=== PATIENT | female | born 1990 | race Caucasian/White ===

== ENCOUNTER 2023-06-30 10:50 | Day surgery (SDC) | payer OTHER, SELFPAY ==
[2023-06-30] VITALS (11 sets, daily range): BP systolic 104–136; BP diastolic 58–87; PULSE 59–80; RESP 14–16; TEMP 36.2–36.6; O2SAT 84–98; BMI 39.3
[2023-06-30] MEDS: LACTATED RINGERS 1000 ML 1,000 ML 100 ML IV (11:24)
--- NOTE | 2023-06-30 11:35 | W.PM.H&PU ---
History & Physical Update History & Physical Update H&P Reviewed and patient assessed: No changes noted
--- NOTE | 2023-06-30 11:39 | P.GSOP_ITS ---
Operative Note Date of procedure: 06/30/23 Pre-op diagnosis: 1. Changing left facial skin lesion. Post-op diagnosis: Same Type of Procedure: 1. Excision of left facial skin lesion. Indications: 33-year-old female was seen in clinic for evaluation of a left facial skin nevus that was present for several years. However most recently the nevus started to change in shape and color. Patient was concerned that this was becoming cancers, and presented to clinic for evaluation and treatment. On clinical exam and the left face adjacent to the left nasal labial fold there was a flesh- colored pedunculated skin lesion with a few dark brown spots. The lesion was slightly irregular medially and was measuring approximately 1 x 0.8 cm. Given the changing nature of this facial lesion and the location of the face, excision in the operating room was recommended. The procedure was discussed in detail. The risks associated procedure including infection, bleeding, and the need for additional procedures were all discussed with the patient, and she agreed to proceed. Procedure Description: After discussing the risks and benefits of the procedure, the patient signed informed consent.? The operative site was marked and the patient was brought to the operating room and placed on the operating table in supine position.? Care was taken to pad the patient's pressure points.?? The patient was then intubated by anesthesia.?? The operative site was then prepped and draped in the usual sterile fashion.? A time-out was then performed. A crescent shaped surgical incision was made with a scalpel around the left facial skin lesion adjacent to the nasolabial fold. The ellipse of skin containing the changing skin lesion was excised with a scalpel. It was marked with a single stitch superior and double lateral and sent to pathology. The ellipse of skin containing the skin lesion was measuring 2.5 x 1 cm. The changing skin lesion itself was measuring 1.4 x 1 cm and had a 1 mm in diameter adjacent daughter lesion inferior laterally. Both lesions were removed. Hemostasis achieved with cautery. Local anesthetic was injected at the surgical site. The dermis was then reapproximated with interrupted 3-0 Vicryl sutures. The skin was closed with a running 4-0 Monocryl stitch. Steri-Strips were applied over the incision. Pressure was held for hemostasis. All counts were correct at the end of the case. ? The patient was then woken and transported to the recovery area in stable condition. ? Findings: Semi pedunculated left facial skin lesion was excised. Anesthesia: GETA Surgeon: Kenn Montoya MD Estimated blood loss (mL): 2 Additional Specimen Information: 1. Left facial lesion. Condition: stable Disposition: PACU
[2023-06-30] MEDS: CLINDAMYCIN 900 MG/50 ML-D5W 900 MG/50 ML PIGGYBACK 100 MG IVPB (11:57)
[2023-06-30] MEDS: BUPIVACAINE 0.25% 30 ML INJECTION (12:10)
--- NOTE | 2023-06-30 12:11 | W.ANESCHARGE ---
Anesthesia Charges Start Date/Time Anesthesia Start Date: 06/30/23 Anesthesia Start Time: 11:38 Stop Date/Time Anesthesia Stop Date: 06/30/23 Anesthesia Stop Time: 12:44
--- NOTE | 2023-06-30 12:17 | SUR.OPER ---
PATIENT QUESTIONS ANSWERED SATISFACTORILY PREOPERATIVELY. PATIENT BROUGHT TO OR #2 PER CART. Patient positioned supine on OR #2 bed. The perioperative team supported arms bilaterally on arm boards. Final approval of positioning by surgeon.
--- NOTE | 2023-06-30 12:39 | W.ANESCHARGE ---
Anesthesia Charges Start Date/Time Anesthesia Start Date: 06/30/23 Anesthesia Start Time: 11:38 Stop Date/Time Anesthesia Stop Date: 06/30/23 Anesthesia Stop Time: 12:44
--- NOTE | 2023-06-30 13:57 | SUR.PHASEII ---
Patients oxygen level falls when sleeping. Instructed to use CPAP as soon as she gets home. She states that she understands and will use it.
--- NOTE | 2023-06-30 14:00 | SUR.PHASEII ---
I will send home a few 2x2s for dabbing a small amount of drainage as needed.
== END 2023-06-30 14:22 | disposition home or self-care (01) ==
PROVIDERS: Visit Provider Surgery
PROC: (CPT 11443; principal; 2023-06-30 12:00)
DX: D22.39 Melanocytic nevi of other parts of face (principal)
CPT/HCPCS: 11443; 12051; 00300; 88305; J0330; J0665; J0736; J1100; J2405; J2704; J3010; J7120

== ENCOUNTER 2023-08-02 13:52 | Outpatient (CLI) | payer OTHER, SELFPAY | END 2023-08-02 13:53 | disposition home or self-care (01) | LOC: NFLDREF 13:53 | PROVIDERS: Visit Provider Internal Medicine | DX: E03.9 Hypothyroidism, unspecified (principal) | CPT/HCPCS: 84443 ==

== ENCOUNTER 2023-10-12 21:27 | Inpatient (IN) | payer OTHER, SELFPAY ==
[2023-10-12 21:35] VITALS: BP 132/70; PULSE 120; RESP 18; TEMP 37.1; O2SAT 95; BMI 38.1
--- NOTE | 2023-10-12 22:32 | ED.SOB ---
HPI - SOB/Dyspnea General Time Seen by Provider: 22:32 <Angelica Mata MD - Last Filed: 10/14/23 00:51> Date Seen: 10/12/23 <Angelica Mata MD - Last Filed: 10/14/23 00:51> Chief Complaint: Shortness of Breath/Dyspnea <Angelica Mata MD - Last Filed: 10/14/23 00:51> Stated Complaint: left flank pain, fever <Angelica Mata MD - Last Filed: 10/14/23 00:51> Time Seen by Provider: 10/12/23 22:32 <Angelica Mata MD - Last Filed: 10/14/23 00:51> Source: patient, RN notes reviewed and old records reviewed <Angelica Mata MD - Last Filed: 10/14/23 00:51> Mode of arrival: ambulatory <Angelica Mata MD - Last Filed: 10/14/23 00:51> Limitations: no limitations <Angelica Mata MD - Last Filed: 10/14/23 00:51> History of Present Illness HPI Narrative: Patient is a very pleasant 33-year-old female with history of IBS intermittent diarrhea versus constipation, PE not currently on anticoagulation, asthma who comes to the emergency room for evaluation of shortness of breath as well as abdominal pain. Patient notes the onset of shortness of breath that did not get better with a rescue inhaler approximately 48 hours ago on TuesdayOctober 09. There really has been no cough or cold-like symptoms with this but patient has felt feverish although she did not take her temperature. She states that family members do have cold symptoms. However, she denies sore throat runny nose or a cough. She denies lower extremity edema. Patient also notes that she is feeling like she has some chest tightness. She states that last evening she had an episode where she suddenly felt very weak. Mona also notes the onset of left upper quadrant discomfort Tuesday evening the and Tuesday morning the . She states that she has not had a bowel movement in 4 days but this is not unusual for her. Tonight she also has discomfort in her right lower quadrant. She is passing a small amount of gas. She has tried Edis and Gatorade as well as drinking water. She and her family had gone camping yesterday morning and returned today. She felt that maybe her abdominal pain had improved somewhat. 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 <Angelica Mata MD - Last Filed: 10/14/23 00:51> Related Data Home Medications: Home Medications ?Medication ?Instructions ?Recorded ?Confirmed buspirone 10 mg tablet 10 mg PO BID 06/29/23 06/29/23 escitalopram oxalate 10 mg tablet 10 mg PO QDAY 06/29/23 10/13/23 (Lexapro) folic acid 1 mg tablet 1 mg PO QDAY 06/29/23 10/13/23 Previous Rx's ?Medication ?Instructions ?Recorded levothyroxine 175 mcg tablet 175 mcg PO QDAY #90 tabs 08/03/23 <Angelica Mata MD - Last Filed: 10/14/23 00:51> Allergies/Adverse Reactions: Allergies Allergy/AdvReac Type Severity Reaction Status Date / Time cefaclor Allergy Intermediate Hives Verified 10/13/23 01:53 menthol [From Icy Hot] Allergy Mild Rash Verified 10/13/23 01:53 methyl salicylate Allergy Mild Rash Verified 10/13/23 01:53 [From Icy Hot] <Angelica Mata MD - Last Filed: 10/14/23 00:51> Review of Systems Status of ROS: Reports: 10 or more systems reviewed and unremarkable except as noted in History and below <Angelica Mata MD - Last Filed: 10/14/23 00:51> Const: Reports: fever (Subjective) and fatigue; Denies: chills <Angelica Mata MD - Last Filed: 10/14/23 00:51> Eyes: Denies: change in vision <Angelica Mata MD - Last Filed: 10/14/23 00:51> ENMT: Denies: throat pain, neck pain, nasal discharge or nasal congestion <Angelica Mata MD - Last Filed: 10/14/23 00:51> Cardio: Reports: chest pain (Described as a central pressure) and shortness of breath with exertion; Denies: edema, swelling of feet/ankles or leg pain with exertion <Angelica Mata MD - Last Filed: 10/14/23 00:51> Resp: Reports: shortness of breath; Denies: cough, wheezing or stridor <Angelica Mata MD - Last Filed: 10/14/23 00:51> GI: Reports: abdominal pain (Left upper quadrant), nausea and constipation; Denies: vomiting or blood in stool <Angelica Mata MD - Last Filed: 10/14/23 00:51> : Denies: painful urination or urinary frequency <Angelica Mata MD - Last Filed: 10/14/23 00:51> Musculo: Denies: back pain, neck pain, extremity pain or extremity swelling <Angelica Mata MD - Last Filed: 10/14/23 00:51> Integ/Breast: Denies: rash <Angelica Mata MD - Last Filed: 10/14/23 00:51> Neuro: Denies: headache <Angelica Mata MD - Last Filed: 10/14/23 00:51> Endo: Reports: fatigue <Angelica Mata MD - Last Filed: 10/14/23 00:51> Allergy/Immuno: Denies: wheezing <Angelica Mata MD - Last Filed: 10/14/23 00:51> [facility] Medical History: Medical History Hypercoagulable state ?D68.59 - Other primary thrombophilia (ICD-10) <Angelica Mata MD - Last Filed: 10/14/23 00:51> Social History: Social History Narrative: Patient denies smoking, rarely drinks alcohol. She works as a nurse at [employer]. What is your current living situation?: I presently have a place to live Problems where you live: no known problems Problems where you live details: NA In the past 12 months, utilities in danger of being shut off: no In past 12 months, lack of transportation kept you from medical appts, meetings, work, or getting things needed for daily living: no In the past 12 mos, have been you worried that your food would run out before you had money to buy more?: never true In the past 12 mos, the food you bought just didn't last and you didn't have money to buy more?: never true Highest level of school completed/degree received: Associate degree: occupational, technical, vocational program Smoking Status: Former smoker How often do you have a drink containing alcohol: never AUDIT-C Alcohol total score: 0 Non-prescribed substance use: denies use Caffeine: Yes How often does anyone, including family, friends and others, physically hurt you: never How often does anyone, including family, friends and others, insult or talk down to you: never How often does anyone, including family, friends and others, threaten you with harm: never How often does anyone, including family, friends and others, scream or curse at you: never service: No <Angelica Mata MD - Last Filed: 10/14/23 00:51> Exam Narrative: Exam Narrative: Patient is alert and oriented. Nontoxic in appearance. EOM is full face is symmetrical. Heart with tachycardic rate but normal rhythm. Lungs are clear bilaterally but breath sounds are distant in the bases. Abdomen is obese soft with tenderness noted in the right lower quadrant. Lower extremities without edema. Calves are without discomfort and Homans sign is negative. <Angelica Mata MD - Last Filed: 10/14/23 00:51> Const: Vital Signs, click to edit/add: Vital Signs - 24 hr 10/13/23 04:15 10/13/23 04:15 Temperature 98.2 F Pulse Rate [Left P ulse Oximeter] 82 Respiratory Rate 20 20 Blood Pressure [Ri ght Arm] 112/66 Pulse Oximetry 97 97 Oxygen Delivery Me thod Nasal Cannula Nasal Cannula Oxygen Flow Rate 2 2 <Angelica Mata MD - Last Filed: 10/14/23 00:51> Vital Signs, click to edit/add: Vital Signs - 24 hr 10/13/23 04:15 10/13/23 04:15 Temperature 98.2 F Pulse Rate [Left P ulse Oximeter] 82 Respiratory Rate 20 20 Blood Pressure [Ri ght Arm] 112/66 Pulse Oximetry 97 97 Oxygen Delivery Me thod Nasal Cannula Nasal Cannula Oxygen Flow Rate 2 2 <Vivian Hair MD - Last Filed: 10/18/23 01:53> Course Course ED Course: Differential diagnosis includes but is not limited to asthma flare, pneumonia, COVID, acute coronary disease, PE, anxiety, Also includes constipation, colitis, UTI, ureteral colic. IV will be placed and will check CBC, comprehensive panel, CRP, troponin, EKG, urinalysis, chest x-ray and abdominal x-ray flat plate and upright. <Angelica Mata MD - Last Filed: 10/14/23 00:51> Reevaluation(s) Reevaluation #1: O2 sats noted to be 89% at rest. No improvement after DuoNeb. DuoNeb done after she troponin negative. However, D-dimer has come back elevated at greater than 6 and thus we will do PE study chest protocol as well as abdomen and pelvis. <Angelica Mata MD - Last Filed: 10/14/23 00:51> Reevaluation #2: CT of the chest does not show any obvious PE did does show a small left-sided pleural effusion <Angelica Mata MD - Last Filed: 10/14/23 00:51> Time of Reevaluation #3: 03:45 <Vivian Hair MD - Last Filed: 10/18/23 01:53> Reevaluation #3: Dr. Hair- preliminary ultrasound results reviewed, spleen images consistent with infarct, not hemorrhage or laceration. Lower extremities negative for DVT. Will start heparin load per hospitalist request and typical protocol for infusion. Okay to moved to medical unit per Dr. Wall's previous plan <Vivian Hair MD - Last Filed: 10/18/23 01:53> Vital Signs Vital signs: Initial Vital Signs Temperature 98.8 F 10/12/23 21:35 Temperature Source Temporal Artery Scan 10/12/23 21:35 Pulse Rate 120 H 10/12/23 21:35 Pulse Rhythm Regular 10/12/23 21:35 Respiratory Rate 18 10/12/23 21:35 Blood Pressure 132/70 10/12/23 21:35 Blood Pressure Mean 90 10/12/23 21:35 Blood Pressure Position Sitting 10/12/23 21:35 Pulse Oximetry 95 10/12/23 21:35 Oxygen Delivery Method Room Air 10/12/23 21:35 Vital Signs Temperature 98.8 F 10/12/23 21:35 Pulse Rate 120 H 10/12/23 21:35 Respiratory Rate 18 10/12/23 21:35 Blood Pressure 132/70 10/12/23 21:35 Pulse Oximetry 95 10/12/23 21:35 Oxygen Delivery Method Room Air 10/12/23 21:35 Temperature 99.8 F H 10/14/23 03:00 Pulse Rate 102 H 10/14/23 03:00 Respiratory Rate 18 10/14/23 03:00 Blood Pressure 111/59 L 10/14/23 03:00 Pulse Oximetry 97 10/14/23 03:00 Oxygen Delivery Method Nasal Cannula 10/14/23 03:00 Oxygen Flow Rate 4 10/13/23 22:40 <Angelica Mata MD - Last Filed: 10/14/23 00:51> Initial Vital Signs Temperature 98.8 F 10/12/23 21:35 Temperature Source Temporal Artery Scan 10/12/23 21:35 Pulse Rate 120 H 10/12/23 21:35 Pulse Rhythm Regular 10/12/23 21:35 Respiratory Rate 18 10/12/23 21:35 Blood Pressure 132/70 10/12/23 21:35 Blood Pressure Mean 90 10/12/23 21:35 Blood Pressure Position Sitting 10/12/23 21:35 Pulse Oximetry 95 10/12/23 21:35 Oxygen Delivery Method Room Air 10/12/23 21:35 Vital Signs Temperature 98.8 F 10/12/23 21:35 Pulse Rate 120 H 10/12/23 21:35 Respiratory Rate 18 10/12/23 21:35 Blood Pressure 132/70 10/12/23 21:35 Pulse Oximetry 95 10/12/23 21:35 Oxygen Delivery Method Room Air 10/12/23 21:35 Temperature 99.8 F H 10/14/23 03:00 Pulse Rate 102 H 10/14/23 03:00 Respiratory Rate 18 10/14/23 03:00 Blood Pressure 111/59 L 10/14/23 03:00 Pulse Oximetry 97 10/14/23 03:00 Oxygen Delivery Method Nasal Cannula 10/14/23 03:00 Oxygen Flow Rate 4 10/13/23 22:40 <Vivian Hair MD - Last Filed: 10/18/23 01:53> Medications Administered Medications: Discontinued Medications Generic Name Dose Route Start Last Admin Trade Name Freq PRN Reason Stop Dose Admin Acetaminophen 650 mg 10/13/23 05:57 10/14/23 00:19 Acetaminophen 325 Mg Tablet PO 650 mg Q6H PRN Administration Pain Albuterol/Ipratropium 1 neb 10/13/23 00:28 10/12/23 23:30 Iprat-Albut 0.5-2.5 Mg/3 Ml Neb IH 10/13/23 00:29 1 neb ONCE ONE Administration Bisacodyl 10 mg 10/13/23 12:28 10/13/23 13:01 Bisacodyl 10 Mg Supp.Rect AL 10/13/23 12:29 10 mg ONCE ONE Administration Heparin Sodium (Porcine) 4,000 unit 10/13/23 03:44 10/13/23 04:00 Heparin 5,000 Unit/0.5 Ml Inj IVP 10/13/23 03:45 4,000 unit ONCE ONE Administration Hydromorphone HCl 0.5 mg 10/13/23 02:28 10/13/23 02:45 Hydromorphone 0.5 Mg/0.5 Ml Inj IVP 10/13/23 02:29 0.5 mg ONCE ONE Administration Hydromorphone HCl 0.5 - 1 mg 10/13/23 05:57 10/13/23 14:48 Hydromorphone 0.5 Mg/0.5 Ml Inj IVP 1 mg Q1H PRN Administration Pain Sodium Chloride 500 mls @ 500 mls/hr 10/12/23 22:43 10/13/23 00:10 0.9 % Sodium Chloride 500 Ml IV 10/12/23 23:42 Infused .Q1H ONE Infusion Heparin Sodium/Dextrose 25,000 unit in 500 mls @ 0 mls/hr 10/13/23 03:44 10/13/23 11:16 Heparin IV 0 unit/hr .Q0M ANDREW 0 mls/hr Infusion Per Protocol Lactated Ringer's 500 mls @ 500 mls/hr 10/13/23 20:27 10/13/23 22:13 Lactated Ringers 500 Ml IV 10/13/23 21:26 Infused .Q1H ONE Infusion Sodium Chloride 1,000 mls @ 125 mls/hr 10/14/23 00:15 10/14/23 00:20 0.9 % Sodium Chloride 1000 Ml IV 125 mls/hr .Q8H ANDREW Administration Ketorolac Tromethamine 15 mg 10/12/23 22:43 10/12/23 23:11 Ketorolac 15 Mg/Ml Inj IVP 10/12/23 22:44 15 mg ONCE ONE Administration Lorazepam 1 mg 10/13/23 14:54 10/13/23 16:02 Lorazepam 1 Mg Tablet PO 10/13/23 14:55 Not Given ONCE ONE Ondansetron HCl 4 mg 10/13/23 02:28 10/13/23 03:01 Ondansetron 2 Mg/Ml Inj IVP 10/13/23 02:29 4 mg ONCE ONE Administration Sodium Chloride 5 ml 10/13/23 05:57 10/13/23 14:49 Sodium Chloride 0.9 % (Flush) 10 Ml Syringe IVF 5 ml .FLUSH PRN Administration Sodium Chloride 5 ml 10/13/23 09:00 10/13/23 20:54 Sodium Chloride 0.9 % (Flush) 10 Ml Syringe IVF 5 ml BID ANDREW Administration <Angelica Mata MD - Last Filed: 10/14/23 00:51> Discontinued Medications Generic Name Dose Route Start Last Admin Trade Name Freq PRN Reason Stop Dose Admin Acetaminophen 650 mg 10/13/23 05:57 10/14/23 00:19 Acetaminophen 325 Mg Tablet PO 650 mg Q6H PRN Administration Pain Albuterol/Ipratropium 1 neb 10/13/23 00:28 10/12/23 23:30 Iprat-Albut 0.5-2.5 Mg/3 Ml Neb IH 10/13/23 00:29 1 neb ONCE ONE Administration Bisacodyl 10 mg 10/13/23 12:28 10/13/23 13:01 Bisacodyl 10 Mg Supp.Rect AL 10/13/23 12:29 10 mg ONCE ONE Administration Heparin Sodium (Porcine) 4,000 unit 10/13/23 03:44 10/13/23 04:00 Heparin 5,000 Unit/0.5 Ml Inj IVP 10/13/23 03:45 4,000 unit ONCE ONE Administration Hydromorphone HCl 0.5 mg 10/13/23 02:28 10/13/23 02:45 Hydromorphone 0.5 Mg/0.5 Ml Inj IVP 10/13/23 02:29 0.5 mg ONCE ONE Administration Hydromorphone HCl 0.5 - 1 mg 10/13/23 05:57 10/13/23 14:48 Hydromorphone 0.5 Mg/0.5 Ml Inj IVP 1 mg Q1H PRN Administration Pain Sodium Chloride 500 mls @ 500 mls/hr 10/12/23 22:43 10/13/23 00:10 0.9 % Sodium Chloride 500 Ml IV 10/12/23 23:42 Infused .Q1H ONE Infusion Heparin Sodium/Dextrose 25,000 unit in 500 mls @ 0 mls/hr 10/13/23 03:44 10/13/23 11:16 Heparin IV 0 unit/hr .Q0M ANDREW 0 mls/hr Infusion Per Protocol Lactated Ringer's 500 mls @ 500 mls/hr 10/13/23 20:27 10/13/23 22:13 Lactated Ringers 500 Ml IV 10/13/23 21:26 Infused .Q1H ONE Infusion Sodium Chloride 1,000 mls @ 125 mls/hr 10/14/23 00:15 10/14/23 00:20 0.9 % Sodium Chloride 1000 Ml IV 125 mls/hr .Q8H ANDREW Administration Ketorolac Tromethamine 15 mg 10/12/23 22:43 10/12/23 23:11 Ketorolac 15 Mg/Ml Inj IVP 10/12/23 22:44 15 mg ONCE ONE Administration Lorazepam 1 mg 10/13/23 14:54 10/13/23 16:02 Lorazepam 1 Mg Tablet PO 10/13/23 14:55 Not Given ONCE ONE Ondansetron HCl 4 mg 10/13/23 02:28 10/13/23 03:01 Ondansetron 2 Mg/Ml Inj IVP 10/13/23 02:29 4 mg ONCE ONE Administration Sodium Chloride 5 ml 10/13/23 05:57 10/13/23 14:49 Sodium Chloride 0.9 % (Flush) 10 Ml Syringe IVF 5 ml .FLUSH PRN Administration Sodium Chloride 5 ml 10/13/23 09:00 10/13/23 20:54 Sodium Chloride 0.9 % (Flush) 10 Ml Syringe IVF 5 ml BID ANDREW Administration <Vivian Hair MD - Last Filed: 10/18/23 01:53> MDM - SOB/Dyspnea MDM Narrative Medical decision making narrative: 1. Suspected PE-well CT is negative patient has been tachycardic with mild hypoxia. She notes 2 previous episodes of PE 1 associated with control and 1 when she was . She has not been on blood thinners since she had been on Eliquis after her phase in 2020 after brief use for a minor surgery two months ago. She notes that during that time she had been on Lovenox while and had only missed 1 dose after she delivered. She states that she is negative for factor 5. I do ask about factor 2, protein CS abnormalities but she does not know the answer to that. I do not have that information available in her chart at this time. I have spoken with hospitalist on-call at this time and initially we spoke of using eliquis but instead will use heparin after we confirm that the splenic infarcts are indeed that and not hemorrhagic and subsequent to trauma, 2. 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 Radiologist notes possibility that this may represent splenic hemorrhage with laceration. Patient adamantly denies any trauma. States that she does have 4-year-old children that jump on her but cannot recall any injury. No evidence of ecchymosis or any trauma on abdomen. Also denies any spousal abuse. Given the fact that we will be starting a blood thinner I have spoken with ultrasound of who will be doing evaluation to ensure that indeed this is not active bleeding. If this is negative in it does appear to be infarcts will start heparin bolus and drip per hospitalist request. 3. Abdominal pain-patient also has increasing abdominal pain but no evidence of bowel ischemia on CT. Have added lactate to lab values. Patient notes that she cannot take morphine as it makes her feel feel bad. She can take Dilaudid we will give her Dilaudid 0.5 mg and Zofran 4 mg at this time. This most likely repeat represents constipation as she has not had a bowel movement 4 days. She states this is not unusual for her. She has already taken Senokot at home. Have offered her enema or glycerin suppository here but she declines at this time. 4. Disposition-admit for observation under the care of Dr. Alex Fofana hospitalist. At this time, holding on move to the floor while awaiting US. Signed pend US and subsequent disposition to my partner, Dr Hair. <Angelica Mata MD - Last Filed: 10/14/23 00:51> Medical Records Attestation: I reviewed the patient's medical records. <Angelica Mata MD - Last Filed: 10/14/23 00:51> Lab Data Attestation: I reviewed the patient's lab results. <Angelica Mata MD - Last Filed: 10/14/23 00:51> Labs: Lab Results 10/12/23 10/12/23 10/12/23 Range/Units 22:43 22:50 23:05 WBC 5.56 (4.50-11.00) K/uL RBC 4.37 (4.00-5.20) m/uL Hgb 11.6 L (12.0-16.0) gm/dL Hct 38.1 (33.0-51.0) % MCV 87 (80-100) fL MCH 27 (26-34) pg MCHC 30 L (32-36) gm/dL RDW Coeff of Gregg 17.1 H (11.5-15.5) % Plt Count 162 (140-440) K/uL Neut % (Auto) 41.8 L (42.0-72.0) % Lymph % (Auto) 47.3 H (20-44) % [place] % (Auto) 7.6 (0.0-11.0) % Eos % (Auto) 2.2 (0.0-7.0) % Baso % (Auto) 0.4 (0.0-3.0) % Neut # (Auto) 2.30 (1.7-7.0) K/uL Lymph # (Auto) 2.60 (0.90-2.90) K/uL [place] # (Auto) 0.40 (0.00-0.90) K/UL Eos # (Auto) 0.12 (0.00-0.50) K/uL Baso # (Auto) 0.02 (0.00-0.30) K/uL Abs Immat Gran (auto) 0.04 (0.00-0.30) K/uL Imm/Tot Granulo (auto) 0.7 % D-Dimer Quant (PE/DVT) 6.12 H (0.00-0.50) ug/ml Sodium 139 (135-149) mmol/L Potassium 3.4 L (3.6-5.1) mmol/L Chloride 105 (96-114) mmol/L Carbon Dioxide 27 (20-32) mmol/L Anion Gap 7 (7-15) mEq/L BUN 12 (5-24) mg/dL Creatinine 0.7 (0.5-1.5) mg/dL Estimated Creat Clear 92.79 Estimated GFR 116 ml/min Glucose 135 H (60-115) mg/dL Lactate (0.5-1.9) mmol/L Calcium 8.7 (8.4-10.6) mg/dL Total Bilirubin 0.8 (0.1-1.5) mg/dL AST 52 H (12-35) U/L ALT 50 H (4-35) U/L Alkaline Phosphatase 124 (40-150) U/L C-Reactive Protein 4.9 H (0.5-1.0) mg/dL Total Protein 6.8 (6.0-8.3) g/dL Albumin 3.6 (3.3-5.0) g/dL Urine Color Yellow (Yellow) Urine Appearance Slightly Cloudy A (Clear) Urine pH 6.0 (5.0-8.5) Ur Specific [place] 1.015 (1.000-1.030) Urine Protein Negative (Negative) Urine Glucose (UA) Negative (Negative) Urine Ketones Negative (Negative) Urine Blood Negative (Negative) Urine Nitrite Negative (Negative) Urine Bilirubin Negative (Negative) Urine Urobilinogen 2.0 A (0.2-1.0) Ur Leukocyte Esterase 1+ A (Negative) Urine RBC 0-2 (0-2) Urine WBC 2-5 (0-5) Ur Squamous Epith Cells Few (None-Few) Amorphous Sediment Few A (None) Urine Bacteria Moderate A (None) SARS-CoV-2 (PCR) Negative SARS-CoV-2 (Negative) Monoscreen Negative (Negative) Influenza Type A (PCR) Negative PCR FLU A (Negative) Influenza Type B (PCR) Negative PCR FLU B (Negative) RSV (PCR) Negative PCR RSV (Negative) Lab Acknowledgement POC Troponin I 0.00 L (0.01-0.04) ng/ml 10/13/23 10/13/23 Range/Units 02:10 02:30 WBC (4.50-11.00) K/uL RBC (4.00-5.20) m/uL Hgb (12.0-16.0) gm/dL Hct (33.0-51.0) % MCV (80-100) fL MCH (26-34) pg MCHC (32-36) gm/dL RDW Coeff of Gregg (11.5-15.5) % Plt Count (140-440) K/uL Neut % (Auto) (42.0-72.0) % Lymph % (Auto) (20-44) % [place] % (Auto) (0.0-11.0) % Eos % (Auto) (0.0-7.0) % Baso % (Auto) (0.0-3.0) % Neut # (Auto) (1.7-7.0) K/uL Lymph # (Auto) (0.90-2.90) K/uL [place] # (Auto) (0.00-0.90) K/UL Eos # (Auto) (0.00-0.50) K/uL Baso # (Auto) (0.00-0.30) K/uL Abs Immat Gran (auto) (0.00-0.30) K/uL Imm/Tot Granulo (auto) % D-Dimer Quant (PE/DVT) (0.00-0.50) ug/ml Sodium (135-149) mmol/L Potassium (3.6-5.1) mmol/L Chloride (96-114) mmol/L Carbon Dioxide (20-32) mmol/L Anion Gap (7-15) mEq/L BUN (5-24) mg/dL Creatinine (0.5-1.5) mg/dL Estimated Creat Clear Estimated GFR ml/min Glucose (60-115) mg/dL Lactate 0.4 L (0.5-1.9) mmol/L Calcium (8.4-10.6) mg/dL Total Bilirubin (0.1-1.5) mg/dL AST (12-35) U/L ALT (4-35) U/L Alkaline Phosphatase (40-150) U/L C-Reactive Protein (0.5-1.0) mg/dL Total Protein (6.0-8.3) g/dL Albumin (3.3-5.0) g/dL Urine Color (Yellow) Urine Appearance (Clear) Urine pH (5.0-8.5) Ur Specific [place] (1.000-1.030) Urine Protein (Negative) Urine Glucose (UA) (Negative) Urine Ketones (Negative) Urine Blood (Negative) Urine Nitrite (Negative) Urine Bilirubin (Negative) Urine Urobilinogen (0.2-1.0) Ur Leukocyte Esterase (Negative) Urine RBC (0-2) Urine WBC (0-5) Ur Squamous Epith Cells (None-Few) Amorphous Sediment (None) Urine Bacteria (None) SARS-CoV-2 (PCR) (Negative) Monoscreen (Negative) Influenza Type A (PCR) (Negative) Influenza Type B (PCR) (Negative) RSV (PCR) (Negative) Lab Acknowledgement New Spec Needed POC Troponin I (0.01-0.04) ng/ml <Angelica Mata MD - Last Filed: 10/14/23 00:51> Lab Results 10/12/23 10/12/23 10/12/23 Range/Units 22:43 22:50 23:05 WBC 5.56 (4.50-11.00) K/uL RBC 4.37 (4.00-5.20) m/uL Hgb 11.6 L (12.0-16.0) gm/dL Hct 38.1 (33.0-51.0) % MCV 87 (80-100) fL MCH 27 (26-34) pg MCHC 30 L (32-36) gm/dL RDW Coeff of Gregg 17.1 H (11.5-15.5) % Plt Count 162 (140-440) K/uL Neut % (Auto) 41.8 L (42.0-72.0) % Lymph % (Auto) 47.3 H (20-44) % [place] % (Auto) 7.6 (0.0-11.0) % Eos % (Auto) 2.2 (0.0-7.0) % Baso % (Auto) 0.4 (0.0-3.0) % Neut # (Auto) 2.30 (1.7-7.0) K/uL Lymph # (Auto) 2.60 (0.90-2.90) K/uL [place] # (Auto) 0.40 (0.00-0.90) K/UL Eos # (Auto) 0.12 (0.00-0.50) K/uL Baso # (Auto) 0.02 (0.00-0.30) K/uL Abs Immat Gran (auto) 0.04 (0.00-0.30) K/uL Imm/Tot Granulo (auto) 0.7 % D-Dimer Quant (PE/DVT) 6.12 H (0.00-0.50) ug/ml Sodium 139 (135-149) mmol/L Potassium 3.4 L (3.6-5.1) mmol/L Chloride 105 (96-114) mmol/L Carbon Dioxide 27 (20-32) mmol/L Anion Gap 7 (7-15) mEq/L BUN 12 (5-24) mg/dL Creatinine 0.7 (0.5-1.5) mg/dL Estimated Creat Clear 92.79 Estimated GFR 116 ml/min Glucose 135 H (60-115) mg/dL Lactate (0.5-1.9) mmol/L Calcium 8.7 (8.4-10.6) mg/dL Total Bilirubin 0.8 (0.1-1.5) mg/dL AST 52 H (12-35) U/L ALT 50 H (4-35) U/L Alkaline Phosphatase 124 (40-150) U/L C-Reactive Protein 4.9 H (0.5-1.0) mg/dL Total Protein 6.8 (6.0-8.3) g/dL Albumin 3.6 (3.3-5.0) g/dL Urine Color Yellow (Yellow) Urine Appearance Slightly Cloudy A (Clear) Urine pH 6.0 (5.0-8.5) Ur Specific [place] 1.015 (1.000-1.030) Urine Protein Negative (Negative) Urine Glucose (UA) Negative (Negative) Urine Ketones Negative (Negative) Urine Blood Negative (Negative) Urine Nitrite Negative (Negative) Urine Bilirubin Negative (Negative) Urine Urobilinogen 2.0 A (0.2-1.0) Ur Leukocyte Esterase 1+ A (Negative) Urine RBC 0-2 (0-2) Urine WBC 2-5 (0-5) Ur Squamous Epith Cells Few (None-Few) Amorphous Sediment Few A (None) Urine Bacteria Moderate A (None) SARS-CoV-2 (PCR) Negative SARS-CoV-2 (Negative) Monoscreen Negative (Negative) Influenza Type A (PCR) Negative PCR FLU A (Negative) Influenza Type B (PCR) Negative PCR FLU B (Negative) RSV (PCR) Negative PCR RSV (Negative) Lab Acknowledgement POC Troponin I 0.00 L (0.01-0.04) ng/ml 10/13/23 10/13/23 Range/Units 02:10 02:30 WBC (4.50-11.00) K/uL RBC (4.00-5.20) m/uL Hgb (12.0-16.0) gm/dL Hct (33.0-51.0) % MCV (80-100) fL MCH (26-34) pg MCHC (32-36) gm/dL RDW Coeff of Gregg (11.5-15.5) % Plt Count (140-440) K/uL Neut % (Auto) (42.0-72.0) % Lymph % (Auto) (20-44) % [place]wood % (Auto) (0.0-11.0) % Eos % (Auto) (0.0-7.0) % Baso % (Auto) (0.0-3.0) % Neut # (Auto) (1.7-7.0) K/uL Lymph # (Auto) (0.90-2.90) K/uL [place]wood # (Auto) (0.00-0.90) K/UL Eos # (Auto) (0.00-0.50) K/uL Baso # (Auto) (0.00-0.30) K/uL Abs Immat Gran (auto) (0.00-0.30) K/uL Imm/Tot Granulo (auto) % D-Dimer Quant (PE/DVT) (0.00-0.50) ug/ml Sodium (135-149) mmol/L Potassium (3.6-5.1) mmol/L Chloride (96-114) mmol/L Carbon Dioxide (20-32) mmol/L Anion Gap (7-15) mEq/L BUN (5-24) mg/dL Creatinine (0.5-1.5) mg/dL Estimated Creat Clear Estimated GFR ml/min Glucose (60-115) mg/dL Lactate 0.4 L (0.5-1.9) mmol/L Calcium (8.4-10.6) mg/dL Total Bilirubin (0.1-1.5) mg/dL AST (12-35) U/L ALT (4-35) U/L Alkaline Phosphatase (40-150) U/L C-Reactive Protein (0.5-1.0) mg/dL Total Protein (6.0-8.3) g/dL Albumin (3.3-5.0) g/dL Urine Color (Yellow) Urine Appearance (Clear) Urine pH (5.0-8.5) Ur Specific [place] (1.000-1.030) Urine Protein (Negative) Urine Glucose (UA) (Negative) Urine Ketones (Negative) Urine Blood (Negative) Urine Nitrite (Negative) Urine Bilirubin (Negative) Urine Urobilinogen (0.2-1.0) Ur Leukocyte Esterase (Negative) Urine RBC (0-2) Urine WBC (0-5) Ur Squamous Epith Cells (None-Few) Amorphous Sediment (None) Urine Bacteria (None) SARS-CoV-2 (PCR) (Negative) Monoscreen (Negative) Influenza Type A (PCR) (Negative) Influenza Type B (PCR) (Negative) RSV (PCR) (Negative) Lab Acknowledgement New Spec Needed POC Troponin I (0.01-0.04) ng/ml <Vivian Hair MD - Last Filed: 10/18/23 01:53> Imaging Data Chest x-ray: Attestation: I have reviewed the pertinent imaging results. <Angelica Mtaa MD - Last Filed: 10/14/23 00:51> Radiologist's impression: Allowing for low lung volumes, there is bibasilar atelectasis and possible mild cardiomegaly with no other acute cardiopulmonary process detected <Angelica Mata MD - Last Filed: 10/14/23 00:51> Abdominal x-ray: Attestation: I have reviewed the pertinent imaging results. <Angelica Mata MD - Last Filed: 10/14/23 00:51> Radiologist's impression: None Findings/Impression: Left basilar pulmonary atelectasis, no other acute radiographic abnormality appreciated. <Angelica Mata MD - Last Filed: 10/14/23 00:51> CT Chest/Ab/Pelvis: Attestation: I have reviewed the pertinent imaging results. <Angelica Mata MD - Last Filed: 10/14/23 00:51> Radiologist's impression: Pulmonary arteries: Respiratory motion degradation. No large central pulmonary embolism is appreciated. Lungs: Ylwy-hyipjda-rtvw-right basilar atelectasis with no organized consolidation or pneumothorax. Small left effusion. Mediastinum: No acute abnormality appreciated. Lymph nodes: No gross lymphadenopathy. Upper abdomen: Better assessed on dedicated CT of the abdomen and pelvis. Soft tissues: No acute abnormality appreciated. Bones: No acute abnormality appreciated. Impression: 1. Respiratory motion degradation. No large central pulmonary embolism is appreciated. 2. Ksna-rymdluq-oogp-right basilar atelectasis and small effusion. Lower chest: Better assessed on dedicated CT of the chest. Hepatobiliary: No significant parenchymal abnormality is appreciated. Spleen: Moderate to severe splenomegaly. There are peripheral wedge-shaped and linear hypodensities highly concerning for splenic infarct or contusion with splenic laceration. Pancreas: No acute abnormality appreciated. Adrenal glands: No acute abnormality appreciated. Kidneys: No significant parenchymal abnormality appreciated. No visualized calculi. No hydronephrosis. Bowel: No obstruction. No focal perienteric or pericolonic stranding is appreciated. The appendix is visualized and appears unremarkable. Vascular: No acute abnormality appreciated. Lymph nodes: No gross lymphadenopathy. Peritoneum: No free air. No free fluid. : No acute abnormality appreciated. IUD present. Soft tissues: No acute abnormality appreciated. Bones: No acute fracture. No lytic or blastic lesion. Impression: Moderate to severe splenomegaly with findings concerning for either splenic infarcts or splenic contusions and lacerations. Correlation for a recent history of trauma is recommended. No active extravasation, organized hematoma, or evidence of hemoperitoneum. No other acute abnormality appreciated. <Angelica Mata MD - Last Filed: 10/14/23 00:51> ECG Data Attestation: I personally reviewed and interpreted this ECG as follows: <Angelica Mata MD - Last Filed: 10/14/23 00:51> ECG interpretation date: 10/13/23 <Angelica Mata MD - Last Filed: 10/14/23 00:51> Interpretation: EKG by my read shows sinus tachycardia at a rate of 105. Occasional PAC noted. I do not note any acute ST or T-wave changes. Unfortunately no previous EKGs for comparison. <Angelica Mata MD - Last Filed: 10/14/23 00:51> Discharge Plan Discharge Condition: Guarded <Angelica Mata MD - Last Filed: 10/14/23 00:51> Oxygen: Yes <Angelica Mata MD - Last Filed: 10/14/23 00:51> Yes <Vivian Hair MD - Last Filed: 10/18/23 01:53> Oxygen Delivery Method: CPAP <Angelica Mata MD - Last Filed: 10/14/23 00:51> CPAP <Vivian Hair MD - Last Filed: 10/18/23 01:53> Oxygen Flow Rate: 5L bled in <Angelica Mata MD - Last Filed: 10/14/23 00:51> 5L bled in <Vivian Hair MD - Last Filed: 10/18/23 01:53> Urinary Catheter: No <Angelica Mata MD - Last Filed: 10/14/23 00:51> No <Vivian Hair MD - Last Filed: 10/18/23 01:53>
--- NOTE | 2023-10-12 22:43 | CRLHL7_ITS ---
For Patients: As a result of the Century Cures Act, medical imaging exams and procedure reports are released immediately into your electronic medical record. You may view this report before your referring provider. If you have questions, please contact your health care provider. Indication: Left upper quadrant pain Technique: Upright and supine views of the abdomen Comparison: None Findings/Impression: Left basilar pulmonary atelectasis, no other acute radiographic abnormality appreciated. Dictated by Dell Araujo MD @ 10/13/2023 1:02:11 AM (Electronically Signed)
--- NOTE | 2023-10-12 22:43 | CRLHL7_ITS ---
For Patients: As a result of the Cures Act, medical imaging exams and procedure reports are released immediately into your electronic medical record. You may view this report before your referring provider. If you have questions, please contact your health care provider. Indication: Shortness of breath Technique: Two views of the chest Comparison: None Findings/Impression: Allowing for low lung volumes, there is bibasilar atelectasis and possible mild cardiomegaly with no other acute cardiopulmonary process detected. Dictated by Dell Araujo MD @ 10/13/2023 1:02:40 AM (Electronically Signed)
[2023-10-12 23:06] LABS: Basophils Absolute Auto 0.02 K/uL (0.00-0.30); Basophils Percent Auto 0.4 % (0.0-3.0); Eosinophils Absolute Auto 0.12 K/uL (0.00-0.50); Eosinophils Percent Auto 2.2 % (0.0-7.0); Hematocrit 38.1 % (33.0-51.0); Hemoglobin* 11.6 gm/dL (12.0-16.0); Immature Granulocytes Abs Auto 0.04 K/uL (0.00-0.30); Immature Granulocytes Pct Auto 0.7 %; Lymphocytes Percent Auto 47.3 % (20-44); Mean Corpuscular HGB Conc 30 gm/dL (32-36); Mean Corpuscular Hemoglobin 27 pg (26-34); Mean Corpuscular Volume 87 fL (80-100); Monocytes Percent Auto 7.6 % (0.0-11.0); Neutrophils Percent Auto 41.8 % (42.0-72.0); Platelet Count* 162 K/uL (140-440); RDW Coefficient of Variation % 17.1 % (11.5-15.5); Red Blood Count 4.37 m/uL (4.00-5.20); White Blood Count* 5.56 K/uL (4.50-11.00)
[2023-10-12 23:08] LABS: Slide Review Reflex No
[2023-10-12] MEDS: 0.9 % SODIUM CHLORIDE 500 ML 500 ML IV (23:11)
[2023-10-12] MEDS: KETOROLAC 15 MG/ML inj IVP (23:11)
[2023-10-12 23:14] LABS: Appearance Urine Slightly Cloudy (Clear); Bilirubin Urine Negative (Negative); Blood Urine Negative (Negative); Color Urine Yellow (Yellow); Glucose Urine Negative (Negative); Ketones Urine Negative (Negative); Leukocyte Esterase Urine 1+ (Negative); Nitrite Urine Negative (Negative); Protein Urine Negative (Negative); Specific Gravity Urine 1.015 (1.000-1.030)
[2023-10-12 23:21] VITALS: PULSE 105; O2SAT 88
[2023-10-12 23:22] LABS: Albumin* 3.6 g/dL (3.3-5.0); Chloride* 105 mmol/L (96-114); Potassium* 3.4 mmol/L (3.6-5.1); Sodium* 139 mmol/L (135-149)
[2023-10-12 23:24] LABS: Creatinine* 0.7 mg/dL (0.5-1.5); Est. Creatinine Clearance* 92.79; Estimated Glomerular Filt Rate 116 ml/min
[2023-10-12 23:24] LABS: Amorphous Sediment Urine Few; Bacteria Urine Moderate; RBC Urine 0-2 (0-2); Squamous Epithelial Cell Urine Few (None-Few)
[2023-10-12 23:25] LABS: Alanine Aminotransferase* 50 U/L (4-35); Alkaline Phosphatase* 124 U/L (40-150); Anion Gap 7 mEq/L (7-15); Aspartate Amino Transferase* 52 U/L (12-35); Bilirubin Total* 0.8 mg/dL (0.1-1.5); Blood Urea Nitrogen* 12 mg/dL (5-24); Calcium* 8.7 mg/dL (8.4-10.6); Carbon Dioxide* 27 mmol/L (20-32); Glucose* 135 mg/dL (60-115); Total Protein* 6.8 g/dL (6.0-8.3)
[2023-10-12 23:30] VITALS: PULSE 95; O2SAT 93
[2023-10-12] MEDS: IPRAT-ALBUT 0.5-2.5 MG/3 ML NEB 1 NEB IH (23:30)
[2023-10-12 23:31] VITALS: BP 115/64; PULSE 98; O2SAT 94
[2023-10-12 23:39] LABS: D Dimer Quantitative* 6.12 ug/ml (0.00-0.50)
[2023-10-12 23:43] LABS: C Reactive Protein* 4.9 mg/dL (0.5-1.0)
[2023-10-12 23:45] VITALS: PULSE 106; O2SAT 90
--- NOTE | 2023-10-12 23:48 | CRLHL7_ITS ---
For Patients: As a result of the Century Cures Act, medical imaging exams and procedure reports are released immediately into your electronic medical record. You may view this report before your referring provider. If you have questions, please contact your health care provider. Indication: Elevated D-dimer, hypoxia, tachycardia, left-sided chest pain Technique: CTA of the chest following 99 mL Isovue 370 IV contrast. Comparison: Prior day chest radiograph Findings: Pulmonary arteries: Respiratory motion degradation. No large central pulmonary embolism is appreciated. Lungs: Djwl-ogbuyhs-imcz-right basilar atelectasis with no organized consolidation or pneumothorax. Small left effusion. Mediastinum: No acute abnormality appreciated. Lymph nodes: No gross lymphadenopathy. Upper abdomen: Better assessed on dedicated CT of the abdomen and pelvis. Soft tissues: No acute abnormality appreciated. Bones: No acute abnormality appreciated. Impression: 1. Respiratory motion degradation. No large central pulmonary embolism is appreciated. 2. Pylr-nnbzsbf-yhwz-right basilar atelectasis and small effusion. Please note that all CT scans at this facility use dose modulation, iterative reconstruction, and/or weight-based dosing when appropriate to reduce radiation dose to as low as reasonably achievable. Dictated by Dell Araujo MD @ 10/13/2023 1:34:32 AM (Electronically Signed)
--- NOTE | 2023-10-12 23:49 | CRLHL7_ITS ---
For Patients: As a result of the Century Cures Act, medical imaging exams and procedure reports are released immediately into your electronic medical record. You may view this report before your referring provider. If you have questions, please contact your health care provider. Indication: Left upper quadrant abdominal pain Technique: CT through the abdomen and pelvis following 99 mL Isovue 370 IV contrast Comparison: Prior day radiographs Findings: Lower chest: Better assessed on dedicated CT of the chest. Hepatobiliary: No significant parenchymal abnormality is appreciated. Spleen: Moderate to severe splenomegaly. There are peripheral wedge-shaped and linear hypodensities highly concerning for splenic infarct or contusion with splenic laceration. Pancreas: No acute abnormality appreciated. Adrenal glands: No acute abnormality appreciated. Kidneys: No significant parenchymal abnormality appreciated. No visualized calculi. No hydronephrosis. Bowel: No obstruction. No focal perienteric or pericolonic stranding is appreciated. The appendix is visualized and appears unremarkable. Vascular: No acute abnormality appreciated. Lymph nodes: No gross lymphadenopathy. Peritoneum: No free air. No free fluid. : No acute abnormality appreciated. IUD present. Soft tissues: No acute abnormality appreciated. Bones: No acute fracture. No lytic or blastic lesion. Impression: Moderate to severe splenomegaly with findings concerning for either splenic infarcts or splenic contusions and lacerations. Correlation for a recent history of trauma is recommended. No active extravasation, organized hematoma, or evidence of hemoperitoneum. No other acute abnormality appreciated. Please note that all CT scans at this facility use dose modulation, iterative reconstruction, and/or weight-based dosing when appropriate to reduce radiation dose to as low as reasonably achievable. Dictated by Dell Araujo MD @ 10/13/2023 1:37:13 AM (Electronically Signed)
[2023-10-13] VITALS (13 sets, daily range): BP systolic 111–121; BP diastolic 57–71; PULSE 82–135; RESP 18–24; TEMP 36.8–37.3; O2SAT 92–97; BMI 39.4
[2023-10-13 00:01] LABS: PCR FLU A Negative PCR FLU A (Negative); PCR FLU B Negative PCR FLU B (Negative); PCR RSV Negative PCR RSV (Negative); SARS PCR* Negative SARS-CoV-2 (Negative)
[2023-10-13 02:23] LABS: Lab Add On Test New Spec Needed
--- NOTE | 2023-10-13 02:25 | CRLHL7_ITS ---
For Patients: As a result of the Cures Act, medical imaging exams and procedure reports are released immediately into your electronic medical record. You may view this report before your referring provider. If you have questions, please contact your health care provider. Indication: Splenic infarct Technique: Sonographic evaluation of the spleen with color and grayscale imaging Comparison: Same day CT Findings: Splenomegaly. Multiple areas of hypoechoic parenchyma without vascularity compatible with splenic infarcts. Impression: Splenomegaly and splenic infarcts again demonstrated. Dictated by Dell Araujo MD @ 10/13/2023 3:58:57 AM (Electronically Signed)
--- NOTE | 2023-10-13 02:25 | CRLHL7_ITS ---
For Patients: As a result of the Century Cures Act, medical imaging exams and procedure reports are released immediately into your electronic medical record. You may view this report before your referring provider. If you have questions, please contact your health care provider. Indication: Elevated D-dimer, splenic infarct Technique: DVT ultrasound of the bilateral lower extremities. Grayscale and color Doppler imaging utilized. Compression and augmentation as clinically warranted. Comparison: None Findings: All vessels are grossly compressible without evidence of filling defect to suggest DVT. No superficial thrombosis appreciated. Soft tissues are unremarkable. Impression: No significant sonographic abnormality appreciated. Dictated by Dell Araujo MD @ 10/13/2023 4:00:28 AM (Electronically Signed)
[2023-10-13 02:28] LABS: Mono Screen* Negative (Negative)
[2023-10-13 02:37] LABS: Lactate* 0.4 mmol/L (0.5-1.9)
[2023-10-13] MEDS: HYDROmorphone 0.5 mg/0.5 ml inj IVP ×2 (02:45→14:48)
[2023-10-13] MEDS: ONDANSETRON 2 MG/ML inj 4 MG IVP (03:01)
[2023-10-13] MEDS: HEPARIN 5,000 UNIT/0.5 ML INJ 4000 UNIT IVP (04:00)
[2023-10-13] MEDS: HEPARIN 25,000 UNIT/500 ML BAG 20 UNIT IV (04:00)
[2023-10-13 04:18] LABS: Partial Thromboplastin Time* 34 Seconds (23-33)
--- NOTE | 2023-10-13 05:24 | W.PM.THH&P_ITS ---
Telehealth- H&P: HPI History of Present Illness Time Seen by Provider: 04:55 Date Seen: 10/13/23 Chief complaint: left flank pain, fever Narrative: Mona David is seen as an Interactive Telehealth visit. Mona Is a 33-year-old 1 para 1 female with history of prior pulmonary emboli x 2 (1 associated with and 1 associated with control pills and with negative hypercoagulable workup) not on anticoagulation, history of excessive capacity and polycystic ovarian disease, well-controlled asthma and well- controlled depression, hypothyroidism who presented to the ER last night complaining of several days of left upper quadrant pain and some shortness of breath. She was at her baseline until about 4 5 days ago when she started noticing discomfort in her left upper quadrant of her abdomen. It would come and go and vary in severity. Seem to have some positional component where certain positions it was more uncomfortable when laying on side for example. The last few days she has noticed that her little bit more short of breath as well. She had some subjective fevers. She was found in the emergency room by CAT scan to have splenomegaly with splenic infarcts. No evidence of pulmonary emboli but small amount of pleural effusions. Being admitted for further evaluation. She has no known history of heart murmur. There is no family history of hypercoagulable state. No cold symptoms. No history of arthritis. She does have some chronic ophthalmologic styes. She has had no unexplained weight loss. Appetites been good. She is amenorrheic for the last 2 years. No new rashes.Mona denies any abdominal trauma other than mild mild roughhousing with her children. Review of Systems Status of ROS: Reports: 10 or more systems reviewed and unremarkable except as noted in History and below [facility] Medical History Hypercoagulable state ?D68.59 - Other primary thrombophilia (ICD-10) Social History Narrative: Patient denies smoking, rarely drinks alcohol. She works as a nurse at [employer]. What is your current living situation?: I presently have a place to live Problems where you live: no known problems Problems where you live details: NA In the past 12 months, utilities in danger of being shut off: no In past 12 months, lack of transportation kept you from medical appts, meetings, work, or getting things needed for daily living: no In the past 12 mos, have been you worried that your food would run out before you had money to buy more?: never true In the past 12 mos, the food you bought just didn't last and you didn't have money to buy more?: never true Highest level of school completed/degree received: Associate degree: occupational, technical, vocational program Smoking Status: Former smoker How often do you have a drink containing alcohol: never AUDIT-C Alcohol total score: 0 Non-prescribed substance use: denies use Caffeine: Yes How often does anyone, including family, friends and others, physically hurt you : never How often does anyone, including family, friends and others, insult or talk down to you: never How often does anyone, including family, friends and others, threaten you with harm: never How often does anyone, including family, friends and others, scream or curse at you: never service: No Meds Home Medications and Allergies Home Medications ?Medication ?Instructions ?Recorded ?Confirmed ?Type buspirone 10 mg tablet 10 mg PO BID 06/29/23 06/29/23 History escitalopram oxalate 10 mg tablet 10 mg PO QDAY 06/29/23 06/29/23 History (Lexapro) folic acid 1 mg tablet 1 mg PO QDAY 06/29/23 06/29/23 History Allergies Allergy/AdvReac Type Severity Reaction Status Date / Time cefaclor Allergy Intermediate Hives Verified 10/13/23 01:53 menthol [From [employer]] Allergy Mild Rash Verified 10/13/23 01:53 methyl salicylate Allergy Mild Rash Verified 10/13/23 01:53 [From [employer]] Exam Narrative Exam Narrative: Physical Exam GENERAL: ?vital signs reviewed, well developed and nourished, in no distress HEENT: pupils are equal round and reactive to light, extraocular movements are grossly within normal limits and oral mucosa is moist.. She is awake alert o riented. Head is atraumatic. She has erythema of the eyelids bilaterally. Pupils are equal reactive to light. Smile symmetric. Oropharynx is moist no erythema noted NECK: Supple without lymphadenopathy or thyromegaly according to nursing staff examination observation HEART: Regular rate and rhythm without any rubs, murmurs, or gallops. LUNGS: Clear to auscultation bilaterally with good air movement throughout ABDOMEN: Observation from nurse assisted exam, abdomen appears soft, nontender, and nondistended with Positive bowel sounds noted.Abdomen is corpulent, bowel sounds normal, abdomen is soft. Positive left upper quadrant tenderness and mild tenderness in bilaterally in the suprapubic area. EXTREMITIES: Strength and sensation is observed to be grossly within normal limits in the upper and lower extremities.? No focal strength deficit is observed. SKIN:? Observed warm and dry with color normal. She has adipose prominence posteriorly in the upper thorax with some hyperpigmentation. No rashes seen good distal perfusion Const Vital Signs, click to edit/add: Vital Signs - 24 hr 10/12/23 21:35 10/12/23 23:21 10/12/23 23:30 Temperature 98.8 F Pulse Rate 105 H 95 Pulse Rate [Left Pulse Oximeter] 120 H Respiratory Rate 18 Blood Pressure Blood Pressure [Right Arm] Blood Pressure [Right Upper Arm] 132/70 Pulse Oximetry 95 88 93 Oxygen Delivery Method Room Air Room Air Nasal Cannula Oxygen Flow Rate 2 10/12/23 23:31 10/12/23 23:45 10/13/23 00:00 Temperature Pulse Rate 98 106 H 109 H Pulse Rate [Left Pulse Oximeter] Respiratory Rate Blood Pressure 115/64 Blood Pressure [Right Arm] Blood Pressure [Right Upper Arm] Pulse Oximetry 94 90 94 Oxygen Delivery Method Nasal Cannula Oxygen Flow Rate 2 10/13/23 00:02 10/13/23 00:02 10/13/23 00:02 Temperature Pulse Rate 108 H 108 H 108 H Pulse Rate [Left Pulse Oximeter] Respiratory Rate Blood Pressure 121/65 121/65 121/65 Blood Pressure [Right Arm] Blood Pressure [Right Upper Arm] Pulse Oximetry 93 93 93 Oxygen Delivery Method Oxygen Flow Rate 10/13/23 00:15 10/13/23 00:30 10/13/23 00:31 Temperature Pulse Rate 106 H 101 H 101 H Pulse Rate [Left Pulse Oximeter] Respiratory Rate Blood Pressure 117/68 Blood Pressure [Right Arm] Blood Pressure [Right Upper Arm] Pulse Oximetry 93 93 93 Oxygen Delivery Method Oxygen Flow Rate 10/13/23 04:15 Temperature 98.2 F Pulse Rate Pulse Rate [Left Pulse Oximeter] 82 Respiratory Rate 20 Blood Pressure Blood Pressure [Right Arm] 112/66 Blood Pressure [Right Upper Arm] Pulse Oximetry 97 Oxygen Delivery Method Nasal Cannula Oxygen Flow Rate 2 Hospitalist - H&P: Result Labs Labs: Short CBC 10/12/23 Range/Units 22:50 WBC 5.56 (4.50-11.00) K/uL Hgb 11.6 L (12.0-16.0) gm/dL Hct 38.1 (33.0-51.0) % Plt Count 162 (140-440) K/uL BMP Laboratory Results - last 24 hr 10/12/23 10/12/23 10/12/23 22:43 22:50 23:05 WBC 5.56 RBC 4.37 Hgb 11.6 L Hct 38.1 MCV 87 MCH 27 MCHC 30 L RDW Coeff of [place]gg 17.1 H Plt Count 162 Neut % (Auto) 41.8 L Lymph % (Auto) 47.3 H [place] % (Auto) 7.6 Eos % (Auto) 2.2 Baso % (Auto) 0.4 Neut # (Auto) 2.30 Lymph # (Auto) 2.60 [place] # (Auto) 0.40 Eos # (Auto) 0.12 Baso # (Auto) 0.02 Abs Immat Gran (auto) 0.04 Imm/Tot Granulo (auto) 0.7 APTT D-Dimer Quant (PE/DVT) 6.12 H Sodium 139 Potassium 3.4 L Chloride 105 Carbon Dioxide 27 Anion Gap 7 BUN 12 Creatinine 0.7 Estimated Creat Clear 92.79 Estimated GFR 116 Glucose 135 H Lactate Calcium 8.7 Total Bilirubin 0.8 AST 52 H ALT 50 H Alkaline Phosphatase 124 C-Reactive Protein 4.9 H Total Protein 6.8 Albumin 3.6 Urine Color Yellow Urine Appearance Slightly Cloudy A Urine pH 6.0 Ur Specific [place] 1.015 Urine Protein Negative Urine Glucose (UA) Negative Urine Ketones Negative Urine Blood Negative Urine Nitrite Negative Urine Bilirubin Negative Urine Urobilinogen 2.0 A Ur Leukocyte Esterase 1+ A Urine RBC 0-2 Urine WBC 2-5 Ur Squamous Epith Cells Few Amorphous Sediment Few A Urine Bacteria Moderate A SARS-CoV-2 (PCR) Negative SARS-CoV-2 Monoscreen Negative Influenza Type A (PCR) Negative PCR FLU A Influenza Type B (PCR) Negative PCR FLU B RSV (PCR) Negative PCR RSV Lab Acknowledgement POC Troponin I 0.00 L 10/13/23 10/13/23 10/13/23 02:10 02:30 Unknown WBC RBC Hgb Hct MCV MCH MCHC RDW Coeff of Gregg Plt Count Neut % (Auto) Lymph % (Auto) [place] % (Auto) Eos % (Auto) Baso % (Auto) Neut # (Auto) Lymph # (Auto) [place] # (Auto) Eos # (Auto) Baso # (Auto) Abs Immat Gran (auto) Imm/Tot Granulo (auto) APTT 34 H D-Dimer Quant (PE/DVT) Sodium Potassium Chloride Carbon Dioxide Anion Gap BUN Creatinine Estimated Creat Clear Estimated GFR Glucose Lactate 0.4 L Calcium Total Bilirubin AST ALT Alkaline Phosphatase C-Reactive Protein Total Protein Albumin Urine Color Urine Appearance Urine pH Ur Specific [place] Urine Protein Urine Glucose (UA) Urine Ketones Urine Blood Urine Nitrite Urine Bilirubin Urine Urobilinogen Ur Leukocyte Esterase Urine RBC Urine WBC Ur Squamous Epith Cells Amorphous Sediment Urine Bacteria SARS-CoV-2 (PCR) Monoscreen Influenza Type A (PCR) Influenza Type B (PCR) RSV (PCR) Lab Acknowledgement New Spec Needed POC Troponin I ECG Attestation: I personally reviewed and interpreted this ECG as follows: ECG interpretation date: 10/13/23 ECG interpretation time: 05:43 Interpretation: Sinus tachycardia 105 bpm, occasional PAC, no ischemic change, QT corrected 0.[address] wave flattening Imaging CT Chest/Ab/Pelvis: Attestation: I have reviewed the pertinent imaging results. Radiologist's impression: cta pe study 1. Respiratory motion degradation. No large central pulmonary embolism is appreciated. 2. Lwsb-mxqohjk-wgjd-right basilar atelectasis and small effusion. CT abd pelvis Impression: Moderate to severe splenomegaly with findings concerning for either splenic infarcts or splenic contusions and lacerations. Correlation for a recent history of trauma is recommended. No active extravasation, organized hematoma, or evidence of hemoperitoneum. No other acute abnormality appreciated. abd us Impression: Splenomegaly and splenic infarcts again demonstrated. VENOUS DUPLEX b LE negative for dvt Assessment and Plan Assessment and plan (1) Splenic infarct: Status: Acute (2) Splenomegaly: Status: Acute Plan 33-year-old with history of prior pulmonary emboli x 2, polycystic ovarian disease, depression, asthma who presents with left quadrant pain times several days and shortness of breath. Evaluation in the ER shows new diagnosis of s plenomegaly with splenic infarcts. No history of trauma. No evidence of pulmonary emboli. Differential is broad for her new diagnosis of splenomegaly. Consideration of Millicent-Hopkins virus or CMV virus could be considered. Other possibilities could be connective tissue disorders. There is no reason to suggest cirrhosis or hematologic causes at this time. Etiology of the infarct is most likely embolic given her history of prior pulmonary emboli. This would entail a right to left cardiac shunt. Plan 1. Anticoagulation with unfractionated heparin 2. Echocardiogram with buttock bubble study 3. Monospot 4. Drea and sed rate 5. Symptomatic pain control Total Time Spent Total Time Spent: 75 Telehealth: Statement Statement Telehealth Visit: Today's History and Physical is provided via interactive telehealth by Jairo Roca MD.? Patient is located at [facility].? Provider is located at [facility].? Nursing staff assisted with the patient's exam. The visit being done today meets criteria for a telehealth visit and the patient or patient?s parent/guardian is aware the visit is a telehealth visit. Camera Start Time: 04:55 Camera End Time: 05:23
--- NOTE | 2023-10-13 06:38 | PC.NURSE ---
End of shift report [id number]: Patient admitted to floor with infarcts in spleen, currently running heparin drip at 20ml/hr(1000u) per protocol. Alert and oriented x 4. Pain to left upper quadrant and bilateral lower abdomen reported at 2/10, denies need for pain medication. Denies any chest pain. SOB managed with oxygen. Lung sounds clear but diminished in left lower lobe. Abdomen tender to palpation. Denies any nausea at this time. Ambulates with SBA.
--- NOTE | 2023-10-13 08:24 | PM.IMPN1 ---
Subjective Date Seen: 10/13/23 Interval history: history of PE in the setting of oral contraceptives in 2012, resulting in treatment with warfarin for 3 months. She had been scheduled to be seen in [facility] but was unable to keep that appointment. Consequently, during her recent , she was placed on Lovenox. She delivered twins at 30 weeks on 05/05/2020. Patient was advised to continue on Lovenox after delivery but she missed couple of doses and developed chest pain and She presented to the ED on 06/05/2020 and was diagnosed acute bilateral pulmonary emboli. Patient was started on Xarelto. She was referred to the thrombophilia clinic again but she was not able to maintain her appointment. She continues to be on Xarelto with no issue. malignancy - MRCP, peripheral smear Autoimmune (SLE, RA, Sarcoid)- MARIANA, ESR pending Infectious - CRP, Procalcitonin, MRCP, viral hep panal, stool cultures Hemolytic anemia - coomb's test Heart failure - BNP Independent within her room. On a heparin drip. Uncomfortable with abdominal distension. Feels like she needs to have a BM. No fever. Good appetite. Some mild superficial bruising was noted on the abdomen, concerned by patient. 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 Alert and oriented x 4. Pain to left upper quadrant and bilateral lower abdomen reported at 2/10, denies need for pain medication. Denies any chest pain. SOB managed with oxygen. Lung sounds clear but diminished in left lower lobe. Abdomen tender to palpation. Denies any nausea at this time. Ambulates with SBA. No new labs drawn this morning. Admission labs reviewed. Notable findings: Hemoglobin of 11.6, checked again late morning of hospital day 211.4 Normal platelet, no white count Notable elevated D-dimer at admission Late morning 10/12 updated labs: Normal pH Mildly elevated pCO2 Chemistries reveal normal electrolytes, normal renal function. Her lactate is normal. There is a mild elevation in her LFTs. Inflammatory markers are pending. BNP is pending. Urine did not show signs of infection but interestingly had 2+ urobiligen. UC pending. MARIANA pending Negative mono screen Negative flu and RSV Hepatitis panel pending Negative COVID screen Admission EKG shows sinus tachycardia with occasional PACs Admission imaging all reviewed, this included chest x-ray, CTA of the chest, abdominal pelvic CT with contrast, abdominal ultrasound and venous duplex of the bilateral lower extremities. Notable findings Spleen: Moderate to severe splenomegaly. There are peripheral wedge-shaped and linear hypodensities highly concerning for splenic infarct or contusion with splenic laceration. Exam Const: Vital Signs, click to edit/add: Vital Signs - 24 hr 10/12/23 21:35 10/12/23 23:21 10/12/23 23:30 Temperature 98.8 F Pulse Rate 105 H 95 Pulse Rate [Left P ulse Oximeter] 120 H Respiratory Rate 18 Blood Pressure Blood Pressure [Ri ght Arm] Blood Pressure [Ri ght Upper Arm] 132/70 Pulse Oximetry 95 88 93 Oxygen Delivery Me thod Room Air Room Air Nasal Cannula Oxygen Flow Rate 2 10/12/23 23:31 10/12/23 23:45 10/13/23 00:00 Temperature Pulse Rate 98 106 H 109 H Pulse Rate [Left P ulse Oximeter] Respiratory Rate Blood Pressure 115/64 Blood Pressure [Ri ght Arm] Blood Pressure [Ri ght Upper Arm] Pulse Oximetry 94 90 94 Oxygen Delivery Me thod Nasal Cannula Oxygen Flow Rate 2 10/13/23 00:02 10/13/23 00:02 10/13/23 00:02 Temperature Pulse Rate 108 H 108 H 108 H Pulse Rate [Left P ulse Oximeter] Respiratory Rate Blood Pressure 121/65 121/65 121/65 Blood Pressure [Ri ght Arm] Blood Pressure [Ri ght Upper Arm] Pulse Oximetry 93 93 93 Oxygen Delivery Me thod Oxygen Flow Rate 10/13/23 00:15 10/13/23 00:30 10/13/23 00:31 Temperature Pulse Rate 106 H 101 H 101 H Pulse Rate [Left P ulse Oximeter] Respiratory Rate Blood Pressure 117/68 Blood Pressure [Ri ght Arm] Blood Pressure [Ri ght Upper Arm] Pulse Oximetry 93 93 93 Oxygen Delivery Me thod Oxygen Flow Rate 10/13/23 04:15 10/13/23 04:15 Temperature 98.2 F Pulse Rate Pulse Rate [Left P ulse Oximeter] 82 Respiratory Rate 20 20 Blood Pressure Blood Pressure [Ri ght Arm] 112/66 Blood Pressure [Ri ght Upper Arm] Pulse Oximetry 97 97 Oxygen Delivery Me thod Nasal Cannula Nasal Cannula Oxygen Flow Rate 2 2 Labs Labs: Laboratory Results - last 24 hr 10/12/23 10/12/23 10/12/23 22:43 22:50 23:05 WBC 5.56 RBC 4.37 Hgb 11.6 L Hct 38.1 MCV 87 MCH 27 MCHC 30 L RDW Coeff of Gregg 17.1 H Plt Count 162 Neut % (Auto) 41.8 L Lymph % (Auto) 47.3 H [place] % (Auto) 7.6 Eos % (Auto) 2.2 Baso % (Auto) 0.4 Neut # (Auto) 2.30 Lymph # (Auto) 2.60 [place] # (Auto) 0.40 Eos # (Auto) 0.12 Baso # (Auto) 0.02 Abs Immat Gran (auto) 0.04 Imm/Tot Granulo (auto) 0.7 APTT D-Dimer Quant (PE/DVT) 6.12 H Sodium 139 Potassium 3.4 L Chloride 105 Carbon Dioxide 27 Anion Gap 7 BUN 12 Creatinine 0.7 Estimated Creat Clear 92.79 Estimated GFR 116 Glucose 135 H Lactate Calcium 8.7 Total Bilirubin 0.8 AST 52 H ALT 50 H Alkaline Phosphatase 124 C-Reactive Protein 4.9 H Total Protein 6.8 Albumin 3.6 Urine Color Yellow Urine Appearance Slightly Cloudy A Urine pH 6.0 Ur Specific [place] 1.015 Urine Protein Negative Urine Glucose (UA) Negative Urine Ketones Negative Urine Blood Negative Urine Nitrite Negative Urine Bilirubin Negative Urine Urobilinogen 2.0 A Ur Leukocyte Esterase 1+ A Urine RBC 0-2 Urine WBC 2-5 Ur Squamous Epith Cells Few Amorphous Sediment Few A Urine Bacteria Moderate A SARS-CoV-2 (PCR) Negative SARS-CoV-2 Monoscreen Negative Influenza Type A (PCR) Negative PCR FLU A Influenza Type B (PCR) Negative PCR FLU B RSV (PCR) Negative PCR RSV Lab Acknowledgement POC Troponin I 0.00 L 10/13/23 10/13/23 10/13/23 02:10 02:30 Unknown WBC RBC Hgb Hct MCV MCH MCHC RDW Coeff of Gregg Plt Count Neut % (Auto) Lymph % (Auto) [place] % (Auto) Eos % (Auto) Baso % (Auto) Neut # (Auto) Lymph # (Auto) [place] # (Auto) Eos # (Auto) Baso # (Auto) Abs Immat Gran (auto) Imm/Tot Granulo (auto) APTT 34 H D-Dimer Quant (PE/DVT) Sodium Potassium Chloride Carbon Dioxide Anion Gap BUN Creatinine Estimated Creat Clear Estimated GFR Glucose Lactate 0.4 L Calcium Total Bilirubin AST ALT Alkaline Phosphatase C-Reactive Protein Total Protein Albumin Urine Color Urine Appearance Urine pH Ur Specific [place] Urine Protein Urine Glucose (UA) Urine Ketones Urine Blood Urine Nitrite Urine Bilirubin Urine Urobilinogen Ur Leukocyte Esterase Urine RBC Urine WBC Ur Squamous Epith Cells Amorphous Sediment Urine Bacteria SARS-CoV-2 (PCR) Monoscreen Influenza Type A (PCR) Influenza Type B (PCR) RSV (PCR) Lab Acknowledgement New Spec Needed POC Troponin I
[2023-10-13 10:53] LABS: Partial Thromboplastin Time* 55 Seconds (23-33)
[2023-10-13 11:14] LABS: HCO3 VBG 31 mmol/L (21-28); Hemoglobin* 11.4 gm/dL (12.0-16.0); Lactate* 0.8 mmol/L (0.5-1.9); PCO2 VBG 57 mmHG (40-50); PO2 VBG < 30.1 mmHG (25-47); pH VBG 7.349 (7.32-7.43)
[2023-10-13 11:50] LABS: Albumin* 3.6 g/dL (3.3-5.0); Chloride* 106 mmol/L (96-114)
[2023-10-13 11:51] LABS: Potassium* 3.8 mmol/L (3.6-5.1); Sodium* 140 mmol/L (135-149)
[2023-10-13 11:53] LABS: Alkaline Phosphatase* 125 U/L (40-150); Anion Gap 3 mEq/L (7-15); Aspartate Amino Transferase* 42 U/L (12-35); Bilirubin Total* 0.7 mg/dL (0.1-1.5); Blood Urea Nitrogen* 10 mg/dL (5-24); Carbon Dioxide* 31 mmol/L (20-32); Creatinine* 0.5 mg/dL (0.5-1.5); Est. Creatinine Clearance* 129.91; Estimated Glomerular Filt Rate 125 ml/min; Total Protein* 6.9 g/dL (6.0-8.3)
[2023-10-13 11:54] LABS: Alanine Aminotransferase* 49 U/L (4-35); Calcium* 8.5 mg/dL (8.4-10.6); Glucose* 94 mg/dL (60-115)
--- NOTE | 2023-10-13 12:04 | CRLHL7_ITS ---
For Patients: As a result of the Century Cures Act, medical imaging exams and procedure reports are released immediately into your electronic medical record. You may view this report before your referring provider. If you have questions, please contact your health care provider. Indication: Splenic infarct. Technique: Multisequence multiplanar MRI of the abdomen both with and without IV contrast (20 mL Dotarem). Comparison: CT abdomen/pelvis dated 10/13/2023. Findings: Suboptimal study secondary to respiratory motion artifact on all sequences. Liver: Diffuse hepatic steatosis. No suspicious focal hepatic lesion. Bile ducts: No intrahepatic or extrahepatic biliary duct dilation. Gallbladder: Unremarkable. Pancreas: Punctate cystic lesions at the tail of the pancreas. Spleen: Multiple wedge-shaped areas of hypoenhancement, compatible with splenic infarcts. Size and configuration have not significantly changed since earlier CT. Adrenals: Unremarkable. Kidneys: Kidneys enhance symmetrically, without hydronephrosis. Large simple appearing exophytic cyst in the lower pole of the left kidney. Retroperitoneum: No lymphadenopathy. Visualized Bowel and mesentery: Visualized bowel is nondilated. Vessels: Splenic vein appears grossly intact. Splenic artery is not well visualized. Abdominal wall: No acute abdominal wall abnormality. Bones: No suspicious/aggressive focal osseous lesion. Impression: 1. Multiple wedge-shaped areas of hypoenhancement in the spleen, compatible with splenic infarcts. Size and configuration have not significantly changed since earlier CT. 2. Diffuse hepatic steatosis. 3. Punctate cystic lesions at the tail of the pancreas. Dictated by Kelby Chen MD @ 10/13/2023 6:11:42 PM (Electronically Signed)
--- NOTE | 2023-10-13 12:43 | P.IMPN_ITS ---
<Statement entered by Suri Marcano MD - 10/14/23 10:59> I worked closely with Quiana. We saw the patient together. I have reviewed her note. I agree with everything documented. <Statement entered by Sarina Ponce - 10/13/23 14:31> Sarina HIDALGOS personally scribed for Dr. Marcano on 10/13/2023 at 1230 pm. Documented by User: Sarina Ponce 10/13/23 14:35 Progress Note: A&P Assessment and plan (1) Splenomegaly: Problem details: - [facility] consulted by phone on 10/12: given previous negative hypercoagulable workup (per report), recommended d/c of heparin gtt and workup for splenomegaly - negative monospot, normal CBC/Diff - labs currently pending: MARIANA, stool studies, hepatitis panel Status: Acute (2) Splenic infarct: Problem details: - formal radiology read of MRCP 10/12: Impression: 1. Multiple wedge-shaped areas of hypoenhancement in spleen, compatible with splenic infarcts. Size and configuration have not significantly changed since earlier CT. 2. Diffuse hepatic steatosis. 3. Punctate cystic lesions at the tail of the pancreas. Status: Acute (3) History of pulmonary embolus (PE): Problem details: - history of PE x2 (one while on OCPs, one while ); negative hy percoagulable workup at [facility] per report (I have not been able to find lab results) - Chest CTA on 10/11: No large central pulmonary embolism is appreciated. - BLE Venous Duplex: All vessels are grossly compressible without evidence of filling defect to suggest DVT. No superficial thrombosis appreciated. Status: Acute (4) Hypoxia: Problem details: - Discussed with the patient about compliance with her CPAP machine and how her hypoxia is more than likely due to her ROSEANN and her non-compliance with her CPAP machine. Status: Acute (5) Liver enzyme elevation: Problem details: - hepatitis panel pending, fatty liver disease on imaging Status: Acute Time Spent With Patient Total time spent: I spent 60 minutes with this patient. Subjective Time Seen by Provider: 12:30 Date Seen: 10/13/23 Interval history: Daily Progress Note - Hospital Medicine Day # 2 on 10/13/2023 CC: shortness of breath and abdominal pain. Patient is a 33-year-old female with a PMH of PE not currently on anticoagulation and asthma who comes to the emergency room for evaluation of shortness of breath and abdominal pain. Mona began experiencing left upper quadrant discomfort Tuesday evening the and Tuesday the . She states that she has not had a bowel movement in 4 days but this is not unusual for her. Tonight she also has discomfort in her right lower quadrant. She is passing a small amount of gas. She has tried [place] and Gatorade as well as drinking water. Additionally, the patient notes the onset of shortness of breath that did not get better with a rescue inhaler on TuesdayOctober 09. There really has been no cough or cold-like symptoms with this but patient has felt feverish although she did not take her temperature. She states that family mem bers do have cold symptoms. However, she denies sore throat runny nose or a cough. She denies lower extremity edema. Patient also notes that she is feeling like she has some chest tightness. OVERNIGHT UPDATES FROM STAFF & MED, LAB, IMAGING UPDATES: Independent within her room.? On a heparin drip.? Uncomfortable with abdominal distension.? Feels like she needs to have a BM.? No fever.? Good appetite.? Some mild superficial bruising was noted on the abdomen, concerned by patient. RN report: End of shift report [id number]: ?Patient admitted to floor with infarcts in spleen, currently running heparin drip at 20ml/hr(1000u) per protocol.? Alert and oriented x 4.? Pain to left upper quadrant and bilateral lower abdomen reported at 2/10, denies need for pain medication.? Denies any chest pain.? SOB managed with oxygen.? Lung sounds clear but diminished in left lower lobe.? Abdomen tender to palpation.? Denies any nausea at this time.? Ambulates with SBA. ? No new labs drawn this morning.? Admission labs reviewed. Notable findings: Hemoglobin of 11.6, checked again late morning of hospital day 2 11.4 Normal platelet, no white count Notable elevated D-dimer at admission Late morning 10/12 updated labs: Normal pH Mildly elevated pCO2 Chemistries reveal normal electrolytes, normal renal function.? Her lactate is normal.? There is a mild elevation in her LFTs. Inflammatory markers are pending.? BNP is pending. Urine did not show signs of infection but interestingly had 2+ urobilinogen. UC pending. MARIANA pending Negative mono screen Negative flu and RSV Hepatitis panel pending Negative COVID screen Admission EKG shows sinus tachycardia with occasional PACs Admission imaging all reviewed, this included chest x-ray, CTA of the chest, abdominal pelvic CT with contrast, abdominal ultrasound and venous duplex of the bilateral lower extremities. Notable findings Spleen: Moderate to severe splenomegaly. There are peripheral wedge-shaped and linear hypodensities highly concerning for splenic infarct or contusion with splenic laceration. Exam Const: Vital Signs, click to edit/add: Vital Signs - 24 hr 10/12/23 21:35 10/12/23 23:21 10/12/23 23:30 Temperature 98.8 F Pulse Rate 105 H 95 Pulse Rate [Left P ulse Oximeter] 120 H Respiratory Rate 18 Blood Pressure Blood Pressure [Ri ght Arm] Blood Pressure [Ri ght Upper Arm] 132/70 Pulse Oximetry 95 88 93 Oxygen Delivery Me thod Room Air Room Air Nasal Cannula Oxygen Flow Rate 2 10/12/23 23:31 10/12/23 23:45 10/13/23 00:00 Temperature Pulse Rate 98 106 H 109 H Pulse Rate [Left P ulse Oximeter] Respiratory Rate Blood Pressure 115/64 Blood Pressure [Ri ght Arm] Blood Pressure [Ri ght Upper Arm] Pulse Oximetry 94 90 94 Oxygen Delivery Me thod Nasal Cannula Oxygen Flow Rate 2 10/13/23 00:02 10/13/23 00:02 10/13/23 00:02 Temperature Pulse Rate 108 H 108 H 108 H Pulse Rate [Left P ulse Oximeter] Respiratory Rate Blood Pressure 121/65 121/65 121/65 Blood Pressure [Ri ght Arm] Blood Pressure [Ri ght Upper Arm] Pulse Oximetry 93 93 93 Oxygen Delivery Me thod Oxygen Flow Rate 10/13/23 00:15 10/13/23 00:30 10/13/23 00:31 Temperature Pulse Rate 106 H 101 H 101 H Pulse Rate [Left P ulse Oximeter] Respiratory Rate Blood Pressure 117/68 Blood Pressure [Ri ght Arm] Blood Pressure [Ri ght Upper Arm] Pulse Oximetry 93 93 93 Oxygen Delivery Me thod Oxygen Flow Rate 10/13/23 04:15 10/13/23 04:15 10/13/23 10:23 Temperature 98.2 F Pulse Rate Pulse Rate [Left P ulse Oximeter] 82 Respiratory Rate 20 20 20 Blood Pressure Blood Pressure [Ri ght Arm] 112/66 Blood Pressure [Ri ght Upper Arm] Pulse Oximetry 97 97 Oxygen Delivery Me thod Nasal Cannula Nasal Cannula Oxygen Flow Rate 2 2 10/13/23 10:24 Temperature Pulse Rate Pulse Rate [Left P ulse Oximeter] 82 Respiratory Rate 20 Blood Pressure Blood Pressure [Ri ght Arm] 113/69 Blood Pressure [Ri ght Upper Arm] Pulse Oximetry 95 Oxygen Delivery Me thod Room Air Oxygen Flow Rate Documenting provider has reviewed patient's vital signs: yes Common normals: oriented x3 and alert General appearance: cooperative; not comfortable (Uncomfortable appearing in bed. ) Nutritional appearance: obese Resp: Common normals: clear to auscultation bilaterally Auscultation: clear to auscultation bilaterally; no crackles, no rales, no rhonchi, no wheezes and lung sounds not diminished Cardio: Common normals: regular rate, regular rhythm, S1 normal heart sound, S2 normal heart sound, no gallops, no clicks, no murmurs and no rub Rate: regular rate Rhythm: regular rhythm Heart sounds: S1 normal and S2 normal GI: Inspection: abdominal distension; abnormal to inspection (Diffuse slight bruising. ) Auscultation: hypoactive bowel sounds Palpation: tender (Diffuse tenderness. ) Extremity: Common normals: no calf tenderness and no pedal edema Neuro: Common normals: oriented x3 Sensorium/orientation: alert Labs Labs: Laboratory Results - last 24 hr 10/12/23 10/12/23 10/12/23 22:43 22:50 23:05 WBC 5.56 RBC 4.37 Hgb 11.6 L Hct 38.1 MCV 87 MCH 27 MCHC 30 L RDW Coeff of Gregg 17.1 H Plt Count 162 Neut % (Auto) 41.8 L Lymph % (Auto) 47.3 H [place] % (Auto) 7.6 Eos % (Auto) 2.2 Baso % (Auto) 0.4 Neut # (Auto) 2.30 Lymph # (Auto) 2.60 [place] # (Auto) 0.40 Eos # (Auto) 0.12 Baso # (Auto) 0.02 Abs Immat Gran (auto) 0.04 Imm/Tot Granulo (auto) 0.7 APTT D-Dimer Quant (PE/DVT) 6.12 H VBG pH VBG pCO2 VBG pO2 VBG HCO3 Sodium 139 Potassium 3.4 L Chloride 105 Carbon Dioxide 27 Anion Gap 7 BUN 12 Creatinine 0.7 Estimated Creat Clear 92.79 Estimated GFR 116 Glucose 135 H Lactate Calcium 8.7 Total Bilirubin 0.8 AST 52 H ALT 50 H Alkaline Phosphatase 124 C-Reactive Protein 4.9 H Total Protein 6.8 Albumin 3.6 Urine Color Yellow Urine Appearance Slightly Cloudy A Urine pH 6.0 Ur Specific [place] 1.015 Urine Protein Negative Urine Glucose (UA) Negative Urine Ketones Negative Urine Blood Negative Urine Nitrite Negative Urine Bilirubin Negative Urine Urobilinogen 2.0 A Ur Leukocyte Esterase 1+ A Urine RBC 0-2 Urine WBC 2-5 Ur Squamous Epith Cells Few Amorphous Sediment Few A Urine Bacteria Moderate A SARS-CoV-2 (PCR) Negative SARS-CoV-2 Monoscreen Negative Influenza Type A (PCR) Negative PCR FLU A Influenza Type B (PCR) Negative PCR FLU B RSV (PCR) Negative PCR RSV Lab Acknowledgement POC Troponin I 0.00 L 10/13/23 10/13/23 10/13/23 02:10 02:30 10:24 WBC RBC Hgb Hct MCV MCH MCHC RDW Coeff of Gregg Plt Count Neut % (Auto) Lymph % (Auto) [place] % (Auto) Eos % (Auto) Baso % (Auto) Neut # (Auto) Lymph # (Auto) [place] # (Auto) Eos # (Auto) Baso # (Auto) Abs Immat Gran (auto) Imm/Tot Granulo (auto) APTT 55 H D-Dimer Quant (PE/DVT) VBG pH VBG pCO2 VBG pO2 VBG HCO3 Sodium Potassium Chloride Carbon Dioxide Anion Gap BUN Creatinine Estimated Creat Clear Estimated GFR Glucose Lactate 0.4 L Calcium Total Bilirubin AST ALT Alkaline Phosphatase C-Reactive Protein Total Protein Albumin Urine Color Urine Appearance Urine pH Ur Specific [place] Urine Protein Urine Glucose (UA) Urine Ketones Urine Blood Urine Nitrite Urine Bilirubin Urine Urobilinogen Ur Leukocyte Esterase Urine RBC Urine WBC Ur Squamous Epith Cells Amorphous Sediment Urine Bacteria SARS-CoV-2 (PCR) Monoscreen Influenza Type A (PCR) Influenza Type B (PCR) RSV (PCR) Lab Acknowledgement New Spec Needed POC Troponin I 10/13/23 10/13/23 10/13/23 10:49 11:00 12:17 WBC RBC Hgb 11.4 L Hct MCV MCH MCHC RDW Coeff of Gregg Plt Count Neut % (Auto) Lymph % (Auto) [place] % (Auto) Eos % (Auto) Baso % (Auto) Neut # (Auto) Lymph # (Auto) [place] # (Auto) Eos # (Auto) Baso # (Auto) Abs Immat Gran (auto) Imm/Tot Granulo (auto) APTT D-Dimer Quant (PE/DVT) VBG pH 7.349 VBG pCO2 57 H VBG pO2 < 30.1 VBG HCO3 31 H Sodium 140 Potassium 3.8 Chloride 106 Carbon Dioxide 31 Anion Gap 3 L BUN 10 Creatinine 0.5 Estimated Creat Clear 129.91 Estimated GFR 125 Glucose 94 Lactate 0.8 Calcium 8.5 Total Bilirubin 0.7 AST 42 H ALT 49 H Alkaline Phosphatase 125 C-Reactive Protein Total Protein 6.9 Albumin 3.6 Urine Color Urine Appearance Urine pH Ur Specific [place] Urine Protein Urine Glucose (UA) Urine Ketones Urine Blood Urine Nitrite Urine Bilirubin Urine Urobilinogen Ur Leukocyte Esterase Urine RBC Urine WBC Ur Squamous Epith Cells Amorphous Sediment Urine Bacteria SARS-CoV-2 (PCR) Monoscreen Influenza Type A (PCR) Influenza Type B (PCR) RSV (PCR) Lab Acknowledgement Test Added POC Troponin I 10/13/23 Unknown WBC RBC Hgb Hct MCV MCH MCHC RDW Coeff of Gregg Plt Count Neut % (Auto) Lymph % (Auto) [place] % (Auto) Eos % (Auto) Baso % (Auto) Neut # (Auto) Lymph # (Auto) [place] # (Auto) Eos # (Auto) Baso # (Auto) Abs Immat Gran (auto) Imm/Tot Granulo (auto) APTT 34 H D-Dimer Quant (PE/DVT) VBG pH VBG pCO2 VBG pO2 VBG HCO3 Sodium Potassium Chloride Carbon Dioxide Anion Gap BUN Creatinine Estimated Creat Clear Estimated GFR Glucose Lactate Calcium Total Bilirubin AST ALT Alkaline Phosphatase C-Reactive Protein Total Protein Albumin Urine Color Urine Appearance Urine pH Ur Specific [place] Urine Protein Urine Glucose (UA) Urine Ketones Urine Blood Urine Nitrite Urine Bilirubin Urine Urobilinogen Ur Leukocyte Esterase Urine RBC Urine WBC Ur Squamous Epith Cells Amorphous Sediment Urine Bacteria SARS-CoV-2 (PCR) Monoscreen Influenza Type A (PCR) Influenza Type B (PCR) RSV (PCR) Lab Acknowledgement POC Troponin I ECG Attestation: I personally reviewed and interpreted this ECG as follows: Interpretation: EKG shows sinus tachycardia at a rate of 105. Occasional PAC noted. I do not note any acute ST or T-wave changes. Unfortunately no previous EKGs for comparison. Documented by User: Suri Marcano MD 10/14/23 11:00 Progress Note: A&P Assessment and plan (1) Splenomegaly: Problem details: - [facility] consulted by phone on 10/12: given previous negative hypercoagulable workup (per report), recommended d/c of heparin gtt and workup for splenomegaly - negative monospot, normal CBC/Diff - labs currently pending: MARIANA, stool studies, hepatitis panel Status: Acute (2) Splenic infarct: Problem details: - formal radiology read of MRCP 10/12: Impression: 1. Multiple wedge-shaped areas of hypoenhancement in spleen, compatible with splenic infarcts. Size and configuration have not significantly changed since earlier CT. 2. Diffuse hepatic steatosis. 3. Punctate cystic lesions at the tail of the pancreas. Status: Acute (3) History of pulmonary embolus (PE): Problem details: - history of PE x2 (one while on OCPs, one while ); negative hypercoagulable workup at [facility] per report (I have not been able to find lab results) - Chest CTA on 10/11: No large central pulmonary embolism is appreciated. - BLE Venous Duplex: All vessels are grossly compressible without evidence of filling defect to suggest DVT. No superficial thrombosis appreciated. Status: Acute (4) Hypoxia: Problem details: - Discussed with the patient about compliance with her CPAP machine and how her hypoxia is more than likely due to her ROSEANN and her non-compliance with her CPAP machine. Status: Acute (5) Liver enzyme elevation: Problem details: - hepatitis panel pending, fatty liver disease on imaging Status: Acute Subjective Interval history: Daily Progress Note - Hospital Medicine Day # 2 on 10/13/2023 CC: shortness of breath and abdominal pain. Patient is a 33-year-old female with a PMH of PE not currently on anticoagulation and asthma who comes to the emergency room for evaluation of shortness of breath and abdominal pain. Mona began experiencing left upper quadrant discomfort Tuesday evening the and Tuesday the . She states that she has not had a bowel movement in 4 days but this is not unusual for her. Tonight she also has discomfort in her right lower quadrant. She is passing a small amount of gas. She has tried [place] and Gatorade as well as drinking water. Additionally, the patient notes the onset of shortness of breath that did not get better with a rescue inhaler on TuesdayOctober 09. There really has been no cough or cold-like symptoms with this but patient has felt feverish although she did not take her temperature. She states that family members do have cold symptoms. However, she denies sore throat runny nose or a cough. She denies lower extremity edema. Patient also notes that she is feeling like she has some chest tightness. OVERNIGHT UPDATES FROM STAFF & MED, LAB, IMAGING UPDATES: Independent within her room.? On a heparin drip.? Uncomfortable with abdominal distension.? Feels like she needs to have a BM.? No fever.? Good appetite.? Some mild superficial bruising was noted on the abdomen, concerned by patient. RN report: End of shift report [id number]: ?Patient admitted to floor with infarcts in spleen, currently running heparin drip at 20ml/hr(1000u) per protocol.? Alert and oriented x 4.? Pain to left upper quadrant and bilateral lower abdomen reported at 2/10, denies need for pain medication.? Denies any chest pain.? SOB managed with oxygen.? Lung sounds clear but diminished in left lower lobe.? Abdomen tender to palpation.? Denies any nausea at this time.? Ambulates with SBA. ? No new labs drawn this morning.? Admission labs reviewed. Notable findings: Hemoglobin of 11.6, checked again late morning of hospital day 2 11.4 Normal platelet, no white count Notable elevated D-dimer at admission Late morning 10/12 updated labs: Normal pH Mildly elevated pCO2 Chemistries reveal normal electrolytes, normal renal function.? Her lactate is normal.? There is a mild elevation in her LFTs. Inflammatory markers are pending.? BNP is pending. Urine did not show signs of infection but interestingly had 2+ urobilinogen. UC pending. MARIANA pending Negative mono screen Negative flu and RSV Hepatitis panel pending Negative COVID screen Admission EKG shows sinus tachycardia with occasional PACs Admission imaging all reviewed, this included chest x-ray, CTA of the chest, abdominal pelvic CT with contrast, abdominal ultrasound and venous duplex of the bilateral lower extremities. Notable findings Spleen: Moderate to severe splenomegaly. There are peripheral wedge-shaped and linear hypodensities highly concerning for splenic infarct or contusion with splenic laceration.
[2023-10-13] MEDS: bisacodyL 10 MG SUPP.RECT PR (13:01)
[2023-10-13 13:10] LABS: Gamma Glutamyl Transpeptidase* 105 U/L (8-55)
[2023-10-13 13:28] LABS: Procalcitonin* 0.22 ng/mL (<0.50)
[2023-10-13 13:39] LABS: NT Pro B Type NatriureticPept* 165 pg/mL
[2023-10-13 13:53] LABS: Erythrocyte SedimentationRate* 23 mm/hr (2-20)
[2023-10-13] MEDS: SODIUM CHLORIDE 0.9 % (FLUSH) 10 ML SYRINGE 5 ML IVF ×2 (14:49→20:54)
--- NOTE | 2023-10-13 19:37 | CRLHL7_ITS ---
For Patients: As a result of the Century Cures Act, medical imaging exams and procedure reports are released immediately into your electronic medical record. You may view this report before your referring provider. If you have questions, please contact your health care provider. INDICATION: Hypoxia TECHNIQUE: 1 view chest radiograph COMPARISON: Same day chest CT, chest radiographs 10/12/2023 FINDINGS: Prominent vascular markings throughout. Low volumes with basilar atelectasis. No pleural effusion. No pneumothorax. Heart size is similar to prior, large. IMPRESSION: Increased prominence of the pulmonary vascular markings may reflect volume overload. Persistent low volumes and basilar atelectasis. Dictated by Madeline Saravia MD @ 10/13/2023 7:54:03 PM (Electronically Signed)
--- NOTE | 2023-10-13 20:06 | PC.NURSE ---
End of shift [id number] - Pt alert, oriented, cooperative at start of shift. Up with standby assistance in room, continent of bladder. Pt up for shower independently, reported noticing bruising along her lower abdomen. RN examined, contacted MD. MD examined, no orders given. Pt reported feeling pressure in abdomen and reported difficulty having a bowel movement. Per MD order, RN provided suppository and pt was able to have a large, continent BM. Pt reported this relieved pressure feeling in abdomen. Denied pain for majority of shift, SOB, nausea, vomiting. Tolerating regular diet and fluids. Pt reported feeling a headache in the afternoon, pt given pain medication per JUN. Pt became difficult to arouse, tachycardiac, and noted to have shallow breathing. MD notified, rapid response team made ready on standby. No orders given by MD, pt able to be roused, rapid response team cancelled. Pt returned from MRI testing and appeared to more alert, able to sit up and eat dinner without assistance, and communicate with RN and family at bedside. CPAP brought from home and inspected by RT. Pt reporting wanting to sleep after dinner, pt applied CPAP mask and fell asleep. Pt again became difficult to rouse, O2 saturation reading indicated low value, RN consulted with RT and was instructed to replace O2 sensor and add oximeter warming mitt. O2 sensor able to obtain sufficient reading, notified of difficulty to rouse.
[2023-10-13 20:15] LABS: HCO3 VBG 32 mmol/L (21-28); PO2 VBG < 30.1 mmHG (25-47); pH VBG 7.324 (7.32-7.43)
[2023-10-13 20:19] LABS: PCO2 VBG 62 mmHG (40-50)
[2023-10-13 20:30] LABS: Basophils Absolute Auto 0.01 K/uL (0.00-0.30); Basophils Percent Auto 0.2 % (0.0-3.0); Eosinophils Absolute Auto 0.03 K/uL (0.00-0.50); Eosinophils Percent Auto 0.5 % (0.0-7.0); Hematocrit 40.5 % (33.0-51.0); Immature Granulocytes Abs Auto 0.03 K/uL (0.00-0.30); Immature Granulocytes Pct Auto 0.5 %; Lymphocytes Absolute Auto 1.85 K/uL (0.90-2.90); Lymphocytes Percent Auto 30.6 % (20-44); Mean Corpuscular HGB Conc 30 gm/dL (32-36); Mean Corpuscular Hemoglobin 26 pg (26-34); Mean Corpuscular Volume 89 fL (80-100); Monocytes Percent Auto 6.3 % (0.0-11.0); Neutrophils Absolute Auto 3.74 K/uL (1.7-7.0); Neutrophils Percent Auto 61.9 % (42.0-72.0); Platelet Count* 166 K/uL (140-440); RDW Coefficient of Variation % 17.4 % (11.5-15.5); Red Blood Count 4.54 m/uL (4.00-5.20); White Blood Count* 6.04 K/uL (4.50-11.00)
[2023-10-13 20:34] LABS: Slide Review Reflex No
[2023-10-13 20:47] LABS: Lab Add On Test New Spec Needed
[2023-10-13] MEDS: LACTATED RINGERS 500 ML 500 ML IV (20:54)
[2023-10-13 21:11] LABS: Anion Gap 5 mEq/L (7-15); Blood Urea Nitrogen* 11 mg/dL (5-24); Calcium* 8.6 mg/dL (8.4-10.6); Carbon Dioxide* 31 mmol/L (20-32); Chloride* 104 mmol/L (96-114); Creatinine* 0.8 mg/dL (0.5-1.5); Est. Creatinine Clearance* 81.19; Estimated Glomerular Filt Rate 98 ml/min; Glucose* 120 mg/dL (60-115); Potassium* 4.3 mmol/L (3.6-5.1); Sodium* 140 mmol/L (135-149)
[2023-10-13 21:12] LABS: Alanine Aminotransferase* 68 U/L (4-35); Albumin* 3.9 g/dL (3.3-5.0); Alkaline Phosphatase* 136 U/L (40-150); Aspartate Amino Transferase* 71 U/L (12-35); Bilirubin Total* 0.7 mg/dL (0.1-1.5); Total Protein* 7.4 g/dL (6.0-8.3)
[2023-10-13 21:35] LABS: Troponin I* 0.11 ng/mL (0.01-0.04)
--- NOTE | 2023-10-13 23:23 | P.DS_ITS ---
Transfer Discharge Sum: Prov Provider Date Seen: 10/13/23 Date of admission: 10/13/23 05:57 Primary care physician: Not a Local Provider Attending physician on discharge: Isabel Lopez Anticipated date of transfer: 10/13/23 Receiving physician/facility: [facility] DS: Diagnosis Discharge Diagnosis (1) Acute hypoxic respiratory failure: Status: Acute Problem details: - not hypoxic upon presentation to ED - known history of ROSEANN - started CPAP afternoon of 10/12 given hypoxia (saturations down to 70s%) with 5L of O2 bled in - noted to have associated confusion, CO2 >60 (2) Tachycardia: Status: Acute Problem details: - baseline HR as outpatient 60-70s - intermittently tachycardic since admission, up to 160s with movement in bed - EKG and telemetry c/w sinus tachycardia - intermittent improvement with rest and IVFs - TTE on 10/12: Final Impressions: 1. Technically limited exam. 2. Normal left ventricular size, normal wall thickness, normal global systolic function, calculated EF of 67 %. 3. Right ventricular cavity size is normal, global systolic RV function is norm al. 4. No significant valve disease detected. (3) Liver enzyme elevation: Status: Acute Problem details: - hepatitis panel pending, fatty liver disease on imaging (4) Splenomegaly: Status: Acute Problem details: - [facility] consulted by phone on 10/12: given previous negative hypercoagulable workup (per report), recommended d/c of heparin gtt and workup for splenomegaly - negative monospot, normal CBC/Diff - labs currently pending: MARIANA, stool studies, hepatitis panel (5) Splenic infarct: Status: Acute Problem details: - formal radiology read of MRCP 10/12: Impression: 1. Multiple wedge-shaped areas of hypoenhancement in spleen, compatible with splenic infarcts. Size and configuration have not significantly changed since earlier CT. 2. Diffuse hepatic steatosis. 3. Punctate cystic lesions at the tail of the pancreas. (6) History of pulmonary embolus (PE): Status: Acute Problem details: - history of PE x2 (one while on OCPs, one while ); negative hypercoagulable workup at [facility] per report (I have not been able to find lab results) - Chest CTA on 10/11: No large central pulmonary embolism is appreciated. - BLE Venous Duplex: All vessels are grossly compressible without evidence of filling defect to suggest DVT. No superficial thrombosis appreciated. (7) Hypothyroid: Status: Acute Problem details: - last TSH 1.5 in July 2023 Transfer Discharge Sum: Med Medications Active and Home Medications: Home Medications buspirone 10 mg tablet 10 mg PO BID 06/29/23 [History Confirmed 06/29/23] escitalopram oxalate 10 mg tablet (Lexapro) 10 mg PO QDAY 06/29/23 [History Confirmed 10/13/23] folic acid 1 mg tablet 1 mg PO QDAY 06/29/23 [History Confirmed 10/13/23] levothyroxine 175 mcg tablet 175 mcg PO QDAY #90 tabs 08/03/23 [Rx Confirmed 10/13/23] Active Medications Acetaminophen (Acetaminophen 325 Mg Tablet) 650 mg PO Q6H PRN PRN Reason: Pain Hydromorphone HCl (Hydromorphone 0.5 Mg/0.5 Ml Inj) 0.5 - 1 mg IVP Q1H PRN PRN Reason: Pain Last Admin: 10/13/23 14:48 Dose: 1 mg Ondansetron HCl (Ondansetron 2 Mg/Ml Inj) 4 mg IVP Q4H PRN PRN Reason: Nausea Sodium Chloride (Sodium Chloride 0.9 % (Flush) 10 Ml Syringe) 5 ml IVF .FLUSH PRN Last Admin: 10/13/23 14:49 Dose: 5 ml Sodium Chloride (Sodium Chloride 0.9 % (Flush) 10 Ml Syringe) 5 ml IVF BID ANDREW Last Admin: 10/13/23 20:54 Dose: 5 ml Transfer Discharge Sum: Hosp Hospital Course Hospital course: Mona David is a 33 year old female with a history of PE in 2012 and 2020; apparently both thought to be provoked given history of OCP use and /delivery during each of these dates. Per report, she has had a negative hypercoagulable workup at [facility]; I have not seen these results formally. She presented to the hospital on 10/11 with left-sided flank pain and dyspnea; chest CTA negative for PE but noted to have L > R atelectasis. She had no hypoxia in the emergency room. Chest abdomen and pelvis then obtained which exhibited splenomegaly concerning either for splenic infarcts or contusions/lacerations. There had been no known history of trauma. Heparin drip initiated upon admission. [facility] consulted by phone this morning, recommended stopping heparin working of splenomegaly. MRCP revealed splenic infarcts without any other abnormalities, TTE reassuring. In the early afternoon, she was noted to be more tachycardic (HR 130s) and hypoxic with oxygen saturation into the 70% range. She has a known history of mild intermittent asthma without concern for current exacerbation. She also has a history of ROSEANN, not consistently compliant with CPAP. Respiratory therapy consulted and CPAP started with oxygen bled in. She had received IV Dilaudid prior to symptoms, so initially symptoms thought to be iatrogenic; however they persisted and patient began acting more confused. Repeat labs obtained at 1999: - reassuring CBC with normal hemoglobin of 12 - Co2 62 on VBG - normal CMP, troponin mildly elevated at 0.11 - 1 view CXR without acute abnormality, persistent atelectasis Time Spent with Patient Time attestation: Total time spent providing and/or coordinating transfer services: Total time spent: Greater than 30 minutes Exam Narrative: Exam Narrative: Gen: Sitting up in bed, wearing CPAP. Sleepy, arousable, intermittently confused upon awakening CV: Sinus tachycardia, no obvious concerning murmurs R: Decreased breath sounds bilateral bases with no wheezing Ab: Soft, moderate discomfort in LUQ Ext: Warm and well perfused without edema Skin: Livedo reticularis on BLE, 3-4 second capillary refill Const: Vital Signs, click to edit/add: Vital Signs - 24 hr 10/12/23 23:30 10/12/23 23:31 10/12/23 23:45 Temperature Pulse Rate 95 98 106 H Pulse Rate [Left P ulse Oximeter] Respiratory Rate Blood Pressure 115/64 Blood Pressure [Ri ght Arm] Pulse Oximetry 93 94 90 Oxygen Delivery Me thod Nasal Cannula Nasal Cannula Oxygen Flow Rate 2 2 10/13/23 00:00 10/13/23 00:02 10/13/23 00:02 Temperature Pulse Rate 109 H 108 H 108 H Pulse Rate [Left P ulse Oximeter] Respiratory Rate Blood Pressure 121/65 121/65 Blood Pressure [Ri ght Arm] Pulse Oximetry 94 93 93 Oxygen Delivery Me thod Oxygen Flow Rate 10/13/23 00:02 10/13/23 00:15 10/13/23 00:30 Temperature Pulse Rate 108 H 106 H 101 H Pulse Rate [Left P ulse Oximeter] Respiratory Rate Blood Pressure 121/65 Blood Pressure [Ri ght Arm] Pulse Oximetry 93 93 93 Oxygen Delivery Me thod Oxygen Flow Rate 10/13/23 00:31 10/13/23 04:15 10/13/23 04:15 Temperature 98.2 F Pulse Rate 101 H Pulse Rate [Left P ulse Oximeter] 82 Respiratory Rate 20 20 Blood Pressure 117/68 Blood Pressure [Ri ght Arm] 112/66 Pulse Oximetry 93 97 97 Oxygen Delivery Me thod Nasal Cannula Nasal Cannula Oxygen Flow Rate 2 2 10/13/23 10:23 10/13/23 10:24 10/13/23 11:00 Temperature Pulse Rate Pulse Rate [Left P ulse Oximeter] 82 90 Respiratory Rate 20 20 20 Blood Pressure Blood Pressure [Ri ght Arm] 113/69 121/71 Pulse Oximetry 95 97 Oxygen Delivery Me thod Room Air Room Air Oxygen Flow Rate 10/13/23 15:00 10/13/23 19:00 10/13/23 22:25 Temperature 98.5 F Pulse Rate 106 H Pulse Rate [Left P ulse Oximeter] 130 H 135 H Respiratory Rate 24 22 Blood Pressure Blood Pressure [Ri ght Arm] 111/67 Pulse Oximetry 92 Oxygen Delivery Me thod CPAP Oxygen Flow Rate 5 10/13/23 22:40 10/13/23 22:40 Temperature 99.1 F Pulse Rate Pulse Rate [Left P ulse Oximeter] 105 H 105 H Respiratory Rate 18 18 Blood Pressure Blood Pressure [Ri ght Arm] 113/57 L Pulse Oximetry 94 Oxygen Delivery Me thod CPAP Oxygen Flow Rate 4 Discharge Plan Discharge Disposition: [facility] Date of Admission: 10/13/23 05:57 Attending Provider on Discharge: Isabel Lopez Primary Care Provider: Provider,Not a Local Condition: Guarded Discharge Orders: Transfer of Care to Other Hospital (ORDER); Ordered 10/13/23 Ordered By: Isabel Lopez Oxygen: Yes Oxygen Delivery Method: CPAP Oxygen Flow Rate: 5L bled in Urinary Catheter: No Services not available here: Pulmonology, Cardiology, Hematology, IR
[2023-10-14 00:19] VITALS: TEMP 37.9
[2023-10-14] MEDS: ACETAMINOPHEN 325 MG TABLET 650 MG PO (00:19)
[2023-10-14] MEDS: 0.9 % SODIUM CHLORIDE 1000 ml 1,000 ML 125 ML IV (00:20)
[2023-10-14 01:55] LABS: HCO3 VBG 27 mmol/L (21-28); PCO2 VBG 47 mmHG (40-50); PO2 VBG 47.9 mmHG (25-47); pH VBG 7.379 (7.32-7.43)
--- NOTE | 2023-10-14 02:13 | CRLHL7_ITS ---
For Patients: As a result of the Century Cures Act, medical imaging exams and procedure reports are released immediately into your electronic medical record. You may view this report before your referring provider. If you have questions, please contact your health care provider. Indication: New onset headache, confusion Technique: Noncontrast CT through the head with multiplanar reformats Comparison: None Findings: Mild motion degradation. Brain: No acute hemorrhage. No acute infarct. No significant mass effect or midline shift. No gross evidence of a mass lesion or cerebral edema. Ventricles: No acute abnormality appreciated. Orbits, sinuses, mastoids: No acute abnormality appreciated. Calvarium and soft tissues: No acute abnormality appreciated. Impression: Allowing for mild motion degradation, no acute abnormality is appreciated. Please note that all CT scans at this facility use dose modulation, iterative reconstruction, and/or weight-based dosing when appropriate to reduce radiation dose to as low as reasonably achievable. Dictated by Dell Araujo MD @ 10/14/2023 2:55:34 AM (Electronically Signed)
[2023-10-14 03:00] VITALS: BP 111/59; PULSE 102; RESP 18; TEMP 37.7; O2SAT 97
--- NOTE | 2023-10-14 03:00 | PC.NURSE ---
Nursing-this RN has made multiple calls to pt placement for updates on bed situation at [facility] as pt had an accepting MD earlier this shift for tx. Also Horizon MD had ordered another head CT ordered before tx after 12 MN. Pt taken to CT with O2 in place. Pt tolerated adequately. SO at BS with all cares explained. Currently in process of having EMS tx pt to [facility]-they apparently have had others calls and transfers.
--- NOTE | 2023-10-14 03:46 | PC.NURSE ---
? End of shift [id number]??? :? Patient drowsy and difficult to rouse upon start of shift.? O2 sats 68% on CPAP, patient fingers cyanotic and cool to the touch and not a good waveform noted on monitor.? Patient having difficulty opening eyes and speech mumbled and non sensical.? Vitals obtained and Dr. Lopez notified of current status.? MD and RT to patient room, O2 bled into CPAP at 5L to maintain sat?s >86%.? Pulse ox on right hand forefinger with warming mitt over and able to obtain good O2 sat reading, patient 92% on 5L per CPAP.? Patient assessed at this time and noted to have dusky, cyanotic fingers, toes, lips and nose.? new orders obtained from MD for chest x-ray and STAT labs.?? Due to LOC, patient unable to answer questions appropriately and difficult to keep awake.? Breathing shallow with accessory muscle use, lung sounds clear but diminished in bases.? Throughout this shift patient has been taking CPAP off, when removed O2 sats drop to mid to upper 60%, patient reoriented and discussed need to use CPAP at this time. Tachycardic, patient pulse running 110?s-120?s at rest and up to 160?s with movement. clamshell engineer placed, interpretation of sinus tachycardia. 500 cc LR bolus administered per MD order, pulse decreased to mid 90?s after fluid resuscitation.? called unit and update given, MD also spoke with spouse with plan on transfer.? Patient accepted to [facility] within 8 hours for bed.? At 0000 patient assisted to bathroom, noted to be warm to the touch and face flushed.? Temp 100.3, covers removed, PRN tylenol administered and ice pack applied to neck.? At 0100 patient placed call light on, Temp 101.3.? Charge nurse notified of fever and [facility] paged, ? Dr. Rae notified of new onset headache and fever, new orders for blood cultures x 2, ABG?s and STAT head CT.?Request to radiology to forward results to receiving facility. Patient more alert at this time but continues with confusion, repetitive conversation and stating the same sentences 3-4x in a row. Call received from [facility] that bed available, news writer gave hand off to Shelia LINDSEY.? EMS called with ETA of 40 minutes for transfer.? Reviewed transfer sheet and signature received from patient and reviewed personal belongings. EMS arrived at 0325, patient discharged at 0333. Stoneworking Belt Sander placed call to W nurse Shelia to update of discharge.?
--- NOTE | 2023-10-14 12:01 | PC.NURSE ---
called [facility] per our MD and spoke to the patients nurse Magdaleno and told him that the Tropin was 0.11.
[2023-10-15 12:42] LABS: Hep A Ab, IgM Negative (Negative); Hep B Core Ab, IgM Negative (Negative); Hep B Surface Antigen Negative (Negative); Hep C Ab by CIA Index <0.02 IV; Hep C Ab by CIA Interp Negative (Negative)
[2023-10-15 21:56] LABS: Anti-Nuclear Ab(ANA)IgG ELISA None Detected (None Detected)
[2023-10-15 22:27] LABS: Adenovirus PCR Not Detected; Astrovirus PCR Not Detected; Campylobacter PCR Not Detected; Cryptosporidium PCR Not Detected; Cyclospora cayetanensis PCR Not Detected; Entamoeba histolytica PCR Not Detected; Enteroaggregative E coli PCR Not Detected; Enteropathogenic E coli PCR Not Detected; Enterotoxigenic E coli PCR Not Detected; Giardia lamblia PCR Not Detected; Norovirus Gi/GII PCR Not Detected; Plesiomonas shig PCR Not Detected; Rotavirus A PCR Not Detected; Salmonella PCR Not Detected; Sapovirus PCR Not Detected; Shiga toxin E coli PCR Not Detected; Shigella/Enteroinvasive E coli Not Detected; Vibrio PCR Not Detected; Vibrio cholerae PCR Not Detected; Yersinia enterocolitica PCR Not Detected
[2023-10-18 23:22] LABS: Ova and Parasite, Fecal Negative (Negative)
== END 2023-10-14 03:35 | disposition short-term general hospital (02) | DRG 814 ==
LOC: ED 10-13 02:46 → MEDSURG 10-13 04:10
PROVIDERS: Family Medicine; Internal Medicine; Admitting Provider Internal Medicine; Emergency Provider Family Medicine; Visit Provider Internal Medicine
DX: D73.5 Infarction of spleen (principal); J96.01 Acute respiratory failure with hypoxia; R16.1 Splenomegaly, not elsewhere classified; Z86.711 Personal history of pulmonary embolism; R10.12 Left upper quadrant pain; E03.9 Hypothyroidism, unspecified; R74.8 Abnormal levels of other serum enzymes
CPT/HCPCS: 36415; 70450; 71045; 71046; 71275; 74019; 74177; 74183; 76705; 80048; 80053; 80074; 81001; 82803; 82977; 83605; 83880; 84145; 84484; 85018; 85025; 85027; 85379; 85610; 85651; 85730; 86039; 86140; 86308; 86880; 87040; 87045; 87046; 87086; 87177; 87209; 87427; 87505; 87631; 93005; 93306; 93970; 94640; 94761; 99285; A9270; A9575; J1170; J1644; J1885; J2405; J7030; J7120; Q9967

== ENCOUNTER 2023-10-14 03:20 | Outpatient (CLI) | payer OTHER, SELFPAY | END 2023-10-14 03:21 | disposition home or self-care (01) | LOC: AMB 10-16 08:28 | PROVIDERS: Visit Provider Family Medicine | DX: J96.01 Acute respiratory failure with hypoxia (principal) | CPT/HCPCS: A0425; A0434 ==

== ENCOUNTER 2023-11-13 21:10 | Emergency (ER) | payer OTHER, SELFPAY ==
[2023-11-13 21:29] VITALS: BP 125/87; PULSE 80; RESP 18; TEMP 36.5; O2SAT 96; BMI 19.5
--- NOTE | 2023-11-13 21:36 | CRLHL7_ITS ---
For Patients: As a result of the Century Cures Act, medical imaging exams and procedure reports are released immediately into your electronic medical record. You may view this report before your referring provider. If you have questions, please contact your health care provider. INDICATION: Leg pain and swelling. TECHNIQUE: Ultrasound venous duplex lower left extremity. Compression venous exam was performed using vieira-scale, color Doppler, and spectral Doppler analysis. COMPARISON: 10/13/2023. FINDINGS: Deep veins: Sonographic imaging demonstrates the left common femoral, deep femoral, superficial femoral, popliteal, posterior tibial, and the contralateral right common femoral veins to be fully compressible with normal color Doppler blood flow. Superficial veins: Greater saphenous vein is noncompressible from the mid thigh to mid calf. No popliteal cyst. IMPRESSION: 1. No sign of deep venous thrombosis in the left lower extremity. 2. Superficial thrombophlebitis of the left greater saphenous vein from the mid thigh to the mid calf. Dictated by Mich Simmons MD @ 11/14/2023 12:06:34 AM (Electronically Signed)
--- OUTSIDE RECORDS SUMMARY | 2023-11-13 22:22 | XMS_ITS | Encounter Summary ---
Author Organization [facility] Address [address] [place] [id number] Care Team Providers Care Science Job Titles Name Role Phone Albania Salcido M.D. Primary Care Provider + [phone] Encounter Details Date Type Department Care Team (Late st Contact Info) Description 10/31/2023 CPAP Download Remote Patient Monitoring [facility] [address] [place] [address] [facility], Provider Social History Tobacco Use Types Packs/Day Years Used Date Smoking Tobacco: Former Cigarettes 0.5 2 0 04/18/2006 - 04/18/2008 Smokeless Tobacco: Never Alcohol Use Standard Drinks/Week Comments Yes 1 (1 standard drink = 0.6 oz pur e alcohol) Twice monthly Humiliation, Afraid, Rape, and Kick questionnair e Answer Date Recorded Within the last year, have y ou been afraid of your partner or ex-partner? No 03/24/2022 Within the last year, have y ou been humiliated or emotionally abused in other ways by your partner or ex-partner? No Within the last year, have y ou been kicked, hit, slapped, or otherwise physically hurt by your partner or ex-partner? No 03/24/2022 Within the last year, have y ou been raped or forced to have any kind of sexual activity by your partner or ex-partner? No 03/24/2022 Social Connection and Isolat ion Panel [NHANES] Answer Date Recorded In a typical week, how many times do you talk on the phone with family, friends, or neighbors? More than three times a week 03/24/2022 How often do you get togethe r with friends or relatives? Once a week 03/24/2022 How often do you attend chur ch or baptism services? 1 to 4 times per year 03/24/2022 Do you belong to any clubs o r organizations such as jewish groups, unions, fraternal or athletic groups, or school groups? No 03/24/2022 How often do you attend meet ings of the clubs or organizations you belong to? Never 03/24/2022 Are you , , di vorced, , never , or living with a partner? 03/24/2022 AUDIT-C Answer Date Recorded Q1: How often do you have a drink containing alc ohol? Monthly or less 03/24/2022 Q2: How many drinks containi ng alcohol do you have on a typical day when you are drinking? 1 or 2 03/24/2022 Q3: How often do you have si x or more drinks on one occasion? Never 03/24/2022 Overall Financial Resource Strain (CARDIA) Answe r Date Recorded How hard is it for you to pa y for the very basics like food, housing, medical care, and heating? Not hard at all 03/24/2022 PHQ-2 Answer Date Recorded PHQ-2 Score 3 09/23/2022 [facility]ational [facility] Questionnaire Answer Date Recorded Do you feel stress - tense, restless, nervous, or anxious, or unable to sleep at night because your mind is troubled all the time - these days? Only a little 03/24/2022 Exercise Vital Sign Answer Date Recorde d On average, how many days pe r week do you engage in moderate to strenuous exercise (like a brisk walk)? 2 days 03/24/2022 On average, how many minutes do you engage in exercise at this level? 20 min 03/24/2022 Hunger Vital Sign Answer Date Recorded Within the past 12 months, y ou worried that your food would run out before you got the money to buy more. Never true 03/24/20 22 Within the past 12 months, t he food you bought just didn't last and you didn't have money to get more. Never true 03/24/2022 PRAPARE - Transportation Answer Date Re corded In the past 12 months, has l ack of transportation kept you from medical appointments or from getting medications? No 10/2021 In the past 12 months, has l ack of transportation kept you from meetings, work, or from getting things needed for daily living? No 03/24/2022 Housing Stability Vital Sign Answer Bob e Recorded In the last 12 months, was t here a time when you were not able to pay the mortgage or rent on time? No 03/24/2022 In the last 12 months, how many places have you lived? 1 03/24/2022 In the last 12 months, was t here a time when you did not have a steady place to sleep or slept in a retirement (including now)? No 03/24/2022 Depression Answer Date Recor ded PHQ-9 Total Score (max 27) 10 09/23 Nutrition Answer Date Recorded Nutrition: EVOO Fat Source No 03/24 On average, how many serving s of fruits and vegetables do you eat per day (serving size is equal to 1 cup or approximately the size of a tennis ball)? 2-3 03/24/2022 Dental Answer Date Recorded Dental: Regular Dentist Yes 03/24/20 Employment Answer Date Recorded Employment status Employed and actively working without restrictions 03/24/2022 Education Answer Date Recorded What is the highest level of school you have completed or the highest degree you have received? Associate degree: occupational, technical, or vocational program 03/24/2022 Sex and Gender Information Value Date Recorded Sex Assigned at Female 04/24/2017 7:40 PM LA[employer]ER Gender Identity Female 04/24/2017 7:40 PM LA[employer]ER Sexual Orientation Straight 04/24/2017 7: 40 PM LAST P[employer]ER documented as of this encounter Plan of Treatment Not on file documented as of this encounter Visit Diagnoses Not on filedocumented in this encounter Additional Health Concerns Assessment Noted Time PHQ-9 Depression Total Score: 10 023 3:46 PM CDT documented as of this encounter Care Teams Science Job Titles Relationship Specialty Start Date End Date Albania Salcido M.D. [address] [place] [address] [place] [address] PCP - General Family Medicine 07/07/22 documented as of this encounter
--- OUTSIDE RECORDS SUMMARY | 2023-11-13 22:22 | XMS_ITS | Clinical Summary ---
Author Organization [facility] Address [place], [place] [address] Care Team Providers Care Network Management Specialist Name Role Phone Pcp, No Primary Care Provider Unavailabl e Pcp, No Unavailable Unavailable Allergies Active Allergy Reactions Criticality Noted Date Comments Cefaclor Rash 03/22/2014 Cefaclor Hives 06/12/2018 Menthol Rash 03/22/2014 Medications Medication Sig Dispensed Refills Start Date End Date Status fexofenadine (YOLANDA) 180 mg tablet Take 180 mg by mouth once daily if needed for Allergy Symptoms. 0 03/22/2014 Active folic acid 1 mg tabletIndications:We ll woman exam Take 1 tablet by mouth once daily. 90 tablet 4 03/22/2014 Active levothyroxine (SYNTHROID) 175 mcg tablet Take 175 mcg by mouth once daily. Active escitalopram oxalate (LEXAPRO) 10 mg tablet Take 10 mg by mouth once daily. Active levonorgestrel (MIRENA) 20 mcg/24 hours (8 yrs) 52 mg intrauterine device (IUD) Inject 1 Device intrauterine one time. Active busPIRone (BUSPAR) 5 mg tablet Take 5 mg by mouth two times daily. Active albuterol HFA (PRO-AIR; VENTOLIN; PROVENTIL) 90 mcg/actuation inhalerIndications:A cute hypoxic respiratory failure (HC) Inhale 1-2 Puffs by mouth three times daily. 8.5 g 11/01/2023 Active pantoprazole (PROTONIX) 40 mg delayed-release tabletIndications:At risk for stress ulcer Take 1 Tablet (40 mg) by mouth once daily for 14 days. 14 Tablet 11/01/2023 11/15/19 24 Active furosemide (LASIX) 40 mg tabletIndications:Ed sai, unspecified type Take 1 Tablet (40 mg) by mouth once daily in the morning. 14 Tablet 11/02/2023 Active predniSONE (DELTASONE) 10 mg tabletIndications:Ac qagan tayagungin hypoxic respiratory failure (HC) Take 2 Tablets (20 mg) by mouth once daily with a meal for 4 days, THEN 1 Tablet (10 mg) once daily with a meal for 5 days, THEN 0.5 Tablets (5 mg) once daily with a meal for 3 days. 14.5 Tablet 11/02/2023 11/14/19 24 Active Blood-Glucose MeterIndications:Vu roid-induced hyperglycemia Use to test daily 1 Each 11/01/2023 Active blood-glucose meterIndications:Vu roid-induced hyperglycemia Dispense meter covered by pts insurance. 1 Each 11/01/2023 Active lancets 33 gauge miscIndications:Ster oid-induced hyperglycemia Use to test once daily 100 Each 11/01/2023 Active blood sugar diagnostic stripIndications:Vu roid-induced hyperglycemia Dispense item covered by pt ins. E11.9 NIDDM type II - Test 1 time/day 100 Each 11/01/2023 Active valGANciclovir (VALCYTE) 450 mg tabletIndications:Cy tomegalovirus infection, unspecified cytomegaloviral infection type (HC) Take 2 Tablets (900 mg) by mouth two times daily with meals for 9 days. 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 03/22/2016 Overview: Depression Major Recurrent Mild PCOS (polycystic ovarian syndrome) 03/22/2014 Hypothyroidism 03/22/2014 Encounters Date Type Department Care Team Description 10/14/2023 4:27 AM CDT - 11/01/2023 4:29 PM CDT Hospital Encounter [facility] [address] [place] [address] [facility] [place] [facility] Hospitalists Of Gilles, MD Kuldeep Montoya, MD Nany Hernandez, MD Luis Fernando Martinez, MD Yue Duvall Jae-Woo, MD Fuerstenberg, MD Vaishnavi White, Silva Mccarty MD Residents, Icu Eubanks, Marah Duncan MD Splenic infarct (Primary Dx); Acute hypoxic respiratory failure (HC); At risk for stress ulcer; Edema, unspecified type; Cytomegalovirus infection, unspecified cytomegaloviral infection type (HC); Steroid-induced hyperglycemia Discharge Disposition: Home Self Care 10/13/2023 4:00 PM CDT Ancillary Procedure [facility] [address] [place] [address] from Last 3 Months Family History Medical History Relation Name Comments Diabetes Brother 1 type 1 Other Brother 2 PVD, hx Dm type 1 Diabetes Father Premature CHD (under age 60) Father Thyroid Disease Father cancer Good Health Mother Blood Disease Other blood clots ma ternal side, unknown members Anesthesia Problem No Family History Cancer-breast No Family History Cancer-colon No Family History Relation Name Status Comments Brother 1 Brother 2 Father Mother Other Social History Tobacco Use Types Packs/Day Years Used Date Smoking Tobacco: Former Smokeless Tobacco: Never Tobacco Cessation:Counseling Given: Yes Comments:2006 Quit. Social smoker in Alcohol Use Standard Drinks/Week Comments Not Currently 0 (1 standard drink = 0.6 oz pur e alcohol) Social Connections Answer Date Recorded Frequency of Communication with Friends and Fami ly Not on file 10/14/2023 Financial Resource Strain Answer Date R ecorded Difficulty of Paying Living Expenses Not on file 04/18/2021 Difficulty of Paying Living Expenses Not on file 04/18/2021 Sex and Gender Information Value Date Recorded Sex Assigned at Not on file Gender Identity Not on file Sexual Orientation Not on file Obstetrics History Para Term AB IAB SAB Ectopic Multiple Livin g Live Births 1 1 1 0 0 0 0 0 0 0 Date Outcome GA Total Labor Labor/2nd/3rd Weight Sex Type Anes PTL Margie A1 A5 Name Clin Term Last Filed Vital Signs Vital Sign Reading Time Taken Comments Blood Pressure 107/69 11/01/2023 8:00 AM CDT Pulse 71 11/01/2023 8:00 AM CDT Temperature 36.7 ??C (98.1 ??F) 11/01/2023 8:00 AM CD T Respiratory Rate 18 11/01/2023 8:00 AM CDT Oxygen Saturation 90% 11/01/2023 8:00 AM CDT Inhaled Oxygen Concentration - - Weight 87.6 kg (193 lb 3 oz) 10/28/2023 11:00 PM CDT Height 160 cm (5' 3) 10/14/2023 7:54 AM CDT Body Mass Index 34.22 10/14/2023 7:54 AM CDT Plan of Treatment Health Maintenance Due Date Last Done Comments Tdap 1999 Depression screening for age 12+ 2000 BMI (ht and wt on same day) for age 18+ 2006 Hepatitis C screening for ag e 18-79 2006 Tetanus booster 2008 Pap test for age 21-65 03/22/2017 03/22/2014 COVID-19 vaccine series (2022- season) 2022 12/16/2020, 11/24/2020 Influenza for age 9-49 12/18/2023 HIV for age 15-65 Completed 10/20/2023 Pneumococcal series for age 6-64 Aged Out No longer eligible b ased on patient's age to complete this topic Procedures Procedure Name Priority Date/Time Associated Diagnosis Comments GLUCOSE METER Timed 11/01/2023 1:55 PM CDT GLUCOSE METER Timed 11/01/2023 11:50 AM CDT GLUCOSE METER Timed 11/01/2023 7:46 AM CDT GLUCOSE METER Timed 11/01/2023 1:59 AM CDT GLUCOSE METER Timed 10/31/2023 9:55 PM CDT GLUCOSE METER Timed 10/31/2023 5:24 PM CDT GLUCOSE METER Timed 10/31/2023 12:04 PM CDT GLUCOSE METER Timed 10/31/2023 8:14 AM CDT HEMATOCRIT Early AM 10/31/2023 6:12 AM CDT HEMOGLOBIN Early AM 10/31/2023 6:12 AM CDT PLATELET COUNT Early AM 10/31/2023 6:12 AM CDT GLUCOSE METER Timed 10/31/2023 2:17 AM CDT GLUCOSE METER Timed 10/30/2023 10:06 PM CDT GLUCOSE METER Timed 10/30/2023 5:09 PM CDT GLUCOSE METER Timed 10/30/2023 1:41 PM CDT GLUCOSE METER Timed 10/30/2023 11:52 AM CDT GLUCOSE METER Timed 10/30/2023 8:05 AM CDT HEMATOCRIT Early AM 10/30/2023 7:09 AM CDT HEMOGLOBIN Early AM 10/30/2023 7:09 AM CDT PLATELET COUNT Early AM 10/30/2023 7:09 AM CDT GLUCOSE METER Timed 10/30/2023 3:02 AM CDT GLUCOSE METER Timed 10/29/2023 9:24 PM CDT GLUCOSE METER Timed 10/29/2023 5:22 PM CDT GLUCOSE METER Timed 10/29/2023 12:38 PM CDT GLUCOSE METER Timed 10/29/2023 7:54 AM CDT MAGNESIUM Early AM 10/29/2023 4:39 AM CDT BASIC METABOLIC PANEL Early AM 10/29/2023 4:39 AM CDT HEMATOCRIT Early AM 10/29/2023 4:39 AM CDT HEMOGLOBIN Early AM 10/29/2023 4:39 AM CDT PLATELET COUNT Early AM 10/29/2023 4:39 AM CDT GLUCOSE METER Timed 10/29/2023 2:32 AM CDT GLUCOSE METER Timed 10/28/2023 10:35 PM CDT GLUCOSE METER Timed 10/28/2023 6:43 PM CDT GLUCOSE METER Timed 10/28/2023 12:03 PM CDT GLUCOSE METER Timed 10/28/2023 10:09 AM CDT SCAN-CARDIAC STRIP 10/28/2023 7: 00 AM CDT HEMATOCRIT Early AM 10/28/2023 5:40 AM CDT HEMOGLOBIN Early AM 10/28/2023 5:40 AM CDT PLATELET COUNT Early AM 10/28/2023 5:40 AM CDT GLUCOSE METER Timed 10/28/2023 2:19 AM CDT GLUCOSE METER Timed 10/27/2023 10:06 PM CDT SCAN-CARDIAC STRIP 10/27/2023 8: 03 PM CDT GLUCOSE METER Timed 10/27/2023 6:11 PM CDT CMV QUANT DNA PCR (BLOOD) STAT 10/27/2023 3:24 PM CDT GLUCOSE METER Timed 10/27/2023 11:43 AM CDT C-REACTIVE PROTEIN [place] 10/27/2023 6: 01 AM CDT BLOOD GAS,VENOUS Early AM 10/27/2023 6:01 AM CDT CMV QUANT DNA PCR (BLOOD) Early AM 10/27/2023 6:01 AM CDT CBC W PLT NO DIFF Early AM 10/27/2023 6:0 1 AM CDT BASIC METABOLIC PANEL Early AM 10/27/2023 6:01 AM CDT SCAN-CARDIAC STRIP 10/26/2023 8: 09 PM CDT COVID-19 MOLECULAR Today 10/26/2023 8: 07 PM CDT RESPIRATORY PANEL MULTIPLEX PCR STAT 10/26/2023 8:07 PM CDT GLUCOSE METER Timed 10/26/2023 7:57 PM CDT BLOOD GAS,VENOUS Today 10/26/2023 5:48 PM CDT ARTERIAL BLOOD GAS STAT 10/26/2023 12 :[address] CHEST PE STUDY Routine 10/26/2023 11: 38 AM CDT BLOOD GAS,VENOUS STAT 10/26/2023 9:36 AM CDT COMP METABOLIC PANEL STAT 10/26/2023 9:36 AM CDT LACTATE VENOUS STAT 10/26/2023 9:36 AM CDT RED CELL MORPHOLOGY D[facility]ON 10/26/2023 5 :18 AM CDT PLATELET ESTIMATE DILLON 10/26/2023 5:1 8 AM CDT MANUAL DIFFERENTIAL D[place]ON 10/26/2023 5 :18 AM CDT CBC WITH AUTO DIFFERENTIAL DILLON 10/26/2023 5:18 AM CDT CBC WITH AUTO DIFFERENTIAL DILLON 10/26/2023 5:18 AM CDT HEMATOCRIT Early AM 10/26/2023 5:18 AM CDT HEMOGLOBIN Early AM 10/26/2023 5:18 AM CDT PLATELET COUNT Early AM 10/26/2023 5:18 AM CDT CLOSTRIDIOIDES DIFFICILE TOXIN PCR Today 10/25/2023 5:35 PM CDT GLUCOSE METER Timed 10/25/2023 7:55 AM CDT APTT Early AM 10/25/2023 4:37 AM CDT HEMATOCRIT Early AM 10/25/2023 4:37 AM CDT HEMOGLOBIN Early AM 10/25/2023 4:37 AM CDT PLATELET COUNT Early AM 10/25/2023 4:37 AM CDT GLUCOSE METER Timed 10/25/2023 2:03 AM CDT GLUCOSE METER Timed 10/24/2023 10:21 PM CDT GLUCOSE METER Timed 10/24/2023 5:31 PM CDT BLOOD CULTURE Today 10/24/2023 1:03 PM CDT BLOOD CULTURE Today 10/24/2023 12:58 PM CDT GLUCOSE METER Timed 10/24/2023 12:36 PM CDT GLUCOSE METER Timed 10/24/2023 8:20 AM CDT APTT Timed 10/24/2023 7:06 AM CDT HETEROPHILE Early AM 10/24/2023 7:06 AM CDT CMV IGM ANTIBODY Early AM 10/24/2023 7:06 AM CDT CREATININE Early AM 10/24/2023 7:06 AM CDT POTASSIUM Early AM 10/24/2023 7:06 AM CDT SODIUM Early AM 10/24/2023 7:06 AM CDT CBC W PLT NO DIFF Early AM 10/24/2023 7:0 6 AM CDT GLUCOSE METER Timed 10/24/2023 2:23 AM CDT GLUCOSE METER Timed 10/23/2023 9:40 PM CDT APTT Today 10/23/2023 9:18 PM CDT GLUCOSE METER Timed 10/23/2023 4:52 PM CDT APTT Today 10/23/2023 12:59 PM CDT GLUCOSE METER Timed 10/23/2023 11:[address] CHEST ABDOMEN PELVIS W Routine 10/23/2023 10:23 AM CDT SCAN-CARDIAC STRIP 10/23/2023 7: 01 AM CDT APTT Early AM 10/23/2023 5:58 AM CDT HEMATOCRIT Early AM 10/23/2023 5:58 AM CDT HEMOGLOBIN Early AM 10/23/2023 5:58 AM CDT PLATELET COUNT Early AM 10/23/2023 5:58 AM CDT GLUCOSE METER Timed 10/23/2023 1:51 AM CDT GLUCOSE METER Timed 10/22/2023 10:16 PM CDT GLUCOSE METER Timed 10/22/2023 5:31 PM CDT GLUCOSE METER Timed 10/22/2023 12:46 PM CDT GLUCOSE METER Timed 10/22/2023 8:09 AM CDT SCAN-CARDIAC STRIP 10/22/2023 7: 40 AM CDT US ABDOMEN LIMITED RUQ WITH DUPLEX PORTABLE Routine 10/22/2023 7:05 AM CDT CWS PATH REVIEW HEMATOLOGY Timed 10/22/2023 5:02 AM CDT RED CELL MORPHOLOGY Timed 10/22/2023 5 :02 AM CDT PLATELET ESTIMATE Timed 10/22/2023 5:0 2 AM CDT MANUAL DIFFERENTIAL Timed 10/22/2023 5 :02 AM CDT CBC WITH AUTO DIFFERENTIAL Early AM 10/22/2023 5:02 AM CDT APTT Early AM 10/22/2023 5:02 AM CDT CBC WITH AUTO DIFFERENTIAL Early AM 10/22/2023 5:02 AM CDT HEPATIC FUNCTION PANEL Early AM 5:02 AM CDT PHOSPHORUS Early AM 10/22/2023 5:02 AM CDT MAGNESIUM Early AM 10/22/2023 5:02 AM CDT BASIC METABOLIC PANEL Early AM 10/22/2023 5:02 AM CDT GLUCOSE METER Timed 10/22/2023 3:10 AM CDT SCAN-CARDIAC STRIP 10/21/2023 11 :01 PM CDT APTT Today 10/21/2023 10:58 PM CDT GLUCOSE METER Timed 10/21/2023 10:37 PM CDT GLUCOSE METER Timed 10/21/2023 5:49 PM CDT APTT Today 10/21/2023 1:50 PM CDT GLUCOSE METER Timed 10/21/2023 12:21 PM CDT LC HCV QN INTERP [id number] Timed 10/21/19 24 10:13 AM CDT LC HBSAG CONF [id number] Timed 10/21/2023 10:13 AM CDT LC ACUTE HEPATITIS Today 10/21/2023 10 :13 AM CDT GLUCOSE METER Timed 10/21/2023 9:26 AM CDT XR CHEST 1 VIEW PORTABLE Routine 10/21/2023 8:30 AM CDT HEPATIC FUNCTION PANEL DILLON 4:26 AM CDT HEMOGLOBIN A1C DILLON 10/21/2023 4:26 AM CDT BASIC METABOLIC PANEL Early AM 10/21/2023 4:26 AM CDT APTT Early AM 10/21/2023 4:26 AM CDT HEMATOCRIT Early AM 10/21/2023 4:26 AM CDT HEMOGLOBIN Early AM 10/21/2023 4:26 AM CDT PLATELET COUNT Early AM 10/21/2023 4:26 AM CDT SCAN-CARDIAC STRIP 10/21/2023 12 :00 AM CDT EKG 12 LEAD STAT 10/20/2023 10:30 AM CDT BLOOD GAS,VENOUS D[facility]ON 10/20/2023 9:40 AM CDT APTT STAT 10/20/2023 7:09 AM CDT ANTI HIV 1/2 DILLON 10/20/2023 4:49 AM CDT PHOSPHORUS Early AM 10/20/2023 4:49 AM CDT MAGNESIUM Early AM 10/20/2023 4:49 AM CDT BASIC METABOLIC PANEL Early AM 10/20/2023 4:49 AM CDT CBC W PLT NO DIFF Early AM 10/20/2023 4:4 9 AM CDT SCAN-CARDIAC STRIP 10/19/2023 8: 09 PM CDT MRSA/SA PCR Today 10/19/2023 1:58 PM CDT LEGIONELLA AND PNEUMOCOCCAL URINE ANTIGEN STAT 10/19/2023 1:50 PM CDT POTASSIUM STAT 10/19/2023 12:18 PM CDT TROPONIN T (HS) ONE TIME Today 10/19/2023 12:18 PM CDT SCAN-CARDIAC STRIP 10/19/2023 10 :50 AM CDT ARTERIAL BLOOD GAS STAT 10/19/2023 10 :50 AM CDT PROCALCITONIN D[place]ON 10/19/2023 10:38 AM CDT MAGNESIUM STAT 10/19/2023 10:38 AM CDT BASIC METABOLIC PANEL STAT 10/19/2023 10:38 AM CDT SCAN-CARDIAC STRIP 10/19/2023 9: 30 AM CDT PNH PANEL Today 10/19/2023 8:56 AM CDT SCAN-CARDIAC STRIP 10/19/2023 8: 51 AM CDT RED CELL MORPHOLOGY Timed 10/19/2023 8 :45 AM CDT LACTATE VENOUS STAT 10/19/2023 8:45 AM CDT BLOOD GAS,VENOUS STAT 10/19/2023 8:45 AM CDT CREATININE Early AM 10/19/2023 8:45 AM CDT POTASSIUM Early AM 10/19/2023 8:45 AM CDT SODIUM Early AM 10/19/2023 8:45 AM CDT CBC W PLT NO DIFF Early AM 10/19/2023 8:4 5 AM CDT APTT Early AM 10/19/2023 8:45 AM CDT SCAN-CARDIAC STRIP 10/19/2023 1: 42 AM CDT RED CELL MORPHOLOGY STAT 10/18/2023 1 0:38 PM CDT PLATELET ESTIMATE STAT 10/18/2023 10: 38 PM CDT MANUAL DIFFERENTIAL STAT 10/18/2023 1 0:38 PM CDT CBC WITH AUTO DIFFERENTIAL STAT 10/18/2023 10:38 PM CDT LACTATE VENOUS STAT 10/18/2023 10:38 PM CDT COMP METABOLIC PANEL STAT 10/18/2023 10:38 PM CDT PROTIME-INR STAT 10/18/2023 10:38 PM CDT CBC WITH AUTO DIFFERENTIAL STAT 10/18/2023 10:38 PM CDT BLOOD CULTURE Today 10/18/2023 1:47 PM CDT BLOOD CULTURE Today 10/18/2023 1:[address] CHEST PE STUDY STAT 10/18/2023 10: 06 AM CDT BLOOD GAS,VENOUS STAT 10/18/2023 9:45 AM CDT WHITE BLOOD COUNT D[facility] 10/18/2023 6:4 5 AM CDT APTT Timed 10/18/2023 6:45 AM CDT HEMATOCRIT Early AM 10/18/2023 6:45 AM CDT HEMOGLOBIN Early AM 10/18/2023 6:45 AM CDT PLATELET COUNT Early AM 10/18/2023 6:45 AM CDT SCAN-CARDIAC STRIP 10/18/2023 1: 06 AM CDT APTT Timed 10/17/2023 11:28 PM CDT APTT Timed 10/17/2023 3:46 PM CDT RED CELL MORPHOLOGY Timed 10/17/2023 8 :10 AM CDT APTT Early AM 10/17/2023 8:10 AM CDT CREATININE Early AM 10/17/2023 8:10 AM CDT POTASSIUM Early AM 10/17/2023 8:10 AM CDT SODIUM Early AM 10/17/2023 8:10 AM CDT CBC W PLT NO DIFF Early AM 10/17/2023 8:1 0 AM CDT SCAN-CARDIAC STRIP 10/17/2023 1: 09 AM CDT PLATELET ESTIMATE Timed 10/16/2023 9:3 3 AM CDT APTT Timed 10/16/2023 9:33 AM CDT WHITE BLOOD COUNT Early AM 10/16/2023 9:3 3 AM CDT CREATININE Early AM 10/16/2023 9:33 AM CDT POTASSIUM Early AM 10/16/2023 9:33 AM CDT SODIUM Early AM 10/16/2023 9:33 AM CDT CO2,TOTAL Early AM 10/16/2023 9:33 AM CDT HEMATOCRIT Early AM 10/16/2023 9:33 AM CDT HEMOGLOBIN Early AM 10/16/2023 9:33 AM CDT PLATELET COUNT Early AM 10/16/2023 9:33 AM CDT APTT Timed 10/16/2023 3:21 AM CDT SCAN-CARDIAC STRIP 10/16/2023 1: 45 AM CDT APTT Timed 10/15/2023 7:48 PM CDT EKG 12 LEAD Routine 10/15/2023 3:55 PM CDT SCAN-CARDIAC STRIP 10/15/2023 2: 16 PM CDT FACTOR 10 CHROMOGENIC Today 10/15/2023 12:07 PM CDT PROCALCITONIN Today 10/15/2023 12:07 PM CDT LACTATE VENOUS Today 10/15/2023 12:07 PM CDT APTT Timed 10/15/2023 12:07 PM CDT HAPTOGLOBIN D[place] 10/15/2023 6:39 AM CDT BILIRUBIN,TOTAL/DIRECT [place] 6:39 AM CDT PLATELET ESTIMATE Timed 10/15/2023 6:3 9 AM CDT APTT Timed 10/15/2023 6:39 AM CDT BLOOD GAS,VENOUS Early AM 10/15/2023 6:39 AM CDT CO2,TOTAL Early AM 10/15/2023 6:39 AM CDT CREATININE Early AM 10/15/2023 6:39 AM CDT SODIUM Early AM 10/15/2023 6:39 AM CDT WHITE BLOOD COUNT Early AM 10/15/2023 6:3 9 AM CDT HEMATOCRIT Early AM 10/15/2023 6:39 AM CDT HEMOGLOBIN Early AM 10/15/2023 6:39 AM CDT PLATELET COUNT Early AM 10/15/2023 6:39 AM CDT POTASSIUM Early AM 10/15/2023 6:39 AM CDT SCAN-CARDIAC STRIP 10/15/2023 2: 17 AM CDT APTT Timed 10/15/2023 1:16 AM CDT CALRETICULIN EXON 9 ASSAY Timed 10/14/2023 5:37 PM CDT STACLOT LA Timed 10/14/2023 5:37 PM CDT JAK2 [id number] MUTATION DETECTION Today 10/14/2023 5:37 PM CDT CARDIOLIPIN ANTIBODY Timed 10/14/2023 5:37 PM CDT BETA 2 GLYCOPROTEIN I PREET Today 10/14/2023 5:37 PM CDT LUPUS ANTICOAGULANT Today 10/14/2023 5 :37 PM CDT ANTITHROMBIN III ACTIVITY Timed 10/14/2023 5:37 PM CDT PROTEIN S FREE AG Timed 10/14/2023 5:3 7 PM CDT PROTEIN C Today 10/14/2023 5:37 PM CDT APTT Timed 10/14/2023 5:37 PM CDT URINE Today 10/14/2023 5:05 PM CDT SCAN CORRESP-EKG RESULTS 10/14/2023 2:35 PM CDT SCAN CORRESP-EKG RESULTS 10/14/2023 2:35 PM CDT SCAN CORRESP-LABORATORY RESULTS 10/14/2023 2:35 PM CDT SCAN CORRESP-IMAGING 10/14/2023 2:27 PM CDT XR CHEST 2 VIEWS PA AND LATERAL Routine 10/14/2023 2:08 PM CDT RESPIRATORY PANEL MULTIPLEX PCR Today 10/14/2023 1:52 PM CDT EXTRA TUBE MICRO Today 10/14/2023 1:19 PM CDT TROPONIN T (HS) ONE TIME Today 10/14/2023 1:19 PM CDT TROPONIN T (HS) ONE TIME [facility] 10/14/2023 11:18 AM CDT CREATININE D[place] 10/14/2023 11:18 AM CDT BUN [place] 10/14/2023 11:18 AM CDT HEMATOCRIT [place] 10/14/2023 11:18 AM CDT HEMOGLOBIN [place] 10/14/2023 11:18 AM CDT PLATELET COUNT [place] 10/14/2023 11:18 AM CDT APTT [place] 10/14/2023 11:18 AM CDT PROTIME-INR [place] 10/14/2023 11:18 AM CDT BLOOD CULTURE STAT 10/14/2023 11:18 AM CDT C-REACTIVE PROTEIN Today 10/14/2023 11 :18 AM CDT EXTRA TUBE GOLD/SST Today 10/14/2023 1 1:09 AM CDT EXTRA TUBE PLUNKETT Today 10/14/2023 11:09 AM CDT BLOOD CULTURE STAT 10/14/2023 7:23 AM CDT SCAN-CARDIAC STRIP 10/14/2023 6: 51 AM CDT ECHO TTE COMPLETE WO CONTRAST Routine 10/13/2023 2:07 PM CDT Splenic infarct KITCHEN LEAD THIN PREP PAP SCREEN IMAGED Routine 03/22/2014 10:15 AM REPAIR OPERATOR Well woman exam from Last 3 Months or Most Recently Relevant to Health Maintenance Results * (ABNORMAL) GLUCOSE METER (11/01/2023 1:55 PM CDT) Only the most recent of49 resultswithin the time period is included. GLUCOSE METER 183(H) 65 - 100 mg/dL 11/01/2023 1:57 PM CDT [facility] Blood BLOOD SPECIMEN / Unknown 11/01/2023 1:55 PM CDT 11/01/2023 1:57 PM CDT Huseyin Turner MD CHEMISTRY Performing Organization Address [facility] Co de Phone Number [facility] [address] [place] [address], * PLATELET COUNT (10/31/2023 6:12 AM CDT) Only the most recent of12 resultswithin the time period is included. PLATELET COUNT 382 140 - 440 thou/cu mm 10/31/2023 7:20 AM CDT [facility] MPV 9.7 6.5 - 11.0 fL 10/31/2023 7:20 AM CDT [facility] Blood BLOOD SPECIMEN / Unknown Venipuncture / Unknown 10/31/2023 6:12 AM CDT 10/31/2023 7:10 AM CDT Narrative [facility] - 10/31/2023 7:20 AM CDT Every morning while on IV heparin. Every morning while on IV heparin. Necessary every morning while on IV heparin. Faisal Light MD HEMATOLOGY Performing Organization Address [facility] Co de Phone Number [facility] [address] [place] [address], * (ABNORMAL) HEMOGLOBIN (10/31/2023 6:12 AM CDT) Only the most recent of12 resultswithin the time period is included. HEMOGLOBIN 10.7(L) 12.0 - 16.0 g/dL 10/31/2023 7:20 AM CDT [facility] MCV 89 80 - 100 fL 10/31/2023 7:20 AM CDT [facility] Blood BLOOD SPECIMEN / Unknown Venipuncture / Unknown 10/31/2023 6:12 AM CDT 10/31/2023 7:10 AM CDT [facility] - 10/31/2023 7:20 AM CDT Every morning while on IV heparin. Every morning while on IV heparin. Necessary every morning while on IV heparin. Faisal Light MD HEMATOLOGY Performing Organization Address City/[facility]/ZIP Co de Phone Number [facility] [address] [place] [address], [place] * HEMATOCRIT (10/31/2023 6:12 AM CDT) Only the most recent of12 resultswithin the time period is included. HEMATOCRIT 35.7 33.0 - 51.0 % 10/31/2023 7:20 AM CDT [facility] Blood BLOOD SPECIMEN / Unknown Venipuncture / Unknown 10/31/2023 6:12 AM CDT 10/31/2023 7:10 AM CDT [facility] - 10/31/2023 7:20 AM CDT Every morning while on IV heparin. Every morning while on IV heparin. Necessary every morning while on IV heparin. Faisal Light MD HEMATOLOGY [facility] [address] [place] [id number], [place] * (ABNORMAL) MAGNESIUM (10/29/2023 4:39 AM CDT) Only the most recent of4 resultswithin the time period is included. MAGNESIUM 2.7(H) 1.6 - 2.6 mg/dL 10/29/2023 6:46 AM CDT [facility] Blood BLOOD SPECIMEN / Unknown Butterfly / Unknown 10/29/2023 4:39 AM CDT 10/29/2023 5:43 AM CDT Marah Eubanks MD CHEMISTRY [facility] [address] [place] [address], * (ABNORMAL) BASIC METABOLIC PANEL (10/29/2023 4:39 AM CDT) Only the most recent of6 resultswithin the time period is included. SODIUM 138 136 - 145 mmol/L 10/29/2023 6:10 AM CDT [facility] POTASSIUM 4.4 3.5 - 5.1 mmol/L 10/29/2023 6:10 AM CDT [facility] CHLORIDE 103 98 - 107 mmol/L 10/29/2023 6:10 AM T [facility] CO2,TOTAL 28 22 - 29 mmol/L 10/29/2023 6:10 AM CDT [facility] ANION GAP 7 5 - 18 10/29/2023 6:10 AM CDT [facility] GLUCOSE 269(H) 70 - 99 mg/dL 10/29/2023 6:10 AM T [facility] CALCIUM 8.7 8.6 - 10.0 mg/dL 10/29/2023 6:10 AM T [facility] BUN 24(H) 6 - 20 mg/dL 10/29/2023 6:10 AM T [facility] CREATININE 0.74 0.50 - 0.90 mg/dL 10/29/2023 6:10 AM T [facility] BUN/CREAT RATIO 32(H) 10 - 20 6:10 AM T [facility] eGFR >90 >90 mL/min/1.7 3m2 10/29/2023 6:10 AM T [facility] Comment:As of 2021, eG FR is calculated by the CKD-EPI creatinine equation without race adjustment. ??eGFR can be influenced by muscle mass, exercise, and diet. ??The reported eGFR is an estimation only and is only applicable if the renal function is stable. Blood BLOOD SPECIMEN / Unknown Butterfly / Unknown 10/29/2023 4:39 AM CDT 10/29/2023 5:43 AM CDT Marah Eubanks MD CHEMISTRY [facility] [address] [place] [address], * SCAN-CARDIAC STRIP (10/28/2023 7:00 AM CDT) Scanner OTHER * SCAN-CARDIAC STRIP (10/27/2023 8:03 PM CDT) Scanner OTHER * CMV QUANT DNA PCR (BLOOD) (10/27/2023 3:24 PM CDT) Only the most recent of2 resultswithin the time period is included. CMV Qn DNA PCR [id number] Negative IU/mL 10/28/2023 11:07 PM CDT [facility] Comment:The quantitative ran ge of this assay is 200 to 1 million IU/mL. log10 CMV Qn DNA 4.158 log10 IU/mL 024 11:07 PM CDT [facility] Blood BLOOD SPECIMEN / Unknown Butterfly / Unknown 10/27/2023 3:24 PM CDT 10/27/2023 3:28 PM CDT Narrative [facility] ([facility]) - 10/28/2023 11:07 PM CDT Performed at: ??01 - [employer] [address] [place] [address] ??[phone] Head Field Hockey Coach: Abdiaziz Escobar MD, Phone: ??[phone] Marah Eubanks MD SEND OUTS [facility] ([facility]) [address] [place] [address], * (ABNORMAL) CBC no diff AM (10/27/2023 6:01 AM CDT) Only the most recent of5 resultswithin the time period is included. WHITE BLOOD COUNT 7.5 4.5 - 11.0 thou/cu mm 10/27/2023 6:41 AM CDT [facility] RED BLOOD COUNT 3.79(L) 4.00 - 5.20 mil/cu mm 10/27/2023 6:41 AM CDT [facility] HEMOGLOBIN 9.9(L) 12.0 - 16.0 g/dL 10/27/2023 6:41 AM CDT [facility] HEMATOCRIT 33.1 33.0 - 51.0 % 10/27/2023 6:41 AM CDT [facility] MCV 87 80 - 100 fL 10/27/2023 6:41 AM CDT [facility] MCH 26.1 26.0 - 34.0 pg 10/27/2023 6:41 AM CDT [facility] MCHC 29.9(L) 32.0 - 36.0 g/dL 10/27/2023 6:41 AM CDT [facility] RDW 19.1(H) 11.5 - 15.5 % 10/27/2023 6:41 AM CDT [facility] PLATELET COUNT 298 140 - 440 thou/cu mm 10/27/2023 6:41 AM CDT [facility] MPV 10.0 6.5 - 11.0 fL 10/27/2023 6:41 AM CDT [facility] NRBC 0.0 % 10/27/2023 6:41 AM CDT [facility] ABS NRBC 0.0 thou /cu mm 10/27/2023 6:41 AM CDT [facility] Blood BLOOD SPECIMEN / Unknown Butterfly / Unknown 10/27/2023 6:01 AM CDT 10/27/2023 6:28 AM CDT Sebastián Campoverde MD HEMATOLOGY Performing Organization Address [facility]/ZIP Co de Phone Number [facility] [address] [place] [phone], [place] * (ABNORMAL) BLOOD GAS,VENOUS (10/27/2023 6:01 AM CDT) Only the most recent of7 resultswithin the time period is included. PH, VENOUS 7.34 7.32 - 7.43 10/27/2023 6:24 AM CDT [facility] PCO2, VENOUS 46 41 - 51 mmHg 10/27/2023 6:24 AM CDT [facility] PO2, VENOUS 71(H) 35 - 40 mmHg 10/27/2023 6:24 AM CDT [facility] HCO3,VENOUS 25 22 - 29 mmol/L 10/27/2023 6:24 AM CDT [facility] BASE EXCESS, VENOUS, POCT -1.3 -2.0 - 3.0 10/27/2023 6:24 AM CDT [facility] O2 SATURATION, VENOUS 94(H) 70 - 75 % 10/27/2023 6:24 AM CDT [facility] PATIENT TEMPERATURE 37.0 Degrees C 10/27/2023 6:24 AM CDT [facility] Blood VENOUS BLOOD SPECIMEN / Unknown Butterfly / Unknown 10/27/2023 6:01 AM CDT 10/27/2023 6:20 AM CDT Sreekanth Rousseau MD CHEMISTRY Performing Organization Address City/[facility]/ZIP Co de Phone Number [facility] [address] [place] [phone], [place] * (ABNORMAL) C-REACTIVE PROTEIN (10/27/2023 6:01 AM CDT) Only the most recent of2 resultswithin the time period is included. [facility] C-REACTIVE PROTEIN 4.5(H) <0.5 mg/dL 10/27/2023 3:55 PM CDT [facility] Blood BLOOD SPECIMEN / Unknown Butterfly / Unknown 10/27/2023 6:01 AM CDT 10/27/2023 6:25 AM CDT Marah Eubanks MD CHEMISTRY [facility] [address] [place] [address], * SCAN-CARDIAC STRIP (10/26/2023 8:09 PM CDT) Scanner OTHER * COVID-19 MOLECULAR (10/26/2023 8:07 PM CDT) [facility] COVID 19 [facility] MOLECULAR Negative Negative 10/26/2023 10:21 PM CDT [facility] Comment:All PCR tests are chen bject to false negative result due to variability in viral load and collection technique. A negative result does not rule out a SARS-CoV-2 infection. Clinical correlation required. TESTING LABORATORY [facility] 10/26/2023 10:21 PM CDT [facility] Comment:Specimen submitted t o [facility] for testing. Other SPECIMEN FROM NASOPHARYNGEAL STRUCTURE / Unknown Non-Blood / Unknown 10/26/2023 8:07 PM CDT 10/26/2023 8:20 PM CDT Octaviano Masterson MD MICROBIOLOGY Performing Organization Address City/[facility]/ZIP Co de Phone Number [facility] [address] [place] [address], * RESPIRATORY PANEL MULTIPLEX PCR (10/26/2023 8:07 PM CDT) Only the most recent of2 resultswithin the time period is included. [facility] Adenovirus NOT Detected 10/26/2023 10:17 PM CDT [facility] Coronavirus 229E NOT Detected 10/26/2023 10:17 PM CDT [facility] Coronavirus HKU1 NOT Detected 10/26/2023 10:17 PM CDT [facility] Coronavirus NL63 NOT Detected 10/26/2023 10:17 PM CDT [facility] Coronavirus OC43 NOT Detected 10/26/2023 10:17 PM CDT [facility] Human Metapneumovirus NOT Detected 10/26/2023 10:17 PM CDT [facility] Human Rhinovirus/Enterovi jigar NOT Detected 10/26/2023 10:17 PM CDT [facility] Influenza A NOT Detected 10/26/2023 10:17 PM CDT [facility] Influenza B NOT Detected 10/26/2023 10:17 PM CDT [facility] Parainfluenza Virus 1 NOT Detected 10/26/2023 10:17 PM CDT [facility] Parainfluenza Virus 2 NOT Detected 10/26/2023 10:17 PM CDT [facility] Parainfluenza Virus 3 NOT Detected 10/26/2023 10:17 PM CDT [facility] Parainfluenza Virus 4 NOT Detected 10/26/2023 10:17 PM CDT [facility] Respiratory Syncytial Virus NOT Detected 10/26/2023 10:17 PM CDT [facility] SARS-Cov-2 NOT Detected 10/26/2023 10:17 PM CDT [facility] Bordetella pertussis NOT Detected 10/26/2023 10:17 PM CDT [facility] Bordetella Parapertussis NOT Detected 10/26/2023 10:17 PM CDT [facility] Chlamydophila pneumoniae NOT Detected 10/26/2023 10:17 PM CDT [facility] Mycoplasma pneumoniae NOT Detected 10/26/2023 10:17 PM CDT [facility] Nasopharyngeal NASOPHARYNGEAL SWAB / Unknown Non-Blood / Unknown 10/26/2023 8:07 PM CDT 10/26/2023 8:20 PM CDT Narrative [facility] - 10/26/2023 10:17 PM CDT All PCR tests are subject to false negative results due to variability in viral/bacterial load and collection technique. ??This test does NOT detect MERS ( Respiratory Syndrome) or SARS-1 (Severe Acute Respiratory Syndrome). Octaviano Masterson MD MICROBIOLOGY [facility] [address] [place] [address], * (ABNORMAL) ARTERIAL BLOOD GAS (10/26/2023 12:25 PM CDT) Only the most recent of2 resultswithin the time period is included. PH, ARTERIAL 7.38 7.35 - 7.45 10/26/2023 1:05 PM T [facility] PCO2, ARTERIAL 46(H) 32 - 45 mmHg 10/26/19 24 1:05 PM [facility] PO2, ARTERIAL 80(L) 83 - 108 mmHg 10/26/2023 1:05 PM T [facility] HCO3, ARTERIAL 27 21 - 28 mmol/L 10/26/2023 1:05 PM [facility] BASE EXCESS, ARTERIAL 1.5 -2.0 - 3.0 10/26/2023 1:05 PM T [facility] O2 SATURATION, ARTERIAL 97 94 - 98 % 10/26/2023 1:05 PM T [facility] INSPIRED O2 80 10/26/2023 1:05 PM T [facility] Comment:Unit of Measure: Lit ers (L) if <=20; Percent (%) if >20 PATIENT TEMPERATURE 37.0 Degrees C 10/26/2023 1:05 PM [facility] Blood ARTERIAL BLOOD SPECIMEN / Unknown Non-Lab Venipuncture / Unknown 10/26/2023 12:25 PM CDT 10/26/2023 12:57 PM CDT Judy Griffin CHEMISTRY [facility] [address] [place] [address], [place] * CT Chest PE study TODAY (10/26/2023 11:38 AM CDT) Only the most recent of2 resultswithin the time period is included. Anatomical Region Laterality Modality CHEST, THORAX, HEART Computed To mography 10/26/2023 2:43 PM CDT Narrative 10/26/2023 2:43 PM CDT For Patients: ??As a result of the Cures Act, medical imaging exams and procedure reports are released immediately into your electronic medical record. ??You may view this report before your referring provider. ??If you have questions, please contact your health care provider. Indication: hypoxia, hx of clot Pulmonary embolism (PE) suspected, unknown D-dimer Technique: CTA chest, pulmonary embolism protocol, utilizing 100 mL Omnipaque 350 Comparison: CTA chest on October 18, 2023 Findings: Examination is limited secondary to motion artifact. Pulmonary Arterial Vasculature: There is no appreciable central pulmonary embolism. Evaluation of the segmental pulmonary arteries limited secondary to motion artifact. There is no appreciable segmental pulmonary embolism. Regions of some decreased attenuation in the distal segmental and subsegmental pulmonary arteries are favored to represent contrast mixing artifact. Visualized Lower Neck: No lower cervical adenopathy. Mediastinum: Thoracic aorta and pulmonary trunk are normal in caliber. Heart and pericardium are without significant findings. No CT evidence of right heart strain. Trachea and esophagus are normal in appearance. There is no mediastinal lymphadenopathy. Lungs/Pleura: No change in very small left and trace right pleural effusions. There is a trace amount of right pleural fluid which is unchanged. Similar-appearing persistent areas of dense atelectasis or infiltrate are present within the lower lobes, right middle lobe and lingula. There is no pneumothorax. Skeleton: No significant osseous findings. Thoracic soft tissues: Unremarkable. No axillary adenopathy. Visualized Upper Abdomen: Suspected cholelithiasis. Similar-appearing splenic infarct. Impression: 1. Limited examination secondary to motion artifact. No appreciable pulmonary embolism. 2. Similar-appearing small left and trace right pleural effusions. 3. Persistent areas of dense atelectasis versus infiltrate within the lung bases. Please note that all CT scans at this facility use dose modulation, iterative reconstruction, and/or weight-based dosing when appropriate to reduce radiation dose to as low as reasonably achievable. Dictated by Royal Paris MD @ 10/26/2023 2:43:20 PM (Electronically Signed) Procedure Note Royal Paris MD - 10/26/2023 For Patients: As a result of the Cures Act, medical imagingexams and procedure reports are released immediately into your electronicmedical record. You may view this report before your referring provider.If you have questions, please contact your health care provider. Indication: hypoxia, hx of clot Pulmonary embolism (PE) suspected, unknown D-dimer Technique: CTA chest, pulmonary embolism protocol, utilizing 100 mL Omnipaque 350 Comparison: CTA chest on October 18, 2023 Findings: Examination is limited secondary to motion artifact. Pulmonary Arterial Vasculature: There is no appreciable central pulmonaryembolism. Evaluation of the segmental pulmonary arteries limited secondaryto motion artifact. There is no appreciable segmental pulmonary embolism.Regions of some decreased attenuation in the distal segmental andsubsegmental pulmonary arteries are favored to represent contrast mixingartifact. Visualized Lower Neck: No lower cervical adenopathy. Mediastinum: Thoracic aorta and pulmonary trunk are normal in caliber.Heart and pericardium are without significant findings. No CT evidence ofright heart strain. Trachea and esophagus are normal in appearance. Thereis no mediastinal lymphadenopathy. Lungs/Pleura: No change in very small left and trace right pleuraleffusions. There is a trace amount of right pleural fluid which isunchanged. Similar-appearing persistent areas of dense atelectasis orinfiltrate are present within the lower lobes, right middle lobe andlingula. There is no pneumothorax. Skeleton: No significant osseous findings. Thoracic soft tissues: Unremarkable. No axillary adenopathy. Visualized Upper Abdomen: Suspected cholelithiasis. Similar-appearingsplenic infarct. Impression: 1. Limited examination secondary to motion artifact. No appreciablepulmonary embolism. 2. Similar-appearing small left and trace right pleural effusions. 3. Persistent areas of dense atelectasis versus infiltrate within the lungbases. Please note that all CT scans at this facility use dose modulation,iterative reconstruction, and/or weight-based dosing when appropriate toreduce radiation dose to as low as reasonably achievable. Dictated by Royal Paris MD @ 10/26/2023 2:43:20 PM (Electronically Signed) Sebastián Campoverde MD CT * Lactate, Venous - WAISTLINE JOINER LOCKSTITCH (10/26/2023 9:36 AM CDT) Only the most recent of4 resultswithin the time period is included. Pathologist [facility] LACTATE,VENOUS 0.7 0.5 - 2.0 mmol/L 10/26/2023 10:11 AM CDT [facility] Blood BLOOD SPECIMEN / Unknown Butterfly / Unknown 10/26/2023 9:36 AM CDT 10/26/2023 9:42 AM CDT Sebastián Campoverde MD [facility] [address] [place] [address], * (ABNORMAL) Comprehensive Metabolic Panel - WAISTLINE JOINER LOCKSTITCH (10/26/2023 9:36 AM CDT) Only the most recent of2 resultswithin the time period is included. Pathologist [facility] SODIUM 138 136 - 145 mmol/L 10/26/2023 10:11 AM CDT [facility] [employer] [facility] POTASSIUM 4.4 3.5 - 5.1 mmol/L 10/26/2023 10:11 AM CDT [facility] CHLORIDE 104 98 - 107 mmol/L 10/26/2023 10:11 AM CDT [facility] CO2,TOTAL 26 22 - 29 mmol/L 10/26/2023 10:11 AM CDT [facility] ANION GAP 8 5 - 18 10/26/2023 10:11 AM CDT [facility] GLUCOSE 88 70 - 99 mg/dL 10/26/2023 10:11 AM CDT [facility] CALCIUM 8.7 8.6 - 10.0 mg/dL 10/26/2023 10:11 AM CDT [facility] BUN 10 6 - 20 mg/dL 10/26/2023 10:11 AM T [facility] CREATININE 0.87 0.50 - 0.90 mg/dL 10/26/2023 10:11 AM T [facility] BUN/CREAT RATIO 11 10 - 20 10:11 AM T [facility] eGFR 89(L) >90 mL/min/1.7 3m2 10/26/2023 10:11 AM T [facility] Comment:As of 2021, eG FR is calculated by the CKD-EPI creatinine equation without race adjustment. ??eGFR can be influenced by muscle mass, exercise, and diet. ??The reported eGFR is an estimation only and is only applicable if the renal function is stable. ALBUMIN 3.0(L) 4.0 - 4.9 g/dL 10/26/2023 10:11 AM T [facility] PROTEIN,TOTAL 6.9 6.0 - 8.0 g/dL 10/26/2023 10:11 AM T [facility] BILIRUBIN,TOTAL 0.5 0.0 - 1.2 mg/dL 10/26/2023 10:11 AM T [facility] ALK PHOSPHATASE 141(H) 35 - 104 IU/L 10/26/2023 10:11 AM T [facility] ALT (SGPT) 27 10 - 35 IU/L 10/26/2023 10:11 AM T [facility] AST (SGOT) 42(H) 10 - 35 IU/L 10/26/2023 10:11 AM T [facility] Blood BLOOD SPECIMEN / Unknown Butterfly / Unknown 10/26/2023 9:36 AM CDT 10/26/2023 9:42 AM CDT Sebastián Campoverde MD CHEMISTRY [facility] [address] [place] [address], [place] * (ABNORMAL) CBC WITH AUTO DIFFERENTIAL (10/26/2023 5:18 AM CDT) Only the most recent of3 resultswithin the time period is included. WHITE BLOOD COUNT 12.0(H) 4.5 - 11.0 thou/cu mm 10/26/2023 10:11 AM CDT [facility] RED BLOOD COUNT 3.62(L) 4.00 - 5.20 mil/cu mm 10/26/2023 10:11 AM CDT [facility] HEMOGLOBIN 9.4(L) 12.0 - 16.0 g/dL 10/26/2023 10:11 AM CDT [facility] HEMATOCRIT 31.8(L) 33.0 - 51.0 % 10/26/2023 10:11 AM CDT [facility] MCV 90 80 - 100 fL 10/26/2023 10:11 AM CDT [facility] MCH 26.5 26.0 - 34.0 pg 10/26/2023 10:11 AM CDT [facility] MCHC 29.7(L) 32.0 - 36.0 g/dL 10/26/2023 10:11 AM CDT [facility] RDW 19.9(H) 11.5 - 15.5 % 10/26/2023 10:11 AM CDT [facility] PLATELET COUNT 305 140 - 440 thou/cu mm 10/26/2023 10:11 AM CDT [facility] MPV 9.7 6.5 - 11.0 fL 10/26/2023 10:11 AM CDT [facility] NRBC 0.2 % 10/26/2023 10:11 AM CDT [facility] ABS NRBC 0.0 thou /cu mm 10/26/2023 10:11 AM T [facility] Blood BLOOD SPECIMEN / Unknown Butterfly / Unknown 10/26/2023 5:18 AM CDT 10/26/2023 5:29 AM CDT Narrative [facility] - 10/26/2023 10:11 AM CDT RN to order if patient presents with two or more positive sepsis screening criteria plus new or worsening signs or symptoms of suspected infection. Sebastián Campoverde MD HEMATOLOGY Performing Organization Address City/[facility] Co de Phone Number [facility] [address] [place] [address], [place] * (ABNORMAL) RED CELL MORPHOLOGY (10/26/2023 5:18 AM CDT) Only the most recent of5 resultswithin the time period is included. Pathologist [facility] POLYCHROMASIA Slight 10/26/2023 10:11 AM CDT [facility] RBC COMMENT Present(A) RBC morphology appears normal, RBC morphology within normal limits for newborns. 10/26/2023 10:11 AM CDT [facility] Blood BLOOD SPECIMEN / Unknown Butterfly / Unknown 10/26/2023 5:18 AM CDT 10/26/2023 5:29 AM CDT Narrative [facility] - 10/26/2023 10:11 AM CDT RN to order if patient presents with two or more positive sepsis screening criteria plus new or worsening signs or symptoms of suspected infection. Sebastián Campoverde MD HEMATOLOGY Performing Organization Address City/[facility] Co de Phone Number [facility] [address] [place] [id number], [place] * PLATELET ESTIMATE (10/26/2023 5:18 AM CDT) Only the most recent of5 resultswithin the time period is included. [facility] PLATELET ESTIMATE Adequate Adequate, No estimate 10/26/2023 10:11 AM CDT [facility] Blood BLOOD SPECIMEN / Unknown Butterfly / Unknown 10/26/2023 5:18 AM CDT 10/26/2023 5:29 AM CDT [facility] - 10/26/2023 10:11 AM CDT RN to order if patient presents with two or more positive sepsis screening criteria plus new or worsening signs or symptoms of suspected infection. Sebastián Campoverde MD HEMATOLOGY [facility] [address] [place] [address], [place] * (ABNORMAL) MANUAL DIFFERENTIAL (10/26/2023 5:18 AM CDT) Only the most recent of3 resultswithin the time period is included. % NEUTROPHILS 22.0 % 10/26/2023 10:11 AM CDT [facility] % LYMPHOCYTES 71.0 % 10/26/2023 10:11 AM CDT [facility] % MONOCYTES 6.0 % 10/26/2023 10:11 AM CDT [facility] % EOSINOPHILS 1.0 % 10/26/2023 10:11 AM CDT [facility] % BASOPHILS 0.0 % 10/26/2023 10:11 AM CDT [facility] NEUTROPHILS ABSOLUTE 2.6 1.7 - 7.0 thou/cu mm 10/26/2023 10:11 AM CDT [facility] LYMPHOCYTES ABSOLUTE 8.5(H) 0.9 - 2.9 thou/cu mm 10/26/2023 10:11 AM CDT [facility] MONOCYTES ABSOLUTE 0.7 <0.9 thou/cu mm 10/26/2023 10:11 AM CDT [facility] EOSINOPHILS ABSOLUTE 0.1 <0.5 thou/cu mm 10/26/2023 10:11 AM CDT [facility] BASOPHILS ABSOLUTE 0.0 <0.3 thou/cu mm 10/26/2023 10:11 AM CDT [facility] Blood BLOOD SPECIMEN / Unknown Butterfly / Unknown 10/26/2023 5:18 AM CDT 10/26/2023 5:29 AM CDT Narrative [facility] - 10/26/2023 10:11 AM CDT RN to order if patient presents with two or more positive sepsis screening criteria plus new or worsening signs or symptoms of suspected infection. Sebastián Campoverde MD HEMATOLOGY Performing Organization Address [facility] de Phone Number [facility] [address] [place] [address], * CLOSTRIDIOIDES DIFFICILE TOXIN PCR (10/25/2023 5:35 PM CDT) CLOSTRIDIUM DIFFICILE PCR Negative 10/25/2023 7:16 PM CDT [facility] PRESUMPTIVE NAP1 STRAIN Negative 10/25/2023 7:16 PM CDT [facility] Stool STOOL SPECIMEN / Unknown Non-Blood / Unknown 10/25/2023 5:35 PM CDT 10/25/2023 5:49 PM CDT [facility] - 10/25/2023 7:16 PM CDT The NAP1 (027 or BI) strain is a hypervirulent strain. Detection may be useful for epidemiological purposes. Sebastián Campoverde MD MICROBIOLOGY Performing Organization Address [facility] de Phone Number [facility] [address] * (ABNORMAL) APTT (10/25/2023 4:37 AM CDT) Only the most recent of23 resultswithin the time period is included. APTT >240(HH) 28 - 36 sec 10/25/2023 5:25 AM CDT [facility] Blood BLOOD SPECIMEN / Unknown Butterfly / Unknown 10/25/2023 4:37 AM CDT 10/25/2023 4:50 AM CDT [facility] - 10/25/2023 5:25 AM CDT Therapeutic Range: 57-87 seconds Sebastián Campoverde MD HEMATOLOGY Performing Organization Address City/[facility] Co de Phone Number [facility] [address] [place] [address], [place] * BLOOD CULTURE (10/24/2023 1:03 PM CDT) Only the most recent of6 resultswithin the time period is included. CULTURE No Growth. 10/28/2023 1:45 PM CDT [facility] Blood BLOOD SPECIMEN / Unknown Butterfly / Unknown 10/24/2023 1:03 PM CDT 10/24/2023 1:14 PM CDT Dai Hein MD MICROBIOLOGY Performing Organization Address [facility] Co de Phone Number [facility] [address] [place] [address], [place] * SODIUM (10/24/2023 7:06 AM CDT) Only the most recent of5 resultswithin the time period is included. SODIUM 138 136 - 145 mmol/L 10/24/2023 8:14 AM CDT [facility] Blood BLOOD SPECIMEN / Unknown Venipuncture / Unknown 10/24/2023 7:06 AM CDT 10/24/2023 7:18 AM CDT Huseyin Turner MD CHEMISTRY Performing Organization Address [facility] Co de Phone Number [facility] [address] [place] [address], [place] * POTASSIUM (10/24/2023 7:06 AM CDT) Only the most recent of6 resultswithin the time period is included. POTASSIUM 4.5 3.5 - 5.1 mmol/L 10/24/2023 8:14 AM CDT [facility] Blood BLOOD SPECIMEN / Unknown Venipuncture / Unknown 10/24/2023 7:06 AM CDT 10/24/2023 7:18 AM CDT Huseyin Turner MD CHEMISTRY [facility] [address] [id number], * CREATININE (10/24/2023 7:06 AM CDT) Only the most recent of6 resultswithin the time period is included. eGFR >90 >90 mL/min/1.7 3m2 10/24/2023 8:14 AM CDT [facility] Comment:As of 2021, eG FR is calculated by the CKD-EPI creatinine equation without race adjustment. ??eGFR can be influenced by muscle mass, exercise, and diet. ??The reported eGFR is an estimation only and is only applicable if the renal function is stable. CREATININE 0.83 0.50 - 0.90 mg/dL 10/24/2023 8:14 AM CDT [facility] Blood BLOOD SPECIMEN / Unknown Venipuncture / Unknown 10/24/2023 7:06 AM CDT 10/24/2023 7:18 AM CDT Huseyin Turner MD CHEMISTRY [facility] [address] [place] [address], * (ABNORMAL) CMV IGM ANTIBODY (10/24/2023 7:06 AM CDT) CMV IgM >240.0(H) 0.0 - 29.9 AU/mL 10/26/2023 10:03 AM CDT [facility] Comment:Presence of detectab le CMV IgM antibodies. A positive result is generally indicative of acute infection, reactivation or persistent IgM production. Blood BLOOD SPECIMEN / Unknown Venipuncture / Unknown 10/24/2023 7:06 AM CDT 10/24/2023 7:18 AM CDT Narrative [facility] - 10/26/2023 10:03 AM CDT ? <30.0 AU/ML ? Negative ??30.0 - 34.9 AU/ML ??Equivocal ? >34.9 AU/ML ? Positive ? Dai Hein MD SEND OUTS Performing Organization Address City/[facility] Co de Phone Number [facility] [address] [place] [address], [place] * HETEROPHILE (10/24/2023 7:06 AM CDT) HETEROPHILE Negative Negative 10/24/2023 11:14 AM CDT [facility] Blood BLOOD SPECIMEN / Unknown Venipuncture / Unknown 10/24/2023 7:06 AM CDT 10/24/2023 7:19 AM CDT Dai Hein MD HEMATOLOGY Performing Organization Address [facility] Phone Number [facility] [address] [place] [address], [place] * CT CHEST ABDOMEN PELVIS W (10/23/2023 10:23 AM CDT) Anatomical Region Laterality Modality Abdomen, Pelvis, AORTA, LIVER, SPLEEN, CHEST Computed Tomography 10/23/2023 3:01 PM CDT Impressions 10/23/2023 3:01 PM CDT 1. 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 Splenic artery and splenic vein are patent. 2. ??No change in small amount of left pleural fluid and trace right-sided pleural fluid. 3. ??Persistent areas of dense atelectasis versus infiltrate within the lung bases. 4. ??Sludge versus small stones within the gallbladder. Please note that all CT scans at this facility use dose modulation, iterative reconstruction, and/or weight-based dosing when appropriate to reduce radiation dose to as low as reasonably achievable. Dictated by Soham Simons MD @ 10/23/2023 3:01:24 PM (Electronically Signed) Narrative 10/23/2023 3:01 PM CDT For Patients: ??As a result of the Century Cures Act, medical imaging exams and procedure reports are released immediately into your electronic medical record. ??You may view this report before your referring provider. ??If you have questions, please contact your health care provider. INDICATION: Sepsis. TECHNIQUE: Intravenous contrast enhanced CT of the chest, abdomen and pelvis. 100 mL Omnipaque 350 intravenous contrast was administered. COMPARISON: Chest CT from 10/18/2023. FINDINGS: Chest: There is no thoracic aortic aneurysm or dissection. No significant pericardial effusion. Small mediastinal lymph nodes in the left prevascular distribution are stable. There is no axillary lymphadenopathy. No change in very small left pleural effusion. There is a trace amount of right pleural fluid which is unchanged. Persistent areas of dense atelectasis or infiltrate are present within the lower lobes, right middle lobe and lingula. There is no pneumothorax. Degenerative changes of the spine. No acute fractures. Abdomen and pelvis: No focal liver lesion. No biliary ductal dilatation. There is some higher density material within the gallbladder which may relate to small noncalcified stones or sludge. Gallbladder does not appear excessively distended. Splenomegaly is present. There are areas of splenic low-density which are compatible with areas of splenic infarction. Adrenal glands normal. No focal pancreatic abnormality. Symmetric nephrograms. There is a cyst exophytic off the inferior left kidney. Urinary bladder does not appear excessively distended. An IUD is present within the uterus. No small bowel obstruction. No appendicitis. No diverticulitis or definite colitis. No fluid collection or free air. No abdominal aortic aneurysm. The mesenteric arterial and renal arterial vasculature appears patent. Splenic artery patent. Splenic vein patent. Portal venous system patent. No acute fractures. Procedure Note Soham Simons MD - 10/23/2023 For Patients: As a result of the 21st Century Cures Act, medical imagingexams and procedure reports are released immediately into your electronicmedical record. You may view this report before your referring provider.If you have questions, please contact your health care provider. INDICATION: Sepsis. TECHNIQUE: Intravenous contrast enhanced CT of the chest, abdomen and pelvis. 100 mLOmnipaque 350 intravenous contrast was administered. COMPARISON: Chest CT from 10/18/2023. FINDINGS: Chest: There is no thoracic aortic aneurysm or dissection. No significantpericardial effusion. Small mediastinal lymph nodes in the left prevascular distribution arestable. There is no axillary lymphadenopathy. No change in very small left pleural effusion. There is a trace amount ofright pleural fluid which is unchanged. Persistent areas of denseatelectasis or infiltrate are present within the lower lobes, right middlelobe and lingula. There is no pneumothorax. Degenerative changes of the spine. No acute fractures. Abdomen and pelvis: No focal liver lesion. No biliary ductal dilatation. There is some higherdensity material within the gallbladder which may relate to smallnoncalcified stones or sludge. Gallbladder does not appear excessivelydistended. Splenomegaly is present. There are areas of splenic low-densitywhich are compatible with areas of splenic infarction. Adrenal glandsnormal. No focal pancreatic abnormality. Symmetric nephrograms. There is acyst exophytic off the inferior left kidney. Urinary bladder does notappear excessively distended. An IUD is present within the uterus. No small bowel obstruction. No appendicitis. No diverticulitis or definitecolitis. No fluid collection or free air. No abdominal aortic aneurysm. The mesenteric arterial and renal arterialvasculature appears patent. Splenic artery patent. Splenic vein patent.Portal venous system patent. No acute fractures. IMPRESSION: 1. 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 Splenicartery and splenic vein are patent. 2. No change in small amount of left pleural fluid and trace right-sidedpleural fluid. 3. Persistent areas of dense atelectasis versus infiltrate within thelung bases. 4. Sludge versus small stones within the gallbladder. Please note that all CT scans at this facility use dose modulation,iterative reconstruction, and/or weight-based dosing when appropriate toreduce radiation dose to as low as reasonably achievable. Dictated by Soham Simons MD @ 10/23/2023 3:01:24 PM (Electronically Signed) Huseyin Turner MD CT * SCAN-CARDIAC STRIP (10/23/2023 7:01 AM CDT) Scanner OTHER * SCAN-CARDIAC STRIP (10/22/2023 7:40 AM CDT) Scanner OTHER * US ABDOMEN LIMITED RUQ W DUPLEX PORTABLE (10/22/2023 7:05 AM CDT) Anatomical Region Laterality Modality LIVER Ultrasound 10/22/2023 3:11 PM CDT Narrative 10/22/2023 3:11 PM CDT For Patients: ??As a result of the Cures Act, medical imaging exams and procedure reports are released immediately into your electronic medical record. ??You may view this report before your referring provider. ??If you have questions, please contact your health care provider. Indication: Abnormal liver function studies. Technique: Ultrasound abdomen limited right upper quadrant with duplex. Comparison: No prior. Findings: There is increased hepatic echogenicity compatible with fatty infiltration of the liver. Liver contour appears smooth. No biliary ductal dilatation. The extrahepatic bile duct measures 4 millimeters which is normal. Gallstones are present. No gallbladder wall thickening or surrounding fluid. Pancreas is incompletely visualized. Right kidney unremarkable. Spleen is enlarged measuring 14 centimeters. No upper abdominal ascites. Splenic vein is patent with appropriate direction blood flow. Main portal vein is patent with appropriate direction blood flow. Vessel flow velocity is 30 centimeters/second. Right and left portal veins are patent. Right and middle hepatic veins are patent. Left hepatic vein not well seen. Hepatic artery patent with right and left resistive indices of 0.64 and 0.65, respectively. The IVC is patent. Impression: 1. Patent hepatic vasculature. 2. Fatty infiltration of the liver. 3. No biliary ductal dilatation. 4. Cholelithiasis. No gallbladder wall thickening or surrounding fluid. 5. Splenomegaly. Dictated by Soham Simons MD @ 10/22/2023 3:11:44 PM (Electronically Signed) Procedure Note Soham Simons MD - 10/22/2023 For Patients: As a result of the Cures Act, medical imagingexams and procedure reports are released immediately into your electronicmedical record. You may view this report before your referring provider.If you have questions, please contact your health care provider. Indication: Abnormal liver function studies. Technique: Ultrasound abdomen limited right upper quadrant with duplex. Comparison: No prior. Findings: There is increased hepatic echogenicity compatible with fatty infiltrationof the liver. Liver contour appears smooth. No biliary ductal dilatation.The extrahepatic bile duct measures 4 millimeters which is normal.Gallstones are present. No gallbladder wall thickening or surroundingfluid. Pancreas is incompletely visualized. Right kidney unremarkable.Spleen is enlarged measuring 14 centimeters. No upper abdominal ascites. Splenic vein is patent with appropriate direction blood flow. Main portal vein is patent with appropriate direction blood flow. Vesselflow velocity is 30 centimeters/second. Right and left portal veins arepatent. Right and middle hepatic veins are patent. Left hepatic vein not wellseen. Hepatic artery patent with right and left resistive indices of 0.64 and0.65, respectively. The IVC is patent. Impression: 1. Patent hepatic vasculature. 2. Fatty infiltration of the liver. 3. No biliary ductal dilatation. 4. Cholelithiasis. No gallbladder wall thickening or surrounding fluid. 5. Splenomegaly. Dictated by Soham Simons MD @ 10/22/2023 3:11:44 PM (Electronically Signed) Silva Riggins MD [place] * S PATH REVIEW HEMATOLOGY (10/22/2023 5:02 AM CDT) PATH COMMENT Reviewed by Dr. Liam Boo and Reviewed by Angelica Moss MT, MS (ASCP) on 10/24/2023 10/25/2023 1:03 PM CDT [facility] Blood BLOOD SPECIMEN / Unknown Venipuncture / Unknown 10/22/2023 5:02 AM CDT 10/22/2023 5:22 AM CDT Silva Riggins MD LABORATORY [facility] [address] [place] [address], [place] * PHOSPHORUS (10/22/2023 5:02 AM CDT) Only the most recent of2 resultswithin the time period is included. PHOSPHORUS 2.7 2.5 - 4.5 mg/dL 10/22/2023 6:02 AM CDT [facility] Blood BLOOD SPECIMEN / Unknown Venipuncture / Unknown 10/22/2023 5:02 AM CDT 10/22/2023 5:22 AM CDT Silva Riggins MD CHEMISTRY Performing Organization Address City/[facility]/ZIP Co de Phone Number [facility] [address] [place] [id number], [place] * (ABNORMAL) HEPATIC FUNCTION PANEL (10/22/2023 5:02 AM CDT) Only the most recent of2 resultswithin the time period is included. ALBUMIN 2.9(L) 4.0 - 4.9 g/dL 10/22/2023 6:07 AM CDT [facility] PROTEIN,TOTAL 6.6 6.0 - 8.0 g/dL 10/22/2023 6:07 AM CDT [facility] BILIRUBIN,TOTAL 0.5 0.0 - 1.2 mg/dL 10/22/2023 6:07 AM CDT [facility] BILIRUBIN,DIRECT <0.2 0.0 - 0.3 mg/dL 10/22/2023 6:07 AM CDT [facility] BILIRUBIN,INDIRE CT 10/22/2023 6:07 AM CDT [facility] Comment:Unable to calculate, Direct Bili <0.2 ALK PHOSPHATASE 149(H) 35 - 104 IU/L 10/22/2023 6:07 AM CDT [facility] ALT (SGPT) 46(H) 10 - 35 IU/L 10/22/2023 6:07 AM CDT [facility] AST (SGOT) 46(H) 10 - 35 IU/L 10/22/2023 6:07 AM CDT [facility] Blood BLOOD SPECIMEN / Unknown Venipuncture / Unknown 10/22/2023 5:02 AM CDT 10/22/2023 5:22 AM CDT Silva Riggins MD CHEMISTRY Performing Organization Address City/[facility]/ZIP Co de Phone Number [facility] [address] [place] [id number], [place] * SCAN-CARDIAC STRIP (10/21/2023 11:01 PM CDT) Scanner OTHER * LC ACUTE HEPATITIS (10/21/2023 10:13 AM CDT) Pathologist [facility] Hep A IgM Ab Negative Negative 10/25/2023 1:09 PM CDT [facility] ([facility]) Hep B Surf Ag Scr Confirm. indicated Negative 10/25/2023 1:09 PM CDT [facility] ([facility]) Hep B Core IgM Ab Negative Negative 10/25/2023 1:09 PM CDT [facility] ([facility]) HCV Ab Non Reactive Non Reactive 10/25/2023 1:09 PM CDT [facility] ([facility]) Blood BLOOD SPECIMEN / Unknown Venipuncture / Unknown 10/21/2023 10:13 AM CDT 10/21/2023 10:21 AM CDT Narrative [facility] ([facility]) - 10/25/2023 1:09 PM CDT Performed at: ??[address] ??[id number] Head Field Hockey Coach: Abdiaziz Escobar MD, Phone: ??[phone] Silva Riggins MD LABORATORY [facility] ([facility]) [facility] [place], [place] [address] * LC HCV QN INTERP [id number] (10/21/2023 10:13 AM CDT) Pathologist [facility] HCV Neg Interp Comment 10/25/2023 1:09 PM CDT [facility] ([facility]) Comment: Not infected with HCV unless early or acute infection is suspected (which may be delayed in an immunocompromised individual), or other evidence exists to indicate HCV infection. Blood BLOOD SPECIMEN / Unknown Venipuncture / Unknown 10/21/2023 10:13 AM CDT 10/21/2023 10:21 AM CDT Narrative [facility] ([facility]) - 10/25/2023 1:09 PM CDT Performed at: ??[address] ??[id number] Head Field Hockey Coach: Abdiaziz Escobar MD, Phone: ??[phone] Silva Riggins MD LABORATORY Performing Organization Address [facility] Co de Phone Number [facility] ([facility]) [address] [place] [address], * LC HBSAG CONF [id number] (10/21/2023 10:13 AM CDT) HBsAg Conf Negative NEGATIVE 10/25/2023 1:09 PM CDT [facility] ([facility]) Comment:Final result obtaine d by neutralization. Blood BLOOD SPECIMEN / Unknown Venipuncture / Unknown 10/21/2023 10:13 AM CDT 10/21/2023 10:21 AM CDT Narrative [facility] ([facility]) - 10/25/2023 1:09 PM CDT Performed at: ??[address] ??[id number] Head Field Hockey Coach: Abdiaziz Escobar MD, Phone: ??[phone] Silva Riggins MD LABORATORY Performing Organization Address [facility] Co de Phone Number [facility] ([facility]) [address] [place] [address], [place] * XR CHEST 1 VIEW PORTABLE (10/21/2023 8:30 AM CDT) Anatomical Region Laterality Modality HEART, THORAX, CHEST Digital Rad iography 10/21/2023 9:06 AM CDT Narrative 10/21/2023 9:06 AM CDT For Patients: ??As a result of the Century Cures Act, medical imaging exams and procedure reports are released immediately into your electronic medical record. ??You may view this report before your referring provider. ??If you have questions, please contact your health care provider. Indication: Evaluate lung infiltrate. Technique: 1 View(s) of the chest. Comparison: 10/18/2023, 10/14/2023. Findings/Impression: Lines and tubes: None. Similar enlarged cardiomediastinal silhouette. Lungs are moderately hypoinflated. Bibasilar airspace consolidation is grossly similar. Probable trace bilateral pleural effusions. No pneumothorax. Unchanged bones and soft tissues. Dictated by Lou Sharif DO @ Oct ??2023 ??9:06AM (Electronically Signed) [email or web address] Procedure Note Lou Sharif DO - 10/21/2023 For Patients: As a result of the Cures Act, medical imagingexams and procedure reports are released immediately into your electronicmedical record. You may view this report before your referring provider.If you have questions, please contact your health care provider. Indication: Evaluate lung infiltrate. Technique: 1 View(s) of the chest. Comparison: 10/18/2023, 10/14/2023. Findings/Impression: Lines and tubes: None. Similar enlarged cardiomediastinal silhouette. Lungs are moderatelyhypoinflated. Bibasilar airspace consolidation is grossly similar.Probable trace bilateral pleural effusions. No pneumothorax. Unchangedbones and soft tissues. Dictated by Lou Sharif DO @ Oct 21 2023 9:06AM (Electronically Signed) [email or web address] Silva Riggins MD GENERAL IMAGING * Hemoglobin A1C (10/21/2023 4:26 AM CDT) HEMOGLOBIN A1C MONITORING (POCT) 5.1 <=6.4 % 10/21/2023 11:33 AM CDT [facility] Blood BLOOD SPECIMEN / Unknown Butterfly / Unknown 10/21/2023 4:26 AM CDT 10/21/2023 4:32 AM CDT Narrative [facility] - 10/21/2023 11:33 AM CDT ? (<=6.9%) ? Indicates good control ? (7.0% to 7.9%) ? Indicates fair control ? (>=8.0%) ? Indicates poor control ?? NOTE: ??These thresholds are guidelines and ?individual targets may vary. Falsely low levels may be seen with: Recent Transfusion, Recent Significant Blood Loss, Hemolytic Diseases, or Falsely elevated levels may be seen with: Untreated Anemias, Splenectomy ? Silva Riggins MD CHEMISTRY Performing Organization Address [facility] Co de Phone Number [facility] [address] [place] [address], * SCAN-CARDIAC STRIP (10/21/2023 12:00 AM CDT) Scanner OTHER * EKG 12 LEAD (10/20/2023 10:30 AM CDT) Only the most recent of2 resultswithin the time period is included. [facility] Interpretation Sinus bradycardia Lateral infarct (cited on or before 15-Oct-2023) borderline criteria for LVH Abnormal ECG When compared with ECG of 15-Oct-2023 15:55, Questionable change in initial forces of Inferior leads BEYOND NOW Ventricular Rate 47 BPM BEYOND NOW Atrial Rate 47 BPM BEYOND NOW P-R Interval 174 ms BEYOND NOW QRS Duration 106 ms BEYOND NOW QT 516 ms BEYOND NOW QTc 456 ms BEYOND NOW P [place] 29 degrees BEYOND NOW R [place] 13 degrees BEYOND NOW T [place] 6 degrees BEYOND NOW 10/20/2023 10:3 0 AM CDT 10/21/2023 10:34 AM CDT Silva Riggins MD EKG ORD Performing Organization Address [facility] de Phone Number BEYOND NOW [place], [place] * ANTI HIV 1/2 (10/20/2023 4:49 AM CDT) [facility] HIV-1/HIV-2 SCREEN Non-Reacti ve Non-Reacti ve 10/20/2023 10:29 PM CDT [facility] Comment:HIV-1 p24 and HIV-1/ HIV-2 Ab Not Detected. Blood BLOOD SPECIMEN / Unknown Venipuncture / Unknown 10/20/2023 4:49 AM CDT 10/20/2023 5:10 AM CDT Ingris Crespo MD SEND OUTS [facility] [address] [place] [id number], * SCAN-CARDIAC STRIP (10/19/2023 8:09 PM CDT) Scanner OTHER * MRSA/SA PCR (10/19/2023 1:58 PM CDT) [facility] MRSA DNA PCR Negative Negative 10/19/2023 4:17 PM CDT [facility] STAPHYLOCOCCUS AUREUS PCR Negative Negative 10/19/2023 4:17 PM CDT [facility] Other SPECIMEN FROM INTERNAL NOSE / Unknown Non-Blood / Unknown 10/19/2023 1:58 PM CDT 10/19/2023 2:08 PM CDT Narrative [facility] - 10/19/2023 4:17 PM CDT Test result does not preclude MRSA or SA nasal colonization. Dai Hein MD MICROBIOLOGY Performing Organization Address [facility]/ZIP Co de Phone Number [facility] [address] [place] [phone], * LEGIONELLA AND PNEUMOCOCCAL URINE ANTIGEN (10/19/2023 1:50 PM CDT) [facility] STREP PNEUMO ANTIGEN Negative 10/19/2023 3:39 PM CDT [facility] Comment:Presumptive negative for pneumococcal pneumonia, suggesting no current or recent pneumococcal infection. Infection due to S. pneumoniae cannot be ruled out since the antigen present in the sample may be below the detection limit of the test. LEGIONELLA ANTIGEN Negative 10/19/2023 3:39 PM CDT [facility] Comment:Negative for L.pneum ophila serogroup 1 antigen, suggesting no recent or current infection. Infection due to Legionella cannot be ruled out since other serogroups and species may cause disease, antigen may not be present in urine in early infection, and the level of antigen present may be below the detection limit of the test. Low test sensitivity in patients with mild pneumonia. Urine URINE SPECIMEN / Unknown Non-Blood / Unknown 10/19/2023 1:50 PM CDT 10/19/2023 2:09 PM CDT Cosmo Ruiz MD MICROBIOLOGY [facility] [address] [place] [address], * (ABNORMAL) TROPONIN T (HS) ONE TIME (10/19/2023 12:18 PM CDT) Only the most recent of3 resultswithin the time period is included. TROPONIN T HS 27(H) 6-10 ng/L ng/L 10/19/2023 1:35 PM CDT [facility] Blood BLOOD SPECIMEN / Unknown Venipuncture / Unknown 10/19/2023 12:18 PM CDT 10/19/2023 12:50 PM CDT Narrative [facility] - 10/19/2023 1:35 PM CDT hs-cTnT (Elecsys Troponin T Gen 5) concentration (s) above the sex-specific 99th percentile (16 ng/L or greater for males or 11 ng/L or greater for females) are indicative of myocardial injury. If initial hs-cTnT <=100 ng/L at presentation, a 0h/2h ABSOLUTE (ng/L) delta change (rising or falling) of >=10 ng/L suggests a significant change, whereas a 0h/2h delta change <=3 ng/L suggests no significant change. If initial hs-cTnT >100 ng/L at presentation, a 0h/2h/ RELATIVE (percent, %) delta change of 20% is suggested to distinguish patients with acute vs. chronic myocardial injury. There are multiple etiologies that can cause hs-cTnT increases above the 99th percentile (myocardial injury) other than acute myocardial infarction. Clinical context and careful clinical evaluation are critical for diagnosis and risk-stratification. The diagnosis of acute myocardial infarction requires a rising and/or falling pattern in hs-cTnT concentrations with at least one value above the sex-specific 99th percentile PLUS at least one of the following clinical criteria: ischemic symptoms, new or presumed new significant ST-T wave changes or new LBBB, development of pathological Q waves, imaging evidence of new loss of viable myocardium or new regional wall motion abnormality, or identification of intracoronary atherothrombosis or an acute angiographic culprit on coronary angiography. In appropriate low-risk patients with a non-ischemic electrocardiogram without active chest pain with a symptom onset >3-hours without recurrence, a single initial hs-cTnT<6 ng/L identifies patient with a very low risk in emergency department patient population. Cosmo Ruiz MD CHEMISTRY [facility] [address] [place] [id number], * SCAN-CARDIAC STRIP (10/19/2023 10:50 AM CDT) Scanner OTHER * PROCALCITONIN (10/19/2023 10:38 AM CDT) Only the most recent of2 resultswithin the time period is included. PROCALCITONIN 0.30 ng/ml 10/19/2023 11:44 AM CDT [facility] Blood BLOOD SPECIMEN / Unknown Venipuncture / Unknown 10/19/2023 10:38 AM CDT 10/19/2023 10:45 AM CDT Narrative [facility] - 10/19/2023 11:44 AM CDT Procalcitonin for initial assessment of Lower Respiratory Tract Infection: Results Interpretation <0.10 ng/mL Antibiotic therapy strongly discoraged. ??Indicates absent of bacterial infection. * 0.10 - 0.25 ng/mL Antibiotic therapy discouraged. ??Bacterial infection unlikely. * 0.26 - 0.50 ng/mL Antibiotic therapy encouraged. ??Bacterial infection possible. >0.50 ng/mL Antibiotic therapy strongly encouraged. ??Suggestive of presence of bacterial infection. *Antibiotic therapy should be considered regardless of PCT result if the patient is clinically unstable, is at high risk for adverse outcome, has strong evidence of bacterial pathogen, or the clinical context indicates antibiotic therapy is warranted. ??If antibiotics are withheld, reassess if symptoms persist/worsen and/or repeat PCT measurement within 6-24 hours. ? In order to assess treatment success and to support a decision to discontinue antibiotic therapy, follow up samples should be tested once every 1-2 days, based upon physician discretion taking into account patient's evolution and progress. Procalcitonin for initial assessment of severe sepsis risk: Results Interpretation <0.5 ng/ml A PCT level below 0.5 ng/ml on the first day of ICU admission is associated with a low risk for progression to severe sepsis and/or septic shock. > 2.0 ng/mL A PCT level above 2.0 ng/mL on the first day of ICU admission is associated with a high risk for progression to severe sepsis and/or septic shock. Note: Concentrations < 0.5 ng/mL do not exclude an infection, on account of localized infections (without systemic signs) which can be associated with such low concentrations, or a systemic infection in its initial stages(< 6 hours). Furthermore, increased procalcitonin can occur without infection. PCT concentrations between 0.5 and 2.0 ng/mL should be interpreted taking into account the patient's history. It is recommended to retest PCT within 6-24 hours if any concentrations < 2 ng/mL are obtained. Cosmo Ruiz MD SEND OUTS [facility] [address] [place] [address], * SCAN-CARDIAC STRIP (10/19/2023 9:30 AM CDT) Scanner OTHER * [facility] PANEL (10/19/2023 8:56 AM CDT) Case Report Flow Cytometry ?Case: [id number] ? Authorizing Provider: ??Cosmo Ruiz, ?? Collected: ? 10/19/2023 0856 ? MD ? Ordering Location: ? [facility] ?Received: ?10/19/2023 0951 ? Hospital ? Pathologist: ? Renaldo, Vamsi R, MD ? Specimen: ?Blood ? 10/20/2023 1:03 PM CDT [facility] Results Paroxysmal Nocturnal Hemoglobinuria (PNH) panel: Interpretation Negative for immunophenotypic abnormalities associated with paroxysmal nocturnal hemoglobinuria (PNH). A negative result means no deficiency of the GPI-associated markers, CD157, FLAER or CD59. Clinical indication: Test for phenotypic abnormalities associated with paroxysmal nocturnal hemoglobinuria. Data quality variables ?Patient Granulocytes (SS/CD15+): ? 21% Monocytes (SS/CD64+): ?5% PNH-associated variables ? Result ?Reference WBC - Granulocyte CD157/FLAER deficiency: ?? <0.01% ? <0.01% WBC - Monocyte CD157/FLAER deficiency: ?<0.01% ? <0.01% RBC - CD59 deficiency (Type III): ? <0.01% ? <0.01% Assay lower limit of detection: WBC - Granulocyte CD157/FLAER deficiency: ??0.01% RBC - Type III (complete CD59 deficiency): 0.01% ?? Methodology: EDTA peripheral blood granulocytes and monocytes are gated using CD45, CD15 and CD64. WBC GPI-linked antibodies, CD157 and FLAER, are used to identify the PNH clone. Erythrocytes are gated using [id number]. The GPI-linked antibody CD59 is employed to identify the RBC PNH clone. These results and cytograms have been verified by Dr. Vamsi Macario MD, 10/20/2023 1:03 PM This test was developed and its performance characteristics verified by [facility]. It has not been cleared or approved by the US Food and Drug Administration. This test is used for clinical purposes and should not be regarded as investigational or for research. Analytic Flow Tech: Marilyn Rivera, 10/19/2023 3:13 PM Verifying Flow Tech: Rosario Peñalli, 10/19/2023 3:15 PM 10/20/2023 1:03 PM CDT [facility] Additional Information Interpreted at [facility] [place] [facility] - [address] [facility] [address], [place] [address] 10/20/2023 1:03 PM CDT [facility] Blood BLOOD SPECIMEN / Unknown 10/19/2023 8:56 AM CDT 10/19/2023 9:51 AM CDT Cosmo Ruiz MD LABORATORY [facility] [address] [place] [address], * SCAN-CARDIAC STRIP (10/19/2023 8:51 AM CDT) Scanner OTHER * SCAN-CARDIAC STRIP (10/19/2023 1:42 AM CDT) Scanner OTHER * (ABNORMAL) Protime-INR - WAISTLINE JOINER LOCKSTITCH (10/18/2023 10:38 PM CDT) Only the most recent of2 resultswithin the time period is included. INR 1.5(H) <1.3 10/18/2023 10:54 PM CDT [facility] PROTIME 16.4(H) 10.3 - 12.3 sec 10/18/2023 10:54 PM CDT [facility] Blood BLOOD SPECIMEN / Unknown Venipuncture / Unknown 10/18/2023 10:38 PM CDT 10/18/2023 10:44 PM CDT Narrative [facility] - 10/18/2023 10:54 PM CDT ?Therapeutic Range 2.0-3.0 for most anticoagulated patients 2.5-3.5 or 4.0 for high risk patients The INR is only used for patients on stable oral anticoagulant therapy. It makes no significant contribution to the diagnosis or treatment of patients whose Protime is prolonged for other reasons. INR results are increased when heparin levels exceed 1.0 U/mL, which corresponds to an aPTT >125 seconds if the patient is on UFH. Huseyin Turner MD HEMATOLOGY Performing Organization Address [facility] de Phone Number [facility] [address] [place] [address], * WHITE BLOOD COUNT (10/18/2023 6:45 AM CDT) Only the most recent of3 resultswithin the time period is included. [facility] WHITE BLOOD COUNT 6.9 4.5 - 11.0 thou/cu mm 10/18/2023 10:34 AM CDT [facility] NRBC 0.3 % 10/18/2023 10:34 AM CDT [facility] ABS NRBC 0.0 thou /cu mm 10/18/2023 10:34 AM CDT [facility] Blood BLOOD SPECIMEN / Unknown Venipuncture / Unknown 10/18/2023 6:45 AM CDT 10/18/2023 6:58 AM CDT Narrative [facility] - 10/18/2023 10:34 AM CDT Every morning while on IV heparin. Every morning while on IV heparin. Necessary every morning while on IV heparin. Yoan Acuña RN HEMATOLOGY Performing Organization Address [facility] Phone Number [facility] [address] [place] [address], * SCAN-CARDIAC STRIP (10/18/2023 1:06 AM CDT) Scanner OTHER * SCAN-CARDIAC STRIP (10/17/2023 1:09 AM CDT) Scanner OTHER * (ABNORMAL) CO2,TOTAL (10/16/2023 9:33 AM CDT) Only the most recent of2 resultswithin the time period is included. CO2,TOTAL 33(H) 22 - 29 mmol/L 10/16/2023 10:24 AM CDT [facility] Blood BLOOD SPECIMEN / Unknown Venipuncture / Unknown 10/16/2023 9:33 AM CDT 10/16/2023 9:51 AM CDT Arely Ayon MD CHEMISTRY Performing Organization Address [facility] Co de Phone Number [facility] [address] [place] [address], * SCAN-CARDIAC STRIP (10/16/2023 1:45 AM CDT) Scanner OTHER * Factor 10 chromogenic TODAY (10/15/2023 12:07 PM CDT) [facility] FACTOR 10 CHROMOGENIC 70 65 - 130 % 10/15/2023 12:47 PM CDT [facility] Blood BLOOD SPECIMEN / Unknown Venipuncture / Unknown 10/15/2023 12:07 PM CDT 10/15/2023 12:22 PM CDT Narrative [facility] - 10/15/2023 12:47 PM CDT Therapeutic Range 20-40% Arely Ayon MD SEND OUTS Performing Organization Address [facility] Co de Phone Number [facility] [address] [place] [address], * Bilirubin, total/direct AM (10/15/2023 6:39 AM CDT) [facility] BILIRUBIN,TOTA L 0.4 0.0 - 1.2 mg/dL 10/15/2023 11:19 AM CDT [facility] BILIRUBIN,DIRE CT <0.2 0.0 - 0.3 mg/dL 10/15/2023 11:19 AM CDT [facility] BILIRUBIN,HARMONY RECT 10/15/2023 11:19 AM CDT [facility] Comment:Unable to calculate, Direct Bili <0.2 Blood BLOOD SPECIMEN / Unknown Butterfly / Unknown 10/15/2023 6:39 AM CDT 10/15/2023 6:53 AM CDT Arley Ayon MD CHEMISTRY Performing Organization Address City/[facility]/ZIP Co de Phone Number [facility] [address] [place] [address], * HAPTOGLOBIN (10/15/2023 6:39 AM CDT) Pathologist [facility] Haptoglobin 114 30 - 200 mg/dL 10/15/2023 11:14 AM CDT [facility] Blood BLOOD SPECIMEN / Unknown Butterfly / Unknown 10/15/2023 6:39 AM CDT 10/15/2023 6:53 AM CDT Arely Ayon MD CHEMISTRY Performing Organization Address [facility] Co de Phone Number [facility] [address] [place] [address], * SCAN-CARDIAC STRIP (10/15/2023 2:17 AM CDT) Scanner OTHER * CALRETICULIN EXON 9 ASSAY (10/14/2023 5:37 PM CDT) Pathologist [facility] SOURCE CALRETICULIN Blood 4 10:20 AM CDT [facility] CALRETICULIN EXON 9 CALR mutation not detected CALR mutation not detected 4 10:20 AM CDT [facility] INTERPRETATION CALRETICULIN Indication for the Calreticulin molecular testing: Calreticulin (CALR) molecular analysis was performed to evaluate for a clonal abnormality associated with myeloproliferative neoplasms. Among patients with essential thrombocythemia or primary myelofibrosis with non-mutated JAK2 or MPL,CALR mutations were detected in 67% of those with thrombocythemia and 88% of those with primary myelofibrosis. The absence of a Calreticulin (CALR) exon 9 mutation does not exclude the possibility of a myeloproliferative neoplasm (such as essential thrombocythemia and primary myelofibrosis; CALR mutations are not identified in patients with polycythemia vera or chromic myelogenous leukemia), a myelodysplastic syndrome, or a mixed myeloproliferative/m yelodysplastic syndrome (CALR exon 9 mutations are seen infrequently in patients with myelodysplasia or mixed myeloproliferative/m yelodysplastic syndromes). As noted in the methodology, the assay is validated to a limit of detection of 5% mutant allele. 10:20 AM CDT [facility] Blood BLOOD SPECIMEN / Unknown Butterfly / Unknown 10/14/2023 5:37 PM CDT 10/14/2023 5:45 PM CDT Narrative [facility] - 10/19/2023 10:20 AM CDT Methodology: Genomic DNA is amplified by PCR with primers specific for exon 9 of the calreticulin gene. ??The PCR products are analyzed by capillary electrophoresis and subsequent size analysis to detect insertions or deletions in this exon. ??The sensitivity has been determined to be 5% mutant allele. ??Note: This assay does not detect point mutations or very large alterations to the genome. ?? FDA required disclaimer: ??This test was developed and its performance characteristics determined by the [facility]. It has not been cleared or approved by the U.S. Food and Drug Administration. The FDA has determined, however, that in most cases, such approval is not necessary. ??This test is used for clinical purposes. It should not be regarded as investigational or for research. Dulce Maria Law MD LABORATORY [facility] [address] [place] [address], * (ABNORMAL) STACLOT LA (10/14/2023 5:37 PM CDT) STACLOT DELTA TIME 11.8(H) <11.2 sec 10/17/2023 1:41 PM CDT [facility] STACLOT LA CONFIRM LUPUS Positive(A ) Negative 10/17/2023 1:41 PM CDT [facility] Blood BLOOD SPECIMEN / Unknown Butterfly / Unknown 10/14/2023 5:37 PM CDT 10/14/2023 5:45 PM CDT Dulce Maria Law MD HEMATOLOGY [facility] [address] [place] [address], * JAK2 V617F MUTATION DETECTION (10/14/2023 5:37 PM CDT) SOURCE Blood 10/18/2023 4:20 PM CDT [facility] INTERPRETATION JAK2 V617F JAK2 V617F mutation not detected JAK2 V617F mutation not detected 10/18/2023 4:20 PM CDT [facility] Comment:The absence of the J AK2 V617F mutation does not exclude the possibility of a myeloproliferative, myelodysplastic, or mixed myeloproliferative/myelodysplastic disorder. Please correlate with clinical, hematologic, and/or bone marrow findings. It should be noted that this assay is limited to the JAK2 V617F mutation that accounts for the vast majority of JAK2 mutations. There are currently over 50 JAK2 mutations with most identified within exons 12-15. These have been identified in patients with polycythemia vera exclusively. If additional testing for these non-V617F JAK2 mutations is of interest, please order JAK2 Exon 12 & Non-V617F Mutations (see test catalog for information). As noted in methodology, the assay is validated to a limit of detection of 1.0% mutant allele. Blood BLOOD SPECIMEN / Unknown Butterfly / Unknown 10/14/2023 5:37 PM CDT 10/14/2023 5:45 PM CDT Narrative [facility] - 10/18/2023 4:20 PM CDT Methodology: Fluorescent allele specific PCR was performed on genomic DNA to detect the presence of the V617F mutation in the JAK2 gene. PCR amplicon was and detected by capillary electrophoresis. Assay validated to a limit of detection of 1.0% mutant allele. FDA required disclaimer: ??This test was developed and its performance characteristics determined by the [facility]. It has not been cleared or approved by the U.S. Food and Drug Administration. The FDA has determined, however, that in most cases, such approval is not necessary. This test is used for clinical purposes. It should not be regarded as investigational or for research. Dulce Maria Law MD SEND OUTS Performing Organization Address [facility] de Phone Number [facility] [address] [place] [address], * BETA 2 GLYCOPROTEIN I PREET (10/14/2023 5:37 PM CDT) Beta 2 GP1 Ab IgA <4.0 <=20.0 CU 10/18/2023 1:21 PM CDT [facility] Beta 2 GP1 Ab IgG <6.4 <=20.0 CU 10/18/2023 1:21 PM CDT [facility] Beta 2 GP1 Ab IgM 1.4 <=20.0 CU 10/18/2023 1:21 PM CDT [facility] Blood BLOOD SPECIMEN / Unknown Butterfly / Unknown 10/14/2023 5:37 PM CDT 10/14/2023 5:45 PM CDT [facility] - 10/18/2023 1:21 PM CDT Negative ??<=20 ?? Positive ??>20 ?? These results were obtained with the [facility] Quanta Flash chemiluminescent immunoassay. Values obtained with different manufacturers' assay methods may not be used interchangeably. The magnitude of the reported autoantibody levels cannot always be correlated to an endpoint titer. Dulce Maria Law MD SEND OUTS Performing Organization Address [facility] de Phone Number [facility] [address] [place] [address], [place] * CARDIOLIPIN ANTIBODY (10/14/2023 5:37 PM CDT) Cardiolipin IgA 8.0 <=20.0 CU 4 1:37 PM CDT [facility] Cardiolipin IgG 8.0 <=20.0 CU 4 1:37 PM CDT [facility] Cardiolipin IgM 6.9 <=20.0 CU 1:37 PM CDT [facility] Blood BLOOD SPECIMEN / Unknown Butterfly / Unknown 10/14/2023 5:37 PM CDT 10/14/2023 5:45 PM CDT Narrative [facility] - 10/18/2023 1:37 PM CDT Interpretation: Moderate to high titers (40 GPL or MPL by ANDRÉS assays) of aCL correlate better with aPL-related clinical events than do lower titers; IgG is more strongly associated with clinical events than is IgM ([facility] 378(21):2010). Structural Test Engineer's studies have shown the following correlation between anti- cardiolipin antibody levels quantified by the BioFlash Chemiluminescent method compared to ANDRÉS (Antibodies 2016,5,14): For IgG aCL: 95 CU corresponds to 40 GPL For IgM aCL: 31 CU corresponds to 40 MPL Dulce Maria Law MD SEND OUTS [facility] [address] [place] [address], * (ABNORMAL) LUPUS ANTICOAGULANT (10/14/2023 5:37 PM CDT) PTT-LA PATIENT 126.4(H) <=41.2 sec 10/17/2023 1:41 PM CDT [facility] DRVVT RATIO 1.12 <1.20 10/17/2023 1:41 PM CDT [facility] Blood BLOOD SPECIMEN / Unknown Butterfly / Unknown 10/14/2023 5:37 PM CDT 10/14/2023 5:45 PM CDT Narrative [facility] - 10/17/2023 1:41 PM CDT LUPUS ANTICOAGULANT DETECTED Lupus anticoagulant testing results may be falsely positive in patients on anti-coagulation therapy. The diagnosis of anti-phospholipid syndrome requires two positive lupus anticoagulant test results obtained at least 12 weeks apart, which have preferably been performed when the patient is off anti-coagulation. Testing for Cardiolipin antibodies (ODM625/CRD) and Beta-2 Glycoprotein 1 antibodies (APM5719/B2G) is strongly recommended. Note that different PT/INR reagents available for use in labs have significant variability in their sensitivity to lupus anticoagulants. In general only 10-15% of lupus anticoagulants affect the INR, leading to falsely elevated INR levels. Only in those limited cases monitoring warfarin therapy by chromogenic factor X levels would be appropriate. Otherwise, PT/INR would still be the right monitoring test in patients with normal baseline INR. For any question or consultation: consider contacting the [facility]. All anticoagulants (Warfarin, High level Heparin, Direct Oral Anticoagulants, Direct Thrombin Inhibitors) cause false positive lupus anticoagulant test results. ??We recommend disregarding lupus anticoagulant results obtained while patient is on any form of anticoagulation. For [facility] patients consider consulting with Anticoagulation and Thrombophilia Clinic at [phone]. Dulce Maria Law MD SEND OUTS Performing Organization Address City/[facility]/ZIP Co de Phone Number [facility] [address] [place] [address], * PROTEIN S FREE AG (10/14/2023 5:37 PM CDT) PROTEIN S, FREE 69 55 - 124 % 10/17/2023 10:03 AM CDT [facility] Blood BLOOD SPECIMEN / Unknown Butterfly / Unknown 10/14/2023 5:37 PM CDT 10/14/2023 5:45 PM CDT Dulce Maria Law MD SEND OUTS [facility] [address] [place] [address], * PROTEIN C (10/14/2023 5:37 PM CDT) PROTEIN C ACTIVITY 78 70 - 150 % 10/17/2023 10:03 AM CDT [facility] Blood BLOOD SPECIMEN / Unknown Butterfly / Unknown 10/14/2023 5:37 PM CDT 10/14/2023 5:45 PM CDT Dulce Maria Law MD SEND OUTS Performing Organization Address [facility] Co de Phone Number [facility] [address] [address], [place] * (ABNORMAL) ANTITHROMBIN III ACTIVITY (10/14/2023 5:37 PM CDT) ANTITHROMBIN III 68(L) 80 - 135 % 10/17/19 10:02 AM CDT [facility] Blood BLOOD SPECIMEN / Unknown Butterfly / Unknown 10/14/2023 5:37 PM CDT 10/14/2023 5:45 PM CDT Dulce Maria Law MD HEMATOLOGY Performing Organization Address [facility] Co de Phone Number [facility] [address] [phone], [place] * test, urine TODAY (10/14/2023 5:05 PM CDT) ,URIN E Negative Negative 10/14/2023 5:34 PM CDT [facility] Urine URINE SPECIMEN / Unknown Non-Blood / Unknown 10/14/2023 5:05 PM CDT 10/14/2023 5:24 PM CDT Arely Ayon MD URINE Performing Organization Address [facility] Co de Phone Number [facility] [address] [phone], [place] * SCAN CORRESP-LABORATORY RESULTS (10/14/2023 2:35 PM CDT) Narrative 10/14/2023 2:35 PM CDT Ordered by an unspecified provider. Other Clinical Staff OTHER * SCAN CORRESP-EKG RESULTS (10/14/2023 2:35 PM CDT) Only the most recent of2 resultswithin the time period is included. Narrative 10/14/2023 2:35 PM CDT Ordered by an unspecified provider. Other Clinical Staff OTHER * SCAN CORRESP-IMAGING (10/14/2023 2:27 PM CDT) Anatomical Region Laterality Modality Other Narrative 10/14/2023 2:27 PM CDT Ordered by an unspecified provider. Other Clinical Staff OTHER * XR CHEST 2 VIEWS PA AND LATERAL (10/14/2023 2:08 PM CDT) Anatomical Region Laterality Modality CHEST, THORAX, Lung, HEART Digit al Radiography 10/15/2023 11:3 6 AM CDT Impressions 10/15/2023 11:36 AM CDT Bibasilar opacities consistent with atelectasis and/or consolidation. Recommend clinical correlation as to any cooperative evidence of pneumonia. Incidental findings described in the body of the report. Dictated by Epifanio Ruiz MD @ Oct 15 2023 11:36AM (Electronically Signed) [email or web address] Narrative 10/15/2023 11:36 AM CDT For Patients: ??As a result of the Cures Act, medical imaging exams and procedure reports are released immediately into your electronic medical record. ??You may view this report before your referring provider. ??If you have questions, please contact your health care provider. INDICATION: Chest pain, not otherwise described. Shortness of breath. COMPARISON: None available. TECHNIQUE: 2 views. ?? FINDINGS: Medical Devices: Oxygen tubing and EKG leads. Lung Volumes: Shallow inspiration. No significant atelectasis. Lungs: Bibasilar opacities consistent with atelectasis and/or consolidation. Recommend clinical correlation as to any cooperative evidence of pneumonia. Pleura and Pleural spaces: No significant pleural effusion. A small pleural effusion or pleural effusions could be present. No pneumothorax. Mediastinum: Normal cardiomediastinal silhouette. Bony Thorax and Soft Tissues: Chronic appearing mild T12 superior endplate compression deformity associated with exaggerated thoracolumbar kyphosis at that level. Procedure Note Epifanio Ruiz MD - 10/15/2023 For Patients: As a result of the Cures Act, medical imagingexams and procedure reports are released immediately into your electronicmedical record. You may view this report before your referring provider.If you have questions, please contact your health care provider. INDICATION: Chest pain, not otherwise described. Shortness of breath. COMPARISON: None available. TECHNIQUE: 2 views. FINDINGS: Medical Devices: Oxygen tubing and EKG leads. Lung Volumes: Shallow inspiration. No significant atelectasis. Lungs: Bibasilar opacities consistent with atelectasis and/orconsolidation. Recommend clinical correlation as to any cooperativeevidence of pneumonia. Pleura and Pleural spaces: No significant pleural effusion. A smallpleural effusion or pleural effusions could be present. No pneumothorax. Mediastinum: Normal cardiomediastinal silhouette. Bony Thorax and Soft Tissues: Chronic appearing mild T12 superior endplatecompression deformity associated with exaggerated thoracolumbar kyphosisat that level. IMPRESSION: Bibasilar opacities consistent with atelectasis and/or consolidation.Recommend clinical correlation as to any cooperative evidence ofpneumonia. Incidental findings described in the body of the report. Dictated by Epifanio Ruiz MD @ Oct 15 2023 11:36AM (Electronically Signed) [email or web address] Arely Ayon MD GENERAL IMAGING * EXTRA TUBE MICRO (10/14/2023 1:19 PM CDT) Other BLOOD SPECIMEN / Unknown Non-Blood / Unknown 10/14/2023 1:19 PM CDT 10/14/2023 1:29 PM CDT Arely Ayon MD LABORATORY Performing Organization Address [facility] Co de Phone Number [facility] [address] [place] [id number] [place] [address] * BUN (10/14/2023 11:18 AM CDT) BUN 9 6 - 20 mg/dL 10/14/2023 12:14 PM CDT [facility] Blood BLOOD SPECIMEN / Unknown Venipuncture / Unknown 10/14/2023 11:18 AM CDT 10/14/2023 11:26 AM CDT Faisal Light MD CHEMISTRY [facility] [address] [place] [id number], * EXTRA TUBE PLUNKETT (10/14/2023 11:09 AM CDT) Blood BLOOD SPECIMEN / Unknown Non-Lab Venipuncture / Unknown 10/14/2023 11:09 AM CDT 10/14/2023 11:28 AM CDT Arely Ayon MD LABORATORY Performing Organization Address [facility] Co de Phone Number [facility] [address] [address], [place] * EXTRA TUBE GOLD/SST (10/14/2023 11:09 AM CDT) Blood BLOOD SPECIMEN / Unknown Non-Lab Venipuncture / Unknown 10/14/2023 11:09 AM CDT 10/14/2023 11:28 AM CDT Arely Aoyn MD LABORATORY Performing Organization Address [facility] de Phone Number [facility] [address] [address], [place] * SCAN-CARDIAC STRIP (10/14/2023 6:51 AM CDT) Scanner OTHER * ECHO TTE COMPLETE WO CONTRAST (10/13/2023 2:07 PM CDT) AORTIC VALVE MEAN PG 8 mmHg EJECTION FRACTION 67 % LVEDD 3.0 cm Anatomical Region Laterality Modality Ultrasound 10/13/2023 1:07 PM CDT Narrative 10/13/2023 2:20 PM CDT ECHOCARDIOGRAM RULA MCGUIRE ? Accession#: ?? [id number] : ?1990 33 years Study Date: ?? 10/13/2023 1:07:39 PM Gender: F ?BP: ? 113/69 mmHg Height: 160.00 cm ?BSA: ?2.02 m? ? ? Weight: 101.00 kg ?Tech: ? MJW ? Referring MD: ANGELICA MATA Site: ? [facility] Reading Location: [facility] Patient Location: Inpatient. Procedure: 2D, Color Doppler and Spectral Doppler. Indication for study: Splenic Ischemia Cardiac Rhythm: Normal sinus.Study quality: Technically limited. Imaging limitations: This study was subject to imaging limitations due to body habitus and a prominent lung artifact. Final Impressions: 1. Technically limited exam. 2. Normal left ventricular size, normal wall thickness, normal global systolic function, calculated EF of 67 %. 3. Right ventricular cavity size is normal, global systolic RV function is normal. 4. No significant valve disease detected. Comparison There are no prior studies on this patient for comparison purposes. Chamber Sizes and Function Normal left ventricular size, normal wall thickness, normal global systolic function, calculated EF of 67 %. Left atrial size is normal. Right ventricular cavity size is normal, global systolic RV function is normal. RV wall thickness is normal. The right atrium is normal. Right atrial volume index is 14 ml/m? ? ?. Right atrial area is 10 cm? ? ?. The pulmonary artery is not well visualized. The sinus of Valsalva is normal sized. The ascending aorta is normal sized. Valves, RV Pressures and Diastolic Function The aortic valve is not well visualized , no stenosis and no regurgitation. The mitral valve is normal in structure, no mitral regurgitation. Indeterminate pattern of LV diastolic filling. The tricuspid valve is normal in structure. Tricuspid regurgitation is regurgitation is not evident. Unable to assess right ventricular systolic pressure. The pulmonic valve is not well visualized. No pulmonary regurgitation. Masses, Effusion, Shunts There is no pericardial effusion. The inferior vena cava is not well visualized, respiratory size variation not well visualized. Interatrial septum is not well visualized. MEASUREMENTS AND CALCULATIONS 2-D Measurements and LV Function: LVID (d) 3.0 cm Planimetered EF 67 % LVID (s) 1.7 cm LV FS% (2D) ? 43 % IVS (d) ??0.9 cm LVOT diameter ?? 2.2 cm LVPW (d) 0.8 cm HR ?87 bpm Ao Sinus 2.6 cm LA Vol index ?21 ml/m2 Asc Ao ?? 2.9 cm RA Vol index ?14 ml/m2 LA ? 2.9 cm RA area ? 10 cm? ? ? Diastology: Mitral ?Tissue Doppler E Peak 1.1 m/s ??e', Septum ? 0.12 m/s A Peak 0.9 m/s ??e', Lateral ?0.13 m/s E/A ?1.3 ?E/e' Average ?? 8.92 DT ? 236 msec Aortic Valve: Vmax ? 1.8 m/s ??SHRUTHI (V) ?? 2.72 cm? ? ? VTI ?0.31 m ?? SHRUTHI (I) ?? 2.36 cm? ? ? LVOT V max ? 1.3 m/s ??Max PG ?13 mmHg LVOT VTI ? 0.19 m ?? Mean PG ?? 8 mmHg SV ? 74 ml ?Dim Index 0.62 SV index ? 36 ml/m? ? ? CO ?6.4 l/min AV Ejection Time 0.23 sec CI ?3.2 l/min/m? ? ? AV Flow Rate ? 322 ml/s Mitral Valve: MVA ?3.2 cm? ? ? MV P 1/2 68 msec Tricuspid Valve and estimated PA pressures: TAPSE 2.5 cm . This study was interpreted by an [facility] accredited facility. CC: HIM (med records) [facility], Med/Surg - IP [facility]. ??Final ?? Procedure Note Maggi Haley MD - 10/13/2023 ECHOCARDIOGRAM RULA MCGUIRE : 1990 33 years Study Date: 10/13/2023 1:07:39 PM Gender: F BP: 113/69 mmHg Height: 160.00 cm BSA: 2.02 m? ? ? Weight: 101.00 kg Tech: VANESSA Referring MD: ANGELICA MATA Site: [facility] Reading Location: [facility] Patient Location: Inpatient. Procedure: 2D, Color Doppler and Spectral Doppler. Indication for study: Splenic Ischemia Cardiac Rhythm: Normal sinus.Study quality: Technically limited. Imaging limitations: This study was subject to imaging limitations due tobody habitus and a prominent lung artifact. Final Impressions: 1. Technically limited exam. 2. Normal left ventricular size, normal wall thickness, normal globalsystolic function, calculated EF of 67 %. 3. Right ventricular cavity size is normal, global systolic RV functionis normal. 4. No significant valve disease detected. Comparison There are no prior studies on this patient for comparison purposes. Chamber Sizes and Function Normal left ventricular size, normal wall thickness, normal globalsystolic function, calculated EF of 67 %. Left atrial size is normal.Right ventricular cavity size is normal, global systolic RV function isnormal. RV wall thickness is normal. The right atrium is normal. Rightatrial volume index is 14 ml/m? ? ?. Right atrial area is 10 cm? ? ?. Thepulmonary artery is not well visualized. The sinus of Valsalva is normalsized. The ascending aorta is normal sized. Valves, RV Pressures and Diastolic Function The aortic valve is not well visualized , no stenosis and noregurgitation. The mitral valve is normal in structure, no mitralregurgitation. Indeterminate pattern of LV diastolic filling. Thetricuspid valve is normal in structure. Tricuspid regurgitation isregurgitation is not evident. Unable to assess right ventricular systolicpressure. The pulmonic valve is not well visualized. No pulmonaryregurgitation. Masses, Effusion, Shunts There is no pericardial effusion. The inferior vena cava is not wellvisualized, respiratory size variation not well visualized. Interatrialseptum is not well visualized. MEASUREMENTS AND CALCULATIONS 2-D Measurements and LV Function: LVID (d) 3.0 cm Planimetered EF 67 % LVID (s) 1.7 cm LV FS% (2D) 43 % IVS (d) 0.9 cm LVOT diameter 2.2 cm LVPW (d) 0.8 cm HR 87 bpm Ao Sinus 2.6 cm LA Vol index 21 ml/m2 Asc Ao 2.9 cm RA Vol index 14 ml/m2 LA 2.9 cm RA area 10 cm? ? ? Diastology: Mitral Tissue Doppler E Peak 1.1 m/s e', Septum 0.12 m/s A Peak 0.9 m/s e', Lateral 0.13 m/s E/A 1.3 E/e' Average 8.92 DT 236 msec Aortic Valve: Vmax 1.8 m/s SHRUTHI (V) 2.72 cm? ? ? VTI 0.31 m SHRUTHI (I) 2.36 cm? ? ? LVOT V max 1.3 m/s Max PG 13 mmHg LVOT VTI 0.19 m Mean PG 8 mmHg SV 74 ml Dim Index 0.62 SV index 36 ml/m? ? ? CO 6.4 l/min AV Ejection Time 0.23 sec CI 3.2 l/min/m? ? ? AV Flow Rate 322 ml/s Mitral Valve: MVA 3.2 cm? ? ? MV P 1/2 68 msec Tricuspid Valve and estimated PA pressures: TAPSE 2.5 cm . This study was interpreted by an [facility] accredited facility. CC: HIM (med records) [facility], Med/Surg - IP [facility]. Final Angelica Mata ECHO ORD * KITCHEN LEAD THIN PREP PAP SCREEN IMAGED (03/22/2014 10:15 AM REPAIR OPERATOR) KITCHEN LEAD CYTOLOGY See Anatomic Pathology case 03/27/2014 5:04 PM REPAIR OPERATOR [facility] TRAL LABORATORY Specimen (specimen) (Cervical/Vagina l) Non-Blood / Unknown 03/22/2014 10:15 AM REPAIR OPERATOR 03/22/2014 4:26 PM REPAIR OPERATOR Vivian Hair MD PATHOLOGY/[facility]IS[facility] JEFF[facility] [address] [place] [address], from Last 3 Months or Most Recently Relevant to Health Maintenance Advance Directives * Full Code (Latest Code Status on File) Date Activated Date Inactivated Comments 10/14/2023 5:43 AM 11/01/2023 6:39 PM Question Answer Comments Code Status Discussion: Reviewed Preferences Care Teams Network Management Specialist Relationship Specialty Start Date End Date Pcp, No . PCP - General 11/17/18 Pcp, No . 11/17/18
--- OUTSIDE RECORDS SUMMARY | 2023-11-13 22:22 | XMS_ITS ---
Author Organization [facility] Address [address] [place] [address] Care Team Providers Care Diesel Trailer Mechanic Name Role Phone Unavailable Unavailable Unavailable Surgery Details Not on file Complications Check Surgery Details section. Procedure Estimated Blood Loss Check Surgery Details section. Procedure Findings Check Surgery Details section. Procedure Specimens Taken Check Surgery Details section.
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
--- OUTSIDE RECORDS SUMMARY | 2023-11-13 22:23 | XMS_ITS | Encounter Summary ---
Author Organization [facility] Address [address] [place] [address] Care Team Providers Care Factory Maintenance Technician Name Role Phone Albania Salcido M.D. Primary Care Provider [phone] Encounter Details Date Type Department Care Team (Late st Contact Info) Description 11/14/2003 Historical Ophthalmology RST OPH Kyle [address] M.D. [address] [place] [address] Social History Tobacco Use Types Packs/Day Years Used Date Smoking Tobacco: Never Assessed Sex and Gender Information Value Date Recorded Sex Assigned at Female 04/24/2017 7:40 PM DOMESTIC TECHNICIAN Gender Identity Female 04/24/2017 7:40 PM DOMESTIC TECHNICIAN Sexual Orientation Straight 04/24/2017 7: 40 PM DOMESTIC TECHNICIAN documented as of this encounter Progress Notes * Kyle Lane M.D. - 11/14/2003 12:00 AM CDT Eye General CHIEF COMPLAINT Accommodative ET - s/p BMR + fadens HISTORY OF PRESENT ILLNESS 01/10/95 Surgery for Esotropia (greater at near than distant). 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 Faden procedure, medial rectus muscle of both eyes (14 mm from limbus). This is a 13year old female who is here for a check up. - Trial of no BF at last exam Feb 2002 - no double since Patient states her vision is the same, no complaints. Wear's contacts most of the time. No crossing of eyes when wearing spectacles or contact lenses. Eyes will cross if she takes off glasses. IMPRESSION / REPORT / PLAN #1 accommodative esotropia out of BF - same Rx daily CL - restress daily wear - out and call if red - discuss local care needed see 1 yr DIAGNOSIS #1 accommodative esotropia CDM Reports - EYEGEN Id: [id number] Status: Fnl documented in this encounter Plan of Treatment Not on file documented as of this encounter Visit Diagnoses Not on filedocumented in this encounter Additional Health Concerns Infection Onset Date Last Indicated Resolved Time COVID19 Pending 05/05/2020 05/05/2020 05/06/2020 1 2:51 AM DOMESTIC TECHNICIAN COVID19 Pending 05/07/2020 05/07/2020 05/07/2020 1 1:19 PM DOMESTIC TECHNICIAN COVID19 Pending 06/05/2020 06/05/2020 06/05/2020 4 :44 AM DOMESTIC TECHNICIAN COVID19 Pending 11/12/2020 11/13/2020 11/13/2020 8 :51 PM CDT documented as of this encounter Care Teams Factory Maintenance Technician Relationship Specialty Start Date End Date Albania Salcido M.D. [address] [place] [phone] PCP - General Family Medicine 07/07/22 documented as of this encounter
--- OUTSIDE RECORDS SUMMARY | 2023-11-13 22:23 | XMS_ITS | Encounter Summary ---
Author Organization [facility] Address [address] [place] [address] Care Team Providers Care Plant Machinist Name Role Phone Albania Salcido M.D. Primary Care Provider + [phone] Encounter Details Date Type Department Care Team ([facility] st Contact Info) Description 08/30/2023 CPAP Download Remote Patient Monitoring [facility] [address] [place] [address] [facility], Provider Social History Tobacco Use Types Packs/Day [...] often do you attend chur ch or oriental orthodox services? 1 to 4 times per year 03/24/2022 Do you belong to any clubs o r organizations such as pentecostalism groups, unions, fraternal or athletic groups, or [...] Answer Date Recorded PHQ-2 Score 3 09/23/2022 [facility] - Occupational Stress Questionnaire Answer [...] place to sleep or slept in a mcfp (including now)? No 03/24/2022 Depression Answer Date [...] Sex Assigned at Female 04/24/2017 7:40 PM ELECTRIC LINEMAN Gender Identity Female 04/24/2017 7:40 PM ELECTRIC LINEMAN Sexual Orientation Straight 04/24/2017 7: 40 PM ELECTRIC LINEMAN documented as of this encounter Plan of Treatment Not on file documented as of this encounter Visit Diagnoses Not on filedocumented in this encounter Additional Health Concerns Assessment Noted Time PHQ-9 Depression Total Score: 10 023 3:46 PM CDT documented as of this encounter Care Teams Plant Machinist Relationship Specialty Start Date End Date Albania Salcido M.D. [address] [place] [address] [place] [address] PCP - General Family Medicine 07/07/22 documented as of this encounter
--- OUTSIDE RECORDS SUMMARY | 2023-11-13 22:23 | XMS_ITS | Encounter Summary ---
Author Organization [facility] Address [address] [place] [address] Care Team Providers Care Enrollment Clerk Name Role Phone Albania Salcido M.D. Primary Care Provider [phone] Encounter Details Date Type Department Care Team (Late st Contact Info) Description 02/20/2002 Historical Ophthalmology RST OPH Kyle [address] M.D. [address] [place] [address] Social History Tobacco Use Types Packs/Day Years Used Date Smoking Tobacco: Never Assessed Sex and Gender Information Value Date Recorded Sex Assigned at Female 04/24/2017 7:40 PM CARD SERVICES SPECIALIST Gender Identity Female 04/24/2017 7:40 PM CARD SERVICES SPECIALIST Sexual Orientation Straight 04/24/2017 7: 40 PM CARD SERVICES SPECIALIST documented as of this encounter Progress Notes * Kyle Lane M.D. - 02/20/2002 12:00 AM CST Eye General CHIEF COMPLAINT yearly check up HISTORY OF PRESENT ILLNESS 01/10/95 Surgery for Esotropia (greater at near than distant). 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 Faden procedure, medial rectus muscle of both eyes (14 mm from limbus). This is a 11year old female who is here for a annual check up. Without her glasses her OS wanders in. Otherwiseshe feels she is seeing fine. IMPRESSION / REPORT / PLAN #1 Accommodative ET - s/p BMR + fadens - try to waen from BF - Rx full plus withour BF - call if double or crosses with RX - otherwise 1 yr CDM Reports - EYEGEN Id: [id number] Status: Fnl documented in this encounter Plan of Treatment Not on file documented as of this encounter Visit Diagnoses Not on filedocumented in this encounter Additional Health Concerns Infection Onset Date Last Indicated Resolved Time COVID19 Pending 05/05/2020 05/05/2020 05/06/2020 1 2:51 AM CARD SERVICES SPECIALIST COVID19 Pending 05/07/2020 05/07/2020 05/07/2020 1 1:19 PM CARD SERVICES SPECIALIST COVID19 Pending 06/05/2020 06/05/2020 06/05/2020 4 :44 AM CARD SERVICES SPECIALIST COVID19 Pending 11/12/2020 11/13/2020 11/13/2020 8 :51 PM CDT documented as of this encounter Care Teams Enrollment Clerk Relationship Specialty Start Date End Date Albania Salcido M.D. [address] [place] [phone] PCP - General Family Medicine 07/07/22 documented as of this encounter
--- OUTSIDE RECORDS SUMMARY | 2023-11-13 22:23 | XMS_ITS | Encounter Summary ---
Author Organization [facility] Address [address] [place] [address] Care Team Providers Care Can Stacker Name Role Phone Albania Salcido M.D. Primary Care Provider + [phone] Encounter Details Date Type Department Care Team ([facility] st Contact Info) Description 06/29/2023 CPAP Download Remote Patient Monitoring [facility] [address] [place] [address] [facility], Provider Social History Tobacco Use Types Packs/Day [...] often do you attend chur ch or latter-day services? 1 to 4 times per year 03/24/2022 Do you belong to any clubs o r organizations such as episcopalian groups, unions, fraternal or athletic groups, or [...] Answer Date Recorded PHQ-2 Score 3 09/23/2022 [facility] - Occupational Stress Questionnaire [...] place to sleep or slept in a usp (including now)? No 03/24/2022 Depression Answer Date [...] Sex Assigned at Female 04/24/2017 7:40 PM AGENCY OPERATOR Gender Identity Female 04/24/2017 7:40 PM AGENCY OPERATOR Sexual Orientation Straight 04/24/2017 7: 40 PM AGENCY OPERATOR documented as of this encounter Plan of Treatment Not on file documented as of this encounter Visit Diagnoses Not on filedocumented in this encounter Additional Health Concerns Assessment Noted Time PHQ-9 Depression Total Score: 10 023 3:46 PM CDT documented as of this encounter Care Teams Can Stacker Relationship Specialty Start Date End Date Albania Salcido M.D. [address] [place] [address] [place] [address] PCP - General Family Medicine 07/07/22 documented as of this encounter
--- OUTSIDE RECORDS SUMMARY | 2023-11-13 22:23 | XMS_ITS | Encounter Summary ---
Author Organization [facility] Address [address] [place] [address] Care Team Providers Care Line Mover Name Role Phone Albania Salcido M.D. Primary Care Provider + [phone] Encounter Details Date Type Department Care Team (Late st Contact Info) Description 07/30/2023 CPAP Download Remote Patient Monitoring [facility] [address] [place] [address] [facility], Provider Social History Tobacco Use Types [...] often do you attend chur ch or yazidism services? 1 to 4 times per year 03/24/2022 Do you belong to any clubs o r organizations such as jain groups, unions, fraternal or athletic groups, or [...] Answer Date Recorded PHQ-2 Score 3 09/23/2022 [facility] - Occupational Stress Questionnaire Answer [...] place to sleep or slept in a longterm (including now)? No 03/24/2022 Depression Answer Date [...] Sex Assigned at Female 04/24/2017 7:40 PM RADIO PRODUCER Gender Identity Female 04/24/2017 7:40 PM RADIO PRODUCER Sexual Orientation Straight 04/24/2017 7: 40 PM RADIO PRODUCER documented as of this encounter Plan of Treatment Not on file documented as of this encounter Visit Diagnoses Not on filedocumented in this encounter Additional Health Concerns Assessment Noted Time PHQ-9 Depression Total Score: 10 023 3:46 PM CDT documented as of this encounter Care Teams Line Mover Relationship Specialty Start Date End Date Albania Salcido M.D. [address] [place] [address] [place] [address] PCP - General Family Medicine 07/07/22 documented as of this encounter
--- OUTSIDE RECORDS SUMMARY | 2023-11-13 22:23 | XMS_ITS | Encounter Summary ---
Author Organization [facility] Address [address] [place] [address] Care Team Providers Care Package Dyeing Machine Operator Name Role Phone Albania Salcido M.D. Primary Care Provider + [phone] Encounter Details Date Type Department Care Team ([facility] st Contact Info) Description 09/30/2023 CPAP Download Remote Patient Monitoring [facility] [address] [place] [address] [facility], Provider Social History Tobacco Use Types [...] often do you attend chur ch or shinto services? 1 to 4 times per year 03/24/2022 Do you belong to any clubs o r organizations such as yazidism groups, unions, fraternal or athletic groups, or [...] Answer Date Recorded PHQ-2 Score 3 09/23/2022 [facility] - Occupational Stress Questionnaire [...] place to sleep or slept in a alf (including now)? No 03/24/2022 Depression Answer Date [...] Sex Assigned at Female 04/24/2017 7:40 PM SPOOL SALVAGER Gender Identity Female 04/24/2017 7:40 PM SPOOL SALVAGER Sexual Orientation Straight 04/24/2017 7: 40 PM SPOOL SALVAGER documented as of this encounter Plan of Treatment Not on file documented as of this encounter Visit Diagnoses Not on filedocumented in this encounter Additional Health Concerns Assessment Noted Time PHQ-9 Depression Total Score: 10 023 3:46 PM CDT documented as of this encounter Care Teams Package Dyeing Machine Operator Relationship Specialty Start Date End Date Albania Salcido M.D. [address] [place] [address] [place] [address] PCP - General Family Medicine 07/07/22 documented as of this encounter
--- OUTSIDE RECORDS SUMMARY | 2023-11-13 22:23 | XMS_ITS | Encounter Summary ---
Author Organization [facility] Address [address] [place] [address] Care Team Providers Care Crocheter Hand Name Role Phone Albania Salcido M.D. Primary Care Provider + [phone] Encounter Details Date Type Department Care Team (Late st Contact Info) Description 08/25/2020 Orders Only Department of Family Medicine, [facility], in [place], [place] [address] [place] [id number] Soraya Hudson, TAMMIE, C.N.P., R.N. Social History Tobacco Use Types Packs/Day Years Used Date Smoking Tobacco: Former Cigarettes Q uit: 2010 Smokeless Tobacco: Never Alcohol Use Standard Drinks/Week Comments Not Currently 1 (1 standard drink = 0.6 oz pur e alcohol) Twice monthly Humiliation, Afraid, Rape, and Kick questionnair e Answer Date Recorded Within the last year, have y ou been afraid of your partner or ex-partner? No 09/30/2019 Within the last year, have y ou been humiliated or emotionally abused in other ways by your partner or ex-partner? No Within the last year, have y ou been kicked, hit, slapped, or otherwise physically hurt by your partner or ex-partner? No 09/30/2019 Within the last year, have y ou been raped or forced to have any kind of sexual activity by your partner or ex-partner? No 09/30/2019 Social Connection and Isolation Panel [NHANES] A nswer Date Recorded In a typical week, how many times do you talk on the phone with family, friends, or neighbors? Twice a week 09/30/2019 How often do you get together with friends or re latives? Once a week 09/30/2019 How often do you attend alevism or druze serv ices? Never 09/30/2019 Do you belong to any clubs o r organizations such as alevism groups, unions, fraternal or athletic groups, or school groups? No 09/30/2019 How often do you attend meet ings of the clubs or organizations you belong to? Never 09/30/2019 Are you , , di vorced, , never , or living with a partner? 09/30/2019 AUDIT-C Answer Date Recorded Q1: How often do you have a drink containing alc ohol? Monthly or less 09/30/2019 Q2: How many drinks containi ng alcohol do you have on a typical day when you are drinking? 1 or 2 09/30/2019 Q3: How often do you have si x or more drinks on one occasion? Never 09/30/2019 Overall Financial Resource Strain (CARDIA) Answe r Date Recorded How hard is it for you to pa y for the very basics like food, housing, medical care, and heating? Not hard at all 09/30/2019 PHQ-2 Answer Date Recorded PHQ-2 Score 0 06/23/2020 [facility] - Occupational Stress Questionnaire Answer Date Recorded Do you feel stress - tense, restless, nervous, or anxious, or unable to sleep at night because your mind is troubled all the time - these days? Only a little 09/30/2019 Exercise Vital Sign Answer Date Recorde d On average, how many days pe r week do you engage in moderate to strenuous exercise (like a brisk walk)? 1 day 09/30/2019 On average, how many minutes do you engage in exercise at this level? 60 min 09/30/2019 Hunger Vital Sign Answer Date Recorded Within the past 12 months, y ou worried that your food would run out before you got the money to buy more. Never true 09/30/19 20 Within the past 12 months, t he food you bought just didn't last and you didn't have money to get more. Never true 09/30/2019 PRAPARE - Transportation Answer Date Re corded In the past 12 months, has l ack of transportation kept you from medical appointments or from getting medications? No 09/16 In the past 12 months, has l ack of transportation kept you from meetings, work, or from getting things needed for daily living? No 09/30/2019 Depression Answer Date Recor ded PHQ-9 Total Score (max 27) 2 06/23 Nutrition Answer Date Recorded Nutrition: EVOO Fat Source No 09/29 On average, how many serving s of fruits and vegetables do you eat per day (serving size is equal to 1 cup or approximately the size of a tennis ball)? 0-1 09/30/2019 Dental Answer Date Recorded Dental: Regular Dentist No 06/05/19 21 Education Answer Date Recorded What is the highest level of school you have completed or the highest degree you have received? Associate degree: academic program 09/30/2019 Sex and Gender Information Value Date Recorded Sex Assigned at Female 04/24/2017 7:40 PM FACULTY DEAN Gender Identity Female 04/24/2017 7:40 PM FACULTY DEAN Sexual Orientation Straight 04/24/2017 7: 40 PM FACULTY DEAN documented as of this encounter Plan of Treatment Not on file documented as of this encounter Visit Diagnoses Not on filedocumented in this encounter Additional Health Concerns Infection Onset Date Last Indicated Resolved Time COVID19 Pending 11/12/2020 11/13/2020 11/13/2020 8 :51 PM CDT Assessment Noted Time PHQ-9 Depression Total Score: 2 06/24/19 21 1:01 PM FACULTY DEAN documented as of this encounter Care Teams Crocheter Hand Relationship Specialty Start Date End Date Albania Salcido M.D. [address] [place] [phone] PCP - General Family Medicine 07/07/22 documented as of this encounter
--- OUTSIDE RECORDS SUMMARY | 2023-11-13 22:23 | XMS_ITS | Encounter Summary ---
Author Organization [facility] Address [address] [place] [address] Care Team Providers Care Fuel Oil Truck Driver Name Role Phone Albania Salcido M.D. Primary Care Provider + [phone] Encounter Details Date Type Department Care Team (Late st Contact Info) Description 09/20/2023 Orders Only [facility] PCP TH MNT Albania Salcido M.D. [address] [place], [place] [address] [place] [address] Hypothyroidism Social History Tobacco Use Types Packs/Day Years [...] often do you attend chur ch or samaritan services? 1 to 4 times per year 03/24/2022 Do you belong to any clubs o r organizations such as denominational groups, unions, fraternal or athletic groups, or [...] Answer Date Recorded PHQ-2 Score 3 09/23/2022 [facility] - Occupational Stress Questionnaire Answer Date Recorded [...] Sex Assigned at Female 04/24/2017 7:40 PM HOSPICE OFFICE COORDINATOR Gender Identity Female 04/24/2017 7:40 PM HOSPICE OFFICE COORDINATOR Sexual Orientation Straight 04/24/2017 7: 40 PM HOSPICE OFFICE COORDINATOR documented as of this encounter Plan of Treatment Scheduled Orders Name Type Priority Associated Diagnoses Orde r Schedule S-TSH (Thyroid-Stimulating Hormone - Sensitive) Lab Routine Hypothyroidism Expected: 10/04/2023, Expires: 03/18/2024 documented as of this encounter Visit Diagnoses Diagnosis Hypothyroidism documented in this encounter Additional Health Concerns Assessment Noted Time PHQ-9 Depression Total Score: 10 023 3:46 PM CDT documented as of this encounter Care Teams Fuel Oil Truck Driver Relationship Specialty Start Date End Date Albania Salcido M.D. [address] [place] [address] [place] [phone] PCP - General Family Medicine 07/07/22 documented as of this encounter
--- NOTE | 2023-11-13 22:31 | ED_ITS ---
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 She noticed the pain in her calf region. Little bit of swelling associated with this and is worried about a DVT. She has no history of chest pain shortness of breath associated with this. 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 No nausea vomiting no other rashes noted. The pain in her left leg came on over the course of the last 2 day or so. Related Data Home Medications ?Medication ?Instructions ?Recorded ?Confirmed folic acid 1 mg tablet 1 mg PO QDAY 06/29/23 11/04/23 albuterol 90 mcg/actuation aerosol mcg inhalation TID PRN 11/04/23 11/04/23 inhaler furosemide 40 mg tablet 40 mg PO QAM 11/04/23 11/04/23 pantoprazole 40 mg tablet,delayed 40 mg PO QDAY 11/04/23 11/04/23 release prednisone 10 mg tablet 10 mg PO DIRECTED 11/04/23 11/04/23 valganciclovir 450 mg tablet 900 mg PO BID 11/04/23 11/04/23 (Valcyte) Previous Rx's ?Medication ?Instructions ?Recorded levothyroxine 175 mcg tablet 175 mcg PO QDAY #90 tabs 08/03/23 escitalopram oxalate 20 mg tablet 20 mg PO QDAY #90 tabs 11/04/23 (Lexapro) rivaroxaban 20 mg tablet (Xarelto) 20 mg PO DAILY #30 tabs 11/14/23 Allergies Allergy/AdvReac Type Severity Reaction Status Date / Time cefaclor Allergy Intermediate Hives Verified 11/04/23 12:55 menthol [From [employer]] Allergy Mild Rash Verified 11/04/23 12:55 methyl salicylate Allergy Mild Rash Verified 11/04/23 12:55 [From [employer]] Review of Systems Status of ROS: Reports: 10 or more systems reviewed and unremarkable except as noted in History and below PFSH PFSH Medical History Hypoxia ?R09.02 - Hypoxemia (ICD-10) Hypercoagulable state ?D68.59 - Other primary thrombophilia (ICD-10) Surgical History Hx of LASIK ?Z98.890 - Other specified postprocedural states (ICD-10) Family History Father Coronary artery disease Diabetes Brother Coronary artery disease Diabetes Other Colon cancer Social History Narrative: Patient denies smoking, rarely drinks alcohol. She works as a nurse at [employer]. What is your current living situation?: I presently have a place to live Problems where you live: no known problems Problems where you live details: NA In the past 12 months, utilities in danger of being shut off: no In past 12 months, lack of transportation kept you from medical appts, meetings, work, or getting things needed for daily living: no In the past 12 mos, have been you worried that your food would run out before you had money to buy more?: never true In the past 12 mos, the food you bought just didn't last and you didn't have money to buy more?: never true Highest level of school completed/degree received: Associate degree: occupational, technical, vocational program Smoking Status: Former smoker How often do you have a drink containing alcohol: never AUDIT-C Alcohol total score: 0 Non-prescribed substance use: denies use Caffeine: Yes How often does anyone, including family, friends and others, physically hurt you : never How often does anyone, including family, friends and others, insult or talk down to you: never How often does anyone, including family, friends and others, threaten you with harm: never How often does anyone, including family, friends and others, scream or curse at you: never Little interest or pleasure in doing things: not at all Feeling down, depressed, or hopeless: not at all service: No Exam Narrative: Exam Narrative: On examination in room 6 she is in no apparent distress speaking to me normally, her chest is clear bilaterally no wheezing crackles noted her heart sounds are normal, she does have a black spot rate on the bridge of her nose which she tells me was from the BiPAP they used at the hospital. She has appointment with ENT coming up. Abdomen has normal examination no tenderness, her left leg is a little bit more swollen than the right leg. She has normal DP posterior tibial pulses, she has a vaguely positive Homans sign, SLR is are negative bilaterally. Const: Vital Signs, click to edit/add: Vital Signs - 24 hr 11/13/23 21:29 Temperature 97.7 F Pulse Rate [Left P ulse Oximeter] 80 Respiratory Rate 18 Blood Pressure [Ri ght Upper Arm] 125/87 Pulse Oximetry 96 Oxygen Delivery Me thod Room Air Documenting provider has reviewed patient's vital signs: yes Course Course ED Course: Ultrasound was positive for a clot within the GSV, approximately 10 cm from the bifurcation, I gave her options of the rescanning her in 3-5 days, to see if there has been any progression, but given her history she would like to try the Xarelto, which I am not against, 20 mg a day, and then follow-up with primary care and consideration of consult with Hematology given her terrible history of previous clots and infarcts. I went over the risks benefits and side effects of being treatment with the medication, she accepts these. Vital Signs Vital signs: Initial Vital Signs Temperature 97.7 F 11/13/23 21:29 Temperature Source Temporal Artery Scan 11/13/23 21:29 Pulse Rate 80 11/13/23 21:29 Pulse Rhythm Regular 11/13/23 21:29 Respiratory Rate 18 11/13/23 21:29 Blood Pressure 125/87 11/13/23 21:29 Blood Pressure Mean 99 11/13/23 21:29 Blood Pressure Position Sitting 11/13/23 21:29 Pulse Oximetry 96 11/13/23 21:29 Oxygen Delivery Method Room Air 11/13/23 21:29 Vital Signs Temperature 97.7 F 11/13/23 21:29 Pulse Rate 80 11/13/23 21:29 Respiratory Rate 18 11/13/23 21:29 Blood Pressure 125/87 11/13/23 21:29 Pulse Oximetry 96 11/13/23 21:29 Oxygen Delivery Method Room Air 11/13/23 21:29 Temperature 97.7 F 11/13/23 21:29 Pulse Rate 80 11/13/23 21:29 Respiratory Rate 18 11/13/23 21:29 Blood Pressure 125/87 11/13/23 21:29 Pulse Oximetry 96 11/13/23 21:29 Oxygen Delivery Method Room Air 11/13/23 21:29 MDM - Extremity Injury (Lower) MDM Narrative Medical decision making narrative: We will get an ultrasound of her left leg, I do not think this is infection, there is no redness or warmth associated with this it could very well be a DVT or superficial clot. I do not think this is sciatica, our primary knee problem, and I do not think this is related to an arterial problem mesh is a pulses. Medical Records Attestation: I reviewed the patient's medical records. Discharge Plan Discharge Clinical Impression: Superficial thrombophlebitis Patient Disposition: Home, Self-Care Condition: Stable Additional Instructions: Take this Xarelto once a day, for the 30 days, given you 1 refill, I would expect you to follow-up with primary care and or hematology. I do worry about progression which is 1 of the reasons that were treating her, with her history of 2 previous PEs and the splenic infarcts. Activity Level: Light activity Prescriptions: New Xarelto 20 mg tablet 20 mg PO DAILY Qty: 30 2RF Rx Instructions: must administer with evening meal No Action folic acid 1 mg tablet 1 mg PO QDAY prednisone 10 mg tablet 10 mg PO DIRECTED Rx Instructions: see taper instructions pantoprazole 40 mg tablet,delayed release (DR/EC) 40 mg PO QDAY Rx Instructions: Tapering off furosemide 40 mg tablet 40 mg PO QAM Rx Instructions: Tapering off for 2 more weeks valganciclovir [Valcyte] 450 mg tablet 900 mg PO BID Rx Instructions: On for 6 more days albuterol 90 mcg/actuation aerosol inhalation TID PRN escitalopram oxalate [Lexapro] 20 mg tablet 20 mg PO QDAY Qty: 90 3RF levothyroxine 175 mcg tablet 175 mcg PO QDAY Qty: 90 2RF Follow Up/Referrals: Angelica Sanon MD [Primary Care Provider] - Stand Alone Forms: [employer] Info Instructions
[2023-11-14] MEDS: RIVAROXABAN 10 MG TABLET 20 MG PO (00:49)
== END 2023-11-14 00:50 | disposition home or self-care (01) ==
PROVIDERS: Emergency Provider Family Medicine; PCP Family Medicine
DX: I80.02 Phlebitis and thrombophlebitis of superficial vessels of left lower extremity (principal)
CPT/HCPCS: 93971; 99283; 99284; A9270

== ENCOUNTER 2023-11-15 18:52 | Emergency (ER) | payer OTHER, SELFPAY ==
[2023-11-15 18:57] VITALS: BP 126/79; PULSE 89; RESP 20; TEMP 36.7; O2SAT 99; BMI 35.4
--- NOTE | 2023-11-15 19:26 | ED.GENADULT ---
HPI - General Adult General Chief complaint: Extremity Pain/Injury, Lower Stated complaint: L leg blood clot, pain Time Seen by Provider: 11/15/23 19:09 History of Present Illness HPI narrative: This 33-year-old female comes in with pain in her lower extremity due to a superficial thrombophlebitis. She had an ultrasound done 2 days ago and showed extensive clot in the superficial veins but not any clot currently in the deep venous system. The patient does report 2 prior episodes of pulmonary embolism. She is now started on Xarelto and does not report any chest pain or shortness of breath. Her visit here is exclusively for some kind of plan for pain management. She states that she did take an ibuprofen this morning and this did not help at all. Related Data Home Medications ?Medication ?Instructions ?Recorded ?Confirmed folic acid 1 mg tablet 1 mg PO QDAY 06/29/23 11/15/23 albuterol 90 mcg/actuation aerosol 90 mcg inhalation TID PRN 11/04/23 11/15/23 inhaler pantoprazole 40 mg tablet,delayed 40 mg PO QDAY 11/04/23 11/15/23 release Previous Rx's ?Medication ?Instructions ?Recorded levothyroxine 175 mcg tablet 175 mcg PO QDAY #90 tabs 08/03/23 escitalopram oxalate 20 mg tablet 20 mg PO QDAY #90 tabs 11/04/23 (Lexapro) rivaroxaban 20 mg tablet (Xarelto) 20 mg PO DAILY #30 tabs 11/14/23 hydrocodone 5 mg-acetaminophen 325 1 tab PO Q4-6H PRN pain #12 tabs 11/15/23 mg tablet Allergies Allergy/AdvReac Type Severity Reaction Status Date / Time cefaclor Allergy Intermediate Hives Verified 11/15/23 19:00 menthol [From [employer]] Allergy Mild Rash Verified 11/15/23 19:00 methyl salicylate Allergy Mild Rash Verified 11/15/23 19:00 [From [employer]] Review of Systems Status of ROS: Reports: 10 or more systems reviewed and unremarkable except as noted in History and below Narrative: Constitutional: No fevers, no weight gain or loss. Eyes: No discharge. No vision changes. HENT: No congestion, no sore throat, no ear pain. Cardiovascular: No chest pain, no palpitations. Respiratory: No shortness of breath, no wheezes, no cough. Gastrointestinal: No abdominal pain, no vomiting, no diarrhea. Genitourinary: No dysuria, no hematuria. Musculoskeletal: Normal range of motion. Skin: No rashes, no pruritis. Neurological: No dizziness, weakness, sensory change, speech change. Endo/Heme/Allergies: No bruising or bleeding. No polydipsia. Pysch: no suicidality, no anxiety, no insomnia. All other systems reviewed and are negative. PFSH PFSH Medical History Hypoxia ?R09.02 - Hypoxemia (ICD-10) Hypercoagulable state ?D68.59 - Other primary thrombophilia (ICD-10) Surgical History Hx of LASIK ?Z98.890 - Other specified postprocedural states (ICD-10) Family History Father Coronary artery disease Diabetes Brother Coronary artery disease Diabetes Other Colon cancer Social History Narrative: Patient denies smoking, rarely drinks alcohol. 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 is your current living situation?: I presently have a place to live Problems where you live: no known problems Problems where you live details: NA In the past 12 months, utilities in danger of being shut off: no In past 12 months, lack of transportation kept you from medical appts, meetings, work, or getting things needed for daily living: no In the past 12 mos, have been you worried that your food would run out before you had money to buy more?: never true In the past 12 mos, the food you bought just didn't last and you didn't have money to buy more?: never true Highest level of school completed/degree received: Associate degree: occupational, technical, vocational program Smoking Status: Former smoker Second hand tobacco smoke exposure: No How often do you have a drink containing alcohol: never AUDIT-C Alcohol total score: 0 Non-prescribed substance use: denies use Caffeine: Yes How often does anyone, including family, friends and others, physically hurt you: never How often does anyone, including family, friends and others, insult or talk down to you: never How often does anyone, including family, friends and others, threaten you with harm: never How often does anyone, including family, friends and others, scream or curse at you: never Little interest or pleasure in doing things: not at all Feeling down, depressed, or hopeless: not at all service: No Exam Narrative: Exam Narrative: Constitutional: Well-developed, well-nourished, no acute distress. HEENT: Normocephalic, atraumatic. Neck: Normal range of motion. Nontender. Supple. Heart: Intact distal pulses. Lungs: No chest discomfort. No wheezes, rhonchi, or rales. Abdomen: Nontender. Back: Normal range of motion. Extremities: Normal range of motion. Skin: Intact. No rash. Warm. No erythema or pallor. Neurologic: No altered sensation. No weakness. Alert and oriented. Psychiatric: No suicidality. No anxiety or depression. No insomnia. Nursing notes and vitals signs are reviewed. Const: Vital Signs, click to edit/add: Vital Signs - 24 hr 11/15/23 18:57 Temperature 98.0 F Pulse Rate [Right Pulse Oximeter] 89 Respiratory Rate 20 Blood Pressure [Ri ght Upper Arm] 126/79 Pulse Oximetry 99 Oxygen Delivery Me thod Room Air Course Vital Signs Vital signs: Initial Vital Signs Temperature 98.0 F 11/15/23 18:57 Temperature Source Temporal Artery Scan 11/15/23 18:57 Pulse Rate 89 11/15/23 18:57 Respiratory Rate 20 11/15/23 18:57 Blood Pressure 126/79 11/15/23 18:57 Blood Pressure Mean 94 11/15/23 18:57 Blood Pressure Position Sitting 11/15/23 18:57 Pulse Oximetry 99 11/15/23 18:57 Oxygen Delivery Method Room Air 11/15/23 18:57 Vital Signs Temperature 98.0 F 11/15/23 18:57 Pulse Rate 89 11/15/23 18:57 Respiratory Rate 20 11/15/23 18:57 Blood Pressure 126/79 11/15/23 18:57 Pulse Oximetry 99 11/15/23 18:57 Oxygen Delivery Method Room Air 11/15/23 18:57 Temperature 98.0 F 07/30/24 18:57 Pulse Rate 89 11/15/23 18:57 Respiratory Rate 20 11/15/23 18:57 Blood Pressure 126/79 11/15/23 18:57 Pulse Oximetry 99 11/15/23 18:57 Oxygen Delivery Method Room Air 11/15/23 18:57 Medical Decision Making MDM Narrative Medical decision making narrative: This patient has a clot in the superficial veins of her leg and is now taking Xarelto. She comes in because her pain is not adequately controlled with [id number] medicines. I advised her to avoid using ibuprofen or other NSAIDs while on Xarelto. I did provide prescription for some tablets of [place]. She has a follow-up appointment with her primary physician tomorrow who can arrange for ongoing pain management. Discharge Plan Discharge Clinical Impression: Superficial thrombophlebitis Patient Disposition: Home, Self-Care Condition: Stable Additional Instructions: Take medication as needed and indicated. Follow up with primary physician in clinic tomorrow as scheduled. Return if worsening. Prescriptions: New hydrocodone-acetaminophen 5-325 mg tablet 1 tab PO Q4-6H PRN (Reason: pain) Qty: 12 0RF No Action folic acid 1 mg tablet 1 mg PO QDAY pantoprazole 40 mg tablet,delayed release (DR/EC) 40 mg PO QDAY Rx Instructions: Tapering off albuterol 90 mcg/actuation aerosol 90 mcg inhalation TID PRN escitalopram oxalate [Lexapro] 20 mg tablet 20 mg PO QDAY Qty: 90 3RF Xarelto 20 mg tablet 20 mg PO DAILY Qty: 30 2RF Rx Instructions: must administer with evening meal levothyroxine 175 mcg tablet 175 mcg PO QDAY Qty: 90 2RF Follow Up/Referrals: Angelica Sanon MD [Primary Care Provider] - Stand Alone Forms: [email or web address] Info Instructions
--- OUTSIDE RECORDS SUMMARY | 2023-11-15 19:37 | XMS_ITS | Encounter Summary ---
Author Organization [facility] Address [address] [place] [id number] Care Team Providers Care Hood Fitter Name Role Phone Albania Salcido M.D. Primary Care Provider + [phone] Encounter Details Date Type Department Care Team (Late st Contact Info) Description 09/30/2023 CPAP Download Remote Patient Monitoring [facility] [address] [place] [address] [facility], Provider Social History Tobacco Use Types Packs/Day [...] often do you attend chur ch or zoroastrianism services? 1 to 4 times per year 03/24/2022 Do you belong to any clubs o r organizations such as christian groups, unions, fraternal or athletic groups, or [...] Answer Date Recorded PHQ-2 Score 3 09/23/2022 [facility] - Occupational Stress Questionnaire Answer [...] place to sleep or slept in a prison (including now)? No 03/24/2022 Depression Answer Date [...] Sex Assigned at Female 04/24/2017 7:40 PM CLAIMS SORTER Gender Identity Female 04/24/2017 7:40 PM CLAIMS SORTER Sexual Orientation Straight 04/24/2017 7: 40 PM CLAIMS SORTER documented as of this encounter Plan of Treatment Not on file documented as of this encounter Visit Diagnoses Not on filedocumented in this encounter Additional Health Concerns Assessment Noted Time PHQ-9 Depression Total Score: 10 023 3:46 PM CDT documented as of this encounter Care Teams Hood Fitter Relationship Specialty Start Date End Date Albania Salcido M.D. [address] [place] [address] [place] [address] PCP - General Family Medicine 07/07/22 documented as of this encounter
--- OUTSIDE RECORDS SUMMARY | 2023-11-15 19:37 | XMS_ITS | Encounter Summary ---
Author Organization [facility] Address [address] [place] [address] Care Team Providers Care Electrode Cleaner Name Role Phone Albania Salcido M.D. Primary Care Provider + [phone] Encounter Details Date Type Department Care Team (Late st Contact Info) Description 10/31/2023 CPAP Download Remote Patient Monitoring [facility] [address] [place] [address] [facility], Provider Social History Tobacco Use Types Packs/Day [...] often do you attend chur ch or methodist services? 1 to 4 times per year 03/24/2022 Do you belong to any clubs o r organizations such as adventist groups, unions, fraternal or athletic groups, or [...] Answer Date Recorded PHQ-2 Score 3 09/23/2022 [facility] - Occupational Stress Questionnaire [...] place to sleep or slept in a halfway (including now)? No 03/24/2022 Depression Answer Date [...] Sex Assigned at Female 04/24/2017 7:40 PM OXYGEN EQUIPMENT AIDE Gender Identity Female 04/24/2017 7:40 PM OXYGEN EQUIPMENT AIDE Sexual Orientation Straight 04/24/2017 7: 40 PM OXYGEN EQUIPMENT AIDE documented as of this encounter Plan of Treatment Not on file documented as of this encounter Visit Diagnoses Not on filedocumented in this encounter Additional Health Concerns Assessment Noted Time PHQ-9 Depression Total Score: 10 023 3:46 PM CDT documented as of this encounter Care Teams Electrode Cleaner Relationship Specialty Start Date End Date Albania Salcido M.D. [address] [place] [address] [place] [address] PCP - General Family Medicine 07/07/22 documented as of this encounter
--- OUTSIDE RECORDS SUMMARY | 2023-11-15 19:37 | XMS_ITS | Clinical Summary ---
Author Organization [facility] Address [place], [place] [address] Care Team Providers Care Laboratory Sampler Name Role Phone Pcp, No Primary Care [...] in the morning. 14 Tablet 11/02/2023 Active Blood-Glucose MeterIndications:Vu roid-induced hyperglycemia Use to [...] Test 1 time/day 100 Each 11/01/2023 Active predniSONE (DELTASONE) 10 mg tabletIndications:[place] hypoxic respiratory failure (HC) Take 2 Tablets (20 mg) by mouth once daily with a meal for 4 days, THEN 1 Tablet (10 mg) once daily with a meal for 5 days, THEN 0.5 Tablets (5 mg) once daily with a meal for 3 days. 14.5 Tablet 11/02/2023 11/14/19 24 valGANciclovir (VALCYTE) 450 mg tabletIndications:Cy tomegalovirus infection, [...] - 11/01/2023 4:29 PM CDT Hospital Encounter [facility] [address] [place] [address] [facility] [place], [employer] [facility] Hospitalists Of [place], MD Kuldeep Montoya, MD [...] Care 10/13/2023 4:00 PM CDT Ancillary Procedure [facility] [address] [place] [address] from Last 3 Months Family History Medical [...] 12:21 PM CDT LC HCV QN INTERP [id number] Timed 10/21/19 24 10:13 AM CDT LC HBSAG CONF [id number] Timed 10/21/2023 10:13 AM CDT LC ACUTE [...] Routine 10/13/2023 2:07 PM CDT Splenic infarct HEALTHCARE INTERPRETER THIN PREP PAP SCREEN IMAGED Routine 03/22/2014 10:15 AM 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 GLUCOSE METER 183(H) 65 - 100 mg/dL 11/01/2023 1:57 PM CDT [facility] Blood BLOOD SPECIMEN / Unknown 11/01/2023 1:55 PM CDT 11/01/2023 1:57 PM CDT Huseyin Turner MD CHEMISTRY Performing Organization Address [facility] Co de Phone Number [facility] [address] [place] [address], * PLATELET COUNT (10/31/2023 6:12 AM CDT) Only the most recent of12 resultswithin the time period is included. Pathologist [facility] PLATELET COUNT 382 140 - 440 thou/cu mm 10/31/2023 7:20 AM CDT [facility] MPV 9.7 6.5 - 11.0 fL 10/31/2023 7:20 AM CDT [facility] Blood BLOOD SPECIMEN / Unknown Venipuncture / Unknown 10/31/2023 6:12 AM CDT 10/31/2023 7:10 AM CDT Narrative [facility] - 10/31/2023 7:20 AM CDT Every morning while on IV heparin. Every morning while on IV heparin. Necessary every morning while on IV heparin. Faisal Light MD HEMATOLOGY Performing Organization Address City/[facility] Co de Phone Number [facility] [address] [place] [address], * (ABNORMAL) HEMOGLOBIN (10/31/2023 6:12 AM CDT) Only the most recent of12 resultswithin the time period is included. HEMOGLOBIN 10.7(L) 12.0 - 16.0 g/dL 10/31/2023 7:20 AM CDT [facility] MCV 89 80 - 100 fL 10/31/2023 7:20 AM CDT [facility] Blood BLOOD SPECIMEN / Unknown Venipuncture / Unknown 10/31/2023 6:12 AM CDT 10/31/2023 7:10 AM CDT Narrative [facility] - 10/31/2023 7:20 AM CDT Every morning while on IV heparin. Every morning while on IV heparin. Necessary every morning while on IV heparin. Faisal Light MD HEMATOLOGY Performing Organization Address City/[facility]/ZIP Co de Phone Number [facility] [address] [place] [address], [place] * HEMATOCRIT (10/31/2023 6:12 AM CDT) Only the most recent of12 resultswithin the time period is included. HEMATOCRIT 35.7 33.0 - 51.0 % 10/31/2023 7:20 AM CDT [facility] Blood BLOOD SPECIMEN / Unknown Venipuncture / Unknown 10/31/2023 6:12 AM CDT 10/31/2023 7:10 AM CDT [facility] - 10/31/2023 7:20 AM CDT Every morning while on IV heparin. Every morning while on IV heparin. Necessary every morning while on IV heparin. Faisal Light MD HEMATOLOGY [facility] [address] [place] [address], [place] * (ABNORMAL) MAGNESIUM (10/29/2023 4:39 AM CDT) Only the most recent of4 resultswithin the time period is included. MAGNESIUM 2.7(H) 1.6 - 2.6 mg/dL 10/29/2023 6:46 AM CDT [facility] Blood BLOOD SPECIMEN / Unknown Butterfly / Unknown 10/29/2023 4:39 AM CDT 10/29/2023 5:43 AM CDT Marah Eubanks MD CHEMISTRY [facility] [address] [place] [address], * (ABNORMAL) BASIC METABOLIC PANEL (10/29/2023 4:39 AM CDT) Only the most recent of6 resultswithin the time period is included. SODIUM 138 136 - 145 mmol/L 10/29/2023 6:10 AM CDT [facility] POTASSIUM 4.4 3.5 - 5.1 mmol/L 10/29/2023 6:10 AM T [facility] CHLORIDE 103 98 - 107 mmol/L 10/29/2023 6:10 AM T [facility] CO2,TOTAL 28 22 - 29 mmol/L 10/29/2023 6:10 AM T [facility] ANION GAP 7 5 - 18 10/29/2023 6:10 AM T [facility] GLUCOSE 269(H) 70 - 99 mg/dL 10/29/2023 6:10 AM T [facility] CALCIUM 8.7 8.6 - 10.0 mg/dL 10/29/2023 6:10 AM T [facility] BUN 24(H) 6 - 20 mg/dL 10/29/2023 6:10 AM T [facility] CREATININE 0.74 0.50 - 0.90 mg/dL 10/29/2023 6:10 AM T [facility] BUN/CREAT RATIO 32(H) 10 - 20 6:10 AM T [facility] eGFR >90 >90 mL/min/1.7 3m2 10/29/2023 6:10 AM T [facility] Comment:As of 2021, eG FR [...] 5:43 AM CDT Marah Eubanks MD CHEMISTRY [facility] [address] [place] [address], * SCAN-CARDIAC STRIP (10/28/2023 7:00 AM CDT) Scanner OTHER * SCAN-CARDIAC STRIP (10/27/2023 8:03 PM CDT) Scanner OTHER * CMV QUANT DNA PCR (BLOOD) (10/27/2023 3:24 PM CDT) Only the most recent of2 resultswithin the time period is included. CMV Qn DNA PCR [id number] Negative IU/mL 10/28/2023 11:07 PM CDT [facility] Comment:The quantitative ran ge of this assay is 200 to 1 million IU/mL. log10 CMV Qn DNA 4.158 log10 IU/mL 024 11:07 PM CDT [facility] ([facility] Blood BLOOD SPECIMEN / Unknown Butterfly / Unknown 10/27/2023 3:24 PM CDT 10/27/2023 3:28 PM CDT Narrative [facility] ([facility]) - 10/28/2023 11:07 PM CDT Performed at: ??01 - [email or web address] [address] [place] [address] ??[id number] Pivot End Polisher: Abdiaziz Escobar MD, Phone: ??[phone] Marah Eubanks MD SEND OUTS [facility] ([facility]) [address] [place] [address], * (ABNORMAL) CBC no diff AM (10/27/2023 6:01 AM CDT) Only the most recent of5 resultswithin the time period is included. WHITE BLOOD COUNT 7.5 4.5 - 11.0 thou/cu mm 10/27/2023 6:41 AM CDT [facility] RED BLOOD COUNT 3.79(L) 4.00 - 5.20 mil/cu mm 10/27/2023 6:41 AM CDT [facility] HEMOGLOBIN 9.9(L) 12.0 - 16.0 g/dL 10/27/2023 6:41 AM CDT [facility] HEMATOCRIT 33.1 33.0 - 51.0 % 10/27/2023 6:41 AM CDT [facility] MCV 87 80 - 100 fL 10/27/2023 6:41 AM CDT [facility] MCH 26.1 26.0 - 34.0 pg 10/27/2023 6:41 AM CDT [facility] MCHC 29.9(L) 32.0 - 36.0 g/dL 10/27/2023 6:41 AM CDT [facility] RDW 19.1(H) 11.5 - 15.5 % 10/27/2023 6:41 AM CDT [facility] PLATELET COUNT 298 140 - 440 thou/cu mm 10/27/2023 6:41 AM CDT [facility] MPV 10.0 6.5 - 11.0 fL 10/27/2023 6:41 AM CDT [facility] NRBC 0.0 % 10/27/2023 6:41 AM CDT [facility] ABS NRBC 0.0 thou /cu mm 10/27/2023 6:41 AM CDT [facility] Blood BLOOD SPECIMEN / Unknown Butterfly / Unknown 10/27/2023 6:01 AM CDT 10/27/2023 6:28 AM CDT Sebastián Campoverde MD HEMATOLOGY Performing Organization Address [facility] Co de Phone Number [facility] [address] [place] [phone], [place] * (ABNORMAL) BLOOD GAS,VENOUS (10/27/2023 6:01 AM CDT) Only the most recent of7 resultswithin the time period is included. PH, VENOUS 7.34 7.32 - 7.43 10/27/2023 6:24 AM CDT [facility] PCO2, VENOUS 46 41 - 51 mmHg 10/27/2023 6:24 AM CDT [facility] PO2, VENOUS 71(H) 35 - 40 mmHg 10/27/2023 6:24 AM CDT [facility] HCO3,VENOUS 25 22 - 29 mmol/L 10/27/2023 6:24 AM CDT [facility] BASE EXCESS, VENOUS, POCT -1.3 -2.0 - 3.0 10/27/2023 6:24 AM CDT [facility] O2 SATURATION, VENOUS 94(H) 70 - 75 % 10/27/2023 6:24 AM CDT [facility] PATIENT TEMPERATURE 37.0 Degrees C 10/27/2023 6:24 AM CDT [facility] Blood VENOUS BLOOD SPECIMEN / Unknown Butterfly / Unknown 10/27/2023 6:01 AM CDT 10/27/2023 6:20 AM CDT Sreekanth Rousseau MD CHEMISTRY Performing Organization Address [facility]/ZIP Co de Phone Number [facility] [address] [place] [address], [place] * (ABNORMAL) C-REACTIVE PROTEIN (10/27/2023 6:01 AM CDT) Only the most recent of2 resultswithin the time period is included. [facility] C-REACTIVE PROTEIN 4.5(H) <0.5 mg/dL 10/27/2023 3:55 PM CDT [facility] Blood BLOOD SPECIMEN / Unknown Butterfly / Unknown 10/27/2023 6:01 AM CDT 10/27/2023 6:25 AM CDT Marah Eubanks MD CHEMISTRY [facility] [address] [place] [address], * SCAN-CARDIAC STRIP (10/26/2023 8:09 PM CDT) Scanner OTHER * COVID-19 MOLECULAR (10/26/2023 8:07 PM CDT) [facility] COVID 19 [facility] MOLECULAR Negative Negative 10/26/2023 10:21 PM CDT [facility] Comment:All PCR tests are chen bject to false negative result due to variability in viral load and collection technique. A negative result does not rule out a SARS-CoV-2 infection. Clinical correlation required. TESTING LABORATORY [facility] 10/26/2023 10:21 PM CDT [facility] Comment:Specimen submitted t o [facility] for testing. Other SPECIMEN FROM NASOPHARYNGEAL STRUCTURE / Unknown Non-Blood / Unknown 10/26/2023 8:07 PM CDT 10/26/2023 8:20 PM CDT Octaviano Masterson MD MICROBIOLOGY [facility] [address] [place] [address], * RESPIRATORY PANEL MULTIPLEX PCR (10/26/2023 8:07 PM CDT) Only the most recent of2 resultswithin the time period is included. [facility] Adenovirus NOT Detected 10/26/2023 10:17 PM CDT [facility] Coronavirus 229E NOT Detected 10/26/2023 10:17 PM CDT [facility] Coronavirus HKU1 NOT Detected 10/26/2023 10:17 PM CDT [facility] Coronavirus NL63 NOT Detected 10/26/2023 10:17 PM CDT [facility] Coronavirus OC43 NOT Detected 10/26/2023 10:17 PM CDT [facility] Human Metapneumovirus NOT Detected 10/26/2023 10:17 PM CDT [facility] Human Rhinovirus/Enterovi jigar NOT Detected 10/26/2023 10:17 PM CDT [facility] Influenza A NOT Detected 10/26/2023 10:17 PM CDT [facility] Influenza B NOT Detected 10/26/2023 10:17 PM CDT [facility] Parainfluenza Virus 1 NOT Detected 10/26/2023 10:17 PM CDT [facility] Parainfluenza Virus 2 NOT Detected 10/26/2023 10:17 PM CDT [facility] Parainfluenza Virus 3 NOT Detected 10/26/2023 10:17 PM CDT [facility] Parainfluenza Virus 4 NOT Detected 10/26/2023 10:17 PM CDT [facility] Respiratory Syncytial Virus NOT Detected 10/26/2023 10:17 PM CDT [facility] SARS-Cov-2 NOT Detected 10/26/2023 10:17 PM CDT [facility] Bordetella pertussis NOT Detected 10/26/2023 10:17 PM CDT [facility] Bordetella Parapertussis NOT Detected 10/26/2023 10:17 PM CDT [facility] Chlamydophila pneumoniae NOT Detected 10/26/2023 10:17 PM CDT [facility] Mycoplasma pneumoniae NOT Detected 10/26/2023 10:17 PM CDT [facility] Nasopharyngeal NASOPHARYNGEAL SWAB / Unknown Non-Blood / Unknown 10/26/2023 8:07 PM CDT 10/26/2023 8:20 PM CDT Narrative [facility] - 10/26/2023 10:17 PM CDT All PCR tests are subject to false negative results due to variability in viral/bacterial load and collection technique. ??This test does NOT detect MERS ( Respiratory Syndrome) or SARS-1 (Severe Acute Respiratory Syndrome). Octaviano Masterson MD MICROBIOLOGY [facility] [address] [place] [address], * (ABNORMAL) ARTERIAL BLOOD GAS (10/26/2023 12:25 PM CDT) Only the most recent of2 resultswithin the time period is included. PH, ARTERIAL 7.38 7.35 - 7.45 10/26/2023 1:05 PM CDT [facility] PCO2, ARTERIAL 46(H) 32 - 45 mmHg 10/26/19 1:05 PM [facility] PO2, ARTERIAL 80(L) 83 - 108 mmHg 10/26/2023 1:05 PM T [facility] HCO3, ARTERIAL 27 21 - 28 mmol/L 10/26/2023 1:05 PM [facility] BASE EXCESS, ARTERIAL 1.5 -2.0 - 3.0 10/26/2023 1:05 PM T [facility] O2 SATURATION, ARTERIAL 97 94 - 98 % 10/26/2023 1:05 PM T [facility] INSPIRED O2 80 10/26/2023 1:05 PM T [facility] Comment:Unit of Measure: Lit ers (L) if <=20; Percent (%) if >20 PATIENT TEMPERATURE 37.0 Degrees C 10/26/2023 1:05 PM [facility] Blood ARTERIAL BLOOD SPECIMEN / Unknown Non-Lab Venipuncture / Unknown 10/26/2023 12:25 PM CDT 10/26/2023 12:57 PM CDT Judy Griffin CHEMISTRY [facility] [address] [place] [address], [place] * CT Chest PE study TODAY [...] Campoverde MD CT * Lactate, Venous - [facility] (10/26/2023 9:36 AM CDT) Only the most recent of4 resultswithin the time period is included. Pathologist [facility] LACTATE,VENOUS 0.7 0.5 - 2.0 mmol/L 10/26/2023 10:11 AM CDT [facility] Blood BLOOD SPECIMEN / Unknown Butterfly / Unknown 10/26/2023 9:36 AM CDT 10/26/2023 9:42 AM CDT Sebastián Campoverde MD [facility]STRY [facility] [address] [place] [address], * (ABNORMAL) Comprehensive Metabolic Panel - [facility] (10/26/2023 9:36 AM CDT) Only the most recent of2 resultswithin the time period is included. Pathologist [facility] SODIUM 138 136 - 145 mmol/L 10/26/2023 10:11 AM CDT [facility] POTASSIUM 4.4 3.5 - 5.1 mmol/L 10/26/2023 10:11 AM CDT [facility] CHLORIDE 104 98 - 107 mmol/L 10/26/2023 10:11 AM CDT [facility] CO2,TOTAL 26 22 - 29 mmol/L 10/26/2023 10:11 AM CDT [facility] ANION GAP 8 5 - 18 10/26/2023 10:11 AM CDT [facility] GLUCOSE 88 70 - 99 mg/dL 10/26/2023 10:11 AM CDT [facility] CALCIUM 8.7 8.6 - 10.0 mg/dL 10/26/2023 10:11 AM CDT [facility] BUN 10 6 - 20 mg/dL 10/26/2023 10:11 AM T [facility] CREATININE 0.87 0.50 - 0.90 mg/dL 10/26/2023 10:11 AM T [facility] BUN/CREAT RATIO 11 10 - 20 10:11 AM T [facility] eGFR 89(L) >90 mL/min/1.7 3m2 10/26/2023 10:11 AM T [facility] Comment:As of 2021, eG FR is calculated by the CKD-EPI creatinine equation without race adjustment. ??eGFR can be influenced by muscle mass, exercise, and diet. ??The reported eGFR is an estimation only and is only applicable if the renal function is stable. ALBUMIN 3.0(L) 4.0 - 4.9 g/dL 10/26/2023 10:11 AM T [facility] PROTEIN,TOTAL 6.9 6.0 - 8.0 g/dL 10/26/2023 10:11 AM T [facility] BILIRUBIN,TOTAL 0.5 0.0 - 1.2 mg/dL 10/26/2023 10:11 AM T [facility] ALK PHOSPHATASE 141(H) 35 - 104 IU/L 10/26/2023 10:11 AM T [facility] ALT (SGPT) 27 10 - 35 IU/L 10/26/2023 10:11 AM T [facility] AST (SGOT) 42(H) 10 - 35 IU/L 10/26/2023 10:11 AM T [facility] Blood BLOOD SPECIMEN / Unknown Butterfly / Unknown 10/26/2023 9:36 AM CDT 10/26/2023 9:42 AM CDT Sebastián Campoverde MD CHEMISTRY [facility] [address] [place] [address], [place] * (ABNORMAL) CBC WITH AUTO DIFFERENTIAL (10/26/2023 5:18 AM CDT) Only the most recent of3 resultswithin the time period is included. WHITE BLOOD COUNT 12.0(H) 4.5 - 11.0 thou/cu mm 10/26/2023 10:11 AM CDT [facility] RED BLOOD COUNT 3.62(L) 4.00 - 5.20 mil/cu mm 10/26/2023 10:11 AM CDT [facility] HEMOGLOBIN 9.4(L) 12.0 - 16.0 g/dL 10/26/2023 10:11 AM CDT [facility] HEMATOCRIT 31.8(L) 33.0 - 51.0 % 10/26/2023 10:11 AM CDT [facility] MCV 90 80 - 100 fL 10/26/2023 10:11 AM CDT [facility] MCH 26.5 26.0 - 34.0 pg 10/26/2023 10:11 AM CDT [facility] MCHC 29.7(L) 32.0 - 36.0 g/dL 10/26/2023 10:11 AM CDT [facility] RDW 19.9(H) 11.5 - 15.5 % 10/26/2023 10:11 AM CDT [facility] PLATELET COUNT 305 140 - 440 thou/cu mm 10/26/2023 10:11 AM CDT [facility] MPV 9.7 6.5 - 11.0 fL 10/26/2023 10:11 AM CDT [facility] NRBC 0.2 % 10/26/2023 10:11 AM CDT [facility] ABS NRBC 0.0 thou /cu mm 10/26/2023 10:11 AM T [facility] Blood BLOOD SPECIMEN / Unknown Butterfly / Unknown 10/26/2023 5:18 AM CDT 10/26/2023 5:29 AM CDT [facility] - 10/26/2023 10:11 AM CDT RN to order if patient presents with two or more positive sepsis screening criteria plus new or worsening signs or symptoms of suspected infection. Sebastián Campoverde MD HEMATOLOGY Performing Organization Address City/[facility] Co de Phone Number [facility] [address] [place] [phone], [place] * (ABNORMAL) RED CELL MORPHOLOGY (10/26/2023 5:18 AM CDT) Only the most recent of5 resultswithin the time period is included. [facility] POLYCHROMASIA Slight 10/26/2023 10:11 AM CDT [facility] RBC COMMENT Present(A) RBC morphology appears normal, RBC morphology within normal limits for newborns. 10/26/2023 10:11 AM CDT [facility] Blood BLOOD SPECIMEN / Unknown Butterfly / Unknown 10/26/2023 5:18 AM CDT 10/26/2023 5:29 AM CDT [facility] - 10/26/2023 10:11 AM CDT RN to order if patient presents with two or more positive sepsis screening criteria plus new or worsening signs or symptoms of suspected infection. Sebastián Campoverde MD HEMATOLOGY Performing Organization Address City/[facility] Co de Phone Number [facility] [address] [place] [phone], [place] * PLATELET ESTIMATE (10/26/2023 5:18 AM CDT) Only the most recent of5 resultswithin the time period is included. [facility] PLATELET ESTIMATE Adequate Adequate, No estimate 10/26/2023 10:11 AM CDT [facility] Blood BLOOD SPECIMEN / Unknown Butterfly / Unknown 10/26/2023 5:18 AM CDT 10/26/2023 5:29 AM CDT [facility] - 10/26/2023 10:11 AM CDT RN to order if patient presents with two or more positive sepsis screening criteria plus new or worsening signs or symptoms of suspected infection. Sebastián Campoverde MD HEMATOLOGY [facility] [address] [place] [address], * (ABNORMAL) MANUAL DIFFERENTIAL (10/26/2023 5:18 AM CDT) Only the most recent of3 resultswithin the time period is included. % NEUTROPHILS 22.0 % 10/26/2023 10:11 AM CDT [facility] % LYMPHOCYTES 71.0 % 10/26/2023 10:11 AM CDT [facility] % MONOCYTES 6.0 % 10/26/2023 10:11 AM CDT [facility] % EOSINOPHILS 1.0 % 10/26/2023 10:11 AM CDT [facility] % BASOPHILS 0.0 % 10/26/2023 10:11 AM CDT [facility] NEUTROPHILS ABSOLUTE 2.6 1.7 - 7.0 thou/cu mm 10/26/2023 10:11 AM CDT [facility] LYMPHOCYTES ABSOLUTE 8.5(H) 0.9 - 2.9 thou/cu mm 10/26/2023 10:11 AM CDT [facility] MONOCYTES ABSOLUTE 0.7 <0.9 thou/cu mm 10/26/2023 10:11 AM CDT [facility] EOSINOPHILS ABSOLUTE 0.1 <0.5 thou/cu mm 10/26/2023 10:11 AM CDT [facility] BASOPHILS ABSOLUTE 0.0 <0.3 thou/cu mm 10/26/2023 10:11 AM CDT [facility] Blood BLOOD SPECIMEN / Unknown Butterfly / Unknown 10/26/2023 5:18 AM CDT 10/26/2023 5:29 AM CDT Narrative [facility] - 10/26/2023 10:11 AM CDT RN to order if patient presents with two or more positive sepsis screening criteria plus new or worsening signs or symptoms of suspected infection. Sebastián Campoverde MD HEMATOLOGY Performing Organization Address [facility] Co de Phone Number [facility] [address] [place] [address], * CLOSTRIDIOIDES DIFFICILE TOXIN PCR (10/25/2023 5:35 PM CDT) CLOSTRIDIUM DIFFICILE PCR Negative 10/25/2023 7:16 PM CDT [facility] PRESUMPTIVE NAP1 STRAIN Negative 10/25/2023 7:16 PM CDT [facility] Stool STOOL SPECIMEN / Unknown Non-Blood / Unknown 10/25/2023 5:35 PM CDT 10/25/2023 5:49 PM CDT [facility] - 10/25/2023 7:16 PM CDT The NAP1 (027 or BI) strain is a hypervirulent strain. Detection may be useful for epidemiological purposes. Sebastián Campoverde MD MICROBIOLOGY Performing Organization Address [facility] Co de Phone Number [facility] [address] * (ABNORMAL) APTT (10/25/2023 4:37 AM CDT) Only the most recent of23 resultswithin the time period is included. APTT >240(HH) 28 - 36 sec 10/25/2023 5:25 AM CDT [facility] Blood BLOOD SPECIMEN / Unknown Butterfly / Unknown 10/25/2023 4:37 AM CDT 10/25/2023 4:50 AM CDT [facility]ATORY - 10/25/2023 5:25 AM CDT Therapeutic Range: 57-87 seconds Sebastián Campoverde MD HEMATOLOGY Performing Organization Address City/[facility] Co de Phone Number [facility] [address], [place] [address], [place] * BLOOD CULTURE (10/24/2023 1:03 PM CDT) Only the most recent of6 resultswithin the time period is included. CULTURE No Growth. 10/28/2023 1:45 PM CDT [facility] Blood BLOOD SPECIMEN / Unknown Butterfly / Unknown 10/24/2023 1:03 PM CDT 10/24/2023 1:14 PM CDT Dai Hein MD MICROBIOLOGY Performing Organization Address [facility] Co de Phone Number [facility] [address] [place] [address], [place] * SODIUM (10/24/2023 7:06 AM CDT) Only the most recent of5 resultswithin the time period is included. SODIUM 138 136 - 145 mmol/L 10/24/2023 8:14 AM CDT [facility] Blood BLOOD SPECIMEN / Unknown Venipuncture / Unknown 10/24/2023 7:06 AM CDT 10/24/2023 7:18 AM CDT Huseyin Turner MD CHEMISTRY Performing Organization Address [facility] Co de Phone Number [facility] [address] [place] [address], [place] * POTASSIUM (10/24/2023 7:06 AM CDT) Only the most recent of6 resultswithin the time period is included. POTASSIUM 4.5 3.5 - 5.1 mmol/L 10/24/2023 8:14 AM CDT [facility] Blood BLOOD SPECIMEN / Unknown Venipuncture / Unknown 10/24/2023 7:06 AM CDT 10/24/2023 7:18 AM CDT Huseyin Turner MD CHEMISTRY [facility] [address] [address], * CREATININE (10/24/2023 7:06 AM CDT) Only the most recent of6 resultswithin the time period is included. eGFR >90 >90 mL/min/1.7 3m2 10/24/2023 8:14 AM CDT [facility] Comment:As of 2021, eG FR is calculated by the CKD-EPI creatinine equation without race adjustment. ??eGFR can be influenced by muscle mass, exercise, and diet. ??The reported eGFR is an estimation only and is only applicable if the renal function is stable. CREATININE 0.83 0.50 - 0.90 mg/dL 10/24/2023 8:14 AM CDT [facility] Blood BLOOD SPECIMEN / Unknown Venipuncture / Unknown 10/24/2023 7:06 AM CDT 10/24/2023 7:18 AM CDT Huseyin Turner MD CHEMISTRY Performing Organization Address City/[facility]/ZIP Co de Phone Number [facility] [address] [place] [address], * (ABNORMAL) CMV IGM ANTIBODY (10/24/2023 7:06 AM CDT) CMV IgM >240.0(H) 0.0 - 29.9 AU/mL 10/26/2023 10:03 AM CDT [facility] Comment:Presence of detectab le CMV IgM antibodies. A positive result is generally indicative of acute infection, reactivation or persistent IgM production. Blood BLOOD SPECIMEN / Unknown Venipuncture / Unknown 10/24/2023 7:06 AM CDT 10/24/2023 7:18 AM CDT Narrative [facility] - 10/26/2023 10:03 AM CDT ? <30.0 AU/ML ? Negative ??30.0 - 34.9 AU/ML ??Equivocal ? >34.9 AU/ML ? Positive ? Dai Hein MD SEND OUTS Performing Organization Address City/[facility] Co de Phone Number [facility] [address] [place] [address], [place] * HETEROPHILE (10/24/2023 7:06 AM CDT) HETEROPHILE Negative Negative 10/24/2023 11:14 AM CDT [facility] Blood BLOOD SPECIMEN / Unknown Venipuncture / Unknown 10/24/2023 7:06 AM CDT 10/24/2023 7:19 AM CDT Dai Hein MD HEMATOLOGY Performing Organization Address [facility] Phone Number [facility] [address] [place] [address], [place] * CT CHEST ABDOMEN PELVIS W [...] (Electronically Signed) Silva Riggins MD [place] * CWS PATH REVIEW HEMATOLOGY (10/22/2023 5:02 AM CDT) PATH COMMENT Reviewed by Dr. Liam Boo and Reviewed by Angelica Moss MT, MS (ASCP) on 10/24/2023 10/25/2023 1:03 PM CDT [facility] Blood BLOOD SPECIMEN / Unknown Venipuncture / Unknown 10/22/2023 5:02 AM CDT 10/22/2023 5:22 AM CDT Silva Riggins MD LABORATORY [facility] [address] [place] [address], * PHOSPHORUS (10/22/2023 5:02 AM CDT) Only the most recent of2 resultswithin the time period is included. PHOSPHORUS 2.7 2.5 - 4.5 mg/dL 10/22/2023 6:02 AM CDT [facility] Blood BLOOD SPECIMEN / Unknown Venipuncture / Unknown 10/22/2023 5:02 AM CDT 10/22/2023 5:22 AM CDT Silva Riggins MD CHEMISTRY Performing Organization Address City/[facility]/ZIP Co de Phone Number [facility] [address] [place] [address], * (ABNORMAL) HEPATIC FUNCTION PANEL (10/22/2023 5:02 AM CDT) Only the most recent of2 resultswithin the time period is included. ALBUMIN 2.9(L) 4.0 - 4.9 g/dL 10/22/2023 6:07 AM CDT [facility] PROTEIN,TOTAL 6.6 6.0 - 8.0 g/dL 10/22/2023 6:07 AM CDT [facility] BILIRUBIN,TOTAL 0.5 0.0 - 1.2 mg/dL 10/22/2023 6:07 AM CDT [facility] BILIRUBIN,DIRECT <0.2 0.0 - 0.3 mg/dL 10/22/2023 6:07 AM CDT [facility] BILIRUBIN,INDIRE CT 10/22/2023 6:07 AM CDT [facility] Comment:Unable to calculate, Direct Bili <0.2 ALK PHOSPHATASE 149(H) 35 - 104 IU/L 10/22/2023 6:07 AM CDT [facility] ALT (SGPT) 46(H) 10 - 35 IU/L 10/22/2023 6:07 AM CDT [facility] AST (SGOT) 46(H) 10 - 35 IU/L 10/22/2023 6:07 AM CDT [facility] Blood BLOOD SPECIMEN / Unknown Venipuncture / Unknown 10/22/2023 5:02 AM CDT 10/22/2023 5:22 AM CDT Silva Riggins MD CHEMISTRY Performing Organization Address City/[facility]/ZIP Co de Phone Number [facility] [address] [place] [address], [place] * SCAN-CARDIAC STRIP (10/21/2023 11:01 PM CDT) Scanner OTHER * LC ACUTE HEPATITIS (10/21/2023 10:13 AM CDT) Pathologist [facility] Hep A IgM Ab Negative Negative 10/25/2023 1:[address] [facility] (CET) Hep B Surf Ag Scr Confirm. indicated Negative 10/25/2023 1:09 PM CDT [facility] (CET) Hep B Core IgM Ab Negative Negative 10/25/2023 1:[address] [facility] (CET) HCV Ab Non Reactive Non Reactive 10/25/2023 1:[address] [facility] ([facility]) Blood BLOOD SPECIMEN / Unknown Venipuncture / Unknown 10/21/2023 10:13 AM CDT 10/21/2023 10:21 AM CDT Narrative [facility] TEST[facility] (CET) - 10/25/2023 1:09 PM CDT Performed at: ??[address] ??[id number] Pivot End Polisher: Abdiaziz Escobar MD, Phone: ??[phone] Silva Riggins MD LABORATORY [facility] TEST[facility] (CET) [facility] [place] [address], * LC HCV QN INTERP [id number] (10/21/2023 10:13 AM CDT) [facility] HCV Neg Interp Comment 10/25/2023 1:[address] [facility] TEST[facility] (CET) Comment: Not infected with HCV unless early or acute infection is suspected (which may be delayed in an immunocompromised individual), or other evidence exists to indicate HCV infection. Blood BLOOD SPECIMEN / Unknown Venipuncture / Unknown 10/21/2023 10:13 AM CDT 10/21/2023 10:21 AM CDT Narrative [facility] ([facility]) - 10/25/2023 1:09 PM CDT Performed at: ??[address] ??[id number] Pivot End Polisher: Abdiaziz Escobar MD, Phone: ??[phone] Silva Riggins MD LABORATORY Performing Organization Address [facility] Co de Phone Number [facility] ([facility]) [address] [place] [address], * LC HBSAG CONF [id number] (10/21/2023 10:13 AM CDT) HBsAg Conf Negative NEGATIVE 10/25/2023 1:[address] [facility] ([facility]) Comment:Final result obtaine d by neutralization. Blood BLOOD SPECIMEN / Unknown Venipuncture / Unknown 10/21/2023 10:13 AM CDT 10/21/2023 10:21 AM CDT Narrative [facility] ([facility]) - 10/25/2023 1:09 PM CDT Performed at: ??[address] ??[id number] Pivot End Polisher: Abdiaziz Escobar MD, Phone: ??[phone] Silva Riggins MD LABORATORY Performing Organization Address [facility] Co de Phone Number [facility] ([facility]) [address] [place] [address], [place] * XR CHEST 1 VIEW PORTABLE (10/21/2023 8:30 AM CDT) Anatomical Region Laterality Modality HEART, THORAX, CHEST Digital Rad iography 10/21/2023 9:06 AM CDT Narrative 10/21/2023 9:06 AM CDT For Patients: ??As a result of the 21st Century Cures Act, medical imaging exams and [...] DO @ Oct ??2023 ??9:06AM (Electronically Signed) [email or web address] Procedure Note Lou Sharif DO - 10/21/2023 [...] @ Oct 21 2023 9:06AM (Electronically Signed) [email or web address] Silva Riggins MD GENERAL IMAGING * Hemoglobin A1C (10/21/2023 4:26 AM CDT) HEMOGLOBIN A1C MONITORING (POCT) 5.1 <=6.4 % 10/21/2023 11:33 AM CDT [facility] Blood BLOOD SPECIMEN / Unknown Butterfly / Unknown 10/21/2023 4:26 AM CDT 10/21/2023 4:32 AM CDT Narrative [facility] - 10/21/2023 11:33 AM CDT [...] Silva Riggins MD CHEMISTRY Performing Organization Address [facility] Co de Phone Number [facility] [address] [place] [address], * SCAN-CARDIAC STRIP (10/21/2023 12:00 AM CDT) Scanner OTHER * EKG 12 LEAD (10/20/2023 10:30 AM CDT) Only the most recent of2 resultswithin the time period is included. [facility] Interpretation Sinus bradycardia Lateral infarct (cited on [...] NOW QTc 456 ms BEYOND NOW P [place] 29 degrees BEYOND NOW R [place] 13 degrees BEYOND NOW T [place] 6 degrees BEYOND NOW 10/20/2023 10:3 0 AM CDT 10/21/2023 10:34 AM CDT Silva Riggins MD EKG ORD Performing Organization Address [facility] de Phone Number BEYOND NOW [place], [place] * ANTI HIV 1/2 (10/20/2023 4:49 AM CDT) [facility] HIV-1/HIV-2 SCREEN Non-Reacti ve Non-Reacti ve 10/20/2023 10:29 PM CDT [facility] Comment:HIV-1 p24 and HIV-1/ HIV-2 Ab Not Detected. Blood BLOOD SPECIMEN / Unknown Venipuncture / Unknown 10/20/2023 4:49 AM CDT 10/20/2023 5:10 AM CDT Ingris Crespo MD SEND OUTS [facility] [address] [place] [address], * SCAN-CARDIAC STRIP (10/19/2023 8:09 PM CDT) Scanner OTHER * MRSA/SA PCR (10/19/2023 1:58 PM CDT) [facility] MRSA DNA PCR Negative Negative 10/19/2023 4:17 PM CDT [facility] STAPHYLOCOCCUS AUREUS PCR Negative Negative 10/19/2023 4:17 PM CDT [facility] Other SPECIMEN FROM INTERNAL NOSE / Unknown Non-Blood / Unknown 10/19/2023 1:58 PM CDT 10/19/2023 2:08 PM CDT Narrative [facility] - 10/19/2023 4:17 PM CDT Test result does not preclude MRSA or SA nasal colonization. Dai Hein MD MICROBIOLOGY Performing Organization Address City/[facility]/ZIP Co de Phone Number [facility] [address] [place] [address], * LEGIONELLA AND PNEUMOCOCCAL URINE ANTIGEN (10/19/2023 1:50 PM CDT) [facility] STREP PNEUMO ANTIGEN Negative 10/19/2023 3:39 PM CDT [facility] Comment:Presumptive negative for pneumococcal pneumonia, suggesting no current or recent pneumococcal infection. Infection due to S. pneumoniae cannot be ruled out since the antigen present in the sample may be below the detection limit of the test. LEGIONELLA ANTIGEN Negative 10/19/2023 3:39 PM CDT [facility] Comment:Negative for L.pneum ophila serogroup [...] 2:09 PM CDT Cosmo Ruiz MD MICROBIOLOGY [facility] [address] [place] [address], * (ABNORMAL) TROPONIN T (HS) ONE TIME (10/19/2023 12:18 PM CDT) Only the most recent of3 resultswithin the time period is included. TROPONIN T HS 27(H) 6-10 ng/L ng/L 10/19/2023 1:35 PM CDT [facility] Blood BLOOD SPECIMEN / Unknown Venipuncture / Unknown 10/19/2023 12:18 PM CDT 10/19/2023 12:50 PM CDT Narrative [facility] - 10/19/2023 1:35 PM CDT hs-cTnT [...] department patient population. Cosmo Ruiz MD CHEMISTRY [facility] [address] [place] [address], * SCAN-CARDIAC STRIP (10/19/2023 10:50 AM CDT) Scanner OTHER * PROCALCITONIN (10/19/2023 10:38 AM CDT) Only the most recent of2 resultswithin the time period is included. PROCALCITONIN 0.30 ng/ml 10/19/2023 11:44 AM CDT [facility] Blood BLOOD SPECIMEN / Unknown Venipuncture / Unknown 10/19/2023 10:38 AM CDT 10/19/2023 10:45 AM CDT Narrative [facility] - 10/19/2023 11:44 AM CDT Procalcitonin [...] are obtained. Cosmo Ruiz MD SEND OUTS [facility] [address] [place] [address], * SCAN-CARDIAC STRIP (10/19/2023 9:30 AM CDT) Scanner OTHER * [facility] PANEL (10/19/2023 8:56 AM CDT) Case Report Flow Cytometry ?Case: [id number] ? Authorizing Provider: ??Cosmo Ruiz, ?? Collected: ? 10/19/2023 0856 ? MD ? Ordering Location: ? [facility] ?Received: ?10/19/2023 0951 ? Hospital ? Pathologist: ? Vamsi Macario R, MD ? Specimen: ?Blood ? 10/20/2023 1:03 PM CDT [facility] Results Paroxysmal Nocturnal Hemoglobinuria [...] the PNH clone. Erythrocytes are gated using [id number]. The GPI-linked antibody CD59 is employed to identify the RBC PNH clone. These results and cytograms have been verified by Dr. Vamsi Macario MD, 10/20/2023 1:03 PM This test was developed and its performance characteristics verified by [employer]. It has not been cleared or approved by the [place] Food and Drug Administration. This test is used for clinical purposes and should not be regarded as investigational or for research. Analytic Flow Tech: Marilyn Rivera, 10/19/2023 3:13 PM Verifying Flow Tech: Rosario Peñalli, 10/19/2023 3:15 PM 10/20/2023 1:03 PM CDT [facility] Additional Information Interpreted at [facility], [facility] - [address] [facility] [address] [address] 10/20/2023 1:[address] [facility] Blood BLOOD SPECIMEN / Unknown 10/19/2023 8:56 AM CDT 10/19/2023 9:51 AM CDT Cosmo Ruiz MD LABORATORY [facility] [address] [place] [address], * SCAN-CARDIAC STRIP (10/19/2023 8:51 AM CDT) Scanner OTHER * SCAN-CARDIAC STRIP (10/19/2023 1:42 AM CDT) Scanner OTHER * (ABNORMAL) Protime-INR - BLADE GROOVER (10/18/2023 10:38 PM CDT) Only the most recent of2 resultswithin the time period is included. INR 1.5(H) <1.3 10/18/2023 10:54 PM CDT [facility] PROTIME 16.4(H) 10.3 - 12.3 sec 10/18/2023 10:54 PM CDT [facility] Blood BLOOD SPECIMEN / Unknown Venipuncture / Unknown 10/18/2023 10:38 PM CDT 10/18/2023 10:44 PM CDT Narrative [facility] - 10/18/2023 10:54 PM CDT ?Therapeutic Range [...] Huseyin Turner MD HEMATOLOGY Performing Organization Address [facility] de Phone Number [facility] [address] [place] [address], * WHITE BLOOD COUNT (10/18/2023 6:45 AM CDT) Only the most recent of3 resultswithin the time period is included. [facility] WHITE BLOOD COUNT 6.9 4.5 - 11.0 thou/cu mm 10/18/2023 10:34 AM CDT [facility] NRBC 0.3 % 10/18/2023 10:34 AM CDT [facility] ABS NRBC 0.0 thou /cu mm 10/18/2023 10:34 AM CDT [facility] Blood BLOOD SPECIMEN / Unknown Venipuncture / Unknown 10/18/2023 6:45 AM CDT 10/18/2023 6:58 AM CDT Narrative [facility] - 10/18/2023 10:34 AM CDT Every morning while on IV heparin. Every morning while on IV heparin. Necessary every morning while on IV heparin. Yoan Acuña RN HEMATOLOGY Performing Organization Address [facility] Phone Number [facility] [address] [place] [address], * SCAN-CARDIAC STRIP (10/18/2023 1:06 AM CDT) Scanner OTHER * SCAN-CARDIAC STRIP (10/17/2023 1:09 AM CDT) Scanner OTHER * (ABNORMAL) CO2,TOTAL (10/16/2023 9:33 AM CDT) Only the most recent of2 resultswithin the time period is included. CO2,TOTAL 33(H) 22 - 29 mmol/L 10/16/2023 10:24 AM CDT [facility] Blood BLOOD SPECIMEN / Unknown Venipuncture / Unknown 10/16/2023 9:33 AM CDT 10/16/2023 9:51 AM CDT Arely Ayon MD CHEMISTRY Performing Organization Address [facility] Co de Phone Number [facility] [address] [place] [address], * SCAN-CARDIAC STRIP (10/16/2023 1:45 AM CDT) Scanner OTHER * Factor 10 chromogenic TODAY (10/15/2023 12:07 PM CDT) [facility] FACTOR 10 CHROMOGENIC 70 65 - 130 % 10/15/2023 12:47 PM CDT [facility] Blood BLOOD SPECIMEN / Unknown Venipuncture / Unknown 10/15/2023 12:07 PM CDT 10/15/2023 12:22 PM CDT Narrative [facility] - 10/15/2023 12:47 PM CDT Therapeutic Range 20-40% Arely Ayon MD SEND OUTS Performing Organization Address [facility] Co de Phone Number [facility] [address] [place] [address], * Bilirubin, total/direct AM (10/15/2023 6:39 AM CDT) [facility] BILIRUBIN,TOTA L 0.4 0.0 - 1.2 mg/dL 10/15/2023 11:19 AM CDT [facility] BILIRUBIN,DIRE CT <0.2 0.0 - 0.3 mg/dL 10/15/2023 11:19 AM CDT [facility] BILIRUBIN,HARMONY RECT 10/15/2023 11:19 AM CDT [facility] Comment:Unable to calculate, Direct Bili <0.2 Blood BLOOD SPECIMEN / Unknown Butterfly / Unknown 10/15/2023 6:39 AM CDT 10/15/2023 6:53 AM CDT Arely Aoyn MD CHEMISTRY Performing Organization Address City/[facility]/ZIP Co de Phone Number [facility] [address] [place] [address], * HAPTOGLOBIN (10/15/2023 6:39 AM CDT) Pathologist [facility] Haptoglobin 114 30 - 200 mg/dL 10/15/2023 11:14 AM CDT [facility] Blood BLOOD SPECIMEN / Unknown Butterfly / Unknown 10/15/2023 6:39 AM CDT 10/15/2023 6:53 AM CDT Arely Ayon MD CHEMISTRY Performing Organization Address [facility] Co de Phone Number [facility] [address] [place] [address], * SCAN-CARDIAC STRIP (10/15/2023 2:17 AM CDT) Scanner OTHER * CALRETICULIN EXON 9 ASSAY (10/14/2023 5:37 PM CDT) Pathologist [facility] SOURCE CALRETICULIN Blood 4 10:20 AM CDT [facility] CALRETICULIN EXON 9 CALR mutation not detected CALR mutation not detected 4 10:20 AM CDT [facility] INTERPRETATION CALRETICULIN Indication for the Calreticulin [...] of 5% mutant allele. 10:20 AM CDT [facility] Blood BLOOD SPECIMEN / Unknown Butterfly / Unknown 10/14/2023 5:37 PM CDT 10/14/2023 5:45 PM CDT Narrative [facility] - 10/19/2023 10:20 AM CDT Methodology: [...] and its performance characteristics determined by the [facility]. It has not been cleared or approved by the U.S. Food and Drug Administration. The FDA has determined, however, that in most cases, such approval is not necessary. ??This test is used for clinical purposes. It should not be regarded as investigational or for research. Dulce Maria Law MD LABORATORY [facility] [address] [place] [address], * (ABNORMAL) STACLOT LA (10/14/2023 5:37 PM CDT) STACLOT DELTA TIME 11.8(H) <11.2 sec 10/17/2023 1:41 PM CDT [facility] STACLOT LA CONFIRM LUPUS Positive(A ) Negative 10/17/2023 1:41 PM CDT [facility] Blood BLOOD SPECIMEN / Unknown Butterfly / Unknown 10/14/2023 5:37 PM CDT 10/14/2023 5:45 PM CDT Dulce Maria Law MD HEMATOLOGY [facility] [address] [place] [address], * JAK2 V617F MUTATION DETECTION (10/14/2023 5:37 PM CDT) SOURCE Blood 10/18/2023 4:20 PM CDT [facility] INTERPRETATION JAK2 V617F JAK2 V617F mutation not detected JAK2 V617F mutation not detected 10/18/2023 4:20 PM CDT [facility] Comment:The absence of the J AK2 [...] PM CDT 10/14/2023 5:45 PM CDT Narrative [facility] - 10/18/2023 4:20 PM CDT Methodology: Fluorescent allele specific PCR was performed on genomic DNA to detect the presence of the V617F mutation in the JAK2 gene. PCR amplicon was and detected by capillary electrophoresis. Assay validated to a limit of detection of 1.0% mutant allele. FDA required disclaimer: ??This test was developed and its performance characteristics determined by the [facility]. It has not been cleared or approved by the U.S. Food and Drug Administration. The FDA has determined, however, that in most cases, such approval is not necessary. This test is used for clinical purposes. It should not be regarded as investigational or for research. Dulce Maria Law MD SEND OUTS Performing Organization Address [facility] de Phone Number [facility] [address] [address], * BETA 2 GLYCOPROTEIN I PREET (10/14/2023 5:37 PM CDT) Beta 2 GP1 Ab IgA <4.0 <=20.0 CU 10/18/2023 1:21 PM CDT [facility] Beta 2 GP1 Ab IgG <6.4 <=20.0 CU 10/18/2023 1:21 PM CDT [facility] Beta 2 GP1 Ab IgM 1.4 <=20.0 CU 10/18/2023 1:21 PM CDT [facility] Blood BLOOD SPECIMEN / Unknown Butterfly / Unknown 10/14/2023 5:37 PM CDT 10/14/2023 5:45 PM CDT Narrative [facility] - 10/18/2023 1:21 PM CDT Negative ??<=20 ?? Positive ??>20 ?? These results were obtained with the [employer] Quanta Flash chemiluminescent immunoassay. Values obtained with different manufacturers' assay methods may not be used interchangeably. The magnitude of the reported autoantibody levels cannot always be correlated to an endpoint titer. Dulce Maria Law MD SEND OUTS Performing Organization Address [facility] de Phone Number [facility] [address] [place] [address], [place] * CARDIOLIPIN ANTIBODY (10/14/2023 5:37 PM CDT) Cardiolipin IgA 8.0 <=20.0 CU 4 1:37 PM CDT [facility] Cardiolipin IgG 8.0 <=20.0 CU 4 1:37 PM CDT [facility] Cardiolipin IgM 6.9 <=20.0 CU 1:37 PM CDT [facility] Blood BLOOD SPECIMEN / Unknown Butterfly / Unknown 10/14/2023 5:37 PM CDT 10/14/2023 5:45 PM CDT [facility] - 10/18/2023 1:37 PM CDT Interpretation: Moderate to high titers (40 GPL or MPL by ANDRÉS assays) of aCL correlate better with aPL-related clinical events than do lower titers; IgG is more strongly associated with clinical events than is IgM ([facility] 378(21):2010). Rail Car Mechanic's studies have shown the following correlation between anti- cardiolipin antibody levels quantified by the BioFlash Chemiluminescent method compared to ANDRÉS (Antibodies 2016,5,14): For IgG aCL: 95 CU corresponds to 40 GPL For IgM aCL: 31 CU corresponds to 40 MPL Dulce Maria Law MD SEND OUTS [facility] [address] [place] [address], * (ABNORMAL) LUPUS ANTICOAGULANT (10/14/2023 5:37 PM CDT) PTT-LA PATIENT 126.4(H) <=41.2 sec 10/17/2023 1:41 PM CDT [facility] DRVVT RATIO 1.12 <1.20 10/17/2023 1:41 PM CDT [facility] Blood BLOOD SPECIMEN / Unknown Butterfly / Unknown 10/14/2023 5:37 PM CDT 10/14/2023 5:45 PM CDT [facility] - 10/17/2023 1:41 PM CDT LUPUS ANTICOAGULANT DETECTED Lupus anticoagulant testing results may be falsely positive in patients on anti-coagulation therapy. The diagnosis of anti-phospholipid syndrome requires two positive lupus anticoagulant test results obtained at least 12 weeks apart, which have preferably been performed when the patient is off anti-coagulation. Testing for Cardiolipin antibodies (CSL271/CRD) and Beta-2 Glycoprotein 1 antibodies (NWI1771/B2G) is strongly recommended. Note that different PT/INR [...] any question or consultation: consider contacting the [facility]. All anticoagulants (Warfarin, High level Heparin, Direct Oral Anticoagulants, Direct Thrombin Inhibitors) cause false positive lupus anticoagulant test results. ??We recommend disregarding lupus anticoagulant results obtained while patient is on any form of anticoagulation. For [facility] patients consider consulting with Anticoagulation and Thrombophilia Clinic at [phone]. Dulce Maria Law MD SEND OUTS Performing Organization Address City/[facility]/ZIP Co de Phone Number [facility] [address] [place] [address], * PROTEIN S FREE AG (10/14/2023 5:37 PM CDT) PROTEIN S, FREE 69 55 - 124 % 10/17/2023 10:03 AM CDT [facility] Blood BLOOD SPECIMEN / Unknown Butterfly / Unknown 10/14/2023 5:37 PM CDT 10/14/2023 5:45 PM CDT Dulce Maria Law MD SEND OUTS [facility] [address] [place] [address], * PROTEIN C (10/14/2023 5:37 PM CDT) PROTEIN C ACTIVITY 78 70 - 150 % 10/17/2023 10:03 AM CDT [facility] Blood BLOOD SPECIMEN / Unknown Butterfly / Unknown 10/14/2023 5:37 PM CDT 10/14/2023 5:45 PM CDT Dulce Maria Law MD SEND OUTS Performing Organization Address [facility] Co de Phone Number [facility] [address] [place] [address], * (ABNORMAL) ANTITHROMBIN III ACTIVITY (10/14/2023 5:37 PM CDT) ANTITHROMBIN III 68(L) 80 - 135 % 10/17/19 10:02 AM CDT [facility] Blood BLOOD SPECIMEN / Unknown Butterfly / Unknown 10/14/2023 5:37 PM CDT 10/14/2023 5:45 PM CDT Dulce Maria Law MD HEMATOLOGY Performing Organization Address [facility] Co de Phone Number [facility] [address] [place] [address], * test, urine TODAY (10/14/2023 5:05 PM CDT) Pathologist [facility] ,URIN E Negative Negative 10/14/2023 5:34 PM CDT [facility] Urine URINE SPECIMEN / Unknown Non-Blood / Unknown 10/14/2023 5:05 PM CDT 10/14/2023 5:24 PM CDT Arely Ayon MD URINE Performing Organization Address [facility] Co de Phone Number [facility] [address] [place] [address], [place] * SCAN CORRESP-LABORATORY RESULTS (10/14/2023 2:35 [...] @ Oct 15 2023 11:36AM (Electronically Signed) [email or web address] Narrative 10/15/2023 11:36 AM CDT For Patients: [...] @ Oct 15 2023 11:36AM (Electronically Signed) [email or web address] Ayon MD GENERAL IMAGING * EXTRA TUBE MICRO (10/14/2023 1:19 PM CDT) Other BLOOD SPECIMEN / Unknown Non-Blood / Unknown 10/14/2023 1:19 PM CDT 10/14/2023 1:29 PM CDT Arely Ayon MD LABORATORY Performing Organization Address [facility] Co de Phone Number [facility] [address] [place] [id number] [place] [address] * BUN (10/14/2023 11:18 AM CDT) BUN 9 6 - 20 mg/dL 10/14/2023 12:14 PM CDT [facility] Blood BLOOD SPECIMEN / Unknown Venipuncture / Unknown 10/14/2023 11:18 AM CDT 10/14/2023 11:26 AM CDT Faisal Light MD CHEMISTRY Performing Organization Address City/[facility]/ZIP Co de Phone Number [facility] [address] [address], [place] * EXTRA TUBE PLUNKETT (10/14/2023 11:09 AM CDT) Blood BLOOD SPECIMEN / Unknown Non-Lab Venipuncture / Unknown 10/14/2023 11:09 AM CDT 10/14/2023 11:28 AM CDT Arely Ayon MD LABORATORY Performing Organization Address [facility] de Phone Number [facility] [address] [address], [place] * EXTRA TUBE GOLD/SST (10/14/2023 11:09 AM CDT) Blood BLOOD SPECIMEN / Unknown Non-Lab Venipuncture / Unknown 10/14/2023 11:09 AM CDT 10/14/2023 11:28 AM CDT Arely Ayon MD LABORATORY Performing Organization Address [facility] de Phone Number [facility] [address] [address], [place] * SCAN-CARDIAC STRIP (10/14/2023 6:51 AM CDT) Scanner OTHER * ECHO TTE COMPLETE WO CONTRAST (10/13/2023 2:07 PM CDT) AORTIC VALVE MEAN PG 8 mmHg EJECTION FRACTION 67 % LVEDD 3.0 cm Anatomical Region Laterality Modality Ultrasound 10/13/2023 1:07 PM CDT Narrative 10/13/2023 2:20 PM CDT ECHOCARDIOGRAM RULA MCGUIRE ? Accession#: ?? [id number] : ?1990 33 years Study Date: ?? 10/13/2023 1:07:39 PM Gender: F ?BP: ? 113/69 mmHg Height: 160.00 cm ?BSA: ?2.02 m? ? ? Weight: 101.00 kg ?Tech: ? MJW ? Referring MD: ANGELICA MATA Site: ? [facility] Reading Location: [facility] Patient Location: Inpatient. Procedure: 2D, Color Doppler [...] . This study was interpreted by an [facility] accredited facility. CC: HIM (med records) [facility], Med/Surg - IP [facility]. ??Final ?? Procedure Note Maggi Haley MD - 10/13/2023 ECHOCARDIOGRAM RULA MCGUIRE : 1990 33 years Study Date: 10/13/2023 1:07:39 PM Gender: F BP: 113/69 mmHg Height: 160.00 cm BSA: 2.02 m? ? ? Weight: 101.00 kg Tech: VANESSA Referring MD: ANGELICA MATA Site: [facility] Reading Location: [facility] Patient Location: Inpatient. Procedure: 2D, Color Doppler [...] [facility] accredited facility. CC: HIM (med records) [facility], Med/Surg - IP [facility]. Final Angelica Mata ECHO ORD * HEALTHCARE INTERPRETER THIN PREP PAP SCREEN IMAGED (03/22/2014 10:15 AM IPHONE DEVELOPER) HEALTHCARE INTERPRETER CYTOLOGY See Anatomic Pathology case 03/27/2014 5:04 PM IPHONE DEVELOPER [facility] Specimen (specimen) (Cervical/Vagina l) Non-Blood / Unknown 03/22/2014 10:15 AM IPHONE DEVELOPER 03/22/2014 4:26 PM IPHONE DEVELOPER Vivian Hair MD PATHOLOGY/FRANCISCO JEFFERSON [facility] [address] [place] [address], from Last 3 Months or Most Recently Relevant to Health Maintenance Advance Directives * Full Code (Latest Code Status on File) Date Activated Date Inactivated Comments 10/14/2023 5:43 AM 11/01/2023 6:39 PM Question Answer Comments Code Status Discussion: Reviewed Preferences Care Teams Laboratory Sampler Relationship Specialty Start Date End Date Pcp, No . PCP - General 11/17/18 Pcp, No . 11/17/18
--- OUTSIDE RECORDS SUMMARY | 2023-11-15 19:37 | XMS_ITS | Clinical Summary ---
Author Organization [facility] Address [address] [place] [address] Care Team Providers Care Biomass Production Manager Name Role Phone Albania Salcido M.D. Primary Care Provider + [phone] Source Comments Patient records contain information from all sites at [facility]. For routine questions regarding patient records, call [phone] during business hours, M-F 8:00 AM - 5:00 PM Central Time. Record requests for emergency care only can be directed to [phone] at any time.[facility] Allergies Active Allergy Reactions Criticality Noted [...] Delivery Plan: Care Team/nursing team: Per Dr. Boyre Tristin/Lauren team (Marcy and Veronica Gtz) Patient requested that ortho be scheduled when she is closer to delivery. Order is in. Delivery service: [facility] Partner name: Marcel Pertinent medical issues [...] ordered Additional consults needed/completed: PCN Allergy: Ordered [facility] consult: Completed on 01/[address] [...] Download Remote Patient Monitoring [facility] [address] [place] [address] [facility], Provider 09/30/2023 CPAP Download Remote Patient Monitoring [facility] [address] [place] [address] [facility], Provider 09/20/2023 Orders Only [facility] PCP [facility] Albania Waterman M.D. Hypothyroidism 08/30/2023 CPAP Download Remote Patient Monitoring [facility] [address] [place] [address] [facility], Provider from Last 3 Months Immunizations [...] How often do you attend chur or denominational services? 1 to 4 times per year 03/24/2022 Do you belong to any clubs o r organizations such as yazidi groups, unions, fraternal or athletic groups, or [...] Answer Date Recorded PHQ-2 Score 3 09/23/2022 [facility] of Occupat ional Health - Occupational Stress [...] place to sleep or slept in a care home (including now)? No 03/24/2022 Depression Answer Date [...] Sex Assigned at Female 04/24/2017 7:40 PM CAR CHASER Gender Identity Female 04/24/2017 7:40 PM CAR CHASER Sexual Orientation Straight 04/24/2017 7: 40 PM CAR CHASER Last Filed Vital Signs Vital Sign Reading [...] 023, 11/08/2012 Medical Devices Implanted Type Area Electric Organ Assembler And Checker Device Identifier Shelf Expiration Date Model / [...] LIPID PANEL, S Routine 03/23/2022 7:42 AM CAR CHASER Screening Mammogram Breast Cancer BASIC METABOLIC PANEL, S/P Routine 03/23/2022 7:42 AM CAR CHASER Menorrhagia THINPREP W/HPV CO-TEST DIAGNOSTIC Routine 06/23/2020 1:52 PM CAR CHASER Pap Smear Examination HIV-1/-2 AG AND AB [...] BI-Outside US (10/13/2023 3:20 AM CDT) Narrative [facility] - 10/13/2023 10:52 AM CDT [...] System IMG US PROCEDURES Performing Organization Address [facility] de Phone Number [facility] NA * US abdomen limited-Outside US Body (10/13/2023 3:00 AM CDT) Narrative [facility] - 10/13/2023 10:51 AM CDT [...] System IMG US PROCEDURES Performing Organization Address [facility] de Phone Number [facility] NA * CT Angio Chest PE Protocol-Outside CT Body (10/13/2023 12:35 AM CDT) Only the most recent of2 resultswithin the time period is included. Narrative [facility] - 10/13/2023 10:57 AM CDT [...] System IMG CT PROCEDURES Performing Organization Address [facility] de Phone Number [facility] NA * XR abdomen min 2V-Outside Gen Dx Stdy (10/12/2023 11:05 PM CDT) Narrative [facility] - 10/13/2023 10:52 AM CDT This order has been created and auto-finalized to support the import of outside images. If available, original interpretation can be found on the Media Tab in Chart Review, in Document Viewer, as an image in QREADS or as an Addendum. If a re-interpretation or overread is required please follow defined workflow.?? Provider Not In System [facility]ING PROCEDURES Performing Organization Address [facility] Co de Phone Number [facility] NA * XR chest 2V-Outside Chest Xray (10/12/2023 11:00 PM CDT) Narrative [facility] - 10/13/2023 10:51 AM CDT This order has been created and auto-finalized to support the import of outside images. If available, original interpretation can be found on the Media Tab in Chart Review, in Document Viewer, as an image in QREADS or as an Addendum. If a re-interpretation or overread is required please follow defined workflow.?? Provider Not In System [facility]ING PROCEDURES Performing Organization Address [facility] de Phone Number [facility] NA * (ABNORMAL) Lipid Panel (03/23/2022 7:42 AM CAR CHASER) Triglycerides 120 mg/dL 03/23/2022 1:45 PM CAR CHASER OWAT Comment: ----REFERENCE VALUE---- Normal: <150 mg/dL Borderline High: 150-199 mg/dL High: 200-499 mg/dL Very High: > or =500 mg/dL Cholesterol, Total 133 mg/dL 2021 1:45 PM CAR CHASER OWAT Comment: ----REFERENCE VALUE---- Desirable: < 200 mg/dL Borderline High: 200 - 239 mg/dL High: > or = 240 mg/dL Cholesterol, LDL, Calculated 83 mg/dL 03/23/2022 1:45 PM CAR CHASER OWAT Comment: ----REFERENCE VALUE---- Desirable: <100 mg/dL Above Desirable: 100-129 mg/dL Borderline High: 130-159 mg/dL High: 160-189 mg/dL Very High: >=190 mg/dL ----ADDITIONAL INFORMATION---- LDL cholesterol calculated using the Rojo/NIH equation. Cholesterol, HDL 28(L) >=50 mg/dL 03/23/20 1:45 PM CAR CHASER OWAT Cholesterol, Non-HDL, Calculated 105 mg/dL 03/23/2022 1:45 PM CAR CHASER OWAT Comment: ----REFERENCE VALUE---- Desirable: <130 mg/dL Above Desirable: 130-159 mg/dL Borderline High: 160-189 mg/dL High: 190-219 mg/dL Very High: > or =220 mg/dL Fasting (8 HR or more) Yes 03/23/2022 11:15 AM CAR CHASER OWAT Blood (Blood, Venous) 03/23/2022 7:42 AM CAR CHASER 03/23/2022 11:15 AM CAR CHASER Albania Salcido M.D. LAB BLOOD ADD-ON [facility] [address] [address], [facility] OWAT [facility] [address] [place] [address] * Basic Metabolic Panel (03/23/2022 7:42 AM CAR CHASER) Potassium, P 4.0 3.6 - 5.2 mmol/L 03/23/2022 1:45 PM CAR CHASER OWAT Sodium, P 142 135 - 145 mmol/L 03/23/2022 1:45 PM CAR CHASER OWAT Chloride, P 107 98 - 107 mmol/L 03/23/2022 1:45 PM CAR CHASER OWAT Bicarbonate, P 24 22 - 29 mmol/L 03/23/2022 1:45 PM CAR CHASER OWAT Anion Gap, P 11 7 - 15 03/23/2022 1:45 PM CAR CHASER OWAT BUN (Blood Urea Nitrogen), P 12 6 - 21 mg/dL 03/23/2022 1:45 PM CAR CHASER OWAT Creatinine 0.69 0.59 - 1.04 mg/dL 03/23/2022 1:45 PM CAR CHASER OWAT Estimated GFR (eGFR) >90 >=60 mL/min/BSA 03/23/2022 1:45 PM CAR CHASER OWAT Comment: Estimated GFR calculated using the 2020 CKD_EPI creatinine equation. Calcium, Total, P 9.2 8.6 - 10.0 mg/dL 03/23/2022 1:45 PM CAR CHASER OWAT Glucose, P 90 70 - 140 mg/dL 03/23/2022 1:45 PM CAR CHASER OWAT Blood (Blood, Venous) 03/23/2022 7:42 AM CAR CHASER 03/23/2022 11:15 AM CAR CHASER Albania Salcido M.D. LAB BLOOD ADD-ON [facility] [address] [place] [address], [facility] OWAT [facility] [address] [place] [address] * ThinPrep w/HPV Co-Test Diagnostic (06/23/2020 1:52 PM CAR CHASER) 06/29/2020 2:31 PM CDT DTL Report electronically [...] DTL Varies (Cervix/Endocerv ix) 06/23/2020 1:52 PM CAR CHASER 06/23/2020 6:33 PM CAR CHASER Vickie Linton APRN, C.N.P., M.S.N. LAB P AP PATHDX ORDERABLES Performing Organization Address City/[facility]/ZIP Co de Phone Number [facility] [address] [place] [address], [facility] [address] [place] [address] * HIV-1/-2 Ag and Ab Scrn, Plasma (12/21/2019 12:40 PM CDT) HIV-1/-2 Ag and Ab Scrn, P Negative Negative 12/21/2019 6:15 PM CDT [facility] Comment: Negative result does not rule out HIV infection. If exposure to HIV infection occurred <14 days ago, contact the laboratory to request addition of HIV-1 RNA detection / quantification test (HIVQN). Blood (Blood, Venous) 12/21/2019 12:40 PM CDT 12/21/2019 5:24 PM CDT Vickie Linton APRN, C.N.P., M.S.N. LAB M ICROBIOLOGY - BLOOD ORDERABLES [facility] [address] [place] [address] [facility] Dept. of Laboratory Medicine and Pathology [address] [place] [address] from Last 3 Months or Most Recently Relevant to Health Maintenance Advance Directives For more information, please contact: [phone] * Full Code (Latest Code Status on File) Date Activated Date Inactivated Comments 06/05/2020 3:24 AM 06/05/2020 6:24 PM Question Answer Comments Full Code: Discussed Care Teams Biomass Production Manager Relationship Specialty Start Date End Date Albania Salcido M.D. [address] [place] [address] [place] [id number] PCP - General Family Medicine 07/07/22
--- OUTSIDE RECORDS SUMMARY | 2023-11-15 19:37 | XMS_ITS ---
Author Organization [facility] Address [address] [place] [address] Care Team Providers Care Senior Cyber Intelligence Analyst Name Role Phone Unavailable Unavailable Unavailable Surgery Details Not on file Complications Check Surgery Details section. Procedure Estimated Blood Loss Check Surgery Details section. Procedure Findings Check Surgery Details section. Procedure Specimens Taken Check Surgery Details section.
--- OUTSIDE RECORDS SUMMARY | 2023-11-15 19:37 | XMS_ITS | Referral Summary ---
Author Organization [facility] Address [address] [place] [address] Care Team Providers Care Diesel Powerplant Supervisor Name Role Phone Albania Salcido M.D. Primary Care Provider + [phone] Source Comments Patient records contain information from all sites at [facility]. For routine questions regarding patient records, call [phone] during business hours, M-F 8:00 AM - 5:00 PM Central Time. Record requests for emergency care only can be directed to [phone] at any time.[facility] Encounters Date Type Department Care Team Description 10/31/2023 CPAP Download Remote Patient Monitoring [facility] [address] [place] [address] [facility], Provider 09/30/2023 CPAP Download Remote Patient Monitoring [facility] [address] [place] [address] [facility], Provider 09/20/2023 Orders Only [facility] P[facility] TH ROLAT Albania Salcido M.D. Hypothyroidism 08/30/2023 CPAP Download Remote Patient Monitoring [facility] [address] [place] [address] [facility], Provider from Last 3 Months Allergies Active [...] to delivery. Order is in. Delivery service: [facility] Partner name: Marcel Pertinent medical issues for [...] and Infarction Pulmonary emboli Left, multiple, hospitalized [facility]'s Embolus Pulmonary 09/12/2013 06/12/2018 Overview [...] How often do you attend chur or congregation services? 1 to 4 times per year 03/24/2022 Do you belong to any clubs o r organizations such as pentecostal groups, unions, fraternal or athletic groups, or [...] Answer Date Recorded PHQ-2 Score 3 09/23/2022 [facility] ional Health - Occupational Stress [...] Sex Assigned at Female 04/24/2017 7:40 PM DIRECTOR BUSINESS INTELLIGENCE Gender Identity Female 04/24/2017 7:40 PM DIRECTOR BUSINESS INTELLIGENCE Sexual Orientation Straight 04/24/2017 7: 40 PM DIRECTOR BUSINESS INTELLIGENCE Last Filed Vital Signs Vital Sign Reading [...] on file Medical Devices Implanted Type Area Floor Clerk Device Identifier Shelf Expiration Date Model / [...] LIPID PANEL, S Routine 03/23/2022 7:42 AM DIRECTOR BUSINESS INTELLIGENCE Screening Mammogram Breast Cancer BASIC METABOLIC PANEL, S/P Routine 03/23/2022 7:42 AM DIRECTOR BUSINESS INTELLIGENCE Menorrhagia THINPREP W/HPV CO-TEST DIAGNOSTIC Routine 06/23/2020 1:52 PM DIRECTOR BUSINESS INTELLIGENCE Pap Smear Examination HIV-1/-2 AG AND AB SCRN, PLASMA Routine 12/21/2019 12:40 PM CDT High Risk from Last 3 Months or Most Recently Relevant to Health Maintenance Results * MR abdomen wo/w con-Outside MR Body (10/13/2023 4:55 PM CDT) 10/13/2023 4:51 PM CDT Narrative [facility] - 10/13/2023 6:33 PM CDT This order [...] BI-Outside US (10/13/2023 3:20 AM CDT) Narrative [facility] - 10/13/2023 10:52 AM CDT [...] US Body (10/13/2023 3:00 AM CDT) Narrative [facility] - 10/13/2023 10:51 AM CDT [...] System IM US PROCEDURES Performing Organization Address [facility] de Phone Number II NA * CT Angio Chest PE Protocol-Outside CT Body (10/13/2023 12:35 AM CDT) Only the most recent of2 resultswithin the time period is included. Narrative [facility] - 10/13/2023 10:57 AM CDT [...] System IM CT PROCEDURES Performing Organization Address [facility] de Phone Number II NA * XR abdomen min 2V-Outside Gen Dx Stdy (10/12/2023 11:05 PM CDT) Narrative [facility] - 10/13/2023 10:52 AM CDT [...] DIAGNOSTIC IM AGING PROCEDURES Performing Organization Address [facility] de Phone Number IIMS NA * XR chest 2V-Outside Chest Xray (10/12/2023 11:00 PM CDT) Narrative [facility] - 10/13/2023 10:51 AM CDT [...] * (ABNORMAL) Lipid Panel (03/23/2022 7:42 AM DIRECTOR BUSINESS INTELLIGENCE) Triglycerides 120 mg/dL 03/23/2022 1:45 PM DIRECTOR BUSINESS INTELLIGENCE OWAT Comment: ----REFERENCE VALUE---- Normal: <150 mg/dL Borderline High: 150-199 mg/dL High: 200-499 mg/dL Very High: > or =500 mg/dL Cholesterol, Total 133 mg/dL 2021 1:45 PM DIRECTOR BUSINESS INTELLIGENCE OWAT Comment: ----REFERENCE VALUE---- Desirable: < 200 mg/dL Borderline High: 200 - 239 mg/dL High: > or = 240 mg/dL Cholesterol, LDL, Calculated 83 mg/dL 03/23/2022 1:45 PM DIRECTOR BUSINESS INTELLIGENCE OWAT Comment: ----REFERENCE VALUE---- Desirable: <100 mg/dL Above Desirable: 100-129 mg/dL Borderline High: 130-159 mg/dL High: 160-189 mg/dL Very High: >=190 mg/dL ----ADDITIONAL INFORMATION---- LDL cholesterol calculated using the Rojo/NIH equation. Cholesterol, HDL 28(L) >=50 mg/dL 03/23/20 1:45 PM DIRECTOR BUSINESS INTELLIGENCE OWAT Cholesterol, Non-HDL, Calculated 105 mg/dL 03/23/2022 1:45 PM DIRECTOR BUSINESS INTELLIGENCE OWAT Comment: ----REFERENCE VALUE---- Desirable: <130 mg/dL Above Desirable: 130-159 mg/dL Borderline High: 160-189 mg/dL High: 190-219 mg/dL Very High: > or =220 mg/dL Fasting (8 HR or more) Yes 03/23/2022 11:15 AM DIRECTOR BUSINESS INTELLIGENCE OWAT Blood (Blood, Venous) 03/23/2022 7:42 AM DIRECTOR BUSINESS INTELLIGENCE 03/23/2022 11:15 AM DIRECTOR BUSINESS INTELLIGENCE Albania Salcido M.D. LAB BLOOD ADD-ON [facility] [address] [place] [address], [facility] OWAT [facility] [place] [address] [place] [address] * Basic Metabolic Panel (03/23/2022 7:42 AM DIRECTOR BUSINESS INTELLIGENCE) Potassium, P 4.0 3.6 - 5.2 mmol/L 03/23/2022 1:45 PM DIRECTOR BUSINESS INTELLIGENCE OWAT Sodium, P 142 135 - 145 mmol/L 03/23/2022 1:45 PM DIRECTOR BUSINESS INTELLIGENCE OWAT Chloride, P 107 98 - 107 mmol/L 03/23/2022 1:45 PM DIRECTOR BUSINESS INTELLIGENCE OWAT Bicarbonate, P 24 22 - 29 mmol/L 03/23/2022 1:45 PM DIRECTOR BUSINESS INTELLIGENCE OWAT Anion Gap, P 11 7 - 15 03/23/2022 1:45 PM DIRECTOR BUSINESS INTELLIGENCE OWAT BUN (Blood Urea Nitrogen), P 12 6 - 21 mg/dL 03/23/2022 1:45 PM DIRECTOR BUSINESS INTELLIGENCE OWAT Creatinine 0.69 0.59 - 1.04 mg/dL 03/23/2022 1:45 PM DIRECTOR BUSINESS INTELLIGENCE OWAT Estimated GFR (eGFR) >90 >=60 mL/min/BSA 03/23/2022 1:45 PM DIRECTOR BUSINESS INTELLIGENCE OWAT Comment: Estimated GFR calculated using the 2020 CKD_EPI creatinine equation. Calcium, Total, P 9.2 8.6 - 10.0 mg/dL 03/23/2022 1:45 PM DIRECTOR BUSINESS INTELLIGENCE OWAT Glucose, P 90 70 - 140 mg/dL 03/23/2022 1:45 PM DIRECTOR BUSINESS INTELLIGENCE OWAT Blood (Blood, Venous) 03/23/2022 7:42 AM DIRECTOR BUSINESS INTELLIGENCE 03/23/2022 11:15 AM DIRECTOR BUSINESS INTELLIGENCE Albania Salcido M.D. LAB BLOOD ADD-ON [facility] [address] [place] [address], [facility] OWAT [facility] [place] [address] [place] [address] * ThinPrep w/HPV Co-Test Diagnostic (06/23/2020 1:52 PM DIRECTOR BUSINESS INTELLIGENCE) 06/29/2020 2:31 PM CDT DTL Report electronically [...] DTL Varies (Cervix/Endocerv ix) 06/23/2020 1:52 PM DIRECTOR BUSINESS INTELLIGENCE 06/23/2020 6:33 PM DIRECTOR BUSINESS INTELLIGENCE Vickie Linton APRN C.N.P., M.S.N. LAB P AP PATHDX ORDERABLES [facility] [address] [place] [address], [facility] [address] [place] [address] * HIV-1/-2 Ag and Ab Scrn, Plasma (12/21/2019 12:40 PM CDT) HIV-1/-2 Ag and Ab Scrn, P Negative Negative 12/21/2019 6:15 PM CDT [facility] Comment: Negative result does not rule out HIV infection. If exposure to HIV infection occurred <14 days ago, contact the laboratory to request addition of HIV-1 RNA detection / quantification test (HIVQN). Blood (Blood, Venous) 12/21/2019 12:40 PM CDT 12/21/2019 5:24 PM CDT Vickie Linton APRN, C.N.P., M.S.N. LAB M ICROBIOLOGY - BLOOD ORDERABLES [facility] [address] [place] [address] [facility] Dept. of Laboratory Medicine and Pathology [address] [place] [address] from Last 3 Months or Most Recently Relevant to Health Maintenance Advance Directives For more information, please contact: [phone] * Full Code (Latest Code Status on File) Date Activated Date Inactivated Comments 06/05/2020 3:24 AM 06/05/2020 6:24 PM Question Answer Comments Full Code: Discussed Care Teams Diesel Powerplant Supervisor Relationship Specialty Start Date End Date Albania Salcido M.D. NPMichael: [phone] [address] [place] [address] [place] [address] PCP - General Family Medicine 07/07/22
--- OUTSIDE RECORDS SUMMARY | 2023-11-15 19:37 | XMS_ITS | Encounter Summary ---
Author Organization [facility] Address [address] [place] [address] Care Team Providers Care Heat Treat Supervisor Name Role Phone Albania Salcido M.D. Primary Care Provider + [phone] Encounter Details Date Type Department Care Team ([facility] st Contact Info) Description 08/30/2023 CPAP Download Remote Patient Monitoring [facility] [address] [place] [address] [facility], Provider Social History Tobacco Use Types Packs/Day [...] often do you attend chur ch or congregation services? 1 to 4 times per year 03/24/2022 Do you belong to any clubs o r organizations such as worship groups, unions, fraternal or athletic groups, or [...] Date Recorded PHQ-2 Score 3 09/23/2022 [facility] - Occupational Stress Questionnaire [...] place to sleep or slept in a snf (including now)? No 03/24/2022 Depression Answer Date [...] Sex Assigned at Female 04/24/2017 7:40 PM CUSTOMER SUPPORT REPRESENTATIVE Gender Identity Female 04/24/2017 7:40 PM CUSTOMER SUPPORT REPRESENTATIVE Sexual Orientation Straight 04/24/2017 7: 40 PM CUSTOMER SUPPORT REPRESENTATIVE documented as of this encounter Plan of Treatment Not on file documented as of this encounter Visit Diagnoses Not on filedocumented in this encounter Additional Health Concerns Assessment Noted Time PHQ-9 Depression Total Score: 10 023 3:46 PM CDT documented as of this encounter Care Teams Heat Treat Supervisor Relationship Specialty Start Date End Date Albania Salcido M.D. [address] [place] [address] [place] [address] PCP - General Family Medicine 07/07/22 documented as of this encounter
--- OUTSIDE RECORDS SUMMARY | 2023-11-15 19:37 | XMS_ITS | Encounter Summary ---
Author Organization [facility] Address [address] [place] [address] Care Team Providers Care African Studies Professor Name Role Phone Albania Salcido M.D. Primary Care Provider + [phone] Encounter Details Date Type Department Care Team (Late st Contact Info) Description 09/20/2023 Orders Only [facility] PCP TH MNT Albania Salcido M.D. [address] [place], [place] [address] [address] Hypothyroidism Social History Tobacco Use Types Packs/Day [...] often do you attend chur ch or latter day services? 1 to 4 times per year 03/24/2022 Do you belong to any clubs o r organizations such as mandaeism groups, unions, fraternal or athletic groups, or [...] Answer Date Recorded PHQ-2 Score 3 09/23/2022 [facility] - Occupational Stress Questionnaire Answer Date Recorded [...] place to sleep or slept in a fpc (including now)? No 03/24/2022 Depression Answer Date [...] Sex Assigned at Female 04/24/2017 7:40 PM PRINTED CIRCUIT BOARD PCB DESIGNER Gender Identity Female 04/24/2017 7:40 PM PRINTED CIRCUIT BOARD PCB DESIGNER Sexual Orientation Straight 04/24/2017 7: 40 PM PRINTED CIRCUIT BOARD PCB DESIGNER documented as of this encounter Plan of [...] documented as of this encounter Care Teams African Studies Professor Relationship Specialty Start Date End Date Albania Salcido M.D. [address] [place] [address] [place] [address] PCP - General Family Medicine 07/07/22 documented as of this encounter
--- OUTSIDE RECORDS SUMMARY | 2023-11-15 19:38 | XMS_ITS | Encounter Summary ---
Author Organization [facility] Address [address] [place] [address] Care Team Providers Care Final Cigar And Box Examiner Name Role Phone Albania Salcido M.D. Primary Care Provider [phone] Encounter Details Date Type Department Care Team (Late st Contact Info) Description 02/20/2002 [address]mology [address] M.D. [address] [place] [address] Social History Tobacco Use Types Packs/Day Years Used Date Smoking Tobacco: Never Assessed Sex and Gender Information Value Date Recorded Sex Assigned at Female 04/24/2017 7:40 PM FIELD RADIO OPERATOR Gender Identity Female 04/24/2017 7:40 PM FIELD RADIO OPERATOR Sexual Orientation Straight 04/24/2017 7: 40 PM FIELD RADIO OPERATOR documented as of this encounter Progress Notes [...] 1 yr CDM Reports - EYEGEN Id: [id number] Status: Fnl documented in this encounter Plan of Treatment Not on file documented as of this encounter Visit Diagnoses Not on filedocumented in this encounter Additional Health Concerns Infection Onset Date Last Indicated Resolved Time COVID19 Pending 05/05/2020 05/05/2020 05/06/2020 1 2:51 AM FIELD RADIO OPERATOR COVID19 Pending 05/07/2020 05/07/2020 05/07/2020 1 1:19 PM FIELD RADIO OPERATOR COVID19 Pending 06/05/2020 06/05/2020 06/05/2020 4 :44 AM FIELD RADIO OPERATOR COVID19 Pending 11/12/2020 11/13/2020 11/13/2020 8 :51 PM CDT documented as of this encounter Care Teams Final Cigar And Box Examiner Relationship Specialty Start Date End Date Albania Salcido M.D. [address] [place] [phone] PCP - General Family Medicine 07/07/22 documented as of this encounter
--- OUTSIDE RECORDS SUMMARY | 2023-11-15 19:38 | XMS_ITS | Encounter Summary ---
Author Organization [facility] Address [address] [place] [address] Care Team Providers Care Top Collar Baster Name Role Phone Albania Salcido M.D. Primary Care Provider + [phone] Encounter Details Date Type Department Care Team (Late st Contact Info) Description 08/25/2020 Orders Only Department of Family Medicine, [facility], in [place], [place] [address] [place] [phone] Soraya Hudson, TAMMIE, C.N.P., R.N. Social History [...] week 09/30/2019 How often do you attend sabianist or taoism serv ices? Never 09/30/2019 Do you belong to any clubs o r organizations such as sabianist groups, unions, fraternal or athletic groups, or [...] Answer Date Recorded PHQ-2 Score 0 06/23/2020 [facility] of Occupat ional Health - Occupational [...] Sex Assigned at Female 04/24/2017 7:40 PM FOLDER TAPER OPERATOR Gender Identity Female 04/24/2017 7:40 PM FOLDER TAPER OPERATOR Sexual Orientation Straight 04/24/2017 7: 40 PM FOLDER TAPER OPERATOR documented as of this encounter Plan of Treatment Not on file documented as of this encounter Visit Diagnoses Not on filedocumented in this encounter Additional Health Concerns Infection Onset Date Last Indicated Resolved Time COVID19 Pending 11/12/2020 11/13/2020 11/13/2020 8 :51 PM CDT Assessment Noted Time PHQ-9 Depression Total Score: 2 06/24/19 21 1:01 PM FOLDER TAPER OPERATOR documented as of this encounter Care Teams Top Collar Baster Relationship Specialty Start Date End Date Albania Salcido M.D. [address] [place] [phone] PCP - General Family Medicine 07/07/22 documented as of this encounter
--- OUTSIDE RECORDS SUMMARY | 2023-11-15 19:38 | XMS_ITS | Encounter Summary ---
Author Organization [facility] Address [address] [place] [address] Care Team Providers Care Shoeshiner Name Role Phone Albania Salcido M.D. Primary Care Provider + [phone] Encounter Details Date Type Department Care Team (Late st Contact Info) Description 07/30/2023 CPAP Download Remote Patient Monitoring [facility] [address] [place] [address] [facility], Provider Social History Tobacco Use Types [...] often do you attend chur ch or taoism services? 1 to 4 times per year [...] Answer Date Recorded PHQ-2 Score 3 09/23/2022 [facility] - Occupational Stress Questionnaire [...] place to sleep or slept in a chcf (including now)? No 03/24/2022 Depression Answer Date [...] Sex Assigned at Female 04/24/2017 7:40 PM MUSKRAT TRAPPER Gender Identity Female 04/24/2017 7:40 PM MUSKRAT TRAPPER Sexual Orientation Straight 04/24/2017 7: 40 PM MUSKRAT TRAPPER documented as of this encounter Plan of Treatment Not on file documented as of this encounter Visit Diagnoses Not on filedocumented in this encounter Additional Health Concerns Assessment Noted Time PHQ-9 Depression Total Score: 10 023 3:46 PM CDT documented as of this encounter Care Teams Shoeshiner Relationship Specialty Start Date End Date Albania Salcido M.D. [address] [place] [address] [place] [address] PCP - General Family Medicine 07/07/22 documented as of this encounter
--- OUTSIDE RECORDS SUMMARY | 2023-11-15 19:38 | XMS_ITS | Encounter Summary ---
Author Organization [facility] Address [address] [place] [address] Care Team Providers Care Real Estate Executive Assistant Name Role Phone Albania Salcido M.D. Primary Care Provider [phone] Encounter Details Date Type Department Care Team (Late st Contact Info) Description 11/14/[address]mology [address]ST [facility] M.D. [address] [place] [address] Social History Tobacco Use Types Packs/Day Years Used Date Smoking Tobacco: Never Assessed Sex and Gender Information Value Date Recorded Sex Assigned at Female 04/24/2017 7:40 PM HOME RESTORATION SERVICE SUPERVISOR Gender Identity Female 04/24/2017 7:40 PM HOME RESTORATION SERVICE SUPERVISOR Sexual Orientation Straight 04/24/2017 7: 40 PM HOME RESTORATION SERVICE SUPERVISOR documented as of this encounter Progress Notes [...] accommodative esotropia CDM Reports - EYEGEN Id: [id number] Status: Fnl documented in this encounter Plan of Treatment Not on file documented as of this encounter Visit Diagnoses Not on filedocumented in this encounter Additional Health Concerns Infection Onset Date Last Indicated Resolved Time COVID19 Pending 05/05/2020 05/05/2020 05/06/2020 1 2:51 AM HOME RESTORATION SERVICE SUPERVISOR COVID19 Pending 05/07/2020 05/07/2020 05/07/2020 1 1:19 PM HOME RESTORATION SERVICE SUPERVISOR COVID19 Pending 06/05/2020 06/05/2020 06/05/2020 4 :44 AM HOME RESTORATION SERVICE SUPERVISOR COVID19 Pending 11/12/2020 11/13/2020 11/13/2020 8 :51 PM CDT documented as of this encounter Care Teams Real Estate Executive Assistant Relationship Specialty Start Date End Date Albania Salcido M.D. [address] [place] [phone] PCP - General Family Medicine 07/07/22 documented as of this encounter
--- OUTSIDE RECORDS SUMMARY | 2023-11-15 19:38 | XMS_ITS | Encounter Summary ---
Author Organization [facility] Address [address] [place] [address] Care Team Providers Care Business Controller Name Role Phone Albania Salcido M.D. Primary Care Provider + [phone] Encounter Details Date Type Department Care Team (Late st Contact Info) Description 06/29/2023 CPAP Download Remote Patient Monitoring [facility] [address] [place] [address] [facility], Provider Social History Tobacco Use Types Packs/Day [...] often do you attend chur ch or nondenominational services? 1 to 4 times per year [...] Answer Date Recorded PHQ-2 Score 3 09/23/2022 [facility] [...] Sex Assigned at Female 04/24/2017 7:40 PM EMPLOYMENT ASSISTANT Gender Identity Female 04/24/2017 7:40 PM EMPLOYMENT ASSISTANT Sexual Orientation Straight 04/24/2017 7: 40 PM EMPLOYMENT ASSISTANT documented as of this encounter Plan of Treatment Not on file documented as of this encounter Visit Diagnoses Not on filedocumented in this encounter Additional Health Concerns Assessment Noted Time PHQ-9 Depression Total Score: 10 023 3:46 PM CDT documented as of this encounter Care Teams Business Controller Relationship Specialty Start Date End Date Albania Salcido M.D. [address] [place] [address] [place] [address] PCP - General Family Medicine 07/07/22 documented as of this encounter
[2023-11-15 19:58] VITALS: BP 121/74; PULSE 81; RESP 20; TEMP 36.7; O2SAT 99
[2023-11-15 19:59] VITALS: BP 121/74; PULSE 81; RESP 20; TEMP 36.7
== END 2023-11-15 20:00 | disposition home or self-care (01) ==
LOC: ED 19:34
PROVIDERS: Emergency Provider Emergency Medicine Emergency Medical Services; PCP Family Medicine
DX: I80.02 Phlebitis and thrombophlebitis of superficial vessels of left lower extremity (principal)
CPT/HCPCS: 99283; 99284

== ENCOUNTER 2023-12-16 13:00 | Outpatient (RCR) | payer OTHER, SELFPAY | END 2023-12-28 15:51 | disposition home or self-care (01) | PROVIDERS: PCP Family Medicine; Visit Provider Family Medicine | DX: R53.1 Weakness (principal); Z51.89 Encounter for other specified aftercare | CPT/HCPCS: 97110; 97161; 97165; 97530; X5282 ==

== ENCOUNTER 2024-01-11 16:00 | Outpatient (CLI) | payer OTHER, SELFPAY ==
--- OUTSIDE RECORDS SUMMARY | 2024-01-15 16:05 | XMS_ITS | Encounter Summary ---
Author Organization [facility] Address [address] [place] [address] Care Team Providers Care Roll Carrier Name Role Phone Albania Salcido M.D. Primary Care Provider + [phone] Reason for Referral * Outpatient (Routine) - Authorized Specialty Diagnoses / Procedures Referred By Contmaury t Referred To Contact Family Medicine Albania Salcido M.D. [address] [place] [address] [facility] Referral ID Status Reason Start Date Expiration Date V isits Requested Visits Authorized [id number] Authorized 12/20/2023 06/20/2025 1 1 Encounter Details Date Type Department Care Team (Late st Contact Info) Description 12/20/2023 Orders Only [facility] Albania Salcido M.D. [address] [place] [address] Monitoring For Therapeutic Drug Therapy Social History Tobacco Use Types Packs/Day Years [...] week 03/24/2022 How often do you attend [facility] or religion services? 1 to 4 times per year 03/24/2022 Do you belong to any clubs o r organizations such as spiritism groups, unions, fraternal or athletic groups, or [...] Answer Date Recorded PHQ-2 Score 3 09/23/2022 [facility] of Occupat ional Health - Occupational Stress [...] Sex Assigned at Female 04/24/2017 7:40 PM FARO DEALER Gender Identity Female 04/24/2017 7:40 PM FARO DEALER Sexual Orientation Straight 04/24/2017 7: 40 PM FARO DEALER documented as of this encounter Plan of Treatment Scheduled Orders Name Type Priority Associated Diagnoses Orde r Schedule Basic Metabolic Panel Lab Routine Monitoring For Therapeutic Drug Therapy Expected: 01/03/2024, Expires: 06/17/2024 Scheduled Referrals Name Type Priority Associated Diagnoses Orde r Schedule Family Medicine office visit (clinic) Outpatient Referral Routine Expected: 01/03/2024, Expires: 06/17/2024 documented as of this encounter Visit Diagnoses Diagnosis Monitoring For Therapeutic Drug Therapy documented in this encounter Additional Health Concerns Assessment Noted Time PHQ-9 Depression Total Score: 10 09/23/ 023 3:46 PM CDT documented as of this encounter Care Teams Roll Carrier Relationship Specialty Start Date End Date Albania Salcido M.D. [address] [place] [phone] PCP - General Family Medicine 07/07/22 documented as of this encounter
--- OUTSIDE RECORDS SUMMARY | 2024-01-15 16:05 | XMS_ITS | Clinical Summary ---
Author Organization [facility] Address [address] [place] [address] Care Team Providers Care Underwriting Director Name Role Phone Albania Salcido M.D. Primary Care Provider + [phone] Source Comments Patient records contain information from all sites at [facility]. For routine questions regarding patient records, call [phone] during business hours, M-F 8:00 AM - 5:00 PM Central Time. Record requests for emergency care only can be directed to [phone] at any time.[facility] Allergies Active Allergy Reactions Criticality Noted Date [...] to delivery. Order is in. Delivery service: [facility] Partner name: Marcel Pertinent medical issues [...] ordered Additional consults needed/completed: PCN Allergy: Ordered [facility] consult: Completed on 01/[address] [...] Encounters Date Type Department Care Team Description 12/20/2023 Orders Only [facility] PCP TH Albania Waterman M.D. Monitoring For Therapeutic Drug Therapy 12/01/2023 CPAP Download Remote Patient Monitoring [facility] [address] [place] [address] [facility], [address], Ph.D. 10/31/2023 CPAP Download Remote Patient Monitoring [facility] [address] [place] [address] [facility], ProviderMin, Ph.D. from Last 3 Months Immunizations Name Administration Dates Next Due 4vHPV (discontinued) 12/22/2006,09/06/2006,05/31 9vHPV 12/22/2006,09/06/2006,05/31/2006 DTP 08/13/1993, 0,1988,1988,1988 DTaP (Infanrix, Tripedia) 08/13/1993,,1988,1988,1988 HepB (discontinued) adolesce nt/high risk infant 06/02/2011,01/06/2011 HepB Adult (HEPLISAV-B) 07/14/2022 HepB Pediatric/Adolescent 10/29/1999,05/11/1999, 03/30/1999 Influenza TIV (IM) 01/16/2013 Influenza, Seasonal, Injectable 05/31/19 07,02/13/2005,03/19/2003,1999 Influenza, Unspecified 01/31/2017,2015,01/15/2015,2012,01/06/2011 MCV4 (Menactra)(Discontinued) 06/21/1994 MCV4, Unspecified 06/21/1994 MMR 07/15/2000,09/05/1989 OPV 09/05/1989,1988,1988 OPV, Unspecified 08/13/1993 PCV20 09/23/2022 PPSV23 11/08/2012 Rho (D) Immune Globulin (IM only) 05/09/2020,10/2019 SARS-COV-2 (COVID-19) - PFIZ ER (Discontinued)(12 years or older) 12/16/2020,11/24/2020 Td (Adult), adsorbed 10/18/2003 Tdap 04/16/2020,11/10/2012 influenza trivalent vaccine (6 months and older)(PF) 01/30/2019,03/16/2007 influenza vaccine quad (FLUZONE/FLUARIX) (6 months and [...] How often do you attend chur or zoroastrianism services? 1 to 4 times per year 03/24/2022 Do you belong to any clubs o r organizations such as latter day groups, unions, fraternal or athletic groups, or [...] Answer Date Recorded PHQ-2 Score 3 09/23/2022 [facility] - Occupational [...] place to sleep or slept in a group home (including now)? No 03/24/2022 Depression Answer [...] Sex Assigned at Female 04/24/2017 7:40 PM COBOL APPLICATION DEVELOPER Gender Identity Female 04/24/2017 7:40 PM COBOL APPLICATION DEVELOPER Sexual Orientation Straight 04/24/2017 7: 40 PM COBOL APPLICATION DEVELOPER Last Filed Vital Signs Vital Sign Reading [...] Last Done Comments Hepatitis C Screening 1988 Depression Monitoring (PHQ-9) 01/23/2023 09/23/2022 Creatinine Level [...] Asthma Management/Exacerbati on Questionnaire (AMQ/AEQ) 09/24/2023 09/23/2022 COVID-19 Vaccine (2023-2 5 season) 2023 12/16/2020, 11/24/2020 Influenza Vaccine (#1) 2024 , 02/04/2022, 02/05/2021, [...] 023, 11/08/2012 Medical Devices Implanted Type Area Electrophysiology Technician Device Identifier Shelf Expiration Date Model / Serial / Lot Intrauterine Device-04/07/20 22 Implanted:04/07 (Quantity not on file) Intrauterine Device Uterus Procedures Procedure Name Priority Date/Time Associated Diagnosis Comments LIPID PANEL, S Routine 03/23/2022 7:42 AM COBOL APPLICATION DEVELOPER Screening Mammogram Breast Cancer BASIC METABOLIC PANEL, S/P Routine 03/23/2022 7:42 AM COBOL APPLICATION DEVELOPER Menorrhagia THINPREP W/HPV CO-TEST DIAGNOSTIC Routine 06/23/2020 1:52 PM COBOL APPLICATION DEVELOPER Pap Smear Examination HIV-1/-2 AG AND AB SCRN, PLASMA Routine 12/21/2019 12:40 PM CDT High Risk from Last 3 Months or Most Recently Relevant to Health Maintenance Results * (ABNORMAL) Lipid Panel (03/23/2022 7:42 AM COBOL APPLICATION DEVELOPER) Triglycerides 120 mg/dL 03/23/2022 1:45 PM COBOL APPLICATION DEVELOPER OWAT Comment: ----REFERENCE VALUE---- Normal: <150 mg/dL Borderline High: 150-199 mg/dL High: 200-499 mg/dL Very High: > or =500 mg/dL Cholesterol, Total 133 mg/dL 2021 1:45 PM COBOL APPLICATION DEVELOPER OWAT Comment: ----REFERENCE VALUE---- Desirable: < 200 mg/dL Borderline High: 200 - 239 mg/dL High: > or = 240 mg/dL Cholesterol, LDL, Calculated 83 mg/dL 03/23/2022 1:45 PM COBOL APPLICATION DEVELOPER OWAT Comment: ----REFERENCE VALUE---- Desirable: <100 mg/dL Above Desirable: 100-129 mg/dL Borderline High: 130-159 mg/dL High: 160-189 mg/dL Very High: >=190 mg/dL ----ADDITIONAL INFORMATION---- LDL cholesterol calculated using the Rojo/NIH equation. Cholesterol, HDL 28(L) >=50 mg/dL 03/23/20 22 1:45 PM COBOL APPLICATION DEVELOPER OWAT Cholesterol, Non-HDL, Calculated 105 mg/dL 03/23/2022 1:45 PM COBOL APPLICATION DEVELOPER OWAT Comment: ----REFERENCE VALUE---- Desirable: <130 mg/dL Above Desirable: 130-159 mg/dL Borderline High: 160-189 mg/dL High: 190-219 mg/dL Very High: > or =220 mg/dL Fasting (8 HR or more) Yes 03/23/2022 11:15 AM COBOL APPLICATION DEVELOPER OWAT Blood (Blood, Venous) 03/23/2022 7:42 AM COBOL APPLICATION DEVELOPER 03/23/2022 11:15 AM COBOL APPLICATION DEVELOPER Albania Salcido M.D. LAB BLOOD ADD-ON [facility] [address] [place] [address], [facility] [place] [address] [place] [address] * Basic Metabolic Panel (03/23/2022 7:42 AM COBOL APPLICATION DEVELOPER) [facility] Potassium, P 4.0 3.6 - 5.2 mmol/L 03/23/2022 1:45 PM COBOL APPLICATION DEVELOPER OWAT Sodium, P 142 135 - 145 mmol/L 03/23/2022 1:45 PM COBOL APPLICATION DEVELOPER OWAT Chloride, P 107 98 - 107 mmol/L 03/23/2022 1:45 PM COBOL APPLICATION DEVELOPER OWAT Bicarbonate, P 24 22 - 29 mmol/L 03/23/2022 1:45 PM COBOL APPLICATION DEVELOPER OWAT Anion Gap, P 11 7 - 15 03/23/2022 1:45 PM COBOL APPLICATION DEVELOPER OWAT BUN (Blood Urea Nitrogen), P 12 6 - 21 mg/dL 03/23/2022 1:45 PM COBOL APPLICATION DEVELOPER OWAT Creatinine 0.69 0.59 - 1.04 mg/dL 03/23/2022 1:45 PM COBOL APPLICATION DEVELOPER OWAT Estimated GFR (eGFR) >90 >=60 mL/min/BSA 03/23/2022 1:45 PM COBOL APPLICATION DEVELOPER OWAT Comment: Estimated GFR calculated using the 2020 CKD_EPI creatinine equation. Calcium, Total, P 9.2 8.6 - 10.0 mg/dL 03/23/2022 1:45 PM COBOL APPLICATION DEVELOPER OWAT Glucose, P 90 70 - 140 mg/dL 03/23/2022 1:45 PM COBOL APPLICATION DEVELOPER OWAT Blood (Blood, Venous) 03/23/2022 7:42 AM COBOL APPLICATION DEVELOPER 03/23/2022 11:15 AM COBOL APPLICATION DEVELOPER Albania Salcido M.D. LAB BLOOD ADD-ON [facility] [address] [place] [address], [facility] [place] [address] [place] [address] * ThinPrep w/HPV Co-Test Diagnostic (06/23/2020 1:52 PM COBOL APPLICATION DEVELOPER) 06/29/2020 2:31 PM CDT DTL Report electronically [...] DTL Varies (Cervix/Endocerv ix) 06/23/2020 1:52 PM COBOL APPLICATION DEVELOPER 06/23/2020 6:33 PM COBOL APPLICATION DEVELOPER Vickie Linton APRN C.N.P., M.S.N. LAB P AP PATHDX ORDERABLES [facility] [address] [place], [place] [address] DTL [facility] [address] [place] [address] * HIV-1/-2 Ag and Ab Scrn, Plasma (12/21/2019 12:40 PM CDT) HIV-1/-2 Ag and Ab Scrn, P Negative Negative 12/21/2019 6:15 PM CDT [facility] Comment: Negative result does not rule out HIV infection. If exposure to HIV infection occurred <14 days ago, contact the laboratory to request addition of HIV-1 RNA detection / quantification test (HIVQN). Blood (Blood, Venous) 12/21/2019 12:40 PM CDT 12/21/2019 5:24 PM CDT Vickie Linton APRN, C.N.P., M.S.N. LAB M ICROBIOLOGY - BLOOD ORDERABLES [facility] [employer] [address] [place] [address] [facility] Dept. of Laboratory Medicine and Pathology [address] [place] [address] from Last 3 Months or Most Recently Relevant to Health Maintenance Advance Directives For more information, please contact: [phone] * Full Code (Latest Code Status on File) Date Activated Date Inactivated Comments 06/05/2020 3:24 AM 06/05/2020 6:24 PM Question Answer Comments Full Code: Discussed Care Teams Underwriting Director Relationship Specialty Start Date End Date Albania Salcido M.D. [address] [place] [id number] PCP - General Family Medicine 07/07/22
--- OUTSIDE RECORDS SUMMARY | 2024-01-15 16:05 | XMS_ITS | Referral Summary ---
Author Organization [facility] Address [address] [place] [address] Care Team Providers Care Hydraulic And Plumbing Installer Name Role Phone Albania Salcido M.D. Primary Care Provider + [phone] Source Comments Patient records contain information from all sites at [facility]. For routine questions regarding patient records, call [phone] during business hours, M-F 8:00 AM - 5:00 PM Central Time. Record requests for emergency care only can be directed to [phone] at any time.[facility] Encounters Date Type Department Care Team Description 12/20/2023 Orders Only [facility] PCP [facility] Albania Salcido M.D. Monitoring For Therapeutic Drug Therapy 12/01/2023 CPAP Download Remote Patient Monitoring [facility] [address] [place] [address] [facility], [address], Ph.D. 10/31/2023 CPAP Download Remote Patient Monitoring [facility] [address] [place] [address] [facility], ProviderMin, Ph.D. from Last 3 Months Allergies Active Allergy [...] to delivery. Order is in. Delivery service: [facility] Partner name: Marcel Pertinent medical issues [...] and Infarction Pulmonary emboli Left, multiple, hospitalized [facility] Embolus Pulmonary 09/12/2013 06/12/2018 Overview (09/07/2016): Other [...] How often do you attend chur or lutheran services? 1 to 4 times per year 03/24/2022 Do you belong to any clubs o r organizations such as adventism groups, unions, fraternal or athletic groups, or [...] PHQ-2 Score 3 09/23/2022 [facility] - Occupational [...] Sex Assigned at Female 04/24/2017 7:40 PM MACHINE HEEL SPRAYER Gender Identity Female 04/24/2017 7:40 PM MACHINE HEEL SPRAYER Sexual Orientation Straight 04/24/2017 7: 40 PM MACHINE HEEL SPRAYER Last Filed Vital Signs Vital Sign Reading [...] on file Medical Devices Implanted Type Area Card Checker Device Identifier Shelf Expiration Date Model / Serial / Lot Intrauterine Device-04/07/20 22 Implanted:04/07 (Quantity not on file) Intrauterine Device Uterus Procedures Procedure Name Priority Date/Time Associated Diagnosis Comments LIPID PANEL, S Routine 03/23/2022 7:42 AM MACHINE HEEL SPRAYER Screening Mammogram Breast Cancer BASIC METABOLIC PANEL, S/P Routine 03/23/2022 7:42 AM MACHINE HEEL SPRAYER Menorrhagia THINPREP W/HPV CO-TEST DIAGNOSTIC Routine 06/23/2020 1:52 PM MACHINE HEEL SPRAYER Pap Smear Examination HIV-1/-2 AG AND AB SCRN, PLASMA Routine 12/21/2019 12:40 PM CDT High Risk from Last 3 Months or Most Recently Relevant to Health Maintenance Results * (ABNORMAL) Lipid Panel (03/23/2022 7:42 AM MACHINE HEEL SPRAYER) Triglycerides 120 mg/dL 03/23/2022 1:45 PM MACHINE HEEL SPRAYER OWAT Comment: ----REFERENCE VALUE---- Normal: <150 mg/dL Borderline High: 150-199 mg/dL High: 200-499 mg/dL Very High: > or =500 mg/dL Cholesterol, Total 133 mg/dL 2021 1:45 PM MACHINE HEEL SPRAYER OWAT Comment: ----REFERENCE VALUE---- Desirable: < 200 mg/dL Borderline High: 200 - 239 mg/dL High: > or = 240 mg/dL Cholesterol, LDL, Calculated 83 mg/dL 03/23/2022 1:45 PM MACHINE HEEL SPRAYER OWAT Comment: ----REFERENCE VALUE---- Desirable: <100 mg/dL Above Desirable: 100-129 mg/dL Borderline High: 130-159 mg/dL High: 160-189 mg/dL Very High: >=190 mg/dL ----ADDITIONAL INFORMATION---- LDL cholesterol calculated using the Rojo/NIH equation. Cholesterol, HDL 28(L) >=50 mg/dL 03/23/20 1:45 PM MACHINE HEEL SPRAYER OWAT Cholesterol, Non-HDL, Calculated 105 mg/dL 03/23/2022 1:45 PM MACHINE HEEL SPRAYER OWAT Comment: ----REFERENCE VALUE---- Desirable: <130 mg/dL Above Desirable: 130-159 mg/dL Borderline High: 160-189 mg/dL High: 190-219 mg/dL Very High: > or =220 mg/dL Fasting (8 HR or more) Yes 03/23/2022 11:15 AM MACHINE HEEL SPRAYER OWAT Blood (Blood, Venous) 03/23/2022 7:42 AM MACHINE HEEL SPRAYER 03/23/2022 11:15 AM MACHINE HEEL SPRAYER Albania Salcido M.D. LAB BLOOD ADD-ON [facility] [address] [place] [address], [facility] [place] [address] [place] [address] * Basic Metabolic Panel (03/23/2022 7:42 AM MACHINE HEEL SPRAYER) Potassium, P 4.0 3.6 - 5.2 mmol/L 03/23/2022 1:45 PM MACHINE HEEL SPRAYER OWAT Sodium, P 142 135 - 145 mmol/L 03/23/2022 1:45 PM MACHINE HEEL SPRAYER OWAT Chloride, P 107 98 - 107 mmol/L 03/23/2022 1:45 PM MACHINE HEEL SPRAYER OWAT Bicarbonate, P 24 22 - 29 mmol/L 03/23/2022 1:45 PM MACHINE HEEL SPRAYER OWAT Anion Gap, P 11 7 - 15 03/23/2022 1:45 PM MACHINE HEEL SPRAYER OWAT BUN (Blood Urea Nitrogen), P 12 6 - 21 mg/dL 03/23/2022 1:45 PM MACHINE HEEL SPRAYER OWAT Creatinine 0.69 0.59 - 1.04 mg/dL 03/23/2022 1:45 PM MACHINE HEEL SPRAYER OWAT Estimated GFR (eGFR) >90 >=60 mL/min/BSA 03/23/2022 1:45 PM MACHINE HEEL SPRAYER OWAT Comment: Estimated GFR calculated using the 2020 CKD_EPI creatinine equation. Calcium, Total, P 9.2 8.6 - 10.0 mg/dL 03/23/2022 1:45 PM MACHINE HEEL SPRAYER OWAT Glucose, P 90 70 - 140 mg/dL 03/23/2022 1:45 PM MACHINE HEEL SPRAYER OWAT Blood (Blood, Venous) 03/23/2022 7:42 AM MACHINE HEEL SPRAYER 03/23/2022 11:15 AM MACHINE HEEL SPRAYER Albania Salcido M.D. LAB BLOOD ADD-ON [facility] [address] [place] [address], [facility] [place] [address] [place] [address] * ThinPrep w/HPV Co-Test Diagnostic (06/23/2020 1:52 PM MACHINE HEEL SPRAYER) 06/29/2020 2:31 PM CDT DTL Report electronically [...] DTL Varies (Cervix/Endocerv ix) 06/23/2020 1:52 PM MACHINE HEEL SPRAYER 06/23/2020 6:33 PM MACHINE HEEL SPRAYER Vickie Linton APRN, C.N.P., M.S.N. LAB P [place] [address], [facility] [address] * HIV-1/-2 Ag and Ab Scrn, Plasma (12/21/2019 12:40 PM CDT) HIV-1/-2 Ag and Ab Scrn, P Negative Negative 12/21/2019 6:15 PM CDT [facility] Comment: Negative result does not rule out HIV infection. If exposure to HIV infection occurred <14 days ago, contact the laboratory to request addition of HIV-1 RNA detection / quantification test (HIVQN). Blood (Blood, Venous) 12/21/2019 12:40 PM CDT 12/21/2019 5:24 PM CDT Brandan Richard APRNNNaga, M.S.N. LAB M ICROBIOLOGY - BLOOD ORDERABLES [facility] [address] [place] [address] [facility] Dept. of Laboratory Medicine and Pathology [address] [place] [address] from Last 3 Months or Most Recently Relevant to Health Maintenance Advance Directives For more information, please contact: [phone] * Full Code (Latest Code Status on File) Date Activated Date Inactivated Comments 06/05/2020 3:24 AM 06/05/2020 6:24 PM Question Answer Comments Full Code: Discussed Care Teams Hydraulic And Plumbing Installer Relationship Specialty Start Date End Date Albania Salcido M.D. [address] [place] [id number] PCP - General Family Medicine 07/07/22
--- OUTSIDE RECORDS SUMMARY | 2024-01-15 16:05 | XMS_ITS | Clinical Summary ---
Author Organization [facility] Address [place], [place] [address] Care Team Providers Care Apartment Leasing Consultant Name Role Phone Pcp, No Primary Care [...] three times daily. 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 03/22/2016 Overview (10/14/2023): Depression Major Recurrent Mild PCOS (polycystic ovarian syndrome) 03/22/2014 Hypothyroidism 03/22/2014 Encounters Date Type Department Care Team Description 10/14/2023 4:27 AM CDT - 11/01/2023 4:29 PM CDT Hospital Encounter [facility] [address] [place] [address] [facility], MD Kuldeep Montoya, MD Nany Hernandez, MD Luis Fernando Martinez, MD Yue Duvall, MD Saar Fontanez, MD Vaishnavi White, Silva Mccarty MD Residents, Icu Prosser, Marah Duncan MD Splenic infarct (Primary Dx); Acute hypoxic respiratory failure (HC); At risk for stress ulcer; Edema, unspecified type; Cytomegalovirus infection, unspecified cytomegaloviral infection type (HC); Steroid-induced hyperglycemia Discharge Disposition: Home Self Care from Last 3 Months Family History Medical [...] Given: Yes Comments:2006 Quit. Social smoker in HS Alcohol Use Standard Drinks/Week Comments Not Currently [...] age 21-65 03/22/2017 03/22/2014 COVID-19 vaccine series ( season) 2023 12/16/2020, 11/24/2020 Influenza for age 9-49 12/18/2023 [...] 12:21 PM CDT LC HCV QN INTERP [id number] Timed 10/21/19 10:13 AM CDT LC HBSAG CONF [id number] Timed 10/21/2023 10:13 AM CDT LC ACUTE HEPATITIS Today 10/21/2023 10 :13 AM CDT GLUCOSE METER Timed 10/21/2023 9:26 AM CDT XR CHEST 1 VIEW PORTABLE Routine 10/21/2023 8:30 AM CDT HEPATIC FUNCTION PANEL DILLON 4:26 AM CDT HEMOGLOBIN A1C MONITORING (POCT) [place] 10/21/2023 4:26 AM CDT BASIC METABOLIC [...] CDT APTT Timed 10/15/2023 1:16 AM CDT DEHYDRATION UNIT OPERATOR THIN PREP PAP SCREEN IMAGED Routine 03/22/2014 10:15 AM LOADERS Well woman exam from Last 3 Months or Most Recently Relevant to Health Maintenance Results * (ABNORMAL) GLUCOSE METER (11/01/2023 1:55 PM CDT) Only the most recent of49 resultswithin the time period is included. GLUCOSE METER 183(H) 65 - 100 mg/dL 11/01/2023 1:57 PM CDT [facility] Blood BLOOD SPECIMEN / Unknown 11/01/2023 1:55 PM CDT 11/01/2023 1:57 PM CDT Huseyin Turner MD CHEMISTRY [facility] [address] [place] [address], * PLATELET COUNT (10/31/2023 6:12 AM CDT) Only the most recent of11 resultswithin the time period is included. PLATELET COUNT 382 140 - 440 thou/cu mm 10/31/2023 7:20 AM CDT [facility] MPV 9.7 6.5 - 11.0 fL 10/31/2023 7:20 AM CDT [facility] Blood BLOOD SPECIMEN / Unknown Venipuncture / Unknown 10/31/2023 6:12 AM CDT 10/31/2023 7:10 AM CDT [facility] - 10/31/2023 7:20 AM CDT Every morning while on IV heparin. Every morning while on IV heparin. Necessary every morning while on IV heparin. Faisal Light MD HEMATOLOGY Performing Organization Address [facility] de Phone Number [facility] [address] [place] [address], * (ABNORMAL) HEMOGLOBIN (10/31/2023 6:12 AM CDT) Only the most recent of11 resultswithin the time period is included. HEMOGLOBIN 10.7(L) 12.0 - 16.0 g/dL 10/31/2023 7:20 AM CDT [facility] MCV 89 80 - 100 fL 10/31/2023 7:20 AM CDT [facility] Blood BLOOD SPECIMEN / Unknown Venipuncture / Unknown 10/31/2023 6:12 AM CDT 10/31/2023 7:10 AM CDT [facility] - 10/31/2023 7:20 AM CDT Every morning while on IV heparin. Every morning while on IV heparin. Necessary every morning while on IV heparin. Faisal Light MD HEMATOLOGY Performing Organization Address City/[facility] Co de Phone Number [facility] [address] [address], [place] * HEMATOCRIT (10/31/2023 6:12 AM CDT) Only the most recent of11 resultswithin the time period is included. Pathologist [facility] HEMATOCRIT 35.7 33.0 - 51.0 % 10/31/2023 7:20 AM CDT [facility] Blood BLOOD SPECIMEN / Unknown Venipuncture / Unknown 10/31/2023 6:12 AM CDT 10/31/2023 7:10 AM CDT Narrative [facility] - 10/31/2023 7:20 AM CDT Every morning while on IV heparin. Every morning while on IV heparin. Necessary every morning while on IV heparin. Faisal Light MD HEMATOLOGY Performing Organization Address [facility] Co de Phone Number [facility] [address] [place] [address], * (ABNORMAL) MAGNESIUM (10/29/2023 4:39 AM CDT) Only the most recent of4 resultswithin the time period is included. Pathologist [facility] MAGNESIUM 2.7(H) 1.6 - 2.6 mg/dL 10/29/2023 6:46 AM CDT [facility] Blood BLOOD SPECIMEN / Unknown Butterfly / Unknown 10/29/2023 4:39 AM CDT 10/29/2023 5:43 AM CDT Marah Eubanks MD CHEMISTRY Performing Organization Address City/[facility]/ZIP Co de Phone Number [facility] [address] [address], * (ABNORMAL) BASIC METABOLIC PANEL (10/29/2023 4:39 AM CDT) Only the most recent of6 resultswithin the time period is included. Pathologist [facility] SODIUM 138 136 - 145 mmol/L 10/29/2023 6:10 AM CDT [facility] POTASSIUM 4.4 3.5 - 5.1 mmol/L 10/29/2023 6:10 AM CDT [facility] CHLORIDE 103 98 - 107 mmol/L 10/29/2023 6:10 AM CDT [facility] CO2,TOTAL 28 22 - 29 mmol/L 10/29/2023 6:10 AM CDT [facility] ANION GAP 7 5 - 18 10/29/2023 6:10 AM CDT [facility] GLUCOSE 269(H) 70 - 99 mg/dL 10/29/2023 6:10 AM CDT [facility] CALCIUM 8.7 8.6 - 10.0 mg/dL 10/29/2023 6:10 AM T [facility] BUN 24(H) 6 - 20 mg/dL 10/29/2023 6:10 AM T [facility] CREATININE 0.74 0.50 - 0.90 mg/dL 10/29/2023 6:10 AM T [facility] BUN/CREAT RATIO 32(H) 10 - 20 6:10 AM T [facility] eGFR >90 >90 mL/min/1.7 3m2 10/29/2023 6:10 AM T [facility] Comment:As of 2021, eG FR [...] [facility] [address] [place] [address], * SCAN-CARDIAC STRIP (10/28/2023 7:00 AM CDT) Scanner OTHER * SCAN-CARDIAC STRIP (10/27/2023 8:03 PM CDT) Scanner OTHER * CMV QUANT DNA PCR (BLOOD) (10/27/2023 3:24 PM CDT) Only the most recent of2 resultswithin the time period is included. CMV Qn DNA PCR [id number] Negative IU/mL 10/28/2023 11:07 PM CDT [facility] ([facility]) Comment:The quantitative ran ge of this assay is 200 to 1 million IU/mL. log10 CMV Qn DNA 4.158 log10 IU/mL 024 11:07 PM CDT [facility] ([facility]) Blood BLOOD SPECIMEN / Unknown Butterfly / Unknown 10/27/2023 3:24 PM CDT 10/27/2023 3:28 PM CDT Narrative [facility] ([facility]) - 10/28/2023 11:07 PM CDT Performed at: ??[address] ??[id number] Swing Saw Operator: Abdiaziz Escobar MD, Phone: ??[phone] Marah Eubanks MD SEND OUTS [facility] ([facility]) [facility] [address] * (ABNORMAL) CBC no diff AM (10/27/2023 6:01 AM CDT) Only the most recent of5 resultswithin the time period is included. WHITE BLOOD COUNT 7.5 4.5 - 11.0 thou/cu mm 10/27/2023 6:41 AM CDT [facility] RED BLOOD COUNT 3.79(L) 4.00 - 5.20 mil/cu mm 10/27/2023 6:41 AM CDT [facility] HEMOGLOBIN 9.9(L) 12.0 - 16.0 g/dL 10/27/2023 6:41 AM CDT [facility] HEMATOCRIT 33.1 33.0 - 51.0 % 10/27/2023 6:41 AM CDT [facility] MCV 87 80 - 100 fL 10/27/2023 6:41 AM CDT [facility] MCH 26.1 26.0 - 34.0 pg 10/27/2023 6:41 AM CDT [facility] MCHC 29.9(L) 32.0 - 36.0 g/dL 10/27/2023 6:41 AM CDT [facility] RDW 19.1(H) 11.5 - 15.5 % 10/27/2023 6:41 AM CDT [facility] PLATELET COUNT 298 140 - 440 thou/cu mm 10/27/2023 6:41 AM CDT [facility] MPV 10.0 6.5 - 11.0 fL 10/27/2023 6:41 AM CDT [facility] NRBC 0.0 % 10/27/2023 6:41 AM CDT [facility] ABS NRBC 0.0 thou /cu mm 10/27/2023 6:41 AM CDT [facility] Blood BLOOD SPECIMEN / Unknown Butterfly / Unknown 10/27/2023 6:01 AM CDT 10/27/2023 6:28 AM CDT Sebastián Campoverde MD HEMATOLOGY [facility] [address] [place] [address], * (ABNORMAL) BLOOD GAS,VENOUS (10/27/2023 6:01 AM CDT) Only the most recent of7 resultswithin the time period is included. PH, VENOUS 7.34 7.32 - 7.43 10/27/2023 6:24 AM CDT [facility] PCO2, VENOUS 46 41 - 51 mmHg 10/27/2023 6:24 AM CDT [facility] PO2, VENOUS 71(H) 35 - 40 mmHg 10/27/2023 6:24 AM CDT [facility] HCO3,VENOUS 25 22 - 29 mmol/L 10/27/2023 6:24 AM CDT [facility] BASE EXCESS, VENOUS, POCT -1.3 -2.0 - 3.0 10/27/2023 6:24 AM CDT [facility] O2 SATURATION, VENOUS 94(H) 70 - 75 % 10/27/2023 6:24 AM CDT [facility] PATIENT TEMPERATURE 37.0 Degrees C 10/27/2023 6:24 AM CDT [facility] Blood VENOUS BLOOD SPECIMEN / Unknown Butterfly / Unknown 10/27/2023 6:01 AM CDT 10/27/2023 6:20 AM CDT Sreekanth Rousseau MD CHEMISTRY Performing Organization Address City/[facility]/ZIP Co de Phone Number [facility] [address] [place] [address], * (ABNORMAL) C-REACTIVE PROTEIN (10/27/2023 6:01 AM CDT) C-REACTIVE PROTEIN 4.5(H) <0.5 mg/dL 10/27/2023 3:55 PM CDT [facility] Blood BLOOD SPECIMEN / Unknown Butterfly / Unknown 10/27/2023 6:01 AM CDT 10/27/2023 6:25 AM CDT Marah Eubanks MD CHEMISTRY [facility] [address] [place] [address], * SCAN-CARDIAC STRIP (10/26/2023 8:09 PM CDT) Scanner OTHER * COVID-19 MOLECULAR (10/26/2023 8:07 PM CDT) COVID 19 [place] MOLECULAR Negative Negative 10/26/2023 10:21 PM CDT [facility] Comment:All PCR tests are chen bject to false negative result due to variability in viral load and collection technique. A negative result does not rule out a SARS-CoV-2 infection. Clinical correlation required. TESTING LABORATORY [facility] 10/26/2023 10:21 PM CDT [facility] Comment:Specimen submitted t o [facility] for testing. Other SPECIMEN FROM NASOPHARYNGEAL STRUCTURE / Unknown Non-Blood / Unknown 10/26/2023 8:07 PM CDT 10/26/2023 8:20 PM CDT Octaviano Masterson MD MICROBIOLOGY [facility] [address] [place] [address], * RESPIRATORY PANEL MULTIPLEX PCR (10/26/2023 8:07 PM CDT) Pathologist [facility] Adenovirus NOT Detected 10/26/2023 10:17 PM CDT [facility] Coronavirus 229E NOT Detected 10/26/2023 10:17 PM CDT [facility] Coronavirus HKU1 NOT Detected 10/26/2023 10:17 PM CDT [facility] Coronavirus NL63 NOT Detected 10/26/2023 10:17 PM CDT [facility] Coronavirus OC43 NOT Detected 10/26/2023 10:17 PM CDT [facility] Human Metapneumovirus NOT Detected 10/26/2023 10:17 PM CDT [facility] Human Rhinovirus/Enterovi jigar NOT Detected 10/26/2023 10:17 PM CDT [facility] Influenza A NOT Detected 10/26/2023 10:17 PM CDT [facility] Influenza B NOT Detected 10/26/2023 10:17 PM CDT [facility] Parainfluenza Virus 1 NOT Detected 10/26/2023 10:17 PM CDT [facility] Parainfluenza Virus 2 NOT Detected 10/26/2023 10:17 PM CDT [facility] Parainfluenza Virus 3 NOT Detected 10/26/2023 10:17 PM CDT [facility] Parainfluenza Virus 4 NOT Detected 10/26/2023 10:17 PM CDT [facility] Respiratory Syncytial Virus NOT Detected 10/26/2023 10:17 PM CDT [facility] SARS-Cov-2 NOT Detected 10/26/2023 10:17 PM CDT [facility] Bordetella pertussis NOT Detected 10/26/2023 10:17 PM CDT [facility] Bordetella Parapertussis NOT Detected 10/26/2023 10:17 PM CDT [facility] Chlamydophila pneumoniae NOT Detected 10/26/2023 10:17 PM CDT [facility] Mycoplasma pneumoniae NOT Detected 10/26/2023 10:17 PM CDT [facility] Nasopharyngeal NASOPHARYNGEAL SWAB / Unknown Non-Blood / Unknown 10/26/2023 8:07 PM CDT 10/26/2023 8:20 PM CDT [facility] - 10/26/2023 10:17 PM CDT All PCR tests are subject to false negative results due to variability in viral/bacterial load and collection technique. ??This test does NOT detect MERS ( Respiratory Syndrome) or SARS-1 (Severe Acute Respiratory Syndrome). Octaviano Masterson MD MICROBIOLOGY [facility] [address] [place] [address], * (ABNORMAL) ARTERIAL BLOOD GAS (10/26/2023 12:25 PM CDT) Only the most recent of2 resultswithin the time period is included. PH, ARTERIAL 7.38 7.35 - 7.45 10/26/2023 1:05 PM CDT [facility] PCO2, ARTERIAL 46(H) 32 - 45 mmHg 10/26/19 24 1:05 PM CDT [facility] PO2, ARTERIAL 80(L) 83 - 108 mmHg 10/26/2023 1:05 PM CDT [facility] HCO3, ARTERIAL 27 21 - 28 mmol/L 10/26/2023 1:05 PM CDT [facility] BASE EXCESS, ARTERIAL 1.5 -2.0 - 3.0 10/26/2023 1:05 PM CDT [facility] O2 SATURATION, ARTERIAL 97 94 - 98 % 10/26/2023 1:05 PM CDT [facility] INSPIRED O2 80 10/26/2023 1:05 PM CDT [facility] Comment:Unit of Measure: Lit ers (L) if <=20; Percent (%) if >20 PATIENT TEMPERATURE 37.0 Degrees C 10/26/2023 1:05 PM CDT [facility] Blood ARTERIAL BLOOD SPECIMEN / Unknown Non-Lab Venipuncture / Unknown 10/26/2023 12:25 PM CDT 10/26/2023 12:57 PM CDT Judy Griffin DO CHEMISTRY [facility] [address] [address], * CT Chest PE study TODAY (10/26/2023 [...] Campoverde MD CT * Lactate, Venous - PAPER CONE [employer]ER (10/26/2023 9:36 AM CDT) Only the most recent of4 resultswithin the time period is included. LACTATE,VENOUS 0.7 0.5 - 2.0 mmol/L 10/26/2023 10:11 AM CDT [facility] Blood BLOOD SPECIMEN / Unknown Butterfly / Unknown 10/26/2023 9:36 AM CDT 10/26/2023 9:42 AM CDT Sebastián Campoverde MD CHEMISTRY [facility] [address] [place] [address], * (ABNORMAL) Comprehensive Metabolic Panel - PAPER CONE [employer]KER (10/26/2023 9:36 AM CDT) Only the most recent of2 resultswithin the time period is included. SODIUM 138 136 - 145 mmol/L 10/26/2023 10:11 AM CDT [facility] POTASSIUM 4.4 3.5 - 5.1 mmol/L 10/26/2023 10:11 AM CDT [facility] CHLORIDE 104 98 - 107 mmol/L 10/26/2023 10:11 AM CDT [facility] CO2,TOTAL 26 22 - 29 mmol/L 10/26/2023 10:11 AM T [facility] ANION GAP 8 5 - 18 10/26/2023 10:11 AM CDT [facility] GLUCOSE 88 70 - 99 mg/dL 10/26/2023 10:11 AM T [facility] CALCIUM 8.7 8.6 - 10.0 mg/dL 10/26/2023 10:11 AM CDT [facility] BUN 10 6 - 20 mg/dL 10/26/2023 10:11 AM T [facility] CREATININE 0.87 0.50 - 0.90 mg/dL 10/26/2023 10:11 AM T [facility] BUN/CREAT RATIO 11 10 - 20 10:11 AM T [facility] eGFR 89(L) >90 mL/min/1.7 3m2 10/26/2023 10:11 AM CDT [facility] Comment:As of 2021, eG FR is calculated by the CKD-EPI creatinine equation without race adjustment. ??eGFR can be influenced by muscle mass, exercise, and diet. ??The reported eGFR is an estimation only and is only applicable if the renal function is stable. ALBUMIN 3.0(L) 4.0 - 4.9 g/dL 10/26/2023 10:11 AM CDT [facility] PROTEIN,TOTAL 6.9 6.0 - 8.0 g/dL 10/26/2023 10:11 AM CDT [facility] BILIRUBIN,TOTAL 0.5 0.0 - 1.2 mg/dL 10/26/2023 10:11 AM CDT [facility] ALK PHOSPHATASE 141(H) 35 - 104 IU/L 10/26/2023 10:11 AM CDT [facility] ALT (SGPT) 27 10 - 35 IU/L 10/26/2023 10:11 AM CDT [facility] AST (SGOT) 42(H) 10 - 35 IU/L 10/26/2023 10:11 AM T [facility] Blood BLOOD SPECIMEN / Unknown Butterfly / Unknown 10/26/2023 9:36 AM CDT 10/26/2023 9:42 AM CDT Sebastián Campoverde MD CHEMISTRY [facility] [address] [place] [address], [place] * (ABNORMAL) CBC WITH AUTO DIFFERENTIAL (10/26/2023 5:18 AM CDT) Only the most recent of3 resultswithin the time period is included. WHITE BLOOD COUNT 12.0(H) 4.5 - 11.0 thou/cu mm 10/26/2023 10:11 AM CDT [facility] RED BLOOD COUNT 3.62(L) 4.00 - 5.20 mil/cu mm 10/26/2023 10:11 AM CDT [facility] HEMOGLOBIN 9.4(L) 12.0 - 16.0 g/dL 10/26/2023 10:11 AM CDT [facility] HEMATOCRIT 31.8(L) 33.0 - 51.0 % 10/26/2023 10:11 AM CDT [facility] MCV 90 80 - 100 fL 10/26/2023 10:11 AM CDT [facility] MCH 26.5 26.0 - 34.0 pg 10/26/2023 10:11 AM CDT [facility] MCHC 29.7(L) 32.0 - 36.0 g/dL 10/26/2023 10:11 AM CDT [facility] RDW 19.9(H) 11.5 - 15.5 % 10/26/2023 10:11 AM CDT [facility] PLATELET COUNT 305 140 - 440 thou/cu mm 10/26/2023 10:11 AM CDT [facility] MPV 9.7 6.5 - 11.0 fL 10/26/2023 10:11 AM CDT [facility] NRBC 0.2 % 10/26/2023 10:11 AM CDT [facility] ABS NRBC 0.0 thou /cu mm 10/26/2023 10:11 AM CDT [facility] Blood BLOOD SPECIMEN / Unknown Butterfly / Unknown 10/26/2023 5:18 AM CDT 10/26/2023 5:29 AM CDT Narrative [facility] - 10/26/2023 10:11 AM CDT RN to order if patient presents with two or more positive sepsis screening criteria plus new or worsening signs or symptoms of suspected infection. Sebastián Campoverde MD HEMATOLOGY [facility] [address] [place] [address], * (ABNORMAL) RED CELL MORPHOLOGY (10/26/2023 5:18 AM CDT) Only the most recent of5 resultswithin the time period is included. POLYCHROMASIA Slight 10/26/2023 10:11 AM CDT [facility] RBC COMMENT Present(A) RBC morphology appears normal, RBC morphology within normal limits for newborns. 10/26/2023 10:11 AM CDT [facility] Blood BLOOD SPECIMEN / Unknown Butterfly / Unknown 10/26/2023 5:18 AM CDT 10/26/2023 5:29 AM CDT Narrative [facility] - 10/26/2023 10:11 AM CDT RN to order if patient presents with two or more positive sepsis screening criteria plus new or worsening signs or symptoms of suspected infection. Sebastián Campoverde MD HEMATOLOGY Performing Organization Address City/[facility] Co de Phone Number [facility] [address] [place] [address], * PLATELET ESTIMATE (10/26/2023 5:18 AM CDT) Only the most recent of5 resultswithin the time period is included. PLATELET ESTIMATE Adequate Adequate, No estimate 10/26/2023 10:11 AM CDT [facility] Blood BLOOD SPECIMEN / Unknown Butterfly / Unknown 10/26/2023 5:18 AM CDT 10/26/2023 5:29 AM CDT [facility] - 10/26/2023 10:11 AM CDT RN to order if patient presents with two or more positive sepsis screening criteria plus new or worsening signs or symptoms of suspected infection. Sebastián Campoverde MD HEMATOLOGY Performing Organization Address City/[facility] Co de Phone Number [facility] [address] [place] [address], [place] * (ABNORMAL) MANUAL DIFFERENTIAL (10/26/2023 5:18 AM CDT) Only the most recent of3 resultswithin the time period is included. % NEUTROPHILS 22.0 % 10/26/2023 10:11 AM CDT [facility] % LYMPHOCYTES 71.0 % 10/26/2023 10:11 AM CDT [facility] % MONOCYTES 6.0 % 10/26/2023 10:11 AM CDT [facility] % EOSINOPHILS 1.0 % 10/26/2023 10:11 AM CDT [facility] % BASOPHILS 0.0 % 10/26/2023 10:11 AM CDT [facility] NEUTROPHILS ABSOLUTE 2.6 1.7 - 7.0 thou/cu mm 10/26/2023 10:11 AM CDT [facility] LYMPHOCYTES ABSOLUTE 8.5(H) 0.9 - 2.9 thou/cu mm 10/26/2023 10:11 AM CDT [facility] MONOCYTES ABSOLUTE 0.7 <0.9 thou/cu mm 10/26/2023 10:11 AM CDT [facility] EOSINOPHILS ABSOLUTE 0.1 <0.5 thou/cu mm 10/26/2023 10:11 AM CDT [facility] BASOPHILS ABSOLUTE 0.0 <0.3 thou/cu mm 10/26/2023 10:11 AM CDT [facility] Blood BLOOD SPECIMEN / Unknown Butterfly / Unknown 10/26/2023 5:18 AM CDT 10/26/2023 5:29 AM CDT Narrative [facility] - 10/26/2023 10:11 AM CDT RN to order if patient presents with two or more positive sepsis screening criteria plus new or worsening signs or symptoms of suspected infection. Sebastián Campoverde MD HEMATOLOGY [facility] [address] [place], [place] [address] * CLOSTRIDIOIDES DIFFICILE TOXIN PCR (10/25/2023 5:35 PM CDT) CLOSTRIDIUM DIFFICILE PCR Negative 10/25/2023 7:16 PM CDT [facility] PRESUMPTIVE NAP1 STRAIN Negative 10/25/2023 7:16 PM CDT [facility] Stool STOOL SPECIMEN / Unknown Non-Blood / Unknown 10/25/2023 5:35 PM CDT 10/25/2023 5:49 PM CDT Narrative [facility] - 10/25/2023 7:16 PM CDT The NAP1 (027 or BI) strain is a hypervirulent strain. Detection may be useful for epidemiological purposes. Sebastián Campoverde MD MICROBIOLOGY Performing Organization Address [facility]/ZIP Co de Phone Number [facility] [address] [place] [address], [place] * (ABNORMAL) APTT (10/25/2023 4:37 AM CDT) Only the most recent of21 resultswithin the time period is included. APTT >240(HH) 28 - 36 sec 10/25/2023 5:25 AM CDT [facility] Blood BLOOD SPECIMEN / Unknown Butterfly / Unknown 10/25/2023 4:37 AM CDT 10/25/2023 4:50 AM CDT Narrative [facility] - 10/25/2023 5:25 AM CDT Therapeutic Range: 57-87 seconds Sebastián Campoverde MD HEMATOLOGY Performing Organization Address [facility] Co de Phone Number [facility] [address] [place] [address], [place] * BLOOD CULTURE (10/24/2023 1:03 PM CDT) Only the most recent of4 resultswithin the time period is included. CULTURE No Growth. 10/28/2023 1:45 PM CDT [facility] Blood BLOOD SPECIMEN / Unknown Butterfly / Unknown 10/24/2023 1:03 PM CDT 10/24/2023 1:14 PM CDT Dai Hein MD MICROBIOLOGY Performing Organization Address [facility] Co de Phone Number [facility] [address] [place] [address], [place] * SODIUM (10/24/2023 7:06 AM CDT) Only the most recent of5 resultswithin the time period is included. SODIUM 138 136 - 145 mmol/L 10/24/2023 8:14 AM CDT [facility] Blood BLOOD SPECIMEN / Unknown Venipuncture / Unknown 10/24/2023 7:06 AM CDT 10/24/2023 7:18 AM CDT Huseyin Turner MD CHEMISTRY Performing Organization Address [facility] Co de Phone Number [facility] [address] [place] [address], [place] * POTASSIUM (10/24/2023 7:06 AM CDT) Only the most recent of6 resultswithin the time period is included. POTASSIUM 4.5 3.5 - 5.1 mmol/L 10/24/2023 8:14 AM CDT [facility] Blood BLOOD SPECIMEN / Unknown Venipuncture / Unknown 10/24/2023 7:06 AM CDT 10/24/2023 7:18 AM CDT Huseyin Turner MD CHEMISTRY Performing Organization Address [facility] de Phone Number [facility] [address] [place] [address], [place] * CREATININE (10/24/2023 7:06 AM CDT) Only the most recent of5 resultswithin the time period is included. eGFR >90 >90 mL/min/1.7 3m2 10/24/2023 8:14 AM CDT [facility] Comment:As of 2021, eG FR is calculated by the CKD-EPI creatinine equation without race adjustment. ??eGFR can be influenced by muscle mass, exercise, and diet. ??The reported eGFR is an estimation only and is only applicable if the renal function is stable. CREATININE 0.83 0.50 - 0.90 mg/dL 10/24/2023 8:14 AM CDT [facility] Blood BLOOD SPECIMEN / Unknown Venipuncture / Unknown 10/24/2023 7:06 AM CDT 10/24/2023 7:18 AM CDT Huseyin Turner MD CHEMISTRY Performing Organization Address [facility] Co de Phone Number [facility] [address] [place] [address], * (ABNORMAL) CMV IGM ANTIBODY (10/24/2023 7:06 AM CDT) CMV IgM >240.0(H) 0.0 - 29.9 AU/mL 10/26/2023 10:03 AM CDT [facility] Comment:Presence of detectab le CMV IgM antibodies. A positive result is generally indicative of acute infection, reactivation or persistent IgM production. Blood BLOOD SPECIMEN / Unknown Venipuncture / Unknown 10/24/2023 7:06 AM CDT 10/24/2023 7:18 AM CDT Narrative [facility] - 10/26/2023 10:03 AM CDT ? <30.0 AU/ML ? Negative ??30.0 - 34.9 AU/ML ??Equivocal ? >34.9 AU/ML ? Positive ? Dai Hein MD SEND OUTS Performing Organization Address [facility] de Phone Number [facility] [address] [place] [address], * HETEROPHILE (10/24/2023 7:06 AM CDT) HETEROPHILE Negative Negative 10/24/2023 11:14 AM CDT [facility] Blood BLOOD SPECIMEN / Unknown Venipuncture / Unknown 10/24/2023 7:06 AM CDT 10/24/2023 7:19 AM CDT Dai Hein MD HEMATOLOGY Performing Organization Address [facility] Co de Phone Number [facility] [address] [address], [place] * CT CHEST ABDOMEN PELVIS W [...] For Patients: As a result of the Century Cures Act, medical imagingexams and procedure [...] and Reviewed by Angelica Moss MT, MS ([facility]) on 10/24/2023 10/25/2023 1:03 PM CDT [facility] Blood BLOOD SPECIMEN / Unknown Venipuncture / Unknown 10/22/2023 5:02 AM CDT 10/22/2023 5:22 AM CDT Silva Riggins MD LABORATORY Performing Organization Address City/[facility]/ZIP Co de Phone Number [facility] [address] [place] [address], * PHOSPHORUS (10/22/2023 5:02 AM CDT) Only the most recent of2 resultswithin the time period is included. Pathologist [facility] PHOSPHORUS 2.7 2.5 - 4.5 mg/dL 10/22/2023 6:02 AM CDT [facility] Blood BLOOD SPECIMEN / Unknown Venipuncture / Unknown 10/22/2023 5:02 AM CDT 10/22/2023 5:22 AM CDT Silva Riggins MD CHEMISTRY Performing Organization Address City/[facility] Co de Phone Number [facility] [address] [place] [address], [place] * (ABNORMAL) HEPATIC FUNCTION PANEL (10/22/2023 5:02 AM CDT) Only the most recent of2 resultswithin the time period is included. Pathologist [facility] ALBUMIN 2.9(L) 4.0 - 4.9 g/dL 10/22/2023 6:07 AM CDT [facility] PROTEIN,TOTAL 6.6 6.0 - 8.0 g/dL 10/22/2023 6:07 AM CDT [facility] BILIRUBIN,TOTAL 0.5 0.0 - 1.2 mg/dL 10/22/2023 6:07 AM CDT [facility] BILIRUBIN,DIRECT <0.2 0.0 - 0.3 mg/dL 10/22/2023 6:07 AM CDT [facility] BILIRUBIN,INDIRE CT 10/22/2023 6:07 AM CDT [facility] Comment:Unable to calculate, Direct Bili <0.2 ALK PHOSPHATASE 149(H) 35 - 104 IU/L 10/22/2023 6:07 AM CDT [facility] ALT (SGPT) 46(H) 10 - 35 IU/L 10/22/2023 6:07 AM CDT [facility] AST (SGOT) 46(H) 10 - 35 IU/L 10/22/2023 6:07 AM CDT [facility] Blood BLOOD SPECIMEN / Unknown Venipuncture / Unknown 10/22/2023 5:02 AM CDT 10/22/2023 5:22 AM CDT Silva Riggins MD CHEMISTRY [facility] [address] [place] [address], * SCAN-CARDIAC STRIP (10/21/2023 11:01 PM CDT) Scanner OTHER * LC ACUTE HEPATITIS (10/21/2023 10:13 AM CDT) Hep A IgM Ab Negative Negative 10/25/2023 1:09 PM CDT [facility] Hep B Surf Ag Scr Confirm. indicated Negative 10/25/2023 1:09 PM CDT [facility] Hep B Core IgM Ab Negative Negative 10/25/2023 1:09 PM CDT [facility]) HCV Ab Non Reactive Non Reactive 10/25/2023 1:09 PM CDT [facility] Blood BLOOD SPECIMEN / Unknown Venipuncture / Unknown 10/21/2023 10:13 AM CDT 10/21/2023 10:21 AM CDT [facility] (CET) - 10/25/2023 1:09 PM CDT Performed at: ??[address] ??[id number] Swing Saw Operator: Abdiaziz Escobar MD, Phone: ??[phone] Silva Riggins MD LABORATORY Performing Organization Address City/[facility]/ZIP Co de Phone Number [facility] (CET) [address] [place] [address], [place] * LC HCV QN INTERP [id number] (10/21/2023 10:13 AM CDT) [facility] HCV Neg Interp Comment 10/25/2023 1:09 PM CDT [facility] ([facility]) Comment: Not infected with HCV unless early or acute infection is suspected (which may be delayed in an immunocompromised individual), or other evidence exists to indicate HCV infection. Blood BLOOD SPECIMEN / Unknown Venipuncture / Unknown 10/21/2023 10:13 AM CDT 10/21/2023 10:21 AM CDT [facility] (CET) - 10/25/2023 1:09 PM CDT Performed at: ??[address] ??[id number] Swing Saw Operator: Abdiaziz Escobar MD, Phone: ??[phone] Silva Riggins MD LABORATORY Performing Organization Address [facility]/ZIP Co de Phone Number [facility] (CET) [address] [place] [address], [place] * LC HBSAG CONF [id number] (10/21/2023 10:13 AM CDT) Pathologist [facility] HBsAg Conf Negative NEGATIVE 10/25/2023 1:09 PM CDT [facility] (CET) Comment:Final result obtaine d by neutralization. Blood BLOOD SPECIMEN / Unknown Venipuncture / Unknown 10/21/2023 10:13 AM CDT 10/21/2023 10:21 AM CDT Narrative [facility] (CET) - 10/25/2023 1:09 PM CDT Performed at: ??01 - [facility] [address] [place], [place] ??[id number] Swing Saw Operator: Abdiaziz Escobar MD, Phone: ??[phone] Silva Riggins MD LABORATORY [facility] ([facility]) [facility] [place] [address], * XR CHEST 1 VIEW PORTABLE (10/21/2023 [...] DO @ Oct ??2023 ??9:06AM (Electronically Signed) [email or web address] Procedure Note Lou Sharif DO - 10/21/2023 [...] @ Oct 21 2023 9:06AM (Electronically Signed) [email or web address] Silva Riggins MD GENERAL IMAGING * Hemoglobin A1C (10/21/2023 4:26 AM CDT) HEMOGLOBIN A1C MONITORING (POCT) 5.1 <=6.4 % 10/21/2023 11:33 AM CDT [facility] Blood BLOOD SPECIMEN / Unknown Butterfly / Unknown 10/21/2023 4:26 AM CDT 10/21/2023 4:32 AM CDT Narrative [facility] - 10/21/2023 11:33 AM CDT ? [...] Anemias, Splenectomy ? Silva Riggins MD [facility]Y [facility] [address] [place] [address], * SCAN-CARDIAC STRIP (10/21/2023 12:00 AM CDT) Scanner OTHER * EKG 12 LEAD (10/20/2023 10:30 AM CDT) Only the most recent of2 resultswithin the time period is included. Interpretation Sinus bradycardia Lateral infarct (cited on [...] NOW QTc 456 ms BEYOND NOW P [place] 29 degrees BEYOND NOW R [place] 13 degrees BEYOND NOW T [place] 6 degrees BEYOND NOW 10/20/2023 10:3 0 AM CDT 10/21/2023 10:34 AM CDT Silva Riggins MD EKG ORD Performing Organization Address City/[facility]/ZIP Co de Phone Number BEYOND NOW [place], [place] * ANTI HIV 1/2 (10/20/2023 4:49 AM CDT) Pathologist [facility] HIV-1/HIV-2 SCREEN Non-Reacti ve Non-Reacti ve 10/20/2023 10:29 PM CDT [facility] Comment:HIV-1 p24 and HIV-1/ HIV-2 Ab Not Detected. Blood BLOOD SPECIMEN / Unknown Venipuncture / Unknown 10/20/2023 4:49 AM CDT 10/20/2023 5:10 AM CDT Ingris Crespo MD SEND OUTS Performing Organization Address City/[facility]/ZIP Co de Phone Number [facility] [address] [place] [address], * SCAN-CARDIAC STRIP (10/19/2023 8:09 PM CDT) Scanner OTHER * MRSA/SA PCR (10/19/2023 1:58 PM CDT) Pathologist [facility] MRSA DNA PCR Negative Negative 10/19/2023 4:17 PM CDT [facility] STAPHYLOCOCCUS AUREUS PCR Negative Negative 10/19/2023 4:17 PM CDT [facility] Other SPECIMEN FROM INTERNAL NOSE / Unknown Non-Blood / Unknown 10/19/2023 1:58 PM CDT 10/19/2023 2:08 PM CDT Narrative [facility] - 10/19/2023 4:17 PM CDT Test result does not preclude MRSA or SA nasal colonization. Dai Hein MD MICROBIOLOGY Performing Organization Address [facility] Co de Phone Number [facility] [address] [place] [address], * LEGIONELLA AND PNEUMOCOCCAL URINE ANTIGEN (10/19/2023 1:50 PM CDT) Pathologist [facility] STREP PNEUMO ANTIGEN Negative 10/19/2023 3:39 PM CDT [facility] Comment:Presumptive negative for pneumococcal pneumonia, suggesting no current or recent pneumococcal infection. Infection due to S. pneumoniae cannot be ruled out since the antigen present in the sample may be below the detection limit of the test. LEGIONELLA ANTIGEN Negative 10/19/2023 3:39 PM CDT [facility] Comment:Negative for L.pneum ophila serogroup [...] 2:09 PM CDT Cosmo Ruiz MD MICROBIOLOGY Performing Organization Address [facility]/ZIP Co de Phone Number [facility] [address] [place] [address], * (ABNORMAL) TROPONIN T (HS) ONE TIME (10/19/2023 12:18 PM CDT) [facility] TROPONIN T HS 27(H) 6-10 ng/L ng/L 10/19/2023 1:35 PM CDT [facility] Blood BLOOD SPECIMEN / Unknown Venipuncture / Unknown 10/19/2023 12:18 PM CDT 10/19/2023 12:50 PM CDT [facility] - 10/19/2023 1:35 PM CDT hs-cTnT [...] department patient population. Cosmo Ruiz MD CHEMISTRY [facility] [address] [place] [address], * SCAN-CARDIAC STRIP (10/19/2023 10:50 AM CDT) Scanner OTHER * PROCALCITONIN (10/19/2023 10:38 AM CDT) Only the most recent of2 resultswithin the time period is included. PROCALCITONIN 0.30 ng/ml 10/19/2023 11:44 AM CDT [facility] Blood BLOOD SPECIMEN / Unknown Venipuncture / Unknown 10/19/2023 10:38 AM CDT 10/19/2023 10:45 AM CDT Narrative [facility] - 10/19/2023 11:44 AM [...] are obtained. Cosmo Ruiz MD SEND OUTS [facility] [address] [place] [address], * SCAN-CARDIAC STRIP (10/19/2023 9:30 AM CDT) Scanner OTHER * PNH PANEL (10/19/2023 8:56 AM CDT) Case Report Flow Cytometry ?Case: [id number] ? Authorizing Provider: ??Cosmo Ruiz, ?? Collected: ? 10/19/2023 0856 ? Ordering Location: ? [facility] ?Received: ?10/19/2023 0951 ? Hospital ? Pathologist: ? Vamsi Macario, ? Specimen: ?Blood ? 10/20/2023 1:03 PM CDT [facility]-C ENTRAL LAB[facility]ATORY Results Paroxysmal Nocturnal Hemoglobinuria [...] the PNH clone. Erythrocytes are gated using TF028v. The GPI-linked antibody CD59 is employed to identify the RBC PNH clone. These results and cytograms have been verified by Dr. Vamsi Macario MD, 10/20/2023 1:03 PM This test was developed and its performance characteristics verified by [facility]. It has not been cleared or approved by the [place] Food and Drug Administration. This test is used for clinical purposes and should not be regarded as investigational or for research. Analytic Flow Tech: Marilyn Rivera, 10/19/2023 3:13 PM Verifying Flow Tech: Rosario De Luna, 10/19/2023 3:15 PM 10/20/2023 1:03 PM CDT [facility] Additional Information Interpreted at [facility], Central Laboratory - [address] [address] 10/20/2023 1:03 PM CDT [facility] Blood BLOOD SPECIMEN / Unknown 10/19/2023 8:56 AM CDT 10/19/2023 9:51 AM CDT Cosmo Ruiz MD [facility]ATORY [facility] [address] [place] [address], * SCAN-CARDIAC STRIP (10/19/2023 8:51 AM CDT) Scanner OTHER * SCAN-CARDIAC STRIP (10/19/2023 1:42 AM CDT) Scanner OTHER * (ABNORMAL) Protime-INR - PAPER CONE MAKER (10/18/2023 10:38 PM CDT) INR 1.5(H) <1.3 10/18/2023 10:54 PM CDT [facility] PROTIME 16.4(H) 10.3 - 12.3 sec 10/18/2023 10:54 PM CDT [facility] Blood BLOOD SPECIMEN / Unknown Venipuncture / Unknown 10/18/2023 10:38 PM CDT 10/18/2023 10:44 PM CDT Narrative [facility] - 10/18/2023 10:54 PM [...] is on UFH. Huseyin Turner MD HEMATOLOGY [facility] [address] [place] [address], * WHITE BLOOD COUNT (10/18/2023 6:45 AM CDT) Only the most recent of3 resultswithin the time period is included. WHITE BLOOD COUNT 6.9 4.5 - 11.0 thou/cu mm 10/18/2023 10:34 AM CDT [facility] NRBC 0.3 % 10/18/2023 10:34 AM CDT [facility] ABS NRBC 0.0 thou /cu mm 10/18/2023 10:34 AM CDT [facility] Blood BLOOD SPECIMEN / Unknown Venipuncture / Unknown 10/18/2023 6:45 AM CDT 10/18/2023 6:58 AM CDT Narrative [facility] - 10/18/2023 10:34 AM CDT Every morning while on IV heparin. Every morning while on IV heparin. Necessary every morning while on IV heparin. Yoan Acuña RN HEMATOLOGY Performing Organization Address [facility] Co de Phone Number [facility] [address] [address], * SCAN-CARDIAC STRIP (10/18/2023 1:06 AM CDT) Scanner OTHER * SCAN-CARDIAC STRIP (10/17/2023 1:09 AM CDT) Scanner OTHER * (ABNORMAL) CO2,TOTAL (10/16/2023 9:33 AM CDT) Only the most recent of2 resultswithin the time period is included. CO2,TOTAL 33(H) 22 - 29 mmol/L 10/16/2023 10:24 AM CDT [facility] Blood BLOOD SPECIMEN / Unknown Venipuncture / Unknown 10/16/2023 9:33 AM CDT 10/16/2023 9:51 AM CDT Arely Ayon MD CHEMISTRY Performing Organization Address [facility] Co de Phone Number [facility] [address] [address], * SCAN-CARDIAC STRIP (10/16/2023 1:45 AM CDT) Scanner OTHER * Factor 10 chromogenic TODAY (10/15/2023 12:07 PM CDT) FACTOR 10 CHROMOGENIC 70 65 - 130 % 10/15/2023 12:47 PM CDT [facility] Blood BLOOD SPECIMEN / Unknown Venipuncture / Unknown 10/15/2023 12:07 PM CDT 10/15/2023 12:22 PM CDT Narrative [facility] - 10/15/2023 12:47 PM CDT Therapeutic Range 20-40% Arely Ayon MD SEND OUTS Performing Organization Address City/[facility]/ZIP Co de Phone Number [facility] [address] [address], [place] * Bilirubin, total/direct AM (10/15/2023 6:39 AM CDT) BILIRUBIN,TOTA L 0.4 0.0 - 1.2 mg/dL 10/15/2023 11:19 AM CDT [facility] BILIRUBIN,DIRE CT <0.2 0.0 - 0.3 mg/dL 10/15/2023 11:19 AM CDT [facility] BILIRUBIN,HARMONY RECT 10/15/2023 11:19 AM CDT [facility] Comment:Unable to calculate, Direct Bili <0.2 Blood BLOOD SPECIMEN / Unknown Butterfly / Unknown 10/15/2023 6:39 AM CDT 10/15/2023 6:53 AM CDT Arely Ayon MD CHEMISTRY Performing Organization Address [facility] Co de Phone Number [facility] [address] [address], [place] * HAPTOGLOBIN (10/15/2023 6:39 AM CDT) Haptoglobin 114 30 - 200 mg/dL 10/15/2023 11:14 AM CDT [facility] Blood BLOOD SPECIMEN / Unknown Butterfly / Unknown 10/15/2023 6:39 AM CDT 10/15/2023 6:53 AM CDT Arely Ayon MD CHEMISTRY Performing Organization Address City/[facility]/ZIP Co de Phone Number [facility] [address] [place] [address], [place] * SCAN-CARDIAC STRIP (10/15/2023 2:17 AM CDT) Scanner OTHER * DEHYDRATION UNIT OPERATOR THIN PREP PAP SCREEN IMAGED (03/22/2014 10:15 AM LOADERS) DEHYDRATION UNIT OPERATOR CYTOLOGY See Anatomic Pathology case 03/27/2014 5:04 PM LOADERS [facility] Specimen (specimen) (Cervical/Vagina l) Non-Blood / Unknown 03/22/2014 10:15 AM LOADERS 03/22/2014 4:26 PM LOADERS Vivian Hair MD PATHOLOGY/CY TOLOGY [facility] LAB[facility]AT[facility] [address] [place] [address], from Last 3 Months or Most Recently Relevant to Health Maintenance Advance Directives * Full Code (Latest Code Status on File) Date Activated Date Inactivated Comments 10/14/2023 5:43 AM 11/01/2023 6:39 PM Question Answer Comments Code Status Discussion: Reviewed Preferences Care Teams Apartment Leasing Consultant Relationship Specialty Start Date End Date Pcp, No . PCP - General 11/17/18 Pcp, No . 11/17/18
--- OUTSIDE RECORDS SUMMARY | 2024-01-15 16:05 | XMS_ITS | Encounter Summary ---
Author Organization [facility] Address [address] [place] [address] Care Team Providers Care Fretted Instrument Repairer Name Role Phone Albania Salcido M.D. Primary Care Provider [phone] Encounter Details Date Type Department Care Team (Late st Contact Info) Description 11/14/2003 Historical Ophthalmology [facility]ST [facility] [address] M.D. [address] [place] [address] Social History Tobacco Use Types Packs/Day Years Used Date Smoking Tobacco: Never Assessed Sex and Gender Information Value Date Recorded Sex Assigned at Female 04/24/2017 7:40 PM FAMILY LAW ATTORNEY Gender Identity Female 04/24/2017 7:40 PM FAMILY LAW ATTORNEY Sexual Orientation Straight 04/24/2017 7: 40 PM FAMILY LAW ATTORNEY documented as of this encounter Progress Notes [...] accommodative esotropia CDM Reports - EYEGEN Id: [id number] Status: Fnl documented in this encounter Plan of Treatment Not on file documented as of this encounter Visit Diagnoses Not on filedocumented in this encounter Additional Health Concerns Infection Onset Date Last Indicated Resolved Time COVID19 Pending 05/05/2020 05/05/2020 05/06/2020 1 2:51 AM FAMILY LAW ATTORNEY COVID19 Pending 05/07/2020 05/07/2020 05/07/2020 1 1:19 PM FAMILY LAW ATTORNEY COVID19 Pending 06/05/2020 06/05/2020 06/05/2020 4 :44 AM FAMILY LAW ATTORNEY COVID19 Pending 11/12/2020 11/13/2020 11/13/2020 8 :51 PM CDT documented as of this encounter Care Teams Fretted Instrument Repairer Relationship Specialty Start Date End Date Albania Salcido M.D. [address] [place] [phone] PCP - General Family Medicine 07/07/22 documented as of this encounter
--- OUTSIDE RECORDS SUMMARY | 2024-01-15 16:05 | XMS_ITS | Encounter Summary ---
Author Organization [facility] Address [address] [place] [address] Care Team Providers Care Livestock Yard Attendant Name Role Phone Albania Salcido M.D. Primary Care Provider [phone] Encounter Details Date Type Department Care Team (Late st Contact Info) Description 02/20/2002 Historical Ophthalmology [address]ST OPH Kyle [address] M.D. [address] [place] [address] Social History Tobacco Use Types Packs/Day Years Used Date Smoking Tobacco: Never Assessed Sex and Gender Information Value Date Recorded Sex Assigned at Female 04/24/2017 7:40 PM BACKER UP Gender Identity Female 04/24/2017 7:40 PM BACKER UP Sexual Orientation Straight 04/24/2017 7: 40 PM BACKER UP documented as of this encounter Progress Notes [...] 1 yr CDM Reports - EYEGEN Id: [id number] Status: Fnl documented in this encounter Plan of Treatment Not on file documented as of this encounter Visit Diagnoses Not on filedocumented in this encounter Additional Health Concerns Infection Onset Date Last Indicated Resolved Time COVID19 Pending 05/05/2020 05/05/2020 05/06/2020 1 2:51 AM BACKER UP COVID19 Pending 05/07/2020 05/07/2020 05/07/2020 1 1:19 PM BACKER UP COVID19 Pending 06/05/2020 06/05/2020 06/05/2020 4 :44 AM BACKER UP COVID19 Pending 11/12/2020 11/13/2020 11/13/2020 8 :51 PM CDT documented as of this encounter Care Teams Livestock Yard Attendant Relationship Specialty Start Date End Date Albania Salcido M.D. [address] [place] [phone] PCP - General Family Medicine 07/07/22 documented as of this encounter
--- OUTSIDE RECORDS SUMMARY | 2024-01-15 16:05 | XMS_ITS | Encounter Summary ---
Author Organization [facility] Address [address] [place] [address] Care Team Providers Care Infrastructure Manager Name Role Phone Albania Salcido M.D. Primary Care Provider + [phone] Encounter Details Date Type Department Care Team (Late st Contact Info) Description 08/25/2020 Orders Only Department of Family Medicine, [facility], in [place], [place] [address] [place] [phone] Soraya Hudson, TAMMIE, C.N.P., R.N. Social History [...] any clubs o r organizations such as taoist groups, unions, fraternal or athletic groups, or [...] Score 3 09/23/2022 [facility] - Occupational Stress Questionnaire Answer Date Recorded [...] Sex Assigned at Female 04/24/2017 7:40 PM ROUGHER HELPER Gender Identity Female 04/24/2017 7:40 PM ROUGHER HELPER Sexual Orientation Straight 04/24/2017 7: 40 PM ROUGHER HELPER documented as of this encounter Plan of Treatment Not on file documented as of this encounter Visit Diagnoses Not on filedocumented in this encounter Additional Health Concerns Infection Onset Date Last Indicated Resolved Time COVID19 Pending 11/12/2020 11/13/2020 11/13/2020 8 :51 PM CDT Assessment Noted Time PHQ-9 Depression Total Score: 2 06/24/19 21 1:01 PM ROUGHER HELPER documented as of this encounter Care Teams Infrastructure Manager Relationship Specialty Start Date End Date Albania Salcido M.D. [address] [place] [address] Kelly Hudson, ROLA [phone] PCP - General Family Medicine 07/07/22 documented as of this encounter
--- OUTSIDE RECORDS SUMMARY | 2024-01-15 16:05 | XMS_ITS | Encounter Summary ---
Author Organization [facility] Address [address] [place] [address] Care Team Providers Care Loading Supervisor Name Role Phone Albania Salcido M.D. Primary Care Provider + [phone] Encounter Details Date Type Department Care Team ([facility] st Contact Info) Description 12/01/2023 CPAP Download Remote Patient Monitoring [facility] [address] [place] [address] [facility], Provider, M.B., Ph.D. Social History Tobacco Use Types Packs/Day Years [...] any clubs o r organizations such as oriental orthodox groups, unions, fraternal or athletic groups, or [...] Answer Date Recorded PHQ-2 Score 3 09/23/2022 [facility] of Occupat ional Health - [...] Sex Assigned at Female 04/24/2017 7:40 PM SPRING FORMER HAND Gender Identity Female 04/24/2017 7:40 PM SPRING FORMER HAND Sexual Orientation Straight 04/24/2017 7: 40 PM SPRING FORMER HAND documented as of this encounter Plan of Treatment Not on file documented as of this encounter Visit Diagnoses Not on filedocumented in this encounter Additional Health Concerns Assessment Noted Time PHQ-9 Depression Total Score: 10 023 3:46 PM CDT documented as of this encounter Care Teams Loading Supervisor Relationship Specialty Start Date End Date Albania Salcido M.D. [address] [place] [phone] PCP - General Family Medicine 3/22/23 documented as of this encounter
--- OUTSIDE RECORDS SUMMARY | 2024-01-15 16:05 | XMS_ITS | Encounter Summary ---
Author Organization [facility] Address [address] [place] [address] Care Team Providers Care Cleaner Housekeeping Name Role Phone Albania Salcido M.D. Primary Care Provider + [phone] Encounter Details Date Type Department Care Team ([facility] st Contact Info) Description 09/30/2023 CPAP Download Remote Patient Monitoring [facility] [address] [place] [address] [facility], Provider, M.B., Ph.D. Social History Tobacco Use [...] often do you attend chur ch or christian services? 1 to 4 times per year 03/24/2022 Do you belong to any clubs o r organizations such as shinto groups, unions, fraternal or athletic groups, or [...] Answer Date Recorded PHQ-2 Score 3 09/23/2022 [facility] of Occupat ional Health - [...] place to sleep or slept in a senior living (including now)? No 03/24/2022 Depression Answer Date [...] Sex Assigned at Female 04/24/2017 7:40 PM AUTO DISMANTLER Gender Identity Female 04/24/2017 7:40 PM AUTO DISMANTLER Sexual Orientation Straight 04/24/2017 7: 40 PM AUTO DISMANTLER documented as of this encounter Plan of Treatment Not on file documented as of this encounter Visit Diagnoses Not on filedocumented in this encounter Additional Health Concerns Assessment Noted Time PHQ-9 Depression Total Score: 10 023 3:46 PM CDT documented as of this encounter Care Teams Cleaner Housekeeping Relationship Specialty Start Date End Date Albania Salcido M.D. [address] [place] [phone] PCP - General Family Medicine 3/22/23 documented as of this encounter
--- OUTSIDE RECORDS SUMMARY | 2024-01-15 16:05 | XMS_ITS | Encounter Summary ---
Author Organization [facility] Address [address] [place] [address] Care Team Providers Care Fur Trimming Machine Operator Name Role Phone Albania Salcido M.D. Primary Care Provider + [phone] Encounter Details Date Type Department Care Team (Late st Contact Info) Description 10/31/2023 CPAP Download Remote Patient Monitoring [facility] [address] [place] [address] [facility], Provider, M.B., Ph.D. Social History Tobacco Use [...] often do you attend chur ch or restorationist services? 1 to 4 times per year 03/24/2022 Do you belong to any clubs o r organizations such as scientology groups, unions, fraternal or athletic groups, or [...] Sex Assigned at Female 04/24/2017 7:40 PM INSURANCE SALES REPRESENTATIVE Gender Identity Female 04/24/2017 7:40 PM INSURANCE SALES REPRESENTATIVE Sexual Orientation Straight 04/24/2017 7: 40 PM INSURANCE SALES REPRESENTATIVE documented as of this encounter Plan of Treatment Not on file documented as of this encounter Visit Diagnoses Not on filedocumented in this encounter Additional Health Concerns Assessment Noted Time PHQ-9 Depression Total Score: 10 023 3:46 PM CDT documented as of this encounter Care Teams Fur Trimming Machine Operator Relationship Specialty Start Date End Date Albania Salcido M.D. [address] [place] [phone] PCP - General Family Medicine 3/22/23 documented as of this encounter
--- OUTSIDE RECORDS SUMMARY | 2024-01-15 16:05 | XMS_ITS ---
Author Organization [facility] Address [address] [place] [address] Care Team Providers Care Wire Chief Name Role Phone Unavailable Unavailable Unavailable Surgery Details Not on file Complications Check Surgery Details section. Procedure Estimated Blood Loss Check Surgery Details section. Procedure Findings Check Surgery Details section. Procedure Specimens Taken Check Surgery Details section.
== END 2024-01-11 16:01 | disposition home or self-care (01) ==
LOC: NFLDREF 01-15 16:02
PROVIDERS: PCP Family Medicine; Referring Provider Family Medicine; Visit Provider Family Medicine
DX: E03.9 Hypothyroidism, unspecified (principal); L65.9 Nonscarring hair loss, unspecified; F32.A Depression, unspecified
CPT/HCPCS: 80053; 82306; 82607; 84443

== ENCOUNTER 2024-03-16 11:23 | Outpatient (CLI) | payer OTHER, SELFPAY ==
--- OUTSIDE RECORDS SUMMARY | 2024-03-16 11:27 | XMS_ITS ---
Author Organization [facility] Address [address] [place] [address] Care Team Providers Care Larry Operator Name Role Phone Unavailable Unavailable Unavailable Surgery Details Not on file Complications Check Surgery Details section. Procedure Estimated Blood Loss Check Surgery Details section. Procedure Findings Check Surgery Details section. Procedure Specimens Taken Check Surgery Details section.
--- OUTSIDE RECORDS SUMMARY | 2024-03-16 11:27 | XMS_ITS | Encounter Summary ---
Author Organization [facility] Address [address] [place] [address] Care Team Providers Care Bench Inspector Name Role Phone Albania Salcido M.D. Primary Care Provider [phone] Encounter Details Date Type Department Care Team (Late st Contact Info) Description 02/20/2002 Historical Ophthalmology RST OPH Kyle [address] M.D. [address] [place] [address] Social History Tobacco Use Types Packs/Day Years Used Date Smoking Tobacco: Never Assessed Comments Unknown Sex and Gender Information Value Date Recorded Sex Assigned at Female 04/24/2017 7:40 PM MOTION PICTURE CAMERA OPERATOR Legal Sex Female 10:30 AM MOTION PICTURE CAMERA OPERATOR Gender Identity Female 04/24/2017 7:40 PM MOTION PICTURE CAMERA OPERATOR Sexual Orientation Straight 04/24/2017 7: 40 PM MOTION PICTURE CAMERA OPERATOR documented as of this encounter Progress [...] 1 yr CDM Reports - EYEGEN Id: [id number] Status: Fnl documented in this encounter Plan of Treatment Not on file documented as of this encounter Visit Diagnoses Not on filedocumented in this encounter Additional Health Concerns Infection Onset Date Last Indicated Resolved Time COVID19 Pending 05/05/2020 05/05/2020 05/06/2020 1 2:51 AM MOTION PICTURE CAMERA OPERATOR COVID19 Pending 05/07/2020 05/07/2020 05/07/2020 1 1:19 PM MOTION PICTURE CAMERA OPERATOR COVID19 Pending 06/05/2020 06/05/2020 06/05/2020 4 :44 AM MOTION PICTURE CAMERA OPERATOR COVID19 Pending 11/12/2020 11/13/2020 11/13/2020 8 :51 PM CDT documented as of this encounter Care Teams Bench Inspector Relationship Specialty Start Date End Date Albania Salcido M.D. [address] [place] [phone] PCP - General Family Medicine 07/07/22 documented as of this encounter
--- OUTSIDE RECORDS SUMMARY | 2024-03-16 11:27 | XMS_ITS | Referral Summary ---
Author Organization [facility] Address [address] [place] [address] Care Team Providers Care Squad Boss Name Role Phone Albania Salcido M.D. Primary Care Provider [phone] Source Comments Patient records contain information from all sites at [facility]. For routine questions regarding patient records, call [phone] during business hours, M-F 8:00 AM - 5:00 PM Central Time. Record requests for emergency care only can be directed to [phone] at any time.[facility] Encounters Date Type Department Care Team Description 03/13/2024 Community Orders [facility] [address] [place] [address] Angelica Sanon M.D. Infarction Spleen (Primary Dx); Embolus Pulmonary Personal History 03/03/2024 CPAP Download Remote Patient Monitoring [facility] [address] [place] [address] [facility], ProviderMD 02/01/2024 CPAP Download Remote Patient Monitoring [facility] [address] [place] [address] [facility], ProviderMD 01/01/2024 CPAP Download Remote Patient Monitoring [facility] [address] [place] [address] [facility], ProviderMD 12/20/2023 Orders Only [facility] Albania Waterman M.D. Monitoring For Therapeutic Drug Therapy from Last 3 Months Allergies Active Allergy Reactions Criticality Noted Date Comments Cefaclor Hives (Reselect Reaction) 07/14/2013 Penicillin allergy skin testing done on 01/11/20 was negative. May use penicillins. Avoid cephalosporins. Menthol Rash 03/22/2014 Medications * This document contains information received from the source organization and may not represent a complete record from that organization. POLYETHYLENE GLYCOL 3350 ORAL Take 17 g by mouth as needed. 7 Active erythromycin with ethanol (for_THERAMYCIN) 2 % external solution as needed. 5 Active loperamide (for_IMODIUM) 2 mg capsule Take 2 mg by mouth 4 (four) times a day as needed. Active fexofenadine (YOLANDA) 180 mg tabletIndication s:Rhinitis Allergic Take 1 tablet (180 mg total) by mouth daily as needed for allergies. 30 tablet 11 9 Active miconazole (MICATIN) 2 % creamIndications :Candidiasis Intertrigo Apply 1 application topically 2 (two) times a day as needed for itching. 28.35 g 3 0 Active albuterol (Ventolin HFA) inhalerIndicatio ns:Asthma Mild Intermittent (HCC) Inhale 2 puffs every 4 (four) hours as needed for wheezing or shortness of breath. 1 Inhaler 11 0 Active sennosides (SENOKOT) 8.6 mg tablet Take 2 tablets (17.2 mg total) by mouth at bedtime as needed for constipation. 1 Active DME CPAPIndications: Apnea Sleep Obstructive DME Order 1 each 11 2 Active levonorgestreL (MIRENA) 20 mcg/24 hours (8 yrs) 52 mg IUD 1 each by intrauterine route continuously. 2 Active levothyroxine (SYNTHROID, LEVOTHROID) 175 mcg tabletIndication s:Hypothyroidism TAKE 1 TABLET BY MOUTH EVERY MORNING BEFORE BREAKFAST 90 tablet 3 3 Active busPIRone (BUSPAR) 5 mg tabletIndication s:Anxiety Generalized Disorder TAKE 1 TABLET BY MOUTH TWO TIMES A DAY 180 tablet 3 3 Active escitalopram (LEXAPRO) 10 mg tabletIndication s:Depression Major Recurrent Mild (HCC) TAKE 1 TABLET BY MOUTH DAILY 90 tablet 3 4 025 Active Active Problems Patient Care Coordination No te Formatting of this note migh t be different from the original. ++++Please assess if patient would like to go to her peds ortho appt after seeing proceduralist++++ Delivery Plan: Care Team/nursing team: Per Dr. Rosalind BRADY/Carolynl team (Marcy and Veronica Gtz) Patient requested that ortho be scheduled when she is closer to delivery. Order is in. Delivery service: M Partner name: Marcel Pertinent medical issues for [...] ordered Additional consults needed/completed: PCN Allergy: Ordered [facility] consult: Completed on 01/[address] Cervantes [...] and Infarction Pulmonary emboli Left, multiple, hospitalized [facility] Embolus Pulmonary 09/12/2013 06/12/2018 Overview (09/07/2016): [...] week 03/24/2022 How often do you attend [facility] or roman catholic services? 1 to 4 times per year 03/24/2022 Do you belong to any clubs o r organizations such as voodoo groups, unions, fraternal or athletic groups, or [...] Answer Date Recorded PHQ-2 Score 3 09/23/2022 [facility] of Occupat ional [facility] - Occupational Stress Questionnaire Answer Date Recorded [...] place to sleep or slept in a skilled nursing (including now)? 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 Not on file Not on file Last Filed Vital Signs Vital Sign Reading Time Taken Comments Blood Pressure 115/78 09/23/2022 3:48 PM CDT Pulse 79 09/23/2022 3:48 PM CDT Temperature 36.2 C (97.1 F) 09/23/2022 3:48 PM CDT Respiratory Rate 18 09/23/2022 3:48 PM CDT Oxygen Saturation 100% 07/17/2020 3:27 PM CDT Inhaled Oxygen Concentration - - Weight 100 kg (220 lb 7.4 oz) 09/23/2022 3:48 PM CDT Height 159 cm (5' 2.6) 09/23/2022 3:48 PM CDT Body Mass Index 39.56 09/23/2022 3:48 PM CDT Plan of Treatment Not on file Medical Devices Implanted Type Area Sustainable Landscape Architect Device Identifier Shelf Expiration Date Model / Serial / Lot Intrauterine Device-04/07/20 22 Implanted:04/07 (Quantity not on file) Intrauterine Device Uterus Procedures Procedure Name Priority Date/Time Associated Diagnosis Comments LIPID PANEL, S Routine 03/23/2022 7:42 AM SALES AGENT INSURANCE Screening Mammogram Breast Cancer BASIC METABOLIC PANEL, S/P Routine 03/23/2022 7:42 AM SALES AGENT INSURANCE Menorrhagia THINPREP W/HPV CO-TEST DIAGNOSTIC Routine 06/23/2020 1:52 PM SALES AGENT INSURANCE Pap Smear Examination HIV-1/-2 AG AND AB SCRN, PLASMA Routine 12/21/2019 12:40 PM CDT High Risk from Last 3 Months or Most Recently Relevant to Health Maintenance Results * (ABNORMAL) Lipid Panel (03/23/2022 7:42 AM SALES AGENT INSURANCE) Triglycerides 120 mg/dL 03/23/2022 1:45 PM SALES AGENT INSURANCE OWAT Comment: ----REFERENCE VALUE---- Normal: <150 mg/dL Borderline High: 150-199 mg/dL High: 200-499 mg/dL Very High: > or =500 mg/dL Cholesterol, Total 133 mg/dL 2021 1:45 PM SALES AGENT INSURANCE OWAT Comment: ----REFERENCE VALUE---- Desirable: < 200 mg/dL Borderline High: 200 - 239 mg/dL High: > or = 240 mg/dL Cholesterol, LDL, Calculated 83 mg/dL 03/23/2022 1:45 PM SALES AGENT INSURANCE OWAT Comment: ----REFERENCE VALUE---- Desirable: <100 mg/dL Above Desirable: 100-129 mg/dL Borderline High: 130-159 mg/dL High: 160-189 mg/dL Very High: >=190 mg/dL ----ADDITIONAL INFORMATION---- LDL cholesterol calculated using the Rojo/NIH equation. Cholesterol, HDL 28(L) >=50 mg/dL 03/23/20 1:45 PM SALES AGENT INSURANCE OWAT Cholesterol, Non-HDL, Calculated 105 mg/dL 03/23/2022 1:45 PM SALES AGENT INSURANCE OWAT Comment: ----REFERENCE VALUE---- Desirable: <130 mg/dL Above Desirable: 130-159 mg/dL Borderline High: 160-189 mg/dL High: 190-219 mg/dL Very High: > or =220 mg/dL Fasting (8 HR or more) Yes 03/23/2022 11:15 AM SALES AGENT INSURANCE OWAT Blood (Blood, Venous) 03/23/2022 7:42 AM SALES AGENT INSURANCE 03/23/2022 11:15 AM SALES AGENT INSURANCE us Albania Salcido M.D. LAB BLOOD ADD-ON Final Resul t [facility] [address] [place] [address], [place] OWAT [facility] [place] [address] [place] [address] * Basic Metabolic Panel (03/23/2022 7:42 AM SALES AGENT INSURANCE) Potassium, P 4.0 3.6 - 5.2 mmol/L 03/23/2022 1:45 PM SALES AGENT INSURANCE OWAT Sodium, P 142 135 - 145 mmol/L 03/23/2022 1:45 PM SALES AGENT INSURANCE OWAT Chloride, P 107 98 - 107 mmol/L 03/23/2022 1:45 PM SALES AGENT INSURANCE OWAT Bicarbonate, P 24 22 - 29 mmol/L 03/23/2022 1:45 PM SALES AGENT INSURANCE OWAT Anion Gap, P 11 7 - 15 03/23/2022 1:45 PM SALES AGENT INSURANCE OWAT BUN (Blood Urea Nitrogen), P 12 6 - 21 mg/dL 03/23/2022 1:45 PM SALES AGENT INSURANCE OWAT Creatinine 0.69 0.59 - 1.04 mg/dL 03/23/2022 1:45 PM SALES AGENT INSURANCE OWAT Estimated GFR (eGFR) >90 >=60 mL/min/BSA 03/23/2022 1:45 PM SALES AGENT INSURANCE OWAT Comment: Estimated GFR calculated using the 2020 CKD_EPI creatinine equation. Calcium, Total, P 9.2 8.6 - 10.0 mg/dL 03/23/2022 1:45 PM SALES AGENT INSURANCE OWAT Glucose, P 90 70 - 140 mg/dL 03/23/2022 1:45 PM SALES AGENT INSURANCE OWAT Blood (Blood, Venous) 03/23/2022 7:42 AM SALES AGENT INSURANCE 03/23/2022 11:15 AM SALES AGENT INSURANCE us Albania Salcido M.D. LAB BLOOD ADD-ON Final Resul t [facility] [address] [place] [address], [facility] OWAT [facility] [place] [address] [place] [address] * ThinPrep w/HPV Co-Test Diagnostic (06/23/2020 1:52 PM SALES AGENT INSURANCE) 06/29/2020 2:31 PM CDT DTL Report electronically signed by DOUG Mercer(ASCP) I verify that I have examined all [...] 2:31 PM CDT DTL Interpretation Cervical/Endocervi maine (ThinPrep): Satisfactory for Evaluation Endocervical/trans formation zone components absent Negative for Intraepithelial Lesion or Malignancy High Risk HPV testing results are NEGATIVE. See specific genotype results below. HPV with Genotyping, PCR, ThinPrep: HPV High Risk Type 16, PCR: NEGATIVE HPV High Risk Type 18, PCR: NEGATIVE HPV other High Risk types, PCR: NEGATIVE Other High Risk HPV types include: 31, 33, 35, 39, 45, 51, 52, 56, 58, 59, 66, and 68. 06/29/2020 2:31 PM CDT DTL Varies (Cervix/Endocerv ix) 06/23/2020 1:52 PM SALES AGENT INSURANCE 06/23/2020 6:33 PM SALES AGENT INSURANCE Vickie Linton APRN, C.N.P., M.P.H., M.S.N. LAB P AP PATHDX ORDERABLES Final Result [facility] [address] [place] [address], [facility] [address] [place] [address] * HIV-1/-2 Ag and Ab Scrn, Plasma (12/21/2019 12:40 PM CDT) HIV-1/-2 Ag and Ab Scrn, P Negative Negative 12/21/2019 6:15 PM CDT [facility] Comment: Negative result does not rule out HIV infection. If exposure to HIV infection occurred <14 days ago, contact the laboratory to request addition of HIV-1 RNA detection / quantification test (HIVQN). Blood (Blood, Venous) 12/21/2019 12:40 PM CDT 12/21/2019 5:24 PM CDT us Ursula Richard APRN.NMattP., M.P.H., M.S.N. LAB MICROBIOLOGY - BLOOD ORDERABLES Final Result [facility] [address] [place] [address] [facility] Dept. of Laboratory Medicine and Pathology [address] [place] [address] from Last 3 Months or Most Recently Relevant to Health Maintenance Advance Directives For more information, please contact: [phone] * Full Code (Latest Code Status on File) Date Activated Date Inactivated Comments 06/05/2020 3:24 AM 06/05/2020 6:24 PM Question Answer Comments Full Code: Discussed Care Teams Squad Boss Relationship Specialty Start Date End Date Albania Salcido M.D. NPMichael: [phone] [address] [place] [address] [place] [phone] PCP - General Family Medicine 07/07/22
--- OUTSIDE RECORDS SUMMARY | 2024-03-16 11:27 | XMS_ITS | Encounter Summary ---
Author Organization [facility] Address [address] [place] [address] Care Team Providers Care In Store Demonstrator Name Role Phone Albania Salcido M.D. Primary Care Provider + [phone] Encounter Details Date Type Department Care Team ([facility] st Contact Info) Description 02/01/2024 CPAP Download Remote Patient Monitoring [facility] [address] [place] [address] [facility], Provider, Social History Tobacco Use Types Packs/Day Years [...] often do you attend chur ch or buddhist services? 1 to 4 times per year [...] Answer Date Recorded PHQ-2 Score 3 09/23/2022 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 [address] [place] [address] [place] [phone] PCP - General Family Medicine 07/07/22 documented as of this encounter
--- OUTSIDE RECORDS SUMMARY | 2024-03-16 11:27 | XMS_ITS | Encounter Summary ---
[facility] Address [address] [place] [address] Care Team Providers Care Forge Hand Name Role Phone Albania Salcido M.D. Primary Care Provider + [phone] Reason for Referral * Outpatient (Routine) - Authorized Specialty Diagnoses / Procedures Referred By Contac t Referred To Contact Clinical Genomics Diagnoses Infarction Spleen Embolus Pulmonary Personal History Angelica Sanon M.D. [address] [place] [address] Phone: tel: fax: [facility] Referral ID Status Reason Start Date Expiration Date V isits Requested Visits Authorized [id number] Authorized 03/13/2024 09/12/2025 1 1 TY SALES ASSISTANT Encounter Details Date Type Department Care Team (Late st Contact Info) Description 03/13/2024 [facility] [place] [facility] [address] [place] [address] Angelica Sanon M.D. [address] [place] [address] Infarction Spleen (Primary Dx); Embolus Pulmonary Personal History Social History Tobacco Use Types Packs/Day Years [...] How often do you attend chur or methodist services? 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 Not on file Not on file documented as of this encounter Plan of Treatment Scheduled Referrals Name Type Priority Associated Diagnoses Orde r Schedule Medical Genetics Referral Outpatient Referral Routine Infarction Spleen Embolus Pulmonary Personal History Expected: 03/13/2024 (Approximate), Expires: 06/13/2025 documented as of this encounter Visit Diagnoses Diagnosis Infarction Spleen- Primary Embolus Pulmonary Personal History documented in this encounter Additional Health Concerns Assessment Noted Time PHQ-9 Depression Total Score: 10 09/23/2 023 3:46 PM CDT documented as of this encounter Care Teams Forge Hand Relationship Specialty Start Date End Date Albania Salcido M.D. [address] [place] [phone] PCP - General Family Medicine 07/07/22 documented as of this encounter
--- OUTSIDE RECORDS SUMMARY | 2024-03-16 11:27 | XMS_ITS | Clinical Summary ---
Author Organization [facility] Address [address] [place] [address] Care Team Providers Care Slat Grader Name Role Phone Albania Salcido M.D. Primary Care Provider + [phone] Source Comments Patient records contain information from all sites at [facility]. For routine questions regarding patient records, call [phone] during business hours, M-F 8:00 AM - 5:00 PM Central Time. Record requests for emergency care only can be directed to [phone] at any time.[facility] Allergies Active Allergy Reactions Criticality Noted Date [...] to delivery. Order is in. Delivery service: [facility] Partner name: Marcel Pertinent medical [...] Date Type Department Care Team Description 03/13/2024 [facility] Orders [facility] [address] [place] [address] Angelica Sanon M.D. Infarction Spleen (Primary Dx); Embolus Pulmonary Personal History 03/03/2024 CPAP Download Remote Patient Monitoring [facility] [address] [place] [address] [facility], ProviderMD 02/01/2024 CPAP Download Remote Patient Monitoring [facility] [address] [place] [address] [facility], ProviderMD 01/01/2024 CPAP Download Remote Patient Monitoring [facility] [address] [place] [address] [facility], ProviderMD 12/20/2023 Orders Only [facility] PCP TH Albania Waterman M.D. Monitoring For Therapeutic Drug Therapy from Last 3 Months Immunizations Name Administration [...] 2 Phong Camron Asthma Brother 2 Phong Lyon Out grew Clotting disorder Brother 2 Phong Camron Coronary artery disease Brother 2 Phong Camron Depression Brother 2 Phong Camron Diabetes Brother 2 Phong Liovan Type 1 Coronary artery disease Father Himanshu [...] Status Comments Brother 1 Brother 2 Phong Loyn Father Himanshu Lyon Father's Brother Karthik Lyon [...] PHQ-2 Score 3 09/23/2022 [facility] - Occupational Stress Questionnaire Answer Date [...] Sex Assigned at Female 04/24/2017 7:40 PM MISSILE INSPECTOR PREFLIGHT Legal Sex Female 10:30 AM MISSILE INSPECTOR PREFLIGHT Gender Identity Female 04/24/2017 7:40 PM MISSILE INSPECTOR PREFLIGHT Sexual Orientation Straight 04/24/2017 7: 40 PM MISSILE INSPECTOR PREFLIGHT 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 Not on file Not [...] Last Done Comments Hepatitis C Screening 1988 IPV Vaccines (4 of 4 - 4-dos e series) 08/13/1993 08/13/1993, 09/05/1989, 1988, Additional history exists Depression Monitoring (PHQ-9) 01/23/2023 09/23/2022 Depression Monitoring (PHQ-9 for quality tracking) 04/18/2023 Cervical/Vaginal Cancer Screening 06/24/2023 06/23/2020, 06/23/2020, 09/27/2017, Additional history exists Asthma Action Plan 09/24/2023 09/23/2022, 0 11/20/2018, 01/10/2017, Additional history exists Asthma Control Test Questionnaire 09/24/2023 09/23/2022, 01/10/2017, 01/20/2016 Asthma Management/Exacerbati on Questionnaire (AMQ/AEQ) 09/24/2023 09/23/2022 COVID-19 Vaccine (2023-2 5 season) 2023 12/16/2020, 11/24/2020 Influenza Vaccine (#1) 2024 , 02/04/2022, 02/05/2021, Additional history exists Creatinine Level (Kidney Fun ction Test) 10/28/2024 10/29/2023, 10/27/2023, 10/26/2023, Additional history exists Potassium Level 10/28/2024 10/29/2023, 10/16, 10/26/2023, Additional history exists Sodium Level 10/28/2024 10/29/2023, 10/16, 10/26/2023, Additional history exists Lipid (Cholesterol) Screening 03/23/2027, 10/31/2015, 11/13/2012 DTaP,Tdap,and Td Vaccines (8 - Td or Tdap) 04/16/2030 04/16/2020, 11/10/2012, 10/18/2003, Additional history exists HPV Vaccines Completed 12/22/2006, 09/2006, 09/06/2006, Additional history exists HIV Screening Completed 12/21/2019 Hepatitis B Vaccines Completed 07/14/2022, 06/02/2011, 01/06/2011, Additional history exists Pneumococcal vaccine (0-64 years) Completed 023, 11/08/2012 Medical Devices Implanted Type Area Ict Trainer Device Identifier Shelf Expiration Date Model / Serial / Lot Intrauterine Device-04/07/20 22 Implanted:04/07 (Quantity not on file) Intrauterine Device Uterus Procedures Procedure Name Priority Date/Time Associated Diagnosis Comments LIPID PANEL, S Routine 03/23/2022 7:42 AM MISSILE INSPECTOR PREFLIGHT Screening Mammogram Breast Cancer BASIC METABOLIC PANEL, S/P Routine 03/23/2022 7:42 AM MISSILE INSPECTOR PREFLIGHT Menorrhagia THINPREP W/HPV CO-TEST DIAGNOSTIC Routine 06/23/2020 1:52 PM MISSILE INSPECTOR PREFLIGHT Pap Smear Examination HIV-1/-2 AG AND AB SCRN, PLASMA Routine 12/21/2019 12:40 PM CDT High Risk from Last 3 Months or Most Recently Relevant to Health Maintenance Results * (ABNORMAL) Lipid Panel (03/23/2022 7:42 AM MISSILE INSPECTOR PREFLIGHT) Triglycerides 120 mg/dL 03/23/2022 1:45 PM MISSILE INSPECTOR PREFLIGHT OWAT Comment: ----REFERENCE VALUE---- Normal: <150 mg/dL Borderline High: 150-199 mg/dL High: 200-499 mg/dL Very High: > or =500 mg/dL Cholesterol, Total 133 mg/dL 2021 1:45 PM MISSILE INSPECTOR PREFLIGHT OWAT Comment: ----REFERENCE VALUE---- Desirable: < 200 mg/dL Borderline High: 200 - 239 mg/dL High: > or = 240 mg/dL Cholesterol, LDL, Calculated 83 mg/dL 03/23/2022 1:45 PM MISSILE INSPECTOR PREFLIGHT OWAT Comment: ----REFERENCE VALUE---- Desirable: <100 mg/dL Above Desirable: 100-129 mg/dL Borderline High: 130-159 mg/dL High: 160-189 mg/dL Very High: >=190 mg/dL ----ADDITIONAL INFORMATION---- LDL cholesterol calculated using the Rojo/NIH equation. Cholesterol, HDL 28(L) >=50 mg/dL 03/23/20 1:45 PM MISSILE INSPECTOR PREFLIGHT OWAT Cholesterol, Non-HDL, Calculated 105 mg/dL 03/23/2022 1:45 PM MISSILE INSPECTOR PREFLIGHT OWAT Comment: ----REFERENCE VALUE---- Desirable: <130 mg/dL Above Desirable: 130-159 mg/dL Borderline High: 160-189 mg/dL High: 190-219 mg/dL Very High: > or =220 mg/dL Fasting (8 HR or more) Yes 03/23/2022 11:15 AM MISSILE INSPECTOR PREFLIGHT OWAT Blood (Blood, Venous) 03/23/2022 7:42 AM MISSILE INSPECTOR PREFLIGHT 03/23/2022 11:15 AM MISSILE INSPECTOR PREFLIGHT us Albania Salcido M.D. LAB BLOOD ADD-ON Final Resul t [facility] [address], [place] [address], [facility] OWAT [facility] [place] [address] [place] [address] * Basic Metabolic Panel (03/23/2022 7:42 AM MISSILE INSPECTOR PREFLIGHT) Potassium, P 4.0 3.6 - 5.2 mmol/L 03/23/2022 1:45 PM MISSILE INSPECTOR PREFLIGHT OWAT Sodium, P 142 135 - 145 mmol/L 03/23/2022 1:45 PM MISSILE INSPECTOR PREFLIGHT OWAT Chloride, P 107 98 - 107 mmol/L 03/23/2022 1:45 PM MISSILE INSPECTOR PREFLIGHT OWAT Bicarbonate, P 24 22 - 29 mmol/L 03/23/2022 1:45 PM MISSILE INSPECTOR PREFLIGHT OWAT Anion Gap, P 11 7 - 15 03/23/2022 1:45 PM MISSILE INSPECTOR PREFLIGHT OWAT BUN (Blood Urea Nitrogen), P 12 6 - 21 mg/dL 03/23/2022 1:45 PM MISSILE INSPECTOR PREFLIGHT OWAT Creatinine 0.69 0.59 - 1.04 mg/dL 03/23/2022 1:45 PM MISSILE INSPECTOR PREFLIGHT OWAT Estimated GFR (eGFR) >90 >=60 mL/min/BSA 03/23/2022 1:45 PM MISSILE INSPECTOR PREFLIGHT OWAT Comment: Estimated GFR calculated using the 2020 CKD_EPI creatinine equation. Calcium, Total, P 9.2 8.6 - 10.0 mg/dL 03/23/2022 1:45 PM MISSILE INSPECTOR PREFLIGHT OWAT Glucose, P 90 70 - 140 mg/dL 03/23/2022 1:45 PM MISSILE INSPECTOR PREFLIGHT OWAT Blood (Blood, Venous) 03/23/2022 7:42 AM MISSILE INSPECTOR PREFLIGHT 03/23/2022 11:15 AM MISSILE INSPECTOR PREFLIGHT us Albania Salcido M.D. LAB BLOOD ADD-ON Final Resul t [facility] [address] [place] [address], [facility] OWAT [facility] [place] [address] [place] [address] * ThinPrep w/HPV Co-Test Diagnostic (06/23/2020 1:52 PM MISSILE INSPECTOR PREFLIGHT) 06/29/2020 2:31 PM CDT DTL Report electronically [...] DTL Varies (Cervix/Endocerv ix) 06/23/2020 1:52 PM MISSILE INSPECTOR PREFLIGHT 06/23/2020 6:33 PM MISSILE INSPECTOR PREFLIGHT Vickie Linton APRN, C.N.P., M.P.H., M.S.N. LAB P AP PATHDX ORDERABLES Final Result Performing Organization Address City/[facility]/ZIP Co de Phone Number [facility] [address] [place] [address], [facility] [address] [place] [address] * HIV-1/-2 Ag and Ab Scrn, Plasma (12/21/2019 12:40 PM CDT) Pathologist [facility] HIV-1/-2 Ag and Ab Scrn, P Negative Negative 12/21/2019 6:15 PM CDT [facility] Comment: Negative result does not rule out HIV infection. If exposure to HIV infection occurred <14 days ago, contact the laboratory to request addition of HIV-1 RNA detection / quantification test (HIVQN). Blood (Blood, Venous) 12/21/2019 12:40 PM CDT 12/21/2019 5:24 PM CDT Ursula Richard APRN.NTimothy., M.P.H., M.S.N. LAB MICROBIOLOGY - BLOOD ORDERABLES Final Result [facility] [address] [place] [address] [facility] [address] [place] [address] from Last 3 Months or Most Recently Relevant to Health Maintenance Advance Directives For more information, please contact: [phone] * Full Code (Latest Code Status on File) Date Activated Date Inactivated Comments 06/05/2020 3:24 AM 06/05/2020 6:24 PM Question Answer Comments Full Code: Discussed Care Teams Slat Grader Relationship Specialty Start Date End Date Albania Salcido M.D. [address] [place] [address] [place] [address] PCP - General Family Medicine 07/07/22
--- OUTSIDE RECORDS SUMMARY | 2024-03-16 11:27 | XMS_ITS | Encounter Summary ---
Author Organization [facility] Address [address] [place] [address] Care Team Providers Care Boatbuilder Apprentice Wood Name Role Phone Albania Salcido M.D. Primary Care Provider + [phone] Encounter Details Date Type Department Care Team ([facility] st Contact Info) Description 01/25/2023 CPAP Download Remote Patient Monitoring [facility] [address] [place] [address] [facility], Provider, Social History Tobacco Use Types [...] often do you attend chur ch or mandaeism services? 1 to 4 times per year 03/24/2022 Do you belong to any clubs o r organizations such as gnosticism groups, unions, fraternal or athletic groups, or [...] Answer Date Recorded PHQ-2 Score 3 09/23/2022 [facility] - Occupational Stress Questionnaire Answer [...] place to sleep or slept in a penitentiary (including now)? 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 [address] [place] [address] [place] [address] PCP - General Family Medicine 07/07/22 documented as of this encounter
--- OUTSIDE RECORDS SUMMARY | 2024-03-16 11:27 | XMS_ITS | Encounter Summary ---
Author Organization [facility] Address [address] [place] [address] Care Team Providers Care Community Cultural Development Officer Name Role Phone Albania Salcido M.D. Primary Care Provider [phone] Encounter Details Date Type Department Care Team (Late st Contact Info) Description 11/14/2003 Historical Ophthalmology [address] O[address] Kyle [address] M.D. [address] [place] [address] Social History Tobacco Use Types Packs/Day Years Used Date Smoking Tobacco: Never Assessed Comments Unknown Sex and Gender Information Value Date Recorded Sex Assigned at Female 04/24/2017 7:40 PM ESTHETICIAN Legal Sex Female 10:30 AM ESTHETICIAN Gender Identity Female 04/24/2017 7:40 PM ESTHETICIAN Sexual Orientation Straight 04/24/2017 7: 40 PM ESTHETICIAN documented as of this encounter Progress Notes [...] accommodative esotropia CDM Reports - EYEGEN Id: [id number] Status: Fnl documented in this encounter Plan of Treatment Not on file documented as of this encounter Visit Diagnoses Not on filedocumented in this encounter Additional Health Concerns Infection Onset Date Last Indicated Resolved Time COVID19 Pending 05/05/2020 05/05/2020 05/06/2020 1 2:51 AM ESTHETICIAN COVID19 Pending 05/07/2020 05/07/2020 05/07/2020 1 1:19 PM ESTHETICIAN COVID19 Pending 06/05/2020 06/05/2020 06/05/2020 4 :44 AM ESTHETICIAN COVID19 Pending 11/12/2020 11/13/2020 11/13/2020 8 :51 PM CDT documented as of this encounter Care Teams Community Cultural Development Officer Relationship Specialty Start Date End Date Albania Salcido M.D. [address] [place] [phone] PCP - General Family Medicine 07/07/22 documented as of this encounter
--- OUTSIDE RECORDS SUMMARY | 2024-03-16 11:27 | XMS_ITS | Encounter Summary ---
Author Organization [facility] Address [address] [place] [address] Care Team Providers Care Seismic Observer Name Role Phone Albania Salcido M.D. Primary Care Provider + [phone] Encounter Details Date Type Department Care Team ([facility] st Contact Info) Description 12/01/2023 CPAP Download Remote Patient Monitoring [facility] [address] [place] [address] [facility], Provider, Social History Tobacco Use Types [...] often do you attend chur ch or mandaen services? 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 [address] [place] [address] [place] [address] PCP - General Family Medicine 07/07/22 documented as of this encounter
--- OUTSIDE RECORDS SUMMARY | 2024-03-16 11:27 | XMS_ITS | Encounter Summary ---
Author Organization [facility] Address [address] [place] [address] Care Team Providers Care Department Helper Name Role Phone Albania Salcido M.D. Primary Care Provider + [phone] Encounter Details Date Type Department Care Team ([facility] st Contact Info) Description 03/03/2024 CPAP Download Remote Patient Monitoring [facility] [address] [place] [address] [facility], Provider, Social History Tobacco Use Types [...] often do you attend chur ch or roman catholic services? 1 to 4 times per year 03/24/2022 Do you belong to any clubs o r organizations such as roman catholic groups, unions, fraternal or athletic groups, or [...] Answer Date Recorded PHQ-2 Score 3 09/23/2022 [facility] - Occupational Stress Questionnaire Answer Date [...] place to sleep or slept in a correction (including now)? 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 [address] [place] [address] [place] [address] PCP - General Family Medicine 07/07/22 documented as of this encounter
--- OUTSIDE RECORDS SUMMARY | 2024-03-16 11:27 | XMS_ITS | Encounter Summary ---
Author Organization [facility] Address [address] [place] [address] Care Team Providers Care Polygraph Technician Name Role Phone Albania Salcido M.D. Primary Care Provider + [phone] Encounter Details Date Type Department Care Team (Late st Contact Info) Description 01/01/2024 CPAP Download Remote Patient Monitoring [facility] [address] [place] [address] [facility], Provider, Social History Tobacco Use Types [...] often do you attend chur ch or yazdanism services? 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 [address] [place] [address] [place] [address] PCP - General Family Medicine 07/07/22 documented as of this encounter
--- OUTSIDE RECORDS SUMMARY | 2024-03-16 11:27 | XMS_ITS | Encounter Summary ---
Author Organization [facility] Address [address] [place] [address] Care Team Providers Care Combined Rail Operator Name Role Phone Albania Salcido M.D. Primary Care Provider + [phone] Reason for Referral * Outpatient (Routine) - Authorized Specialty Diagnoses / Procedures Referred By Contmaury t Referred To Contact Family Medicine Albania Salcido M.D. [address] [place] [address] Phone: tel: fax: [facility] Referral ID Status Reason Start Date Expiration Date V isits Requested Visits Authorized [id number] Authorized 12/20/2023 06/20/2025 1 1 Encounter Details Date Type Department Care Team (Late st Contact Info) Description 12/20/2023 Orders Only [facility] Albania Salcido M.D. [address] [place] [address] Monitoring For Therapeutic Drug Therapy [...] week 03/24/2022 How often do you attend [facility] or catholic services? 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 NPMichael: [phone] [address] [place] [phone] PCP - General Family Medicine 07/07/22 documented as of this encounter
--- OUTSIDE RECORDS SUMMARY | 2024-03-16 11:27 | XMS_ITS | Encounter Summary ---
Author Organization [facility] Address [address] [place] [address] Care Team Providers Care Inflatable Buildings Laminator Name Role Phone Albania Salcido M.D. Primary Care Provider + [phone] Reason for Visit * Reason Comments Annual Exam * Appointment Request (Routine) - Closed Specialty Diagnoses / Procedures Referred By Laly sharma Referred To Contact Family Medicine Referral ID Status Reason Start Date Expiration Date Visits Re quested Visits Authorized [id number] Closed 09/21/2022 09/21/2023 1 1 Encounter Details Date Type Department Care Team (Late st Contact Info) Description 09/23/2022 4:00 PM CDT Office Visit Department of Family Medicine, [facility], in [place], [place] [address] [place] [address] Albania Salcido M.D. [address] [place] [address] Anemia (Primary Dx); Hypothyroidism; Anxiety Generalized Disorder; Depression Major Recurrent Mild (HCC); Asthma Chronic Mild (HCC); Apnea Sleep Obstructive; Embolus Pulmonary Personal History; Well Adult Examination Normal; Obesity Body Mass Index 30-39.9 Adult Social History Tobacco Use Types Packs/Day Years [...] week 03/24/2022 How often do you attend [facility] or zoroastrian services? 1 to 4 times per year 03/24/2022 Do you belong to any clubs o r organizations such as christianity groups, unions, fraternal or athletic groups, or [...] 3 09/23/2022 [facility] - Occupational [...] place to sleep or slept in a custodial (including now)? 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 - 09/23/2022 4:00 PM CDT SUBJECTIVE CHIEF COMPLAINT / REASON FOR VISIT Annual Exam HISTORY OF PRESENT ILLNESS Mona David is a 32 y.o. female with past medical history significant for depression, anxiety, asthma, hypothyroidism, PE on OCPs in 2012 currently on Xarelto, anemia, PCOS, obesity, abnormal uterine bleeding, obstructive sleep apneawho presents today for Annual Exam. Patient has no concern today. She has history of recurrent provoked pulmonary embolism. She was on Xarelto for sometimes. She has been taken off Xarelto by Hematology. She would like to explore weight management options including G LP 1 medications. She has history of dysfunctional uterine bleeding, parmjit was placed in March. She has been experiencing light periods. She is . Declined STD concern. Denies smoking cigarette, drinking alcohol or using any recreational drugs. She has been walking and trying to keep routine schedule. REVIEW OF SYSTEMS REVIEW OF SYSTEMS Pertinent positive ROS are listed above in HPI. Current Outpatient Medications: albuterol (Ventolin HFA) inhaler, Inhale 2 puffs every 4 (four) hours as needed for wheezing or shortness of breath., Disp: 1 Inhaler, Rfl: 11 busPIRone (BUSPAR) 5 mg tablet, TAKE 1 TABLET BY MOUTH TWO TIMES A DAY, Disp: 180 tablet, Rfl: 3 DME CPAP, DME Order, Disp: 1 each, Rfl: 11 erythromycin with ethanol (for_THERAMYCIN) 2 % external solution, as needed. , Disp: , Rfl: escitalopram (LEXAPRO) 10 mg tablet, TAKE 1 TABLET BY MOUTH DAILY, Disp: 90 tablet, Rfl: 3 fexofenadine (YOLANDA) 180 mg tablet, Take 1 tablet (180 mg total) by mouth daily as needed for allergies., Disp: 30 tablet, Rfl: 11 levonorgestreL (MIRENA) 20 mcg/24 hours (8 yrs) 52 mg IUD, 1 each by intrauterine route continuously., Disp: , Rfl: levothyroxine (SYNTHROID, LEVOTHROID) 175 mcg tablet, TAKE 1 TABLET BY MOUTH EVERY MORNING BEFORE BREAKFAST, Disp: 90 tablet, Rfl: 3 loperamide (for_IMODIUM) 2 mg capsule, Take 2 mg by mouth 4 (four) times a day as needed., Disp: , Rfl: miconazole (MICATIN) 2 % cream, Apply 1 application topically 2 (two) times a day as needed for itching., Disp: 28.35 g, Rfl: 3 POLYETHYLENE GLYCOL 3350 ORAL, Take 17 g by mouth as needed. , Disp: , Rfl: sennosides (SENOKOT) 8.6 mg tablet, Take 2 tablets (17.2 mg total) by mouth at bedtime as needed for constipation., Disp: , Rfl: ALLERGIES Cefaclor and Menthol PAST MEDICAL HISTORY Past Medical History: Diagnosis Date Amblyopia Bilateral 1990 Amenorrhea 07/14/2013 Amenorrhea, secondary Anxiety Generalized Disorder 01/26/2021 Apnea Sleep Obstructive 11/01/2018 Asthma Mild Intermittent (HCC) 07/14/2013 Asthma, Unspecified Mild persistent asthma Asthma NOS Embolus Pulmonary (HCC) 09/12/2013 Other Pulmonary Embolism and Infarction Was on OCP. 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 OTHER CONVERTED SHX (SEE COMMENT) N/A 01/10/1995 >Recession of medial rectus muscle (3 mm), both eyes. Farden procedure, medial rectus muscle of both eyes OTHER SURGICAL HISTORY 1999 Eye surgery as a child ORDER ENTRY SPECIALIST HISTORY No LMP recorded. FAMILY HISTORY Family History Problem Relation Age of Onset Incontinence Mother Polycystic ovarian disease Mother Thyroid cancer Father Coronary artery disease Father Heart attack Father Hyperlipidemia Father Diabetes Father Type 2 Thyroid disease Father Hypothyroidism & thyroid cancer Sleep apnea Father Depression Father Obesity Father Diabetes type I Brother Coronary artery disease Brother Heart attack Brother Peripheral vascular disease Brother Coronary artery disease Brother Diabetes Brother Type 1 Asthma Brother Out grew Alcohol abuse Brother Depression Brother Clotting disorder Brother Alcohol abuse Father's Sister Alcohol abuse Father's Brother Drug abuse Father's Brother SOCIAL HISTORY Social History Socioeconomic History Marital status: Spouse name: [phone] Marcel Number of children: Not on file Years of education: 14 Highest education level: Associate degree: occupational, technical, or vocational program Occupational History Occupation: [employer] Tobacco Use Smoking status: Former Packs/day: 0.50 Years: 2.00 Pack years: 1.00 Types: Cigarettes Start date: 04/18/2006 Quit date: 04/18/2008 Years since quittin.4 Smokeless tobacco: Never Substance and Sexual Activity Alcohol use: Yes Alcohol/week: 1.0 standard drink of alcohol Types: 1 Glasses of wine per week Comment: Twice monthly Drug use: No Sexual activity: Yes Partners: Male control/protection: None Other Topics Concern Not on file Social History Narrative Not on file Social Determinants of Health Financial Resource Strain: Low Risk (03/24/2022) Overall Financial Resource Strain (CARDIA) Difficulty of Paying Living Expenses: Not hard at all Food Insecurity: No Food Insecurity (03/24/2022) Hunger Vital Sign Worried About Running Out of Food in the Last Year: Never true Ran Out of Food in the Last Year: Never true Transportation Needs: No Transportation Needs (03/24/2022) PRAPARE - Transportation Lack of Transportation (Medical): No Lack of Transportation (Non-Medical): No Physical Activity: Insufficiently Active (03/24/2022) Exercise Vital Sign Days of Exercise per Week: 2 days Minutes of Exercise per Session: 20 min Intimate Partner Violence: Not At Risk (03/24/2022) Humiliation, Afraid, Rape, and Kick questionnaire Fear of Current or Ex-Partner: No Emotionally Abused: No Physically Abused: No Sexually Abused: No Housing Stability: Low Risk (03/24/2022) Housing Stability Vital Sign Unable to Pay for Housing in the Last Year: No Number of Places Lived in the Last Year: 1 Unstable Housing in the Last Year: No OBJECTIVE BP 115/78 (BP Location: Left arm, Patient Position: Sitting, Cuff Size: Large) Pulse 79 Temp 36.2 ??C (Temporal) Resp 18 Ht 159 cm Wt 100 kg BMI 39.56 kg/m?? PHYSICAL EXAMINATION General: Alert, pleasant female appearing in no acute distress. Neuro: Oriented x 3, responds appropriately to questions and follows commands without difficulty. Pupils equal and reactive to light. Cranial nerves II-XII grossly intact. EOMs intact. Muscle tone and strength normal and equal bilaterally without weakness or involuntary movements. Sensation intact to light touch in all extremities. Head: Normocephalic, atraumatic. Eyes: Sclerae clear without injection, conjunctivae without drainage, erythema or matting. MOON. Ears: Normal auditory canals and external ears. Tympanic membranes pearly bilaterally. Nontender. Oropharynx: Moist and pink without exudate. Normal buccal mucosa. Dental hygiene adequate. Neck: Supple without lymphadenopathy. No thyromegaly or carotid bruits. Heart: Normal S1, S2 with regular rate and rhythm. No murmurs, rubs, or clicks heard. Lungs: Clear to auscultation bilaterally posteriorly without rhonchi, wheezes, or crackles. No cough on exam today. Respirations are easy and unlabored. Breasts: breasts appear normal, no suspicious masses, no skin or nipple changes or axillary nodes. Abdomen: Soft, nondistended, nontender to palpation without palpable masses or organomegaly. Genitourinary: Deferred Musculoskeletal: Back is straight and non-tender, full range of motion of upper and lower extremities. Feet: Good pedal pulses, no lesions, nail hygiene good. Extremities: No upper or lower extremity edema or cyanosis. Skin: Warm and dry without rashes on the visible areas. Psychiatric: Appropriate mood and affect. Makes good eye contact. Dressed appropriately. Contributes meaningfully to conversation. ASSESSMENT / PLAN #1 Well Adult Examination Normal Preventive measurements discussed with the patient. Immunization up-to-date. Pap smear will be due in 2023. Screening for diabetes and hyperlipidemia are up-to-date. #2 Anxiety Generalized Disorder - busPIRone (BUSPAR) 5 mg tablet; TAKE 1 TABLET BY MOUTH TWO TIMES A DAY, Starting Megan 09/23/2022, Until Tue09/23/2023, Normal #3 Depression Major Recurrent Mild (HCC) - escitalopram (LEXAPRO) 10 mg tablet; TAKE 1 TABLET BY MOUTH DAILY, Starting Megan 09/23/2022, Until Tue09/23/2023, Normal Doing very well on Lexapro 10 mg and BuSpar 5 mg daily. Contracted safety. #4 Anemia - CBC with Differential, Blood; Future; Expected date: 09/23/2022 History of anemia secondary to dysfunctional uterine bleeding. We will check her CBC today. #5 Asthma Chronic Mild (HCC) Mild intermittent asthma. Only on albuterol as needed. She has been rarely using albuterol. #6 Apnea Sleep Obstructive - DME CPAP #7 Embolus Pulmonary Personal History Off anticoagulation. #8 Hypothyroidism - levothyroxine (SYNTHROID, LEVOTHROID) 175 mcg tablet; TAKE 1 TABLET BY MOUTH EVERY MORNING BEFOREBREAKFAST, Starting Megan 09/23/2022, Until Tue09/23/2023, Normal TSH was normal in March. Continues levothyroxine 175 mcg daily. #9 Obesity Body Mass Index 30-39.9 Adult Lengthy discussion regarding her weight management. She reported her father had history of thyroid cancer, unsure about the type of cancer. I strongly advised to avoid using any G LP 1 medications atthis time given the unclear history. We had lengthy discussion regarding low carb diet, intermittent fasting to help with his insulin resistant. Also encouraged exercising at least 5 times a week. Other orders - PCV20: pneumococcal conjugate vaccine (19 years and older) Albania Salcido M.D. documented in this encounter Plan of Treatment Not on file documented as of this encounter Results * (ABNORMAL) CBC with Differential, Blood (09/23/2022 4:52 PM CDT) Hemoglobin 11.1(L) 11.6 - 15.0 g/dL 09/23/2022 4:56 PM CDT FB60 Hematocrit 38.4 35.5 - 44.9 % 09/23/2022 4:56 PM CDT FB60 Erythrocytes 4.88 3.92 - 5.13 x10(12)/L 09/23/2022 4:56 PM CDT FB60 MCV 78.7 78.2 - 97.9 fL 09/23/2022 4:56 PM CDT FB60 RBC Distrib Width 16.1 12.2 - 16.1 % 09/23/2022 4:56 PM CDT FB60 Platelet Count 316 157 - 371 x10(9)/L 09/23/2022 4:56 PM CDT FB60 Leukocytes 8.2 3.4 - 9.6 x10(9)/L 09/23/2022 4:56 PM CDT FB60 Neutrophils 5.34 1.56 - 6.45 x10(9)/L 09/23/2022 4:56 PM CDT FB60 Lymphocytes 1.86 0.95 - 3.07 x10(9)/L 09/23/2022 4:56 PM CDT FB60 Monocytes 0.63 0.26 - 0.81 x10(9)/L 09/23/2022 4:56 PM CDT FB60 Eosinophils 0.32 0.03 - 0.48 x10(9)/L 09/23/2022 4:56 PM CDT FB60 Basophils 0.04 0.01 - 0.08 x10(9)/L 09/23/2022 4:56 PM CDT FB60 Blood (Blood, Venous) 09/23/2022 4:52 PM CDT 09/23/2022 4:52 PM CDT us Albania Salcido M.D. LAB BLOOD ADD-ON Final Resul t [facility] [address] [place] [address], [facility] FB60 [facility] [place] [address] [place] [address] documented in this encounter Visit Diagnoses Diagnosis Anemia- Primary Hypothyroidism Anxiety Generalized Disorder Depression Major Recurrent Mild (HCC) Asthma Chronic Mild (HCC) Apnea Sleep Obstructive Embolus Pulmonary Personal History Well Adult Examination Normal Obesity Body Mass Index 30-39.9 Adult documented in this encounter Additional Health Concerns Assessment Noted Time PHQ-9 Depression Total Score: 10 09/23/ 023 3:46 PM CDT documented as of this encounter Care Teams Inflatable Buildings Laminator Relationship Specialty Start Date End Date Albania Salcido M.D. [address] [place] [address] PCP - General Family Medicine 07/07/22 documented as of this encounter
--- OUTSIDE RECORDS SUMMARY | 2024-03-16 11:27 | XMS_ITS | Clinical Summary ---
Author Organization [facility] Address [place], [place] [address] Care Team Providers Care Filler Wiper Name Role Phone Pcp, No Primary Care [...] PCOS (polycystic ovarian syndrome) 03/22/2014 Hypothyroidism 03/22/2014 Family History Medical History Relation Name Comments [...] 71 11/01/2023 8:00 AM CDT Temperature 36.7 C (98.1 F) 11/01/2023 8:00 AM CDT Respiratory Rate 18 11/01/2023 8:00 AM CDT [...] Procedure Name Priority Date/Time Associated Diagnosis Comments ANTI HIV 1/2 DILLON 10/20/2023 4:49 AM CDT LEATHER PRODUCTION WORKER THIN PREP PAP SCREEN IMAGED Routine 03/22/2014 10:15 AM AUTO MOTOR MECHANIC Well woman exam from Last 3 Months or Most Recently Relevant to Health Maintenance Results * ANTI HIV 1/2 (10/20/2023 4:49 AM CDT) HIV-1/HIV-2 SCREEN Non-Reacti ve Non-Reacti ve 10/20/2023 10:29 PM CDT [facility] Comment:HIV-1 p24 and HIV-1/ HIV-2 Ab Not Detected. Blood BLOOD SPECIMEN / Unknown Venipuncture / Unknown 10/20/2023 4:49 AM CDT 10/20/2023 5:10 AM CDT Ingris Crespo MD SEND OUT[facility] [address] [place] [address], * LEATHER PRODUCTION WORKER THIN PREP PAP SCREEN IMAGED (03/22/2014 10:15 AM AUTO MOTOR MECHANIC) LEATHER PRODUCTION WORKER CYTOLOGY See Anatomic Pathology case 03/27/2014 5:04 PM AUTO MOTOR MECHANIC [facility] Specimen (specimen) (Cervical/Vagina l) Non-Blood / Unknown 03/22/2014 10:15 AM AUTO MOTOR MECHANIC 03/22/2014 4:26 PM AUTO MOTOR MECHANIC Vivian Hair MD PATHOLOGY/CY TOLOGY [facility] [address] [place] [address], from Last 3 Months or Most Recently Relevant to Health Maintenance Advance Directives * Full Code (Latest Code Status on File) Date Activated Date Inactivated Comments 10/14/2023 5:43 AM 11/01/2023 6:39 PM Question Answer Comments Code Status Discussion: Reviewed Preferences Care Teams Filler Wiper Relationship Specialty Start Date End Date Pcp, No . PCP - General 11/17/18 Pcp, No . 11/17/18
== END 2024-03-16 11:24 | disposition home or self-care (01) ==
PROVIDERS: PCP Family Medicine; Visit Provider Registered Nurse
DX: N39.41 Urge incontinence (principal)
CPT/HCPCS: 87086

== ENCOUNTER 2024-03-16 11:28 | Outpatient (CLI) | payer OTHER, SELFPAY ==
--- NOTE | 2024-03-16 11:33 | CRLHL7_ITS ---
For Patients: As a result of the Century Cures Act, medical imaging exams and procedure reports are released immediately into your electronic medical record. You may view this report before your referring provider. If you have questions, please contact your health care provider. CLINICAL HISTORY: DISPLACEMENT OF IUD TECHNIQUE: 2D vieira scale and color Doppler images were acquired of the pelvis using a transvaginal approach. Comparison 04/07/2022 FINDINGS: section scar noted. IUD is present with the distal aspect located within the section scar. IUD strings are present in the lower uterine segment. Uterus measures 8.5 x 3.8 x 5.0 cm. The left ovary measures 3.3 x 1.8 x 1.9 cm in size and the right ovary measures 3.6 x 1.9 x 2.0 cm. The ovaries demonstrate normal arterial and venous blood flow on color Doppler analysis. There are no suspicious fluid collections within the cul-de-sac. IMPRESSION: IUD strings are present in the lower uterine segment. IUD arms are in good position within the fundal endometrium. Distal aspect of the IUD located within the scar. Dictated by Woo Willoughby MD @ 03/16/2024 12:19:12 PM (Electronically Signed)
== END 2024-03-16 11:29 | disposition home or self-care (01) ==
LOC: US 11:29
PROVIDERS: PCP Family Medicine; Visit Provider Registered Nurse
DX: T83.32XA Displacement of intrauterine contraceptive device, initial encounter (principal); N39.41 Urge incontinence
CPT/HCPCS: 76830

== ENCOUNTER 2025-03-06 12:50 | Outpatient (CLI) | payer OTHER, SELFPAY | END 2025-03-06 12:51 | disposition home or self-care (01) | PROVIDERS: PCP Family Medicine; Visit Provider Family Medicine | DX: E03.9 Hypothyroidism, unspecified (principal); K76.0 Fatty (change of) liver, not elsewhere classified | CPT/HCPCS: 80053; 80061; 84443 ==